=== PATIENT | male | born 1965 | race Caucasian/White ===

== ENCOUNTER 2017-04-13 11:32 | Inpatient (IN) | payer OTHER ==
[~2017-04-13] VITALS: Ht 180.3 cm; Wt 72.6 kg
[~2017-04-13 11:32] MED LIST: ALDACTONE25 MG PO; CARVEDILOL25 MG PO; CARVEDILOL6.25 MG PO; COREG25 MG PO; HYDROCODON-ACE1 EA10 PO; HYDROCODON-ACE1 EACH PO; KEFLEX500 MG PO; LASIX20 MG PO; LOSARTAN POTASS25 MG PO; LOSARTAN POTASS50 MG PO; NORCO 5-325 TA1 EACH PO; PERCOCET 5-3251 EACH PO; SPIRONOLACTONE25 MG PO; SPIRONOLACTONE50 MG PO; WARFARIN SODIU2.5 MG PO; WARFARIN SODIUM5 MG PO
[2017-05-21] MEDS ORDERED: MELOXICAM15 MG PO (11:12)
[2017-05-21] MEDS ORDERED: BUPROPION XL300 MG PO (11:12)
[2017-06-01] MEDS ORDERED: PSEUDOEPHEDRINE30 MG PO (17:12)
--- NOTE | 2017-06-02 07:55 | OR ---
[facility] [address], [place] [address] Signed DATE OF OPERATION: 06/01/2017 SURGEON: Chin Dixon MD PREOPERATIVE DIAGNOSIS: Severe DJD, left hip. POSTOPERATIVE DIAGNOSIS: Severe DJD, left hip. PROCEDURE PERFORMED: Left total hip arthroplasty. SURGEON: Chin Dixon MD ENTRY SPECIALISTS: ALAYNA Lyle was present in critical positioning, retraction, and wound closure. ANESTHESIA: Spinal. BLOOD LOSS: 150 mL. IMPLANTS: [place] Secur-Fit Advanced size 9 stem 60 mm PSL cup and +0 head. BRIEF HISTORY: Erwin is a 51-year-old gentleman with severe osteoarthritis in both hips. He had undergone nonoperative treatment without substantial relief. Risks, benefits, and alternatives of surgery were discussed with him and he elected to proceed. After a time-out was performed in the room, sign your site was performed. The patient was placed on operating room table. After adequate anesthesia, he was placed in the right lateral decubitus position. All downside pressure points were padded. The left hip was prepped and draped in a standard sterile fashion. A 4 inch incision was centered over the greater trochanter, carried through the skin and subcutaneous tissue. The IT band was split longitudinally. The vastus lateralis was split from the tip of the trochanter distally and elevated in a subperiosteal manner around the level of the lesser trochanter. Gluteus medius was split bluntly. Gluteus minimus and capsule were split sharply from the tip of the trochanter to the acetabular rim. This was peeled off the anterior rim. There was extensive effusion, but it looked like normal straw-colored fluid. The hip was then dislocated with some difficulty. Femoral neck cut made one fingerbreadth above the lesser trochanter and the femoral head was removed. Periacetabular soft tissues were removed and the acetabulum was reamed up to a 60. Sixty was found to be well-fitting in 45 degrees of abduction and 20 degrees of anteversion. Electronically Signed By: CHIN DIXON MD 06/02/17 0755 PATIENT NAME: ERWIN COLE OPERATIVE REPORT DATE OF : 67 PHYSICIAN: CHIN DIXON MD REPORT #: [id number] REPORT IS CONFIDENTIAL AND NOT TO BE RELEASED WITHOUT AUTHORIZATION [facility] [address], [place] [address] Signed The cup was impacted into position in this attitude. It was quite well-fitting. No screws were felt to be necessary. The liner was then impacted until it was well-seated. The attention was turned to proximal femur. It was opened using a cookie cutter, followed by the Zuleyma awfransico, sequentially reamed, starting with a six up to a nine and then broached up to a nine to nine, it was found to be well-fitting. The standard offset neck and posterior head were positioned. The hip was reduced. The leg lengths were found to be equal. He had 100 degrees of flexion and 30 degrees of internal, 20 degrees of external rotation. The hip was dislocated and the trials were removed. The final stem was impacted in position and a +0 36 mm head was positioned and impacted. It was again reduced, taken through range of motion and found to be stable. Wound was copiously irrigated with antibiotic solution. A total of 3 L antibiotic irrigation was used. The periarticular soft tissues were injected with 100 mL ropivacaine-Toradol mixture. The capsule was closed using #1 Vicryl. The vastus and IT bands were closed independently using #2 Stratafix, #1 Stratafix for subcutaneous tissue, and rick for the skin. Wound was dressed with Mepilex Ag dressing and op site. He was placed in a hip abduction brace, taken to the recovery room in satisfactory condition. All sponge, needle, and instrument counts were correct. Chin Dixon MD BA/MODL /[id number] cc: Griffin Suero MD Electronically Signed By: CHIN IDXON MD 06/02/17 0755 PATIENT NAME: ERWIN COLE OPERATIVE REPORT DATE OF : 67 PHYSICIAN: CHIN DIXON MD REPORT #: [id number] REPORT IS CONFIDENTIAL AND NOT TO BE RELEASED WITHOUT AUTHORIZATION
[2017-06-03] MEDS ORDERED: XARELTO10 MG PO (11:01)
[2017-06-03] MEDS ORDERED: TAMSULOSIN HCL0.4 MG PO (11:01)
[2017-06-03] MEDS ORDERED: OXYCODONE HCL5 MG PO (11:01)
[2017-06-03] MEDS ORDERED: HYDROMORPHONE HC4 MG PO (11:01)
[2017-06-03] MEDS ORDERED: MIRALAX17 GM PO (11:02)
--- NOTE | 2017-06-08 07:11 | DS ---
[facility] [address] [place], [place] [address] Signed ADMISSION DATE: 06/01/2017 DISCHARGE DATE: 06/03/2017 ADMISSION DIAGNOSIS: DJD, left hip. POSTOPERATIVE DIAGNOSIS: DJD, left hip. PROCEDURE PERFORMED: Left total hip arthroplasty. BRIEF HISTORY: Erwin is a 51-year-old gentleman with severe arthritis of his hip. He had undergone nonoperative treatment without success. Risks, benefits, and alternatives of operative treatment were discussed with him and he elected to proceed. DESCRIPTION OF PROCEDURE: Once consent was obtained, he was taken to the operating room, underwent the above-named procedure. He tolerated this well, was taken to the recovery room and subsequently to the orthopedic floor. He was initially placed on oxycodone and Boswell, however, he was on substantial Boswell prior to surgery. His comment was he took the Boswell like candy before surgery, and so these were insufficient to manage his postoperative pain. We did increase his pain medication to oxycodone 7.5 q.4 hours and Dilaudid 4-12 mg q.4 hours p.r.n. He continued to rate his pain at anywhere from 5-7/10, even though, he was somnolent, his physiologic markers were normal. I think this is likely secondary to his chronic opioid use prior to surgery. He did mobilize well with physical therapy. He was able to go up and down the stairs and up and down the hallway with good safety profile. He will be discharged to home with the above medications. He was on warfarin prior to surgery due to a low ejection fraction. This is documented on most recent studies to be increased to almost normal. I did talk to his PCP, Dr. Suero, and he advised to leave him off of the warfarin postoperatively. We will cover him with our normal DVT prophylaxis using Xarelto 10 mg daily. He was kept on it in the hospital, in addition to SCDs and TEDs. He will be discharged to home with the above and outpatient physical therapy. He will follow up with me in 10-14 days as previously scheduled. Chin Dixon MD Electronically Signed By: CHIN DIXON MD 06/08/17 0711 PATIENT NAME: ERWIN COLE DISCHARGE SUMMARY DATE OF : 67 PHYSICIAN: CHIN DIXON MD REPORT #: [id number] REPORT IS CONFIDENTIAL AND NOT TO BE RELEASED WITHOUT AUTHORIZATION [facility] [address] [place], [place] [address] Signed /UMAIR /[id number] Electronically Signed By: CHIN DIXON MD 06/08/17 0711 PATIENT NAME: ERWIN COLE DISCHARGE SUMMARY DATE OF : 67 PHYSICIAN: CHIN DIXON MD REPORT #: [id number] REPORT IS CONFIDENTIAL AND NOT TO BE RELEASED WITHOUT AUTHORIZATION
== END 2017-06-03 13:25 | disposition home or self-care (01) | DRG 470 ==
LOC: MS 04-20 08:45 → DSVR 06-01 05:50 → MS 06-01 08:45
PROVIDERS: ADMIT Specialist
PROC: 0SRB04Z Replacement of Left Hip Joint with Ceramic on Polyethylene Synthetic Substitute, Open Approach (ICD-10-PCS; principal; 2017-06-01 06:45)
DX: M16.12 Unilateral primary osteoarthritis, left hip (principal); I50.22 Chronic systolic (congestive) heart failure; Z79.01 Long term (current) use of anticoagulants
CPT/HCPCS: 01214; 01996; 36415; 64447; 72170; 76942; 80048; 85025; 85610; 94762; 97110; 97116; 97161; 97165; 97535; C1776; J0690; J0735; J1170; J2250; J2270; J2274; J2704; J3010; J7120

== ENCOUNTER 2017-08-31 14:44 | Observation (INO) | payer OTHER ==
[~2017-08-31] VITALS: Ht 177.8 cm; Wt 75.3 kg
[~2017-08-31 14:44] MED LIST changes: +BUPROPION XL300 MG PO; +HYDROMORPHONE HC4 MG PO; +MELOXICAM15 MG PO; +MIRALAX17 GM PO; +OXYCODONE HCL5 MG PO; +PSEUDOEPHEDRINE30 MG PO; +TAMSULOSIN HCL0.4 MG PO; +XARELTO10 MG PO
[2017-09-16] MEDS ORDERED: NORCO 7.5-3251 EACH PO (15:34)
[2017-09-16] MEDS ORDERED: FUROSEMIDE20 MG PO (15:35)
--- NOTE | 2017-09-16 15:47 | NUR ---
PATIENT HERE TODAY FOR PREADMISSION APPOINTMENT. HE IS SCHEDULED TO HAVE A RIGHT TOTAL HIP REPLACMENT ON 09/28/17. HE STATES HE IS DOING VERY WELL AFTER HAVING HIS LEFT HIP REPLACED IN MAY. HE STILL HAS EVERYTHING FROM HIS LAST SURGERY INCLUDING HIS WALKER, CANE, SHOWER BENCH, HAND HELD SHOWER HEAD AND RAISED TOILET SEAT. HE WOULD LIKE TO HAVE PHYSICAL THERAPY SET UP AT THE [facility] AGAIN SINCE HE HAS RECENTLY BEEN THERE. HIS GIRLFRIEND JUSTA WILL BE THE ONE TO TRANSPORT HIM HOME AND TO APPOINTMENTS. THIS INFORMATION WILL BE SENT TO DR CAMACHO AND ALSO TO CALDERON PLANNING FOR FURTHER FOLLOW UP.
--- NOTE | 2017-09-28 12:10 | NUR ---
09/28/17 1210 Kamla Damon 1201 PT ARRIVED IN PACU SLEEPY. 1210 PT AWAKE TALKING TO STAFF.
--- NOTE | 2017-09-28 13:05 | NUR ---
PATIENT AWAKE AND ALERT IN ROOM. SIGNIFICANT OTHER AT BEDSIDE. ROOM AIR. 96% O2 SATS. 69 HR. EATING ICE CHIPS NOW. TOLERATING SO FAR. PAIN MINIMAL. REPORTS DIFFICULTY WITH PAIN CONTROL AND VOIDING WITH LAST KNEE REPLACEMENT. WILL WATCH CLOSELY.
--- NOTE | 2017-09-28 13:33 | NUR ---
provided jello, ice water, and ice chips. pt tolerating well and encouraged to advance diet as able.
--- NOTE | 2017-09-28 14:06 | NUR ---
PATIENT RESTING IN BED WATCHING TV. RN IN ROOM. NO OTHER NEEDS AT THIS TIME.
--- NOTE | 2017-09-28 15:03 | NUR ---
PT DROWSY. RESTING BETWEEN CARES. PAIN CONTROLLED, BUT REPORTED TO BE INCREASING SLIGHTLY. WILL CONTINUE TO MONITOR.
--- NOTE | 2017-09-28 15:53 | NUR ---
ORDERED PATIENT GRILLED CHEESE AND JELLO FROM KITCHEN. ADVANCING DIET TOLERATING.
--- NOTE | 2017-09-28 16:34 | NUR ---
THIS ENTRY EXAMINER ASSISTED PATIENT WITH PT TO BATHROOM AND BACK TO BEDSIDE. CHANGED PATIENT'S LINENS AND GOWN, ASSISTED PATIENT WITH PARTIAL BED BATH. PATIENT WORKING WITH PT. NO OTHER NEEDS AT THIS TIME.
--- NOTE | 2017-09-28 16:48 | NUR ---
PT HAD INCONTINENT EPISODE OF STOOL IN BED. CLEANED UP BY AID WITH ASSIST FROM PHYSICAL THERAPIST. ANCEF INFUSED NOW. DICLOFENAC GIVEN. ATTEND PLACED ON PATIENT. WEDGE PILLOW IN PLACE BETWEEN LEGS. SCDs ON.
--- NOTE | 2017-09-28 18:20 | NUR ---
PATIENT RESTING IN BED VISITING WITH AND SONS. PATIENT STATES THAT HIS PAIN IS A 5 OUT OF 10. FRESH ICE WATER. ICE IN CRYO. THIS ROLLER MILL OPERATOR TURNED HIP WEDGE ABDUCTOR ON ITS SIDE TO LIMIT THE ADDUCTION FOR THE PATIENT. RN APPROVED. PATIENT STATES IT IS MORE COMFORTABLE FOR HIM AND CAUSES LESS PAIN. CALL LIGHT WITHIN REACH. NO OTHER NEEDS AT THIS TIME.
--- NOTE | 2017-09-28 18:23 | NUR ---
PATIENT ARRIVED TO FLOOR AT 1245. POST OP VS WNL. PT HAD LEFT HIP REPLACED IN MAY. HAD TROUBLE WITH PAIN MANAGEMENT AND URINE RETENTION WITH LAST SURGERY. BLADDER SCANNED AT 1700 FOR 317ML. PT/OT. 1-2PA FWW. STOOL INCONTINENT THIS AFTERNOON. NO VOID YET. ANCEF. S/L. DICLOFENAC SCHEDULED BID. POSSIBLY HOME TOMORROW. FLOMAX TO START AT 2100.
--- NOTE | 2017-09-28 20:33 | NUR ---
RECIEVED REPORT FORM DAY SHIFT RN. PT IN BED WITH HOB ELEVATED. SCD'S IN PLACE. CRYO CUFF ON AND ICE FRESH. ABDUCTOR IN PLACE. DRESSING C/D/I. CALL LIGHT WITHIN REACH. PAIN IS 5/10 IN RIGHT HIP. OXYCODONE GIVEN.
--- NOTE | 2017-09-28 22:15 | NUR ---
PT UNABLE TO VOID AFTER SEVERAL ATTEMPTS, BLADDER SCAN MET PERAMETERS FOR CHILDRESS PLACEMENT. CHILDRESS PLACED, USED STERILE TECHNIQUE THROUGHTOUT PLACEMENT, PT TOLERATED WELL. CHILDRESS DRAINING ORANGE COLORED URINE FREELY.
--- NOTE | 2017-09-28 23:47 | NUR ---
PT APPEARS TO BE SLEEPING. ABDUCTOR IN PLACE. SCD'S ON. CRYOCUFF IN PLACE. HOB ELEVATED. CALL LIGHT WITHIN REACH.
--- NOTE | 2017-09-29 00:25 | NUR ---
PT APPEARS TO BE SLEEPING. RR WNL. ANCEF INFUSING. CALL LIGHT WITHIN REACH.
--- NOTE | 2017-09-29 01:03 | NUR ---
ANCEF COMPLETE PT REQUESTED SODA. WATER REFRESHED. RR WNL. CALL LIGHT WITHIN REACH.
--- NOTE | 2017-09-29 02:53 | NUR ---
PT REPORTS PAIN /. 10MG OXYCODONE GIVEN. CALL LIGHT WITHIN REACH. NO OTHER NEEDS AT THIS TIME.
--- NOTE | 2017-09-29 05:38 | NUR ---
REG DIET. 1PA WITH FWW. 10MG OXYCODONE GIVEN, DRESSING C/D/I. CHILDRESS PLACED LAST NIGHT DC'D THIS AM. USES CALL LGT APPROPRIATELY.
--- NOTE | 2017-09-29 06:33 | NUR ---
CALDERON'd siomara wnl, pt tolerated well. pt in no apparent distress, reports his night was "not too bad." pain well controlled overnight. pt has no further needs at this time. call light in reach.
--- NOTE | 2017-09-29 07:20 | OR ---
[facility] [address] [place] [place] [address] Signed DATE OF OPERATION: 09/28/2017 SURGEON: Chin Dixon MD PREOPERATIVE DIAGNOSIS: Degenerative joint disease of the right hip. POSTOPERATIVE DIAGNOSIS: Degenerative joint disease of the right hip. PROCEDURE PERFORMED: Right total hip arthroplasty. TREE CHIPPER: Anahi Montoya PA-C. Anahi was present in critical for positioning retraction, wound closure. ANESTHESIA: General with spinal. BLOOD LOSS: 100 mL. IMPLANTS: Secure-Fit advanced size 9 stem +0 head and a 58 mm cup with a standard offset lining. BRIEF HISTORY: Erwin is a 51-year-old gentleman with bilateral hip arthritis. He had undergone prior left total hip with good results. Risks and benefits of operative treatment with the right side were discussed with him. He elected to proceed. DESCRIPTION OF PROCEDURE: Once consent was obtained, he was taken to the operating room. After adequate anesthesia, he was placed on operating room table. All downside pressure points well padded. He was placed in the left lateral decubitus position. All downside pressure points well padded again and an axillary roll was placed. The hip was prepped and draped in a standard sterile fashion. The hip was approached through a 4-inch incision centered over the greater trochanter carried through skin and subcutaneous tissue. The IT band was split longitudinally. The vastus lateralis was split from the tip of the trochanter distally and elevated in a subperiosteal manner around the level of the Electronically Signed By: CHIN DIXON MD 09/29/17 0720 PATIENT NAME: ERWIN COLE OPERATIVE REPORT DATE OF : 67 REPORT #: [id number] PHYSICIAN: CHIN DIXON MD PCP: YOGI MONREAL MD REPORT IS CONFIDENTIAL AND NOT TO BE RELEASED WITHOUT AUTHORIZATION [facility] [address] [place], [place] [address] Signed lesser trochanter. The gluteus medius was split bluntly. The gluteus minimus and capsule were split sharply. The capsule was elevated off the anterior neck and the hip was dislocated quite easily. The femoral neck cut was made 1 fingerbreadth above the lesser trochanter. The femoral head was removed. Periacetabular soft tissue was removed and the acetabulum was reamed starting with a 46 and going to a 58. The 58 was found to be quite well fitting. A 58 cup was impacted in 20 degrees of anteversion and 45 degrees of abduction. A single 6.5 mm screw was placed posterosuperiorly. The liner was then impacted in position. The attention was then turned to the proximal femur. This was opened using a cookie cutter followed by the Zuleyma awl. Sequential reaming up to a 9 and broaching up to a 9 with a 9 left in position. The trial neck and head were then positioned. The hip was reduced. The leg lengths found to be equal and the range of motion was good with 110 degrees of flexion. Internal and external rotation of 30 with no impingement. The hip was then dislocated. Trial was removed. The final stem was impacted to the same level or was quite stable. The +0 head was impacted after cleaning the trunnion. The hip was again reduced, taken through range of motion as noted above. The wound was copiously irrigated with antibiotic solution under pulse lavage. A total of 3 L was used. The periarticular soft tissues were injected with 60 mL ropivacaine and Toradol mixture. The capsule was then closed using #1 Vicryl. The vastus and IT bands were closed independently using #2 StrataFix, subcutaneous tissue with 0 StrataFix, and skin with rick. The wound was dressed with a Mepilex Ag dressing and Opsite. He was placed in abduction brace, taken to the recovery room in satisfactory condition. All sponge, needle, and instrument counts were correct. Chin Dixon MD BA/MODL /[id number] Copies: ~ Electronically Signed By: CHIN DIXON MD 09/29/17 0720 PATIENT NAME: ERWIN COLE OPERATIVE REPORT DATE OF : 67 REPORT #: [id number] PHYSICIAN: CHIN DIXON MD PCP: YOGI MONREAL MD REPORT IS CONFIDENTIAL AND NOT TO BE RELEASED WITHOUT AUTHORIZATION
--- NOTE | 2017-09-29 07:35 | NUR ---
PATIENT RESTING IN BED WITH EYES CLOSED. PATIENT STATES THAT HE WOULD LIKE TO GET UP AND WASH LATER THIS MORNING. PATIENT STATES HE DID NOT SLEEP VERY WELL LAST NIGHT. CALL LIGHT WITHIN REACH. NO OTHER NEEDS AT THIS TIME.
--- NOTE | 2017-09-29 07:36 | NUR ---
BEDSIDE SHIFT REPORT RECEIVED FROM MARY TREVINO. WHITE BOARD UPDATED. PATIENT RESTING WITH EYES CLOSED, BUT AWAKENED TO VOICE. PAIN MANAGED WELL WITH OXYCODONE. CHILDRESS PLACED OVERNIGHT AND REMOVED AT 0630. PLAN IS TO SEND PATIENT HOME THIS AFTERNOON. DR CAMACHO IN TO SEE PATIENT ALREADY THIS MORNING. CRYOCUFF IN PLACE ON RIGHT HIP. DRESSING C/D/I. SCDs, HEEL BOOTS, ABDUCTOR PILLOW, AND TEDS IN PLACE. DUE TO VOID.
--- NOTE | 2017-09-29 09:04 | NUR ---
PT REPORTS 7/10 RIGHT HIP PAIN. DICLOFENAC AND 5MG OXYCODONE GIVEN (TO COMPLETE 15MG TOTAL). 10MG OXYCODONE GIVEN AT 0700 DID NOT COVER PAIN. PATIENT SITTING UP IN RECLINER NOW. HAS NOT VOIDED AFTER CATHETER REMOVED. DUE TO VOID. CRYOCUFF PLACED ON RIGHT HIP. PT RESTING QUIETLY BETWEEN CARES.
--- NOTE | 2017-09-29 10:45 | NUR ---
PT UNABLE TO VOID. ATTEMPTED TO VOID IN BED WITH URINAL. BLADDER SCAN OF 180ML. WILL CONTINUE TO MONITOR. PATIENT DROWSY TODAY. SLEEPS BETWEEN CARES.
--- NOTE | 2017-09-29 13:18 | EKG ---
[facility] [address] [facility] [place] [address] Signed Normal sinus rhythm Nonspecific ST and T wave abnormality Prolonged QT Abnormal ECG When compared with ECG of 15-JUL-2016 01:47, T wave inversion no longer evident in Inferior leads T wave inversion no longer evident in Lateral leads QT has lengthened Confirmed by GUILLERMINA COLON MD ([id number]) on 09/29/2017 1:18:30 PM Electronically Signed By: GUILLERMINA COLON MD 09/29/17 1318 PATIENT NAME: JESSA COLE Electrocardiogram DATE OF : 67 PHYSICIAN: GUILLERMINA COLON MD REPORT #: [id number] REPORT IS CONFIDENTIAL AND NOT TO BE RELEASED WITHOUT AUTHORIZATION
--- NOTE | 2017-09-29 13:49 | NUR ---
UPDATED DR CAMACHO ON CONDITION OF PATIENT. UNABLE TO URINATE IN BED AND STANDING. BLADDER SCAN FOR 398ML. DR CAMACHO GAVE ORDER TO CATHETERIZE PATIENT AND GIVE LEG BAG TO GO HOME WITH AND SET UP FOLLOW UP WITH DR SANTORO IF UNABLE TO URINATE BEFORE HE REACHES 500ML IN BLADDER.
--- NOTE | 2017-09-29 14:16 | NUR ---
PT SITTING IN BED, LOOKS SOMWWHAT DISTRESSED. HE SAID HIS PAIN IS AN 8, AND HAS NOT YET BEEN ABLE TO URINATE. PT REQUESTED PRAYER, AND WILL MENTIONE TO RN KAREN HIS DISCOMFORT.
--- NOTE | 2017-09-29 15:48 | NUR ---
PT WORKING WITH PHYSICAL THERAPY. REPORTS PAIN 8/10 EVEN AFTER OXYCODONE 15MG GIVEN AT 1400. WILL REASSESS AFTER THERAPY.
--- NOTE | 2017-09-29 16:39 | NUR ---
stringer catheter inserted. to be left in ( do not take out at 0600 tomorrow). pain med changes to allow better pain control. updated dr sotelo.
--- NOTE | 2017-09-29 17:47 | NUR ---
PATIENT RESTING IN BED WITH EYES CLOSED. ICE IN CRYO. FRESH ICE WATER GIVEN. CALL BUTTON IN REACH.
--- NOTE | 2017-09-29 17:50 | NUR ---
PATIENT UNABLE TO URINATE TODAY. CHILDRESS CATHETER PLACED. PAIN MEDS CHANGED FOR BETTER PAIN CONTROL. LEAVE CHILDRESS CATHETER IN PLACE TOMORROW- DO NOT REMOVE PER MD. SALINE LOCKED. DROWSY TODAY BETWEEN CARES. WILL WORK WITH PHYSICAL THERAPY AGAIN TOMORROW.
--- NOTE | 2017-09-29 19:10 | NUR ---
RECEIVED REPORT FROM RN. PATIENT RESTING COMFORTABLY IN BED, BREATHING IS EVEN AND UNLABORED. APPEARS TO BE ASLEEP. ALL ORDERS IN PLACE, CALL LIGHT WITHIN REACH.
--- NOTE | 2017-09-29 20:30 | NUR ---
PATIENT RESTING IN BED, BREATHING IS EVEN AND UNLABORED. RR IS 16, O2 SATURATION IS 95% ON ROOM AIR, PULSE IS 87. AWAKENS EASILY TO VOICE. REPORTS 6/10 PAIN IN RIGHT HIP, PRN OXYCODONE GIVEN PER EMAR. PATIENT DENIES FURTHER NEEDS. ASSESSMENT DONE. PATIENT REFUSING TO TAKE MILK OF MAGNESIA AT THIS TIME, DESPITE EDUCATION. CRYO-CUFF REFILLED. CALL LIGHT WITHIN REACH, ALL ORDERS IN PLACE.
--- NOTE | 2017-09-29 22:58 | NUR ---
PATIENT REPORTS 6/10 PAIN IN RIGHT HIP. PRN OXYCODONE GIVEN PER EMAR. DENIES FURTHER NEEDS. O2 SATURATION IS 95% ON ROOM AIR, HEART RATE IS 76, 16 R/MIN. WILL MONITOR PAIN CONTROL CLOSELY. CALL LIGHT WITHIN REACH.
--- NOTE | 2017-09-29 23:54 | NUR ---
PATIENT CONTINUES TO REPORT 6/10 PAIN IN RIGHT HIP. SCHEDULED TORADOL GIVEN IV PER EMAR. PATIENT DENIES FURTHER NEEDS. O2 SATURATION IS 95% ON ROOM AIR, RR IS 18, PULSE IS 79. CALL LIGHT WITHIN REACH, ALL ORDERS IN PLACE.
--- NOTE | 2017-09-30 00:55 | NUR ---
PATIENT CONTINUES TO REPORT 5/10 PAIN IN RIGHT HIP. CALLED DR. CAMACHO TO UPDATE HIM REGARDING PAIN CONTROL. RECEIVED ORDER FOR MORE PAIN MEDICATION (SEE EMAR).
--- NOTE | 2017-09-30 01:10 | NUR ---
PATIENT CONTINUES TO REPORT 6/10 PAIN IN RIGHT HIP. PRN NORCO GIVEN PER EMAR. O2 SATURATION IS 95% ON ROOM AIR, HEART RATE IS 73, RR IS 12. DENIES FURTHER NEEDS. CALL LIGHT WITHIN REACH.
--- NOTE | 2017-09-30 02:47 | NUR ---
PATIENT RESTING COMFORTABLY IN BED, BREATHING IS EVEN AND UNLABORED. O2 SATURATION IS 92% ON ROOM AIR, PULSE IS 73, RR IS 12. CALL LIGHT WITHIN REACH, ALL ORDERS IN PLACE.
--- NOTE | 2017-09-30 03:54 | NUR ---
PATIENT RESTING COMFORTABLY IN BED, BREATHING IS EVEN AND UNLABORED. O2 SATURATION IS 92% ON ROOM AIR, PULSE IS 80, RR IS 12. FLACC SCORE OF 0. CALL LIGHT WITHIN REACH, ALL ORDERS IN PLACE.
--- NOTE | 2017-09-30 06:12 | NUR ---
PATIENT RESTING COMFORTABLY IN BED, BREATHING IS EVEN AND UNLABORED. O2 SATURATION IS 93% ON ROOM AIR, PULSE IS 75, RR IS 16. REPORTS 4/10 PAIN IN RIGHT HIP, PRN OXYCODONE AND SCHEDULED TORADOL. GIVEN. DENIES FURTHER NEEDS. CALL LIGHT WITHIN REACH.
[2017-09-30] MEDS ORDERED: XARELTO10 MG PO (06:48)
[2017-09-30] MEDS ORDERED: MIRALAX17 GM PO (06:49)
[2017-09-30] MEDS ORDERED: DICLOFENAC POTA50 MG PO (06:50)
[2017-09-30] MEDS ORDERED: OXYCODONE HCL5 MG PO (06:51)
[2017-09-30] MEDS ORDERED: HYDROCODON-ACE1 EA11 PO (06:51)
--- NOTE | 2017-09-30 07:20 | NUR ---
BEDSIDE HANDOFF REPORT RECEIVED FROM OUTSEWER RN. PT SLEEPING, LEFT UNDISTURBED.
--- NOTE | 2017-09-30 08:30 | NUR ---
PT RESTING IN BED. PT RATING PAIN 4/10 AT THIS TIME, GIVEN 1 TAB NORCO FOR PAIN PROPHYLAXIS FOR PHYSICAL THERAPY, CRYOCUFF IN PLACE. PT ON ROOM AIR, O2 SATS 94%, LUNG SOUNDS CLEAR. PT BOWEL TONES ACTIVE, DENIES NAUSEA, PASSING FLATUS, REFUSED MIRALAX, EDUCATED ON CONSTIPATION AFTER SURGERY. PT WITH CHILDRESS CATH IN PLACE, DRAINING FREELY, PT TO DISCHARGE WITH CATHETER AND FOLLOW UP WITH DR. SANTORO. DRESSING TO RIGHT HIP CDI. CMS INTACT, WITHOUT EDEMA, SCDS AND WILLIAM HOSE IN PLACE. DISCUSSED PLAN OF CARE FOR THE DAY, PT SHOUDL DISCHARGE THIS AM. PT DENIES OTHER NEEDS AT THIS TIME.
--- NOTE | 2017-09-30 09:57 | NUR ---
VS AND I7O'S TAKEN AND DOCUMENTED. PT'S ONLY REQUEST IS PAIN MEDICATION. WILL INFORM RN. CALL LIGHT IS IN REACH.
[2017-09-30] MEDS ORDERED: FLOMAX0.4 MG PO (10:32)
[2017-09-30] MEDS ORDERED: BUPROPION XL300 MG PO (11:07)
[2017-09-30] MEDS ORDERED: SPIRONOLACTONE25 MG PO (11:07)
[2017-09-30] MEDS ORDERED: FUROSEMIDE20 MG PO (11:07)
[2017-09-30] MEDS ORDERED: COREG25 MG PO (11:07)
[2017-09-30] MEDS ORDERED: LOSARTAN POTASS50 MG PO (11:07)
--- NOTE | 2017-09-30 12:24 | NUR ---
CRYO CUFF REFILLED, PT GIVEN JELLO X2. PT HAS NO OTHER NEEDS AT THIS TIME. CALL LIGHT IS IN REACH.
--- NOTE | 2017-09-30 13:07 | NUR ---
DC VS TAKEN AND DOCUMENTED. IV DC'D BY THIS INCLUSION SPECIAL EDUCATOR PER RN.
--- NOTE | 2017-09-30 18:37 | NUR ---
FAXED CHART NOTES, INCLUDING FACESHEET, ORDER, H AND P, PROG NOTES, PT AND OT EVAL AND NOTES TO [facility] , REECIEVED FAX CONFIRMATION.
== END 2017-09-30 13:30 | disposition home or self-care (01) ==
LOC: MS 09-28 07:00 → DSVR 09-28 07:00 → MS 09-28 09:00 → DSVR 09-28 10:41 → MS 09-28 12:40
PROVIDERS: ADMIT Specialist
PROC: 0SR904Z Replacement of Right Hip Joint with Ceramic on Polyethylene Synthetic Substitute, Open Approach (ICD-10-PCS; principal; 2017-09-28 09:00)
DX: M16.11 Unilateral primary osteoarthritis, right hip (principal); I50.22 Chronic systolic (congestive) heart failure; Z96.642 Presence of left artificial hip joint; I48.91 Unspecified atrial fibrillation; I10 Essential (primary) hypertension; F39 Unspecified mood [affective] disorder; R35.0 Frequency of micturition; I40.0 Infective myocarditis; Z79.01 Long term (current) use of anticoagulants; Z79.1 Long term (current) use of non-steroidal anti-inflammatories (NSAID); Z79.891 Long term (current) use of opiate analgesic; Z87.891 Personal history of nicotine dependence; Z79.899 Other long term (current) drug therapy; Z88.0 Allergy status to penicillin; Z88.8 Allergy status to other drugs, medicaments and biological substances
CPT/HCPCS: 01214; 36415; 51798; 71045; 72170; 80048; 85025; 93005; 93010; 96374; 96375; 96376; 97110; 97116; 97161; C1776; G0378; G8978; G8979; J0690; J1100; J1885; J2250; J2274; J2370; J2704; J3010; J7120

== ENCOUNTER 2017-11-15 03:48 | Emergency (ER) | payer OTHER ==
[~2017-11-15] VITALS: Ht 177.8 cm; Wt 77.1 kg
[~2017-11-15 03:48] MED LIST changes: +DICLOFENAC POTA50 MG PO; +FLOMAX0.4 MG PO; +FUROSEMIDE20 MG PO; +HYDROCODON-ACE1 EA11 PO; +NORCO 7.5-3251 EACH PO
== END 2017-11-15 07:12 | disposition home or self-care (01) ==
LOC: ED 03:48
DX: M25.552 Pain in left hip (principal); I11.0 Hypertensive heart disease with heart failure; I50.9 Heart failure, unspecified; I48.91 Unspecified atrial fibrillation; Z96.642 Presence of left artificial hip joint; Z96.641 Presence of right artificial hip joint; Z87.891 Personal history of nicotine dependence; Z88.0 Allergy status to penicillin; Z88.8 Allergy status to other drugs, medicaments and biological substances; Z79.899 Other long term (current) drug therapy
CPT/HCPCS: 85025; 85651; 93970; 93971; 96372; 96374; 96375; 99284; J1100; J1170; J1885; J2405

== ENCOUNTER 2018-08-20 17:20 | Emergency (ER) | payer OTHER ==
[~2018-08-20] VITALS: Ht 180.3 cm; Wt 74.8 kg
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
[2018-08-20] MEDS ORDERED: VENTOLIN HFA18 GM INH (17:35)
[2018-08-20] MEDS ORDERED: BACLOFEN10 MG PO (18:12)
[2018-08-20] MEDS ORDERED: METHYLPREDNISOLO4 M1 PO (18:12)
[2018-08-20] MEDS ORDERED: KETOROLAC TROME10 MG PO (18:12)
== END 2018-08-20 21:00 | disposition home or self-care (01) ==
LOC: ED 17:20
DX: M25.552 Pain in left hip (principal); I11.0 Hypertensive heart disease with heart failure; I50.9 Heart failure, unspecified; I42.9 Cardiomyopathy, unspecified; I48.91 Unspecified atrial fibrillation; F17.200 Nicotine dependence, unspecified, uncomplicated; Z90.49 Acquired absence of other specified parts of digestive tract; Z88.0 Allergy status to penicillin; Z88.8 Allergy status to other drugs, medicaments and biological substances; Z79.899 Other long term (current) drug therapy
CPT/HCPCS: 73502; 73700; 96372; 99284-25; J1885

== ENCOUNTER 2019-03-19 03:34 | Emergency (ER) | payer MEDICARE, OTHER ==
[~2019-03-19] VITALS: Ht 180.3 cm; Wt 72.6 kg
[~2019-03-19 03:34] MED LIST changes: +BACLOFEN10 MG PO; +KETOROLAC TROME10 MG PO; +METHYLPREDNISOLO4 M1 PO; +VENTOLIN HFA18 GM INH
[2019-03-19] MEDS ORDERED: CYCLOBENZAPRINE10 MG PO (04:21)
[2019-03-19] MEDS ORDERED: DICLOFENAC SODI75 MG PO (04:21)
== END 2019-03-19 04:46 | disposition home or self-care (01) ==
LOC: ED 03:34
DX: S46.911A Strain of unspecified muscle, fascia and tendon at shoulder and upper arm level, right arm, initial encounter (principal); I11.0 Hypertensive heart disease with heart failure; I50.9 Heart failure, unspecified; F17.200 Nicotine dependence, unspecified, uncomplicated; Z88.0 Allergy status to penicillin; Z88.8 Allergy status to other drugs, medicaments and biological substances; Z79.899 Other long term (current) drug therapy; W01.198A Fall on same level from slipping, tripping and stumbling with subsequent striking against other object, initial encounter
CPT/HCPCS: 73030; 99283

== ENCOUNTER 2019-05-10 08:44 | Inpatient (IN) | payer MEDICARE, OTHER ==
[~2019-05-10] VITALS: Ht 180.3 cm; Wt 71.6 kg
--- OUTSIDE RECORDS SUMMARY | ~2019-05-10 | XMS | Encounter Summary ---
Demographics + + + | Address | [address] [facility] | | | [place] [address] | + + + | Home Phone | | + + + | Preferred Language | Unknown | + + + | Marital Status | | + + + | Denominational Affiliation | 1077 | + + + | Race | Unknown | + + + | Ethnic Group | Unknown | + + + Author + + + | Author | [facility] | | | and [place] | + + + | Organization | [facility] | | | [...] | + + + + + | Beckie | KARINE | [address] | | | [place] | | [place] | | | | | [address] | | + + + + + Care Team Providers + +------+ + | Care General Accounting Clerk Name | Role | Phone | + +------+ + | Bess Alba | PCP | | + +------+ + Encounter Details +--------+ + + + + | Date | Type | Department | Care Team | Description | +--------+ + + + + | 02/23/ | Orders Only | [facility] | Provider, | | | 2019 | | SYSTEM GENERIC OP | MD [address] | | | | | [address]VERSION [address] | [address] | | | | | [address] [facility], [place] | [place] [address] | | | | | [address] | | | | | | [phone] | | | +--------+ + + + [...] + +---------+ + | Alcohol Use | Drinks/We | oz/Week | Comments | | | ek | | | + + +---------+ + | Yes | 21-28 | 12.6 - | Alcoholic Drinks/day: 3-4 beers daily | | | Cans of | 16.8 | | | | beer | | | + + +---------+ + + + + | Sex Assigned [...] Description | +--------+---------+ + + + | 05/16/ | Office | Physical Medicine | Kirill Guerrero PA-C | | | 2019 | Visit | and Rehabilitation | [address] [facility] | | | | | | [address] [place] | | | | | | [place] [address] | | | | | | [phone] | | | | | | | | +--------+---------+ + + + documented as of this encounter Visit Diagnoses Not on filedocumented in this encounter"
--- OUTSIDE RECORDS SUMMARY | ~2019-05-10 | XMS | Clinical Summary ---
Demographics + + + | Address | [address] [facility] | | | [place] [address] | + + + | Home Phone | | + + + | Preferred Language | Unknown | + + + | Marital Status | | + + + | Christianity Affiliation | 1077 | + + + | Race | Unknown | + + + | Ethnic Group | Unknown | + + + Author + + + | Author | [facility] | | | and [place] | + + + | Organization | [facility] | | | [...] [place] | | | | | [address] | | + + + + + Care Team Providers + +------+ + | Care Cable Puller Name | Role | Phone | + [...] +---------+------+------+-------+ | albuterol | Inhale 2 puffs into | | 0 | | | Activ | | (VENTOLIN HFA) 90 | the lungs every 6 | | | | | e | | mcg/puff inhaler | hours as needed for | | | | | | | | Wheezing. | | | | | | + + + +---------+------+------+-------+ | carvedilol (COREG) | Take 1 tablet by | | 0 | | | Activ | | 25 mg tablet | mouth 2 times daily. | | | | | e | + + + +---------+------+------+-------+ | diclofenac | Take 1 tablet by | | 0 | | | Activ | | (VOLTAREN) 75 mg EC | mouth Twice daily | | | | | e | | tablet | as needed. | | | | | | + + + +---------+------+------+-------+ | furosemide (LASIX) | Take 1 tablet by | | 0 | | | Activ | | 20 mg tablet | mouth Daily. | | | | | e | + + + +---------+------+------+-------+ | losartan (COZAAR) | Take 1 tablet by | | 0 | | | Activ | | 50 mg tablet | mouth Daily. | | | | | e | + + + +---------+------+------+-------+ | spironolactone | Take 1 tablet by | | 0 | | | Activ | | (ALDACTONE) 25 mg | mouth Daily. | | | | | e | | tablet | | | | | | | + + + +---------+------+------+-------+ | pseudoePHEDrine | Take 30 mg by mouth | | 0 | | | Activ | | (SUDOGEST) 30 mg | every 6 hours as | | | | | e | | tablet | needed for | | | | | | | | Congestion. | | | | | | + + + +---------+------+------+-------+ | DULoxetine | Take 1 capsule daily | 60 | 0 | 03/2 | | Activ | | (CYMBALTA) [address] | x 14 days, then 2 | capsule | | 0/20 | | e | | capsule | caps daily. | | | 19 | | | + + + +---------+------+------+-------+ | albuterol | Inhale 2 puffs every | | 0 | | | Activ | | (PROVENTIL HFA) 90 | 6 (six) hours as | | | | | e | | mcg/puff inhaler | needed for wheezing. | | | | | | + + + +---------+------+------+-------+ | carvedilol (COREG) | Take 25 mg by mouth. | | 0 | | | Activ | | 25 mg tablet | | | | | | e | + + + +---------+------+------+-------+ | diclofenac | Take 75 mg by mouth. | | 0 | | | Activ | | (VOLTAREN) 75 mg EC | | | | | | e | | tablet | | | | | | | + + + +---------+------+------+-------+ | furosemide (LASIX) | Take 20 mg by mouth. | | 0 | | | Activ | | 20 mg tablet | | | | | | e | + + + +---------+------+------+-------+ | spironolactone | Take 25 mg by mouth | | 0 | | | Activ | | (ALDACTONE) 25 mg | Daily. | | | | | e | | tablet | | | | | | | + + + +---------+------+------+-------+ Active Problems + + + | Problem | Noted Date | + + + | Bilateral leg [...] + | 02/23/ | Orders Only | | Provider, | | | 2018 | | | Historical, MD | | +--------+ + + + + from Last 3 Months Immunizations + + + + | Name | Dates Previously Given | Next Due | + + + [...] recent travel history available. | + + Last Filed Vital Signs + + + + | Vital Sign | Reading | Time Taken | + + + + | Blood Pressure | 97/57 | 02/04/2019 1135 PDT | + + + + | Pulse | 73 | 02/04/2019 1135 PDT | + + + + | Temperature | - | - | + + + + | Respiratory Rate | - | - | + + + + | Oxygen Saturation | - | - | + + + + | Inhaled Oxygen | - | - | | Concentration | | | + + + + | Weight | 74.8 kg (165 lb) | 02/04/20191134 PDT | + + + + | Height | 180.3 cm (5' 11") | 02/04/20191134 PDT | + + + + | Body Mass Index | 23.01 | 02/04/20191134 PDT | + + + + Plan of Treatment +--------+---------+ + + + | Date | Type | Specialty | Care Team | Description | +--------+---------+ + + + | 05/16/ | Office | Physical Medicine | Kirill Guerrero PA-C | | | 2019 | Visit | and Rehabilitation | [address] | | | | | | [address] [place] | | | | | | [place] [address] | | | | | | [phone] | | | | | | | | +--------+---------+ + + + + + + + + | Health Maintenance | Due Date | Last Done | Comments | + + + + [...] + + | Vaccine: Influenza | | 05/05/2017, 07/11/2009 | | | (#1) | 9 | | | + + + + + | Vaccine: | Completed | 07/11/2009 | | | Pneumococcal 19-64 | | | | | (PPSV23 only) Medium | | | | | Risk | | | | + + + + + Results Not on filefrom Last 3 Months Insurance + +--------+ +--------+ +---------+--------+ | Payer | Benefi | Subscriber | Effect | Phone | Address | Type | | | t Plan | ID | moon | | | | | | / | | Dates | | | | | | Group | | | | | | + +--------+ +--------+ +---------+--------+ | [employer] | MODA | [id number] | | [phone] | | Medica | | MEDICAID HMO | HEALTH | | [id number]-Pr | 1 | | id | | | MDCD | | esent | | | | | | HMO OR | | | | | | + +--------+ +--------+ +---------+--------+ + +--------+ +--------+ + + | Guarantor Name | Accoun | Relation to | Date | Phone | Billing Address | | | t Type | Patient | of | | | | | | | | | | + +--------+ +--------+ + + | Erwin Cardoza | Person | Self | [birth year] | [address] | | [place] | [place] | | 1966 | [phone] | [address] [place] | | | [place] | | | 1 (Home) | [address] | + +--------+ +--------+ + + Advance Directives Patient has advance care planning documents on file. For more information, please contact:[facility] [place] [address]
--- OUTSIDE RECORDS SUMMARY | ~2019-05-10 | XMS | Clinical Summary ---
Demographics + + + | Address | [address] | | | [place] [address] | + + + | Home Phone | | + + + | Preferred Language | Unknown | + + + | Marital Status | | + + + | Hinduism Affiliation | 1077 | + + + | Race | Unknown | + + + | Ethnic Group | Unknown | + + + Author + + + | Author | [facility] (Historical as of | | | 02-26-19) | + + + | Organization | [facility] (Historical as of | | | 02-26-19) | + + + | Address | Unknown | + + + | Phone | Unavailable | + + + Support + + + + + | Name | Relationship | Address | Phone | + + + + + | Jessica Trujillo | ECON | Unknown | | + + + + + | Erwin Beth | ECON | [address] | | | [place] | | [place] | | | | | [address] | | + + + + + Care Team Providers + +------+ + | Care Farm Operations Manager Name | Role | Phone | + +------+ + | Griffin Suero MD | PP | | + +------+ + Allergies + [...] | Other (See Comments) | Medium | 08/13/19 | | | | | | 19 | | + + + + + + | Lisinopril | Anaphylaxis | High | 11/21/19 | | | | | | 13 | | + + + + + + Current Medications + + +-------+---------+------+------+-------+ | Prescription | Sig. | Disp. | Refills | Star | End | Statu | | | | | | t | Date | s | | | | | | Date | | | + + +-------+---------+------+------+-------+ | spironolactone | Take 25 mg by mouth | | | | | Activ | | (ALDACTONE) 25 MG | daily. | | | | | e | | tablet | | | | | | | + + +-------+---------+------+------+-------+ | diclofenac | Take 75 mg by mouth. | | | | | Activ | | (VOLTAREN) 75 MG EC | | | | | | e | | tablet | | | | | | | + + +-------+---------+------+------+-------+ | carvedilol (COREG) | Take 25 mg by mouth. | | | | | Activ | | 25 MG tablet | | | | | | e | + + +-------+---------+------+------+-------+ | furosemide (LASIX) | Take 20 mg by mouth. | | | | | Activ | | 20 MG tablet | | | | | | e | + + +-------+---------+------+------+-------+ | losartan (COZAAR) | losartan 50 mg | | | | | Activ | | 50 MG tablet | tablet | | | | | e | + + +-------+---------+------+------+-------+ Active Problems + + + | Problem | Noted Date | + + + | Cardiomyopathy (HCC) | 11/19/2012 | + + + | Smoker | 11/19/2012 | + + + | HTN (hypertension) | 11/19/2012 | + + + Immunizations + + + + | Name | Dates Previously Given | Next Due | + + + + | Influenza, Trivalent | 05/05/2017 | | | W/Preservative | | | + + + + | Pneumococcal | 07/11/2009 | | | Polysaccharide | | | | 23-valent | | | + + + + Family History + + +--------+ + | Relation | Name | Status | Comments | + + +--------+ + | Other | uncle"leg | Alive | | | | arterial | | | | | steno | | | + + +--------+ + Social History + +-------+ +--------+------+ | Tobacco Use | Types | Packs/Day | Years | Date | | | | | Used | | + +-------+ +--------+------+ | Current Every Day | | 1 | | | | Smoker | | | | | + +-------+ +--------+------+ + +---+---+---+ | Smokeless Tobacco: | | | | | Never Used | | | | + +---+---+---+ + + +---------+ + | Alcohol Use | Drinks/We | oz/Week | Comments | | | ek | | | + + +---------+ + | Yes | | | 3-4 beers daily | + + +---------+ + + + + | Sex Assigned at | Date Recorded | | | | + + + | Not on file | | + + + Last Filed Vital Signs + + + + | Vital Sign | Reading | Time Taken | + + + + | Blood Pressure | 97/57 | 02/04/2019 11:30 AM PDT | + + + + | Pulse | 73 | 02/04/2019 11:30 AM PDT | + + + + | Temperature | 36.6 C (97.8 F) | 11/21/2012 4:00 AM PDT | + + + + | Respiratory Rate | 18 | 11/21/2012 12:31 PM PDT | + + + + | Oxygen Saturation | 93% | 11/21/2012 12:31 PM PDT | + + + + | Inhaled Oxygen | - | - | | Concentration | | | + + + + | Weight | 74.8 kg (165 lb) | 02/04/2019 11:30 AM PDT | + + + + | Height | 180.3 cm (5' 11") | 02/04/2019 11:30 AM PDT | + + + + | Body Mass Index | 23.01 | 02/04/2019 11:30 AM PDT | + + + + Plan of Treatment + + + + + | Health Maintenance | Due Date | Last Done | Comments | + + + + + | Vaccine: | | | | | Dtap/Tdap/Td (1 - | 6 | | | | Tdap) | | | | + + + + + | Colon Cancer | | | | | Screening | 7 | | | | (Colonoscopy) | | | | + + + + + | Vaccine: Zoster (1 | | | | | of 2) | 7 | | | + + + + + | Vaccine: Influenza | | 05/05/2017 | | | (#1) | 9 | | | + + + + + | Vaccine: | Completed | 07/11/2009 | | | Pneumococcal 19-64 | | | | | (PPSV23 only) Medium | | | | | Risk | | | | + + + + + Results Not on filefrom Last 3 Months Insurance + +--------+ +------+-------+ + | Payer | Benefi | Subscriber | Type | Phone | Address | | | t Plan | ID | | | | | | / | | | | | | | Group | | | | | + +--------+ +------+-------+ + | MEDICARE | MEDICA | [id number] | | | [address] | | | RE | | | | [place] [address] | | | IP-OP | | | | | + +--------+ +------+-------+ + | MEDICAID | [place]ASTER | [id number] | | | [address] | | | N | | | | [place] | | | [place] | | | | [address] | | | M[employer] 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
--- OUTSIDE RECORDS SUMMARY | ~2019-05-10 | XMS | Clinical Summary ---
Demographics + + + | Address | [address] | | | [place] [address] | + + + | Home Phone | | + + + | Preferred Language | Unknown | + + + | Marital Status | | + + + | Judaism Affiliation | 1077 | + + + | Race | Unknown | + + + | Ethnic Group | Unknown | + + + Author + + + | Author | [facility] (Historical as of | | | 02-26-19) | + + + | Organization | [facility] (Historical as of | | | 02-26-19) [...] [address] | | | | | [address] | | + + + + + Care Team Providers + +------+ + | Care Boiler Room Operator Name | Role | Phone | [...] +------+-------+ + | MEDICARE | MEDICA | [id number] | | | [address] | | | RE | | | | [place] [address] | | | IP-OP | | | | | + +--------+ +------+-------+ + | MEDICAID | [place] | [id number] | | | [address] | | | N | | | | [place] | | | [place] | | | | [address] | | | MOLECULAR BIOLOGY DIRECTOR | | | | | + +--------+ [...] | [place] | | | [address] | [address] | + +--------+ +--------+ + +
--- OUTSIDE RECORDS SUMMARY | ~2019-05-10 | XMS | Clinical Summary ---
Demographics + + + | Address | [address] [facility] [address] | | | [place] [address] | + + + | Home Phone [...] [place] | | | | | [address] | | + + + + + Care Team Providers + +------+ + | Care Water Tester Name | Role | Phone | + [...] | | | | | [place] [address] | | | | | | [phone] | | | | | | | [...] | [employer] | MODA | [id number] | | [phone] | | Medica | | MEDICAID HMO [...] [place] | [place] | | 1966 | [phone] | [address] | | | [place] | | | 1 (Home) | [address] | + +--------+ +--------+ + + Advance Directives Patient has advance care planning documents on file. For more information, please contact:[facility] and [facility] [place] [address]
--- OUTSIDE RECORDS SUMMARY | ~2019-05-10 | XMS | Encounter Summary ---
Demographics + + + | Address | [address] [facility] | | | [place] [address] | + + + | Home Phone [...] [place] | | | | | [address] | | + + + + + Care Team Providers + +------+ + | Care Catalogue Librarian Name | Role | Phone | + +------+ + | Bess Alba | PCP | | + +------+ + Encounter Details +--------+ + + + + | Date | Type | Department | Care Team | Description | +--------+ + + + + | 02/23/ | Orders Only | [facility] | Provider, | | | 2019 | | SYSTEM GENERIC OP | MD [address] | | | | | [address] | [address] | | | | | [address] [place], [place] | [place] [address] | | | | | [address] | | | | | | [phone] | | | +--------+ + + + [...] Visit | and Rehabilitation | [address] [facility] | | | | | | [address] [place] | | | | | | [place] [address] | | | | | | [phone] | | | | | | | | +--------+---------+ + + + documented as of this encounter Visit Diagnoses Not on filedocumented in this encounter"
--- OUTSIDE RECORDS SUMMARY | ~2019-05-10 | XMS | Clinical Summary ---
Demographics + + + | Address | [address] [facility] | | | [place] [address] | + + + | Home Phone | | + + + | Preferred Language | Unknown | + + + | Marital Status | | + + + | Spiritism Affiliation | 1077 | + + + | Race | Unknown | + + + | Ethnic Group | Unknown | + + + Author + + + | Author | [facility] | | | and [place] | + + + | Organization | [facility] | | | and [...] [place] | | | | | [address] | | + + + + + Care Team Providers + +------+ + | Care Mail List Processor Name | Role | Phone | + [...] | | | | | | [place] [address] | | | | | | [phone] | | | | | | | [...] | [employer] | MODA | [id number] | | [phone] | | Medica | | MEDICAID HMO [...] [place] | [place] | | 1966 | [phone] | [address] | | | [place] | | | 1 (Home) | [address] | + +--------+ +--------+ + + Advance Directives Patient has advance care planning documents on file. For more information, please contact:[facility] and [facility] [address]
--- OUTSIDE RECORDS SUMMARY | ~2019-05-10 | XMS | Encounter Summary ---
Demographics + + + | Address | [address] [facility] | | | [place] [address] | + + + | Home Phone | | + + + | Preferred Language | Unknown | + + + | Marital Status | | + + + | Pentecostal Affiliation | 1077 | + + + [...] [place] | | | | | [address] | | + + + + + Care Team Providers + +------+ + | Care Medical Office Clerk Name | Role | Phone | + +------+ + | Bess Alba | PCP | | + +------+ + Encounter Details +--------+ + + + + | Date | Type | Department | Care Team | Description | +--------+ + + + + | 02/23/ | Orders Only | [facility] | Provider, | | | 2019 | | SYSTEM GENERIC OP | MD [address] | | | | | [address] | [address] | | | | | [address] [place], [place] | [place] [address] | | | | | [address] | | | | | | [phone] | | | +--------+ + + + [...] Visit | and Rehabilitation | [address] [facility] | | | | | | [address] [place] | | | | | | [place] [address] | | | | | | [phone] | | | | | | | | +--------+---------+ + + + documented as of this encounter Visit Diagnoses Not on filedocumented in this encounter"
--- OUTSIDE RECORDS SUMMARY | ~2019-05-10 | XMS | Clinical Summary ---
Demographics + + + | Address | [address] | | | [place] [address] | + + + | Home Phone | | + + + | Preferred Language | Unknown | + + + | Marital Status | | + + + | Mormonism Affiliation | 1077 | + + + | Race | Unknown | + + + | Ethnic Group | Unknown | + + + Author + + + | Author | [facility] [employer] [facility] [facility] (Historical as of | | | 02-26-19) | + + + | Organization | [facility] [employer] (Historical as of | | | 02-26-19) [...] [address] | | | | | [address] | | + + + + + Care Team Providers + +------+ + | Care Director Of Scout Work Name | Role | Phone | + [...] +------+-------+ + | MEDICARE | MEDICA | [id number] | | | [address] | | | RE | | | | [place] [address] | | | IP-OP | | | | | + +--------+ +------+-------+ + | MEDICAID | [place] | [id number] | | | [address] | | | N | | | | [place] | | | [place] | | | | [address] | | | PERSONAL PROTECTION SPECIALIST | | | | | + +--------+ [...] | [place] | | | [address] | [address] | + +--------+ +--------+ + +
[~2019-05-10 08:44] MED LIST changes: +CYCLOBENZAPRINE10 MG PO; +DICLOFENAC SODI75 MG PO
--- NOTE | 2019-05-10 12:45 | NUR ---
PT ARRIVED FROM ED. ALERT AND ORIENTED TO ALL. PT DENIES COUGH, SOB, PAIN, OR OTHER CONCERNS AT THIS TIME. EDUCATED ON POC, VERBALIZES UNDERSTANDING. PT SATTING 96% ON RA. LUNGS COURSE WITH CRACKLES IN THE BASES. NICOTINE PATCH APPLIED TO LEFT SHOULDER. PT EATING LUNCH, IONA WELL. EDUCATED ON FLUID RESTRICTION, PT AWARE AND COMPLIANT AT THIS TIME. SKIN GROSSLY INTACT. NO EDEMA NOTED. CALL LIGHT WITHIN REACH.
--- NOTE | 2019-05-10 13:59 | NUR ---
ECHO BEING COMPLETED AT BEDSIDE AT THIS TIME.
--- NOTE | 2019-05-10 14:10 | NUR ---
UPON ASSESSMENT NOTED IRREGULAR HEART SOUNDS, AND IRREGULAR RHTHYM ON TELE MONITOR. PT ASYMPTOMATIC. DR. COLON MADE AWARE.
[2019-05-10] MEDS ORDERED: FUROSEMIDE20 MG PO (14:21)
--- NOTE | 2019-05-10 14:42 | NUR ---
MED REC COMPLETE
--- NOTE | 2019-05-10 17:41 | NUR ---
PT REPORTS 5/10 HEADACHE. MEDICATED WITH PRN TYLENOL. PT SITTING UP IN BED EATING DINNER, IONA WELL. NITRO PASTE PATCH REMOVED AT THIS TIME PER DR. COLON. PT MOTHER SITTING AT BEDSIDE. CALL LIGHT WITHIN REACH.
--- NOTE | 2019-05-10 18:58 | NUR ---
PT REPORTS WORSENING OF HEADACHE DESPITE TYLENOL ADMINISTRATION. CONTACTED DR. COLON FOR NEW ORDER. DR. COLON STATED THE HEADACHE WAS MOST LIKELY FROM DICLOFENAC WITHDRAWAL. NO NEW ORDERS AT THIS TIME. EDUCATED PT AND GAVE HIM AN ICE PACK TO PLACE ON HIS NECK. LIGHTS OFF AND PT LYING IN BED. SIGNIFICANT OTHER AT BEDSIDE. CALL LIGHT WITHIN REACH.
--- NOTE | 2019-05-10 19:26 | NUR ---
PATIENT C/O WORTHY. SPOUSE AT BEDSIDE. ICE PACK APPLIED TO BACK OF NECK AND COOL CLOTH TO THE FOREHEAD. WILL BE BACK TO EVALUATE SHORTLY. CALL LIGHT IN REACH.
--- NOTE | 2019-05-10 20:39 | NUR ---
PATIENT HUNGRY AND WAS GIVEN SOME CRACKERS AND A SANDWHICH BOX, WORTHY IS 8/10 AND NEW ICE BAG FOR HIS NECK AND COLD CLOTH FOR HIS FACE GIVEN. NO OTHER NEEDS AT THIS TIME. CALL LIGHT IN REACH.
--- NOTE | 2019-05-10 21:57 | NUR ---
PATIENT RESTING IN BED WATCHING TV. HAS EATEN HIS SANDWICH AND GRANOLA BAR. PATIENT SAYS HE IS FEELING A LITTLE BETTER. HIS SAYS HE IS NOT, AND SHE IS AT BEDSIDE ON THE COMPUTER WITH THE LIGHTS OFF. PATIENT IS NO LONGER USING THE ICE BAG OR COLD CLOTH ON HIS FACE. PATIENT HAS NO OTHER NEEDS AT THIS TIME.
--- NOTE | 2019-05-10 23:01 | NUR ---
PATIENT RESTING QUIETLY IN BED, RESPIRATIONS REGULAR AND CALL LIGHT IN REACH. PATIENT'S WENT HOME FOR A BIT AND WILL BE BACK IN AWHILE. PATIENT HAS NO NEEDS AT THIS TIME.
--- NOTE | 2019-05-10 23:04 | EKG ---
[facility] [address] [facility] [place] [address] Signed Normal sinus rhythm Right atrial enlargement ST \T\ T wave abnormality, consider anterolateral ischemia Prolonged QT Abnormal ECG When compared with ECG of 03-JAN-2019 11:15, Vent. rate has increased BY [address] now depressed in Anterior leads Nonspecific T wave abnormality no longer evident in Inferior leads QT has lengthened Confirmed by GUILLERMINA COLON MD ([id number]) on 05/10/2019 11:03:58 PM Electronically Signed By: GUILLERMINA COLON MD 05/10/19 2304 PATIENT NAME: JESSA COLE Electrocardiogram DATE OF : 67 PHYSICIAN: GUILLERMINA COLON MD REPORT #: [id number] REPORT IS CONFIDENTIAL AND NOT TO BE RELEASED WITHOUT AUTHORIZATION
--- NOTE | 2019-05-11 02:36 | NUR ---
PATIENT HAS BEEN RESTING QUIETLY, SAYS HE FEELS BETTER, BUT THE ROOM IS REALLY COLD. THE ROOM WAS COLD, THERMOSTAT TURNED UP AND PATIENT GIVEN A WARM BLANKET. PATIENT'S ASSESSMENT REMAINS UNCHANGED EXCEPT FOR HIS WORTHY HAS IMPROVED. PATIENT SAYS HE IS IN NEED OF NOTHING ELSE AT THIS TIME.
--- NOTE | 2019-05-11 03:49 | NUR ---
PATIENT HAD A COUPLE OF SHORT RUNS OF V-TACH PER CCU AND DR. COLON WAS INFORMED WITH NO NEW ORDERS GIVEN. PATIENT SAID HE DID NO HAVE ANY PAIN OR PALPATATIONS AND HE WAS NOT DOING ANYTHING BUT LAYING IN BED. PATIENT WARMER NOW. NO OTHER NEEDS AT THIS TIME. CALL LIGHT IN REACH.
--- NOTE | 2019-05-11 05:08 | NUR ---
PATIENT HAS RESTED ON AND OFF AND HIS WORTHY HAS GOTTEN BETTER THROUGH THE NIGHT. LUNGS ARE SOUNDING BETTER, PATIENT HAS REMAINED ON ROOM AIR ALL NIGHT. PATIENT HAD A COUPLE OF SHORT RUNS OF V-TACH WHICH WAS NOTIFIED OF BY CCU, BUT NO NEW ORDERS WERE GIVEN. PATIENT RESTING QUIETLY AT THIS TIME EYES CLOSED, CALL LIGHT IN REACH, AND RESPIRATIONS EVEN. SPOUSE STILL HAS NOT RETURNED.
--- NOTE | 2019-05-11 07:30 | NUR ---
Pt in bed, appears to be sleeping. Resp even and non labored. Pt's at bedside sleeping. Personal supplies and call light within reach.
--- NOTE | 2019-05-11 07:50 | NUR ---
CALLED IN TO ASSESS PT REPORTING PT HAS FACIAL DROOP AND DIFFICULTY TALKING. PT FOUND IN BED, COFFEE SPILLED OVER GOWN, INCONTINENT OF URINE. PT ABLE TO MAKE EYE CONTACT WITH THIS RN. PT PROMPTED TO SMILE AND STICK TOUNGUE OUT AND SPEAK TO ME; PT ABLE TO SMILE AND STICK TOUNGUE OUT. NOTABLE LEFT FACIAL DROP WITH SLIGHT SLURRED SPEECH. LEFT ARM AND LEG ARE WEAK. PT REPORTS AN ONGOING HEADACHE THROUGHOUT THE NIGHT AND THIS AM. RAPID RESPONSE CALLED TO ROOM. BLOOD SUGAR OBTAINED. PROVIDER CALLED TO ROOM. RAPID NIH OBTAINED-SEE CHARTING. PT'S VS OBTAINED AND ARE STABLE. AT BEDSIDE.
--- NOTE | 2019-05-11 08:00 | NUR ---
AT NURSES STATION WITH PTS PRIMARY NURSE, BEATRIZ, PTS CAME TO NURSES STATION TO REPORT SHE BELIEVED HE HAD HAD A STROKE. IN WITH BEATRIZ TO ASSESS. POSTIVE FAST EXAM NOTED AND BLOOD SURGAR OF 107. OUT TO NURSES STATION TO REQUEST JAVA FLEX DEVELOPER CALL DR COLON AND A RAPID RESPONSE TEAM BE CALLED. VITALS STABLE. DR ECHOLS FROM ED IN ROOM FOR INITIAL EXAM AND PT TAKEN TO CT FOR HEAD CT WITHOUT CONTRAST.
--- NOTE | 2019-05-11 08:00 | NUR ---
0716 ALERTED NURSE BEATRIZ THAT PATIENT HAD LEFT WEAKNESS, MAINLY LEFT FACIAL DROOP. DR. COLON NOTIFIED, RAPID RESPONSE DONE. BLOOD GLUCOSE IS 107. VITALS 138/77, PULSE IS 87, 96% RA
--- NOTE | 2019-05-11 08:04 | NUR ---
PATIENT TO CT FOR HEAD CT, ORDER ENTERED PER DR. ECHOLS VERBAL ORDER. EKG DONE. DR. ECHOLS REVIEWED PATIENT'S ORDERED MEDICATIONS
--- NOTE | 2019-05-11 08:08 | NUR ---
CALL TO [facility] STROKE CONTACTED.
--- NOTE | 2019-05-11 08:18 | NUR ---
PATIENT BACK TO MED SURG. DR. COLON IN TO SEE PATIENT.
--- NOTE | 2019-05-11 08:31 | NUR ---
Certified Heart Failure Nurse Notes: Patient history reviewed. Plan to see patient for heart failure education deferred due to emergent care being administered in RR.
--- NOTE | 2019-05-11 09:30 | NUR ---
Met with Morro in room. He states he may have suffered a TIA this morning. Denies c/o at this time. Lives at home with Carisa with limited assistance. Wants to go home now. Has elevated toilet seat, cane, and shower bench at home. Denies need for other equipment. Plans on going to home when feeling better, encouraged to rest and wait until he talks with Dr. Perry before making any decisions.
--- NOTE | 2019-05-11 09:31 | NUR ---
PT A&OX4, RESPONDS APPROPRIATELY TO QUESTIONS. PT'S SPEECH IS CLEAR AND UNDERSTOOD. LEFT SIDED WEAKNESS HAS SUBSIDED. MILD LEFT FACIAL DROOP IS STILL PRESENT. PROVIDER HAS ASSESSED PT WELL THE BEDSIDE TELE STOKE TEAM PROVIDER. BEDSIDE SWALLOW EVEL COMPLETE BY TELE STROKE PROVIDER; PT TOLERATED WATER WITHOUT DIFFICULTY.
--- NOTE | 2019-05-11 10:08 | NUR ---
PATIENT UP TO SHOWER CHAIR, SBA. PATIENT IN SHOWER, SIGNIFICANT OTHER HELPING PATIENT WITH SHOWER. CALL LIGHT IN REACH. NO FURTHER NEEDS AT THIS TIME.
--- NOTE | 2019-05-11 10:45 | NUR ---
PT DOING WELL AT THIS TIME. PT TOLERATING WATER WITHOUT DIFFICULTY. ALL NEURO FUNCTION IS INTACT AT THIS TIME. FACIAL DROOP, SPEECH AND LEFT SIDED WEAKNESS HAVE SUBSIDED. PT TOLERATED A SHOWER WELL WITH ASSISTANCE OF . REMAINS AT BEDSIDE. PT STATES HE "FEELS GREAT".
--- NOTE | 2019-05-11 17:17 | NUR ---
Certified Heart Failure Nurse Notes: Diagnosis: HFrEF Continuous Improvement Specialist - not currently established PCP: Alva Alba PAC Echocardiogram 05/10/19 35-40% Larry Inhibitor or ARB for LVSD prescribed- Yes Losartan Beta Fiordaliza ordered -Carvedilol Admit Wt.:159.6 lb BMI 23 Admit BNP: 526 Social support system: Mother is at bedside Weight monitoring: Scale present in home. Does not currently monitor daily symptoms. Discussed how to weigh daily/ when to notify PCP. Symptom management: Addressed monitoring and reporting changes in weight or symptoms utilizing Zones magnet. Transportation mode: drives own vehicle Diet: Does not enjoy cooking. Dines out frequently. Most visits [employer]. Suggested patient go to their websites and look up sodium content of menu. Rational for <2300 mg sodium explained. Usual physical activity: Nothing outside of work. 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 Medication routine: Does forget frequently. Has 7 day pill box -encourage patient to use this and to utilize smart phone alarm. Has been counseled on minimizing/avoiding use of NSAIDs Tobacco: current use Advanced directive: Not discussed at this initial visit Recommendations prior to discharge: Document ambulation oxygen saturations prior to discharge Absence of orthostatic hypotension. Discharge weight less than admit weight. Discharge BNP less than admit (as per [facility] Heart Failure DC Bundle) Barriers to self-care include: Not currently involved in weekly cardiovascular exercise outside of working. Not established with a lead customer service representative. Lack of interest in cooking at home. Follow-up plans: Patient agrees to follow up with PCP post DC and accept referral to cardiology. Follow up call from this service, and will schedule outpatient heart failure education session at that time. Teaching materials given: [facility] Heart Failure bundle folder-[facility] My Action Plan Living Well with Heart Failure book, Zones magnet, [facility] contact information .Low Sodium Shopping list, better frozen dinner and dining out handouts. [facility] Vinegar for low salt cooking.
--- NOTE | 2019-05-11 17:46 | EKG ---
[facility] [address] [facility] [place] [address] Signed Sinus rhythm with premature atrial complexes Right atrial enlargement Nonspecific T wave abnormality Prolonged QT Abnormal ECG No previous ECGs available Confirmed by GUILLERMINA COLON MD ([id number]) on 05/11/2019 5:46:36 PM Electronically Signed By: GUILLERMINA COLON MD 05/11/19 1746 PATIENT NAME: JESSA COLE Electrocardiogram DATE OF : 67 PHYSICIAN: GUILLERMINA COLON MD REPORT #: [id number] REPORT IS CONFIDENTIAL AND NOT TO BE RELEASED WITHOUT AUTHORIZATION
--- NOTE | 2019-05-11 18:00 | NUR ---
PATIENT SITTING UP IN BED. IN ROOM. VITAL SIGNS AND I&O DONE. PATIENT DID NOT VOID DURING THIS PERIOD. RN NOTIFIED. CALL LIGHT WITHIN REACH. NO OTHER NEEDS AT THIS TIME
--- NOTE | 2019-05-11 19:33 | NUR ---
PATIENT IS WATCHING SPORTS WITH HIS FAMILY IN HIS ROOM. ALERT AND OREIENTED AND HAVING NO PAIN. CALL LIGHT IN REACH.
--- NOTE | 2019-05-11 21:07 | NUR ---
ROUNDED CHARGE. PATIENT IS SITTING UP IN BED. ALL QUESTIONS ANSWERED. PATIENT DENIES ANY COMMENTS, QUESTIONS, OR CONCERNS. NO FURTHER NEEDS NOTED. CALL LIGHT. PRESENT IN THE ROOM.
--- NOTE | 2019-05-11 22:17 | NUR ---
PATIENT IS AWAKE SETTING UP IN BED. Patient IS A 1P STANDBY ASSIST TO BATHEROOM. FAMILY IS IN THE ROOM WITH PATIENT, VITALS ARE DONE CALL LIGHT IN REACH, NO OTHERE NEEDS AT THIS TIME.
--- NOTE | 2019-05-11 23:14 | NUR ---
PATIENT SITTING UP IN BED WORKING ON HIS COMPUTER, NO NEEDS AT THIS TIME. SPOUSE AT THE BEDSIDE WORKING ON HER COMPUTER. TIA INFORMATION GIVEN TO THE PATIENT AND HE WAS READING IT WHEN I LEFT THE ROOM.
--- NOTE | 2019-05-12 01:02 | NUR ---
PATIENT RESTING QUIETLY IN BED IN SEMI-FOWLERS POSITION, RESPIRATIONS REGULAR AND EVEN, EYES CLOSED, CALL LIGHT IN REACH. PATIENT'S SPOUSE ASLEEP ON THE COUCH.
--- NOTE | 2019-05-12 02:18 | NUR ---
PATIENT'S VS AND NEURO CHECKS WITHIN NORMAL LIMITS. VS STABLE PATIENT A+O. CALL LIGHT IN REACH. PATIENT TRYING TO GO BACK TO SLEEP.
--- NOTE | 2019-05-12 03:30 | NUR ---
PATIENT RESTING QUIETLY ON HIS RIGHT SIDE, RESPIRATIONS REGULAR AND EVEN, EYES CLOSED. CALL LIGHT IN REACH. SPOUSE IS ASLEEP IN THE CHAIR AT BEDSIDE.
--- NOTE | 2019-05-12 05:25 | NUR ---
PATIENT HAD A NINE BEAT RUN OF V-TACH PER CCU, PATIENT WAS CHECKED, VS STABLE HE WAS ASLEEP, NEURO CHECKS WERE NORMAL AND PATIENT SAID,"I'VE FELT FINE." CALLED AND GAVE THIS INFORMATION TO MURIEL IN CCU AND SHE WILL PASS IT ON IN REPORT. PATIENT IS UP 2 LBS FROM YESTERDAY. NOW STANDING WEIGHT IS 157.8LBS, BUT HE HAS STUCK TO HIS FLUID RESTRICTION. PATIENT TRYING TO GO BACK TO SLEEP NOW, BUT SAYS HE IS GOING HOME TODAY. CALL LIGHT IS IN REACH.
--- NOTE | 2019-05-12 07:25 | NUR ---
PATIENT SLEEPING IN BED WITH IN ROOM. REPORT RECEIVED. ORDERS ACKNOWLEDGED. PATIENT ON TELE 9, WITH HR IN 70'S.
--- NOTE | 2019-05-12 09:30 | NUR ---
PATIENT SITTING UP IN BED, ALERT AND ORIENTED. AM MEDICATIONS GIVEN, TOLERATED WELL. DR. COLON IN ROOM TO DISCUSS POC WITH PATIENT. DISCHARGE ORDERS RECEIVED. ASSESSMENT COMPLETE. PATIENT DENIES FURTHER NEEDS AT THIS TIME, CALL LIGHT WITHIN REACH.
[2019-05-12] MEDS ORDERED: NICOTINE PATCH1 EAC1 TD (09:56)
[2019-05-12] MEDS ORDERED: ASPIRIN EC81 MG PO (09:57)
[2019-05-12] MEDS ORDERED: LIPITOR80 MG PO ×2 (09:57→09:59)
[2019-05-12] MEDS ORDERED: FUROSEMIDE20 MG PO (09:58)
--- NOTE | 2019-05-12 11:35 | NUR ---
DISCHARGE INSTRUCTIONS GIVEN. ALL QUESTIONS AND CONCERNS ANSWERED. PATIENT VERBALIZED UNDERSTANDING OF FOLLOW UP APPOINTMENT WITH PCP, WELL NEED TO HAVE LABS COMPLETED PRIOR TO FOLLOW UP. PATIENT BELONGINGS COLLECTED. DISCHARGE VITALS TAKEN, IV SITE D/C'D. PATIENT LEAVES UNIT VIA WHEELCHAIR WITH NURSING STAFF.
== END 2019-05-12 11:30 | disposition home or self-care (01) | DRG 292 ==
LOC: ED 08:44 → MS 11:45
PROVIDERS: ADMIT Internal Medicine
DX: I50.23 Acute on chronic systolic (congestive) heart failure (principal); G45.1 Carotid artery syndrome (hemispheric); M15.9 Polyosteoarthritis, unspecified; F17.200 Nicotine dependence, unspecified, uncomplicated; R29.810 Facial weakness; R29.701 NIHSS score 1; Z79.899 Other long term (current) drug therapy; Z79.1 Long term (current) use of non-steroidal anti-inflammatories (NSAID); Z88.0 Allergy status to penicillin; Z88.8 Allergy status to other drugs, medicaments and biological substances; Z86.79 Personal history of other diseases of the circulatory system
CPT/HCPCS: 36415; 70450; 70496; 70498; 71045; 80048; 80053; 80061; 83036; 83735; 83880; 84484; 85025; 90688; 93005; 93010; 93306; 94640; 94760; 96374; 99285-25; 99406; G0008; J1650; J1940; J3475; Q9967

== ENCOUNTER 2019-07-03 14:43 | Emergency (ER) | payer MEDICARE, OTHER ==
[~2019-07-03] VITALS: Ht 180.3 cm; Wt 71.6 kg
--- OUTSIDE RECORDS SUMMARY | ~2019-07-03 | XMS | Encounter Summary ---
Demographics + + + | Address | [address] [address] | | | [place] [address] | + + + | Home Phone | | + + + | Preferred Language | Unknown | + + + | Marital Status | | + + + | Advent Affiliation | 1077 | + + + | Race | Unknown | + + + | Ethnic Group | Unknown | + + + Author + + + | Author | [facility] | | | and [place] | + + + | Organization | [facility] | | | and [place] | + + + | Address | Unknown | + + + | Phone | Unavailable | + + + Support + + + + + | Name | Relationship | Address | Phone | + + + + + | Jessica Trujillo | ECON | Unknown | | + + + + + | Carisa Butts | ECON | [address] | | | [place] | | [place] | | | | | [address] | | + + + + + Care Team Providers + +------+ + | Care Liquor Merchant Name | Role | Phone | + +------+ + | Ugo Lux DO | JENNIFER | | + +------+ + Encounter Details +--------+ + + + + | Date | Type | Department | Care Team | Description | +--------+ + + + + | 07/23/ | Abstract | [facility] | Provider, | | | 2019 | | PHYSIATRY [address] | | | | | [place], | [place] | | | | | [place] [address] | [place] [address] | | | | | [phone] | | | +--------+ + + + + Social History + + + +--------+ + | Tobacco Use | Types | Packs/Day | Years | Date | | | | | Used | | + + + +--------+ + | Current Every Day | Cigarettes | 1 | 37 | Started: 1981 | | Smoker | | | | | + + + +--------+ + + +---+---+---+ | Smokeless Tobacco: | | | | | Never Used | | | | + +---+---+---+ + + + + + | Alcohol Use | Drinks/Week | oz/Week | Comments | + + + + + | Yes | 21-28 Cans of beer | 21.0 - 28.0 | | + + + + + + + + | Sex Assigned at | Date Recorded | | | | + + + | Not on file | | + + + + + + + | Job Start Date | Occupation | Industry | + + + + | Not on file | Not on file | Not on file | + + + + + + + + | Travel History | Travel Start | Travel End | + + + + + + | No recent travel history available. | + + documented as of this encounter Plan of Treatment +--------+---------+ + + + | Date | Type | Specialty | Care Team | Description | +--------+---------+ + + + | 09/14/ | Office | Cardiology | Lida Ventura DO | | | 2020 | Visit | | [address] | | | | | | [place] | | | | | | [address] | | | | | | | | +--------+---------+ + + + | 10/05/ | Office | Neurology | Diane Damon, | | | 2019 | Visit | | MD [address] | | | | | | [place] | | | | | | [place] [address] | | | | | | [phone] | | | | | | | | +--------+---------+ + + + documented as of this encounter Visit Diagnoses Not on filedocumented in this encounter"
--- OUTSIDE RECORDS SUMMARY | ~2019-07-03 | XMS | Encounter Summary ---
Demographics + + + | Address | [address] [address] | | | [place] [address] | + + + | Home Phone | | + + + | Preferred Language | Unknown | + + + | Marital Status | | + + + | Orthodoxy Affiliation | 1077 | + + + | Race | Unknown | + + + | Ethnic Group | Unknown | + + + Author + + + | Author | [facility] | | | and [place] | + + + | Organization | [facility] | | | [...] [place] | | | | | [address] | | + + + + + Care Team Providers + +------+ + | Care Single Needle Tufting Machine Operator Name | Role | Phone | + +------+ + | Bess Alba | PCP | | + +------+ + Encounter Details +--------+ + + + + | Date | Type | Department | Care Team | Description | +--------+ + + + + | 03/20/ | Orders Only | [facility] | Griffin Suero | | | 2016 | | CONVERSION [address] | [address] | | | | | [address] | [place] [address] | | | | | [place] | [place] | | | | | [address] | [address] | | | | | [phone] | [phone] | | | | | | | | +--------+ + + + + Social History + +-------+ +--------+------+ | Tobacco Use | Types | Packs/Day | Years | Date | | | | | Used | | + +-------+ +--------+------+ | Never Assessed | | | | | + +-------+ +--------+------+ + + + | Sex Assigned at [...] [address] | | | | | | [place] | | | | | | [address] | | | | | | | | +--------+---------+ + + + | 10/05/ | Office | Neurology | Diane Damon, | | | 2019 | Visit | | MD [address] | | | | | | [place] | | | | | | [place] [address] | | | | | | [phone] | | | | | | | | +--------+---------+ + + + documented as of this encounter Procedures + +--------+ + + + | Procedure Name | Priori | Date/Time | Associated Diagnosis | Comments | | | ty | | | | + +--------+ + + + | ECHO INTERPRETATION | Routin | 03/20/2016 | | Results for this | | OF OUTSIDE FILMS | e | 1:15 PM | | procedure are in the | | | | PDT | | results section. | + +--------+ + + + documented in this encounter Results ECHO Interpretation of Outside Films (03/20/2016 1:15 PM PDT) + + | Specimen | + + | | + + + + + | Impressions | Performed At | + + + | 1. Overall left ventricular systolic function is low-normal with, an | | | EF between 50 - 55 %. 2. The left atrium is mildly enlarged. | | + + + + + + | Narrative | Performed At | + + + | Patient Name: JESSA BEHT Date of : 1965 | | | Performing Physician: Jignesh Pyle MD | | | | | | INDICATIONS HTN CONCLUSIONS 1. Overall | | | left ventricular systolic function is low-normal with, an EF between | | | 50 - 55 %. 2. The left atrium is mildly enlarged. FINDINGS | | | -------- ECG rhythm: Sinus rhythm. Study: A 2-dimensional | | | transthoracic echocardiogram with m-mode, spectral and color flow | | | Doppler was perfomed. Study: This was a technically adequate study. | | | Left Ventricle: Overall left ventricular systolic function is | | | low-normal with, an EF between 50 - 55 %. Left Ventricle: The left | | | ventricle cavity size is normal. Left Ventricle: Left ventricular | | | wall thickness is normal. Right Ventricle: The right ventricle is | | | normal in size. Left Atrium: The left atrium is mildly enlarged. | | | Right Atrium: The right atrial size is normal. Aortic Valve: The | | | aortic valve was not well visualized. Aortic Valve: There is no | | | evidence of aortic regurgitation. Aortic Valve: There is no evidence | | | of aortic stenosis. Mitral Valve: Normal appearing mitral valve. | | | Mitral Valve: There is trace mitral regurgitation. Tricuspid Valve: | | | The tricuspid valve appears structurally normal. Tricuspid Valve: | | | Trace tricuspid regurgitation present. Tricuspid Valve: The poor TR | | | signal prevents accurate estimation of pulmonary pressures. Pulmonic | | | Valve: Pulmonic valve appears structurally normal. Pericardium: There | | | is no pericardial effusion. Aorta: The aortic root, ascending aorta | | | are normal in size. Septum: No ASD observed. Septum: No VSD | | | observed. MEASUREMENTS IVC: 1.58 cm | | | EDV(Teich): 133.40 ml IVSd: 0.88 cm LVIDd: 5.26 cm LVPWd: | | | 0.96 cm RA Major: 4.22 cm RVIDd: 2.62 cm LVEF MOD A2C: | | | 55.80 % SV MOD A2C: 89.84 ml LVEF MOD A4C: 47.99 % SV MOD | | | A4C: 77.30 ml EF Biplane: 52.28 % LVEDV MOD BP: 161.76 ml | | | LVESV MOD BP: 77.18 ml LVEDV MOD A2C: 161.01 ml LVLd A2C: | | | 9.85 cm LVEDV MOD A4C: 161.06 ml LVLd A4C: 9.70 cm LVESV MOD | | | A2C: 71.16 ml LVLs A2C: 8.31 cm LVESV MOD A4C: 83.76 ml | | | LVLs A4C: 8.25 cm LAESV(A-L): 69.07 ml LAESV Index (A-L): | | | 37.54 ml/m2 LAAs A2C: 23.21 cm2 LAESV A-L A2C: 90.35 ml LALs | | | A2C: 5.07 cm LAAs A4C: 16.16 cm2 LAESV A-L A4C: 48.09 ml | | | LALs A4C: 4.61 cm RAAs: 12.92 cm2 RAESV A-L: 33.22 ml | | | RAESV MOD: 30.34 ml RALs: 4.26 cm AV maxP.50 mmHg AV | | | meanP.37 mmHg AV Vmax: 1.06 m/s AV Vmean: 0.74 m/s AV | | | VTI: 16.88 cm LVOT maxP.47 mmHg LVOT meanP.76 mmHg | | | LVOT Vmax: 0.93 m/s LVOT Vmean: 0.59 m/s LVOT VTI: 15.36 | | | cm MV A Rodney: 0.52 m/s MV DecT: 175.45 ms MV E Rodney: 0.59 | | | m/s MV E/A Ratio: 1.13 RAP: 5 mmHg Propellant Charge Loader: DBS | | | Authenticated by: Jignesh Pyle MD Report Date/Time: 04-01-2016 | | | 21:54:06 | | + + + + + | Procedure Note | + + | Aaron, Rad Conversion - 03/04/2019 10:38 AM PDT Patient Name: Perry BETH of | | : 1965 Performing Physician: Jignesh Pyle | | MD INDICATIONS H | | TN CONCLUSIONS 1. Overall left ventricular systolic function is low-normal | | with, an EF between 50 - 55 %.2. The left atrium is mildly enlarged. FINDINGS--------ECG | | rhythm: Sinus rhythm.Study: A 2-dimensional transthoracic echocardiogram with m-mode, | | spectral and color flow Doppler was perfomed.Study: This was a technically adequate | | study.Left Ventricle: Overall left ventricular systolic function is low-normal with, an | | EF between 50 - 55 %.Left Ventricle: The left ventricle cavity size is normal.Left | | Ventricle: Left ventricular wall thickness is normal.Right Ventricle: The right | | ventricle is normal in size.Left Atrium: The left atrium is mildly enlarged.Right | | Atrium: The right atrial size is normal.Aortic Valve: The aortic valve was not well | | visualized.Aortic Valve: There is no evidence of aortic regurgitation.Aortic Valve: | | There is no evidence of aortic stenosis.Mitral Valve: Normal appearing mitral | | valve.Mitral Valve: There is trace mitral regurgitation.Tricuspid Valve: The tricuspid | | valve appears structurally normal.Tricuspid Valve: Trace tricuspid regurgitation | | present.Tricuspid Valve: The poor TR signal prevents accurate estimation of pulmonary | | pressures.Pulmonic Valve: Pulmonic valve appears structurally normal.Pericardium: There | | is no pericardial effusion.Aorta: The aortic root, ascending aorta are normal in | | size.Septum: No ASD observed.Septum: No VSD observed. MEASUREMENTS IVC: | | 1.58 cmEDV(Teich): 133.40 mlIVSd: 0.88 cmLVIDd: 5.26 cmLVPWd: 0.96 cmRA Major: | | 4.22 cmRVIDd: 2.62 cmLVEF MOD A2C: 55.80 %SV MOD A2C: 89.84 mlLVEF MOD A4C: | | 47.99 %SV MOD A4C: 77.30 mlEF Biplane: 52.28 %LVEDV MOD BP: 161.76 mlLVESV MOD BP: | | 77.18 mlLVEDV MOD A2C: 161.01 mlLVLd A2C: 9.85 cmLVEDV MOD A4C: 161.06 mlLVLd | | A4C: 9.70 cmLVESV MOD A2C: 71.16 mlLVLs A2C: 8.31 cmLVESV MOD A4C: 83.76 mlLVLs | | A4C: 8.25 cmLAESV(A-L): 69.07 mlLAESV Index (A-L): 37.54 ml/m2LAAs A2C: 23.21 | | [id number] A-L A2C: 90.35 mlLALs A2C: 5.07 cmLAAs A4C: 16.16 ex6MMZHT A-L A4C: | | 48.09 mlLALs A4C: 4.61 cmRAAs: 12.92 [id number] A-L: 33.22 mlRAESV MOD: 30.34 | | mlRALs: 4.26 cmAV maxP.50 mmHgAV meanP.37 mmHgAV Vmax: 1.06 m/Vilma Vmean: | | 0.74 m/Vilma VTI: 16.88 cmLVOT maxP.47 mmHgLVOT meanP.76 mmHgLVOT Vmax: | | 0.93 m/sLVOT Vmean: 0.59 m/sLVOT VTI: 15.36 cmMV A Rodney: 0.52 m/sMV DecT: 175.45 | | msMV E Rodney: 0.59 m/sMV E/A Ratio: 1.13RAP: 5 mmHg Propellant Charge Loader: DBSAuthenticated | | by: Jignesh Pyle MDReport Date/Time: 04-01-2016 21:54:06 IMPRESSION: 1. Overall | | left ventricular systolic function is low-normal with, an EF between 50 - 55 %.2. The | | left atrium is mildly enlarged. | |Tricuspid Valve: The poor TR signal prevents accurate estimation of pulmonary pressures. | |Pulmonic Valve: Pulmonic valve appears structurally normal. | |Pericardium: There is no pericardial effusion. | |Aorta: The aortic root, ascending aorta are normal in size. | |Septum: No ASD observed. | |Septum: No VSD observed. | | | |MEASUREMENTS | | | |IVC: 1.58 cm | |EDV(Teich): 133.40 ml | |IVSd: 0.88 cm | |LVIDd: 5.26 cm | |LVPWd: 0.96 cm | |RA Major: 4.22 cm | |RVIDd: 2.62 cm | |LVEF MOD A2C: 55.80 % | |SV MOD A2C: 89.84 ml | |LVEF MOD A4C: 47.99 % | |SV MOD A4C: 77.30 ml | |EF Biplane: 52.28 % | |LVEDV MOD BP: 161.76 ml | |LVESV MOD BP: 77.18 ml | |LVEDV MOD A2C: 161.01 ml | |LVLd A2C: 9.85 cm | |LVEDV MOD A4C: 161.06 ml | |LVLd A4C: 9.70 cm | |LVESV MOD A2C: 71.16 ml | |LVLs A2C: 8.31 cm | |LVESV MOD A4C: 83.76 ml | |LVLs A4C: 8.25 cm | |LAESV(A-L): 69.07 ml | |LAESV Index (A-L): 37.54 ml/m2 | |LAAs A2C: 23.21 cm2 | |LAESV A-L A2C: 90.35 ml | |LALs A2C: 5.07 cm | |LAAs A4C: 16.16 cm2 | |LAESV A-L A4C: 48.09 ml | |LALs A4C: 4.61 cm | |RAAs: 12.92 cm2 | |RAESV A-L: 33.22 ml | |RAESV MOD: 30.34 ml | |RALs: 4.26 cm | |AV maxP.50 mmHg | |AV meanP.37 mmHg | |AV Vmax: 1.06 m/s | |AV Vmean: 0.74 m/s | |AV VTI: 16.88 cm | |LVOT maxP.47 mmHg | |LVOT meanP.76 mmHg | |LVOT Vmax: 0.93 m/s | |LVOT Vmean: 0.59 m/s | |LVOT VTI: 15.36 cm | |MV A Rodney: 0.52 m/s | |MV DecT: 175.45 ms | |MV E Rodney: 0.59 m/s | |MV E/A Ratio: 1.13 | |RAP: 5 mmHg | | | |Propellant Charge Loader: DBS | |Authenticated by: Jignesh Pyle MD | |Report Date/Time: 04-01-2016 21:54:06 | | | |IMPRESSION: | |1. Overall left ventricular systolic function is low-normal with, an EF between 50 - 55 %. | |2. The left atrium is mildly enlarged. | + + documented in this encounter Visit Diagnoses Not on filedocumented in this encounter"
--- OUTSIDE RECORDS SUMMARY | ~2019-07-03 | XMS | Encounter Summary ---
Demographics + + + | Address | [address] [facility] [address] | | | [place] [address] | + + + | Home Phone | | + + + | Preferred Language | Unknown | + + + | Marital Status | | + + + | Mosque Affiliation | 1077 | + + + | Race | Unknown | + + + | Ethnic Group | Unknown | + + + Author + + + | Author | [facility] | | | and [place] | + + + | Organization | [facility] | | | [...] [place] | | | | | [address] | | + + + + + Care Team Providers + +------+ + | Care Windows Software Developer Name | Role | Phone | + +------+ + | Bess Alba | PCP | | + +------+ + Reason for Referral Diagnostic/Screening (Routine) + +--------+ + + + + | Status | Reason | Specialty | Diagnoses / | Referred By | Referred To | | | | | Procedures | Contact | Contact | + +--------+ + + + + | Pending | | Radiology | Diagnoses | Ventura, | | | Review | | | Chronic | DO Lida | | | | | | congestive | [address] | | | | | | heart | [address] | | | | | | failure, | [place] | | | | | | unspecified | [place] | | | | | | heart | [address] | | | | | | failure type | Phone: | | | | | | (HCC) | [phone] | | | | | | Procedures | Fax: | | | | | | [place] Cardiac | [phone] | | | | | | MUGA Scan | | | + +--------+ + + + + Reason for Visit + + + | Reason | Comments | + + + | New Patient | NEW PATIENT | + + + Evaluate & Treat (Urgent) + +--------+ + + + + | Status | Reason | Specialty | Diagnoses / | Referred By | Referred To | | | | | Procedures | Contact | Contact | + +--------+ + + + + | Pending | | Cardiology | Diagnoses | Anjali, | Audrey, | | Review | | | Heart | ALAYNA Kellogg | DO Lida | | | | | failure, | [address] | [address] | | | | | unspecified | St | [address] | | | | | ([facility]) | [place], | [place], [place] | | | | | Procedures | [place] [address] | [address] Phone: | | | | | Consult | Phone: | [phone] | | | | | | [phone] | Fax: | | | | | | Fax: | [phone] | | | | | | [phone] | | + +--------+ + + + + Encounter Details +--------+---------+ + + + | Date | Type | Department | Care Team | Description | +--------+---------+ + + + | 06/24/ | Office | [facility] | Lida Ventura DO | Chronic congestive | | 2019 | Visit | CARDIOLOGY [place] | [address] | heart failure, | | | | [address] | [place], [place] | unspecified heart | | | | [place], [place] | [address] | failure type (HCC) | | | | [address] | | (Primary Dx); | | | | [phone] | | Essential | | | | | | hypertension; | | | | | | Chronic obstructive | | | | | | pulmonary disease, | | | | | | unspecified COPD | | | | | | type (HCC); | | | | | | Cardiomyopathy, | | | | | | unspecified type | | | | | | (HCC) | +--------+---------+ + + + Social History [...] + + + | Blood Pressure | 98/50 | 06/24/2019 12:06 PM | | | | | PST | | + + + + + | Pulse | 69 | 06/24/2019 12:06 PM | | | | | PST | | + + + + + | Temperature | - | - | | + + + + + | Respiratory Rate | - | - | | + + + + + | Oxygen Saturation | 97% | 06/24/2019 12:06 PM | | | | | PST | | + + + + + | Inhaled Oxygen | - | - | | | Concentration | | | | + + + + + | Weight | 75.8 kg (167 lb) | 06/24/2019 12:06 PM | | | | | PST | | + + + + + | Height | 177.8 cm (5' 10") | 06/24/2019 12:06 PM | | | | | PST | | + + + + + | Body Mass Index | 23.96 | 06/24/2019 12:06 PM | | | | | PST | | + + + + + documented in this encounter Patient Instructions Patient Instructions Lida Ventura DO - 06/24/2019 12:00 PM PSTSTOP FUROSEMIDE START TORSEMIDE 20MG BY MOUTH DAILY INCREASE LOSARTAN TO 75MG BY MOUTH DAILY PLEASE GET BLOOD WORK DONE TODAY I AM ORDERING A MUGA SCAN WHICH CAN BE DONE IN KEIR[place] I AM ORDERING PULMONARY FUNCTION TESTS FOLLOW UP IN 3 MONTHS documented in this encounter Progress Notes Lida Ventura DO - 06/24/2019 12:00 PM PST [facility] Cardiology Cardiology Consult Note Reason for Consultation: heart failure Requesting Physician: Bess Alba History Obtained From: patient HISTORY OF PRESENT ILLNESS: The patient is a 53-year-old male, who presents to the Cardiology office for an initial con sultation regarding history of ischemic cardiomyopathy. He had a history of nonischemic car diomyopathy for several years, at least back until 2012 whenever he was noted to have a left ventricular ejection fraction of 25-30 percent. He underwent cardiac catheterization on , which demonstrated normal epicardial coronary arteries. Subsequent echos have de monstrated some improvement in his ejection fraction, but then reduction in his ejection fra ction back down to 40-45 percent. He had a recent hospitalization for CHF decompensation. At that time, he had an echocardiogram done on 05/10/2019, which demonstrated normal left ve ntricular size and wall thickness. He had an ejection fraction of 35 to 40 percent with elizabeth bal hypokinesis and mild to moderate mitral regurgitation. Recently, he reports that he go s been doing better. 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 The most activity that he had done in the past month is going fishing. He denies any orthopnea, but has had some mil d lower extremity swelling recently. He denies any chest pain. He denies any episodes of l ightheadedness or syncope. He has had some mild intermittent episodes of palpitations, whi ch are brief, lasting only seconds. When he got out of the hospital, he was 165 pounds, michell ght today is 167 pounds. He is a current smoker, smokes up to 1 pack per day for the past 3 0 years. He denies any alcohol or illicit drug use. His blood pressure is noted to be on t he low side today. He does not check his blood pressure at home. Again, he denies any epis odes of syncope or presyncope. Review of Systems Constitutional: Negative for fatigue. HENT: Negative for nosebleeds. Eyes: Negative for visual disturbance. Respiratory: Negative for cough and positive for shortness of breath. Cardiovascular: see HPI Gastrointestinal: Negative for nausea, vomiting, abdominal pain and blood in stool. Genitourinary: Negative for hematuria or dysuria. Musculoskeletal: Negative for myalgias, back pain and arthralgias. Skin: Negative for color change. Neurological: Negative for dizziness, syncope and numbness. Hematological: Does not bruise/bleed easily. Psychiatric/Behavioral: The patient is not nervous/anxious. PAST MEDICAL & SURGICAL HISTORY Past Medical History: Diagnosis Date Abnormal EKG Active advance directive Acute bronchitis Acute eczematoid otitis externa Acute sinusitis Alcoholism ([facility]) Arthritis Arthritis Benign essential hypertension Broken bones Cardiomyopathy ([facility]) Cataract Cephalgia Chest pain CHF (congestive heart failure) ([facility]) CHF (congestive heart failure) ([facility]) CHF (congestive heart failure) ([facility]) 04/2019 Chicken pox DDD (degenerative disc disease), lumbar Depression Diabetes mellitus screening Encounter for routine adult health examination without abnormal findings Encounter for screening for malignant neoplasm of colon Encounter for screening for malignant neoplasm of prostate Fatigue Forgetfulness H/O hernia repair H/O TIA (transient ischemic attack) and stroke 04/2019 Hiatal hernia Hiatal hernia Hip joint painful on movement, unspecified laterality Hypertension Lumbar pain 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 Meningitis spinal at 6 month old Pain leg or foot Pain in left hip Pain in right hip Serous otitis media Smoker SOB (shortness of breath) Ventricular premature beats Past Surgical History: Procedure Laterality Date APPENDECTOMY 04/12/1980 APPENDECTOMY CORONARY ANGIOGRAPHY HERNIA REPAIR HERNIA REPAIR HIP SURGERY Left 04/12/2017 OTHER SURGICAL HISTORY TOTAL HIP ARTHROPLASTY Right 09/10/2017 TOTAL HIP ARTHROPLASTY 2016, 09/2017 Right, Left MEDICATIONS Home Medications Outpatient Encounter Medications as of 06/24/2019 Medication Sig Dispense Refill albuterol (PROVENTIL HFA) 90 mcg/puff inhaler Inhale 2 puffs every 6 (six) hours as nee ded for wheezing. [DISCONTINUED] albuterol (VENTOLIN HFA) 90 mcg/puff inhaler Inhale 2 puffs into the talisha gs every 6 hours as needed for Wheezing. [DISCONTINUED] aspirin 81 mg chewable tablet Take 81 mg by mouth Daily. aspirin 81 mg EC tablet Take 81 mg by mouth Daily. atorvaSTATin (LIPITOR) 80 MG tablet Take 80 mg by mouth Daily. carvedilol (COREG) 25 mg tablet Take 1 tablet by mouth 2 times daily. [DISCONTINUED] furosemide (LASIX) 20 mg tablet Take 20 mg by mouth. [DISCONTINUED] furosemide (LASIX) 40 mg tablet Take 1 tablet by mouth Daily. losartan (COZAAR) 50 mg tablet Take 1.5 tablets by mouth Daily. 45 tablet 5 [DISCONTINUED] losartan (COZAAR) 50 mg tablet Take 1 tablet by mouth Daily. pseudoePHEDrine (SUDOGEST) 30 mg tablet Take 30 mg by mouth every 6 hours as needed for Congestion. spironolactone (ALDACTONE) 25 mg tablet Take 1 tablet by mouth Daily. [DISCONTINUED] spironolactone (ALDACTONE) 25 mg tablet Take 25 mg by mouth Daily. torsemide (DEMADEX) 20 mg tablet Take 1 tablet by mouth Daily. 30 tablet 11 No facility-administered encounter medications on file as of 06/24/2019. Allergies Allergies Allergen Reactions Amoxicillin Anaphylaxis Lisinopril Anaphylaxis Gabapentin Other (See Comments) Reaction not specified in outside medical records. 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 Social Needs Financial resource strain: Not on file Food insecurity: Worry: Not on file Inability: Not on file Transportation needs: Medical: Not on file Non-medical: Not on file Tobacco Use Smoking status: Current Every Day Smoker Packs/day: 1.00 Years: 37.00 Pack years: 37.00 Types: Cigarettes Start date: 1981 Smokeless tobacco: Never Used Substance and Sexual Activity Alcohol use: Yes Alcohol/week: 21.0 - 28.0 standard drinks Types: 21 - 28 Cans of beer per week Comment: Alcoholic Drinks/day: 3-4 beers daily Drug use: Yes Types: Marijuana Comment: Drug use: Yes HE SMOKES IT Sexual activity: Not on file Lifestyle Physical activity: Days per week: Not on file Minutes per session: Not on file Stress: Not on file Relationships Social connections: Talks on phone: Not on file Gets together: Not on file Attends mosque service: Not on file Active member of club or organization: Not on file Attends meetings of clubs or organizations: Not on file Relationship status: Not on file Intimate partner violence: Fear of current or ex partner: Not on file Emotionally abused: Not on file Physically abused: Not on file Forced sexual activity: Not on file Other Topics Concern Not on file Social History Narrative Not on file PHYSICAL EXAM Vital Signs: BP 98/50 | Pulse 69 | Ht 1.778 m (5' 10") | Wt 75.8 kg (167 lb) | SpO2 97% | BMI 23.96 kg/m Physical Exam GENERAL: Well developed, well nourished, in no distress. Appears approximately stated age . HEENT: Normocephalic, atraumatic. EYES: PERRL, sclerae anicteric, no xanthelsasmas NECK: No JVD, lymphadenopathy, thyromegaly, bruits. Carotid pulses are 2+ bilaterally LUNGS: Clear bilaterally, with no rales, rhonchi or wheezing noted, respirations unlabored HEART: Nondisplaced PMI, regular rate and rhythm, S1, S2 normal. No murmurs, rubs or gall ops noted. ABDOMEN: Soft, nontender, no organomegaly, masses or bruits. Bowel sounds are normal in a ll 4 quadrants. EXTREMITIES: 1+ l/e edema. Radial pulses 2+ bilaterally. DP and PT pulses are 2+ bilatera lly. SKIN: Warm and dry, capillary refill is normal, no lesions. NEUROLOGIC: Awake, alert and oriented x 3. No focal motor deficits. PSYCHIATRIC: Appropriate, affect appears normal DATA No results found for: WBC, HGB, HCT, PLTNo results found for: INR, PTT No results found for : NA, K, CL, CO2, BUN, CREA, GLUCOSE, MG, AST, ALT, DIGOXIN, BNP, TSHNo results found for: C HOL, TRIG, HDL, LDL, TSH EK06/24/19 normal sinus rhythm 64 BPM, septal infarct age undetermined, inferior lateral ST-T wave abnormality. Last Echo: 05/10/19 Normal LV size and wall thickness EF 35-40% Global hypokinesis Normal RV size and function Mild-mod mitral regurgitation 05/19/17 CONCLUSIONS 1. Overall left ventricular systolic function is mild-moderately impaired with, an EF betwe en 40 - 45 % and mild global hypokinesis. The EF has decreased from the reported EF of 50-55 % on his previous echocardiographic study, done 03/20/16. It is noted that his EF was 25-30% on an earlier study, done 11/20/12. 2. The right ventricle is normal in size and function. 3. No significant valvular abnormali ty. Last stress test: Last cath: 05/10/19 Summary Normal left ventricular cavity size. Normal left ventricular wall thickness. Ejection fraction is estimated at 35-40%. There is global hypokinesis. Normal right ventricular size and function. Mild to moderate mitral regurgitation. 11/21/12 CORONARY ANGIOGRAPHY The coronary system was right dominant. 1. Left main bifurcated into LAD and left circumflex. Left main was free of disease. 2. Left anterior descending artery and the diagonal branches were free of disease. 3. Left circumflex coronary artery was free of disease. 4. Right coronary artery was a dominant vessel and was free of disease. Carotid US: AAA screening: Lower extremity US: OTHERS: ASSESSMENT & PLAN 1. Non ischemic cardiomyopathy EF 35-40% 2. Mild-mod MR 3. GEIGER 4. Current tobacco habituation - The patient is a 53-year-old male, who presents to the Cardiology office for initial cons ultation regarding nonischemic cardiomyopathy. He had a recent hospitalization for heart fa ilure decompensation. His ejection fraction during that visit was 35-40 percent. His medic ations have been optimized. He is at his dry weight. He continues to have issues with dysp chyna on exertion. He is a current tobacco user and has a long-standing smoking history. It is unclear at this time whether his symptoms are related to his heart failure or possibly r elated to chronic obstructive pulmonary disease. We will obtain a BNP today as well as pulm onary function test. We will obtain a nuclear medicine scan in order to get an accurate ass essment of his ejection fraction for consideration of ICD if his EF is below 35 percent. We will focus on optimizing his heart failure medications as well. - Continue carvedilol 5 mg by mouth twice daily. - Continue losartan 75 mg by mouth daily. - Continue spironolactone 25 mg by mouth daily. - Continue torsemide 20 mg by mouth daily. - Continue atorvastatin 80 mg by mouth daily. - Follow up in 3 months Thank you for allowing me to participate in the care of this patient. Primary Care Physician: ALAYNA Abrams DO 06/29/2019 documented in this enco unter Plan of Treatment +--------+---------+ + + + | Date | Type | Specialty | Care Team | Description | +--------+---------+ + + + | 09/14/ | Office | Cardiology | Lida Ventura DO | | | 2019 | Visit | | [address] | | | | | | [place] | | | | | | [id number] | | | | | | | | +--------+---------+ + + + | 10/05/ | Office | Neurology | Diane Damon, | | | 2019 | Visit | | MD [address] | | | | | | [place] | | | | | | [place] [address] | | | | | | [phone] | | | | | | | | +--------+---------+ + + + + +------+--------+ + + | Name | Type | Priori | Associated Diagnoses | Date/Time | | | | ty | | | + +------+--------+ + + | ECG 12 lead | ECG | Routin | Chronic congestive | 06/24/2019 12:12 PM | | | | e | heart failure, | PST | | | | | unspecified heart | | | | | | failure type (HCC) | | | | | | Essential | | | | | | hypertension | | + +------+--------+ + + + + +--------+ + + | Name | Type | Priori | Associated Diagnoses | Order Schedule | | | | ty | | | + + +--------+ + + | NM Cardiac MUGA Scan | Cardiac | Routin | Chronic congestive | Expected: | | | Nuclear | e | heart failure, | 07/01/2019, Expires: | | | Medicine | | unspecified heart | 06/24/2020 | | | | | failure type (HCC) | | + + +--------+ + + | Pulmonary function | PFT | Routin | Chronic | Expected: | | test | | e | obstructive | 07/01/2019, Expires: | | | | | pulmonary disease, | 06/24/2020 | | | | | unspecified COPD | | | | | | type (HCC) | | + + +--------+ + + | B Type Natriuretic | Lab | Routin | Chronic congestive | 1 Occurrences | | Peptide | | e | heart failure, | starting 06/24/2019 | | | | | unspecified heart | until 06/24/2020 | | | | | failure type (HCC) | | + + +--------+ + + | Basic Metabolic | Lab | Routin | Chronic congestive | 1 Occurrences | | Panel | | e | heart failure, | starting 06/24/2019 | | | | | unspecified heart | until 06/24/2020 | | | | | failure type (HCC) | | + + +--------+ + + documented as of this encounter Procedures + +--------+ + + + | Procedure Name | Priori | Date/Time | Associated Diagnosis | Comments | | | ty | | | | + +--------+ + + + | ECG 12 LEAD | Routin | 06/24/2019 | Chronic congestive | | | | e | 12:12 PM | heart failure, | | | | | PST | unspecified heart | | | | | | failure type (HCC) | | | | | | Essential | | | | | | hypertension | | + +--------+ + + + documented in this encounter Visit Diagnoses + + | Diagnosis | + + | Chronic congestive heart failure, unspecified heart failure type (HCC) - Primary | + + | Essential hypertension Unspecified essential hypertension | + + | Chronic obstructive pulmonary disease, unspecified COPD type (HCC) | + + | Cardiomyopathy, unspecified type (HCC) | + + documented in this encounter
--- OUTSIDE RECORDS SUMMARY | ~2019-07-03 | XMS | Encounter Summary ---
Demographics + + + | Address | [address] [facility] [address] | | | [place] [address] | + + + | Home Phone | | + + + | Preferred Language | Unknown | + + + | Marital Status | | + + + | Jewish Affiliation | 1077 | + + + | Race | Unknown | + + + | Ethnic Group | Unknown | + + + Author + + + | Author | [facility] | | | and [place] | + + + | Organization | [facility] | | | [...] [place] | | | | | [address] | | + + + + + Care Team Providers + +------+ + | Care Nutritionist Public Health Name | Role | Phone | + +------+ + | Bess Alba | PCP | | + +------+ + Reason for Referral Evaluate & Treat (Routine) +--------+ + + + + + | Status | Reason | Specialty | Diagnoses / | Referred By | Referred To | | | | | Procedures | Contact | Contact | +--------+ + + + + + | Closed | Specialty | Neurosurgery | Diagnoses | Scott, | Faye, | | | Services | | Lumbar | [facility] Echavarria | DO Tom | | | Required | | radiculopath | [address] | | | | | y | [address] | [address] | | | | | Procedures | [address] | [address] | | | | | HIM 10/22 | [place], | [place] | | | | | | [place] [address] | [address] | | | | | | Phone: | Phone: | | | | | | [phone] | [phone] | | | | | | Fax: | Fax: | | | | | | [phone] | [phone] | +--------+ + + + + + Encounter Details +--------+ + + + + | Date | Type | Department | Care Team | Description | +--------+ + + + + | /03/ | Orders Only | [facility] [place] | Jericho Chavez, | Lumbar radiculopathy | | 2019 | | PHYSIATRY [address] | PA-C [address] | (Primary Dx) | | | | [place] [place], | [address] [place] | | | | | [place] [address] | [place] [address] | | | | | [phone] | [phone] | | | | | | | [...] 2019 | Visit | | [address] | | | | | | [place] | | | | | | [address] | | | | | | | | +--------+---------+ + + + | 10/05/ | Office | Neurology | Diane Damon, | | | 2019 | Visit | | MD [address] | | | | | | [place] | | | | | | [place] [address] | | | | | | [phone] | | | | | | | | +--------+---------+ + + + + + +--------+ + + | Name | Type | Priori | Associated Diagnoses | Order Schedule | | | | ty | | | + + +--------+ + + | | Outpatient | Routin | Lumbar | Ordered: 10/13/2018 | | [facility] | Referral | e | radiculopathy | | | Kad[place] | | | | | + + +--------+ + + documented as of this encounter Visit Diagnoses + + | Diagnosis | + + | Lumbar radiculopathy - Primary Thoracic or lumbosacral neuritis or radiculitis, | | unspecified | + + documented in this encounter"
--- OUTSIDE RECORDS SUMMARY | ~2019-07-03 | XMS | Encounter Summary ---
Demographics + + + | Address | [address] [facility] [address] | | | [place] [address] | + + + | Home Phone | | + + + | Preferred Language | Unknown | + + + | Marital Status | | + + + | Latter-Day Affiliation | 1077 | + + + | Race | Unknown | + + + | Ethnic Group | Unknown | + + + Author + + + | Author | [facility] | | | and [place] | + + + | Organization | [facility] | | | [...] [place] | | | | | [address] | | + + + + + Care Team Providers + +------+ + | Care Alemite Operator Name | Role | Phone | [...] | | | | | unspecified | [place] | | | | | | heart | [address] | | | | | | failure type | Phone: | | | | | | (HCC) | [phone] | | | | | | Procedures | Fax: | | | | | | [place] Cardiac | [phone] | | | | | | MUGA [...] [address] | | | | | ([facility]) | [place], | [place], [place] | | | | | Procedures | [place] [address] | [address] Phone: | | | | | Consult | Phone: | [phone] | | | | | | [phone] | Fax: | | | | | | Fax: | [phone] | | | | | | [phone] | | + +--------+ + + + + Encounter Details +--------+---------+ + + + | Date | Type | Department | Care Team | Description | +--------+---------+ + + + | 06/24/ | Office | [facility] | Lida Ventura DO | Chronic congestive | | 2019 | Visit | CARDIOLOGY [place] | [address] | heart failure, | | | | [address] | [place], [place] | unspecified heart | | | | [place], [place] | [address] | failure type (HCC) | | | | [address] | | (Primary Dx); | | | | [phone] | | Essential | | | | [...] Ventura DO - 06/24/2019 12:00 PM PST [facility] Cardiology Cardiology Consult Note Reason for [...] Acute eczematoid otitis externa Acute sinusitis Alcoholism ([facility]) Arthritis Arthritis Benign essential hypertension Broken bones Cardiomyopathy ([facility]) Cataract Cephalgia Chest pain CHF (congestive heart failure) ([facility]) CHF (congestive heart failure) ([facility]) CHF (congestive heart failure) ([facility]) 04/2019 Chicken pox DDD (degenerative disc disease), [...] level: Not on file Occupational History 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
--- OUTSIDE RECORDS SUMMARY | ~2019-07-03 | XMS | Encounter Summary ---
Demographics + + + | Address | [address] [facility] [address] | | | [place] [address] | + + + | Home Phone | | + + + | Preferred Language | Unknown | + + + | Marital Status | | + + + | Gnosticism Affiliation | 1077 | + + + [...] [place] | | | | | [address] | | + + + + + Care Team Providers + +------+ + | Care Grain Unloader Name | Role | Phone | + +------+ + | Bess Alba | PCP | | + +------+ + Encounter Details +--------+ + + + + | Date | Type | Department | Care Team | Description | +--------+ + + + + | 09/27/ | Imaging | [facility] | Provider, | | | 2019 | Exam | [facility] | MD [address] | | | | | IMAGING | [address] | | | | | [phone] | [place] [address] | | +--------+ + + + + [...] [place] | | | | | | [address] | | | | | | | | +--------+---------+ + + + | 10/05/ | Office | Neurology | Diane Damon, | | | 2019 | Visit | | MD [address] | | | | | | [place] | | | | | | [place] [address] | | | | | | [phone] | | | | | | | | +--------+---------+ + + + documented as of this encounter Procedures + +--------+ + + + | Procedure Name | Priori | Date/Time | Associated Diagnosis | Comments | | | ty | | | | + +--------+ + + + | CT CERVICAL SPINE WO | Routin | 07/29/2008 | | Results for this | | CONTRAST | e | 10:55 PM | | procedure are in the | | | | PST | | results section. | + +--------+ + + + documented in this encounter Results CT Cervical Spine wo Contrast (07/29/2008 10:55 PM PST) + + | Specimen | + + | | + + + + + | Narrative | Performed At | + + + | External films for comparison only | [facility] | | | | | No results will be in the chart. | | + + + + +---------+ + + | Performing | Address | City/State/Zipcode | Phone Number | | Organization | | | | + +---------+ + + | [facility] | | | | + +---------+ + + documented in this encounter Visit Diagnoses Not on filedocumented in this encounter"
--- OUTSIDE RECORDS SUMMARY | ~2019-07-03 | XMS | Encounter Summary ---
Demographics + + + | Address | [address] [facility] [address] | | | [place] [address] | + + + | Home Phone [...] + + | Author | [facility] | | | and [place] | + + + | Organization | [facility] | | | [...] [place] | | | | | [address] | | + + + + + Care Team Providers + +------+ + | Care Gym Attendant Name | Role | Phone | + [...] e disc | [address] | [facility] | | | | | disease), | [place], | [place], [place] | | | | | lumbar | [place] [address] | [address] Phone: | | | | | | Phone: | [phone] | | | | | | [phone] | Fax: | | | | | | Fax: | [phone] | | | | | | [phone] | | +--------+--------+ + + + + Encounter Details +--------+---------+ + + + | Date | Type | Department | Care Team | Description | +--------+---------+ + + + | 05/23/ | Office | [facility] | Kirill Guerrero PA-C | Lumbar radiculopathy | | 2019 | Visit | PHYSIATRY [address] | [address] | (Primary Dx); | | | | [place], | [place], [place] | Bilateral leg pain; | | | | [place] [address] | [id number] | Spinal stenosis of | | | | [phone] | | lumbar region with | | [...] disk, and irritate nerves. Date Last Reviewed: 12/11/201719992403-3599 [employer]. [address] [place] [address], [place] [address]. All righ ts reserved. This information is not intended as a substitute for professional medical care. Always follow your healthcare professional's instructions. documented in this encounter Progress Notes Claudia Blood, Supervisor Coating - 05/23/2019 1:00 PM PSTFormatting of this note might b e different from the original. Kirill Guerrero PA-C [address] [facility] [address] [place], [place] [address] FAX: CHIEF COMPLAINT: Chief Complaint Patient presents [...] eral hip replacement surgeries. 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 Unfortunately Erwin encinas continues to have significant [...] | | | | | | [facility] [place] | | | | | | [address] | | | | | | | | +--------+---------+ + + + | 10/05/ | Office | Neurology | Diane Damon, | | | 2019 | Visit | | MD [address] | | | | | | [place] | | | | | | [place] [address] | | | | | | [phone] | | | | | | | [...]
--- OUTSIDE RECORDS SUMMARY | ~2019-07-03 | XMS | Encounter Summary ---
Demographics + + + | Address | [address] [facility] [address] | | | [place] [address] | + + + | Home Phone | | + + + | Preferred Language | Unknown | + + + | Marital Status | | + + + | Uatsdin Affiliation | 1077 | + + + | Race | Unknown | + + + | Ethnic Group | Unknown | + + + Author + + + | Author | [facility] | | | and [place] | + + + | Organization | [facility] | | | [...] [place] | | | | | [address] | | + + + + + Care Team Providers + +------+ + | Care Commercial Field Inspector Name | Role | Phone | + +------+ + PCP | Unavailable | + +------+ + Encounter Details +--------+ + + + + | Date | Type | Department | Care Team | Description | +--------+ + + + + | 11/19/ | Hospital | [facility] | JosuemaríaAlondramarquita, | SOB (shortness of | | 2012 - | Encounter | [facility] | [address] | breath) on exertion; | | | | CARE FLOOR [address] | [place] [address] | Cardiac enzymes | | 11/21/ | | [address] | [phone] | elevated | | 2012 | | [place], [place] | | | | | | [address] | | | | | | [phone] | | | +--------+ + + + [...] 11/21/12917 Date of Service: 11/21/12911 Status: Signed Wool Fleece Sorter: Abhinav Garcia DO (Physician) [facility] Service: Hospitalist Discharge Summary Date of [...] CKMB 4.5* 11/20/2012 XR chest 1 view [[id number]] Status: Final result Study Result HISTORY: Difficulty [...] The left atrium is moderately dilated. 4. Uqmo-xx-zgkfsuod mitral regurgitation is present. 5. Dkwo-hi-uotcepzx tricuspid regurgitation present. 6. The right ventricular [...] test was found to be negative. A 6-Citizen [place] right radial artery [place] was then advanced. A cocktail of heparin, verapamil and nitroglycerin was injected via the introducer. Using a Wholey wire, a 6-Citizen [place] JL4 catheter was advanced to the ascending aorta and engaged with the ostium of the left main. Projections of the left coronary system were done with the use of contrast injections. Using a long exchange wire, the JL4 catheter was exchanged to a 6-Citizen [place] JR4 catheter which was engaged with the ostium of the right coronary artery. Projections of the right coronary artery were done with the use of contrast injections. The catheter was then exchanged over a long exchange wire to a 6-Citizen [place] pigtail catheter which was advanced to the [...] Full Code Follow up: Griffin Suero MD [address] [place] [address] in 2 weeks Divya Alves MD [address] [facility] [place] [address] in 4 weeks Current Discharge Medication List [...] Date of Service: 11/21/12 1501 Status: Signed Wool Fleece Sorter: Shannan Xavier RN (Registered Nurse) Discharge instructions given to patient, verbalized understanding. Left with wheelchair es joleen to private car and home. onver sonal Transaction, Provider Unknown - 11/21/2012 12:40 PM PDT Progress Notes by Shannan Xavier RN at 11/21/12 1240 Author: Shannan Xavier RN Service: (none) Author Type: Registered Nurse Filed: 11/21/12 1248 Date of Service: 11/21/12 1240 Status: Signed Wool Fleece Sorter: Shannan Xavier RN (Registered Nurse) CHF teaching: [...] Date of Service: 11/21/12 0728 Status: Signed Wool Fleece Sorter: Divya Alves MD (Physician) Related Notes: Original Note by Divya Alves MD (Physician) filed at 11/21/12 0732 [facility] Service: Cardiology/[facility] Progress Note RE: Jessa Cole [...] DIVYA ALVES MD 11/21/2012 7:28 AM Abhinav Cortez DO - 013 1:24 PM PDT Progress Notes by Abhinav Garcia DO at 11/20/12 1324 Author: Abhinav Garcia DO Service: (none) Author Type: Physician Filed: 11/20/12 3349 Date of Service: 11/20/12 1324 Status: Addendum Wool Fleece Sorter: Abhinav Garcia DO (Physician) Related Notes: Original Note by Abhinav Garcia DO (Physician) filed at 11/20/12 1332 [facility] Service: Hospitalist Progress Note Hospital Day: LOS: 1 day SUBJECTIVE 47 year old developed increasing exertional dyspnea over the course of less than a week, pr esented to [facility] where a troponin was indeterminate, transferred to [facility] and troponin s have been [...] Daily heparin (porcine) 5,000 Units Subcutaneous Q8H [facility] lisinopril 5 mg Oral Daily lovastatin 20 [...] CKMB 4.5* 11/20/2012 XR chest 1 view [[id number]] Status: Final result Study Result HISTORY: Difficulty [...] 11/20/121039 Date of Service: 11/20/121039 Status: Signed Wool Fleece Sorter: Azul Weaver RPH (Pharmacist) Renal Dosing Monitoring: Jessa Cole 47 y.o. male Pharmacy dosing for renal function per Dr. Valle Scr=0.89, 5'10", 72.6kg, CrCl~100ml/min Plan per protocol: Medication / Dose: no medication adjustments required at this time. 11/20/2012 10:39 AM Pharmacist: AZUL WEAVER onver sonal Transaction, Provider Unknown - 11/19/2012 9:24 PM PDT Progress Notes by Georgiana Street RPH at 11/19/122123 Author: Georgiana tSreet RPH Service: (none) Author Type: Pharmacist Filed: 11/19/122123 Date of Service: 11/19/122123 Status: Signed Wool Fleece Sorter: Georgiana Street RPH (Pharmacist) Clinical Pharmacy Note: Renal Monitoring Jessa Cole 47 y.o. male Ht Readings from [...] [place] | | | | | | [address] | | | | | | | | +--------+---------+ + + + | 10/05/ | Office | Neurology | Diane Damon, | | | 2019 | Visit | | MD [address] | | | | | | [place] | | | | | | [place] [address] | | | | | | [phone] | | | | | | | [...] test was found to be negative. A 6-Citizen [place] right radial artery | | | Glidesheath was then advanced. A cocktail of heparin, verapamil and | | | nitroglycerin was injected via the introducer. Using a Wholey wire, a | | | 6-Citizen [place] JL4 catheter was advanced to the ascending aorta and | | | engaged with the ostium of the left main. Projections of the left | | | coronary system were done with the use of contrast injections. Using | | | a long exchange wire, the JL4 catheter was exchanged to a 6-Citizen [place] | | | JR4 catheter which was engaged with the ostium of the right coronary | | | artery. Projections of the right coronary artery were done with the | | | use of contrast injections. The catheter was then exchanged over a | | | long exchange wire to a 6-Citizen [place] pigtail catheter which was advanced | | [...] test was found to be negative. A 6-Citizen [place] right radial artery Glidesheath | | was then advanced. A cocktail of heparin, verapamil and nitroglycerin was | | injected via the introducer. Using a Wholey wire, a 6-Citizen [place] JL4 catheter | | was advanced to the ascending aorta and engaged with the ostium of the | | left main. Projections of the left coronary system were done with the use | | of contrast injections. Using a long exchange wire, the JL4 catheter was | | exchanged to a 6-Citizen [place] JR4 catheter which was engaged with the ostium of | | the right coronary artery. Projections of the right coronary artery were | | done with the use of contrast injections. The catheter was then exchanged | | over a long exchange wire to a 6-Citizen [place] pigtail catheter which was | | advanced [...] | | | is moderately dilated. 4. Vonf-ud-dqzehhyg mitral regurgitation is | | | present. 5. Wxyy-ec-rbsimuik tricuspid regurgitation present. 6. The | | [...] The mitral valve is normal. Mitral Valve: Hzgg-lx-uyhvvopu | | | mitral regurgitation is present. Tricuspid Valve: The tricuspid valve | | | appears structurally normal. Tricuspid Valve: Cwtn-qa-oiwybxwu | | | tricuspid regurgitation present. Tricuspid [...] Excursion: 1.70 cm | | | E-F [place]: 0.10 m/s EPSS: 1.06 cm IVC diameter: [...] TV A Rodney: 0.35 m/s TV Dec [place]: 1.72 | | | m/s2 TV Dec Time: 211.30 ms TV E [place]: 0.36 m/s TV E/A Ratio: | | | 1.01 School Resource Officer: DEBBIE Authenticated by: Divya Alves MD Report | | | Date/Time: 11-20-2012 [...] left atrium is moderately dilated.4. | | Yfcd-sf-bpgoxbbb mitral regurgitation is present.5. Zapm-yy-phmngmjz tricuspid | | regurgitation present.6. The right [...] mitral valve is normal.Mitral Valve: | | Rvpa-sz-iwxxcmnr mitral regurgitation is present.Tricuspid Valve: The tricuspid valve | | appears structurally normal.Tricuspid Valve: Pdzc-dk-gvgtaimf tricuspid regurgitation | | present.Tricuspid Valve: There [...] mlLAESV Index (A-L): 45.41 ml/m2LAAs A2C: 24.93 [id number] | | A-L A2C: 97.92 mlLALs A2C: 5.39 cmLAAs A4C: 22.03 fs7QDJBT A-L A4C: 77.83 mlLALs | | A4C: 5.29 cmAo Diam: 3.63 cmAV Cusp: 1.97 cmLA Diam: 4.34 cmLA/Ao: 1.19D-E | | Excursion: 1.70 cmE-F [place]: 0.10 m/sEPSS: 1.06 cmIVC diameter: 1.97 cmIVC | | collapse: 0.83 cmIVC % collapse: 55.60 %HR: 72.45 BPMAV maxP.24 mmHgAV | | meanP.37 mmHgAV Vmax: 1.14 m/Vilma Vmean: 0.89 m/Vilma VTI: 21.73 cmAVA Vmax: | | 2.62 cm2AVA (VTI): 2.43 gf6UGQD Dopp: 2.01 l/fjfh4UQZO Dopp: 3.91 l/minHR: 74.10 | | BPMLVOT [...] A Rodney: 0.35 m/sTV | | Dec [place]: 1.72 m/s2TV Dec Time: 211.30 msTV E Rodney: 0.36 m/sTV E/A Ratio: 1.01 | | School Resource Officer: JUAN ALEBRTOuthenticated by: Divya VITALEeport Date/Time: 11-20-2012 13:30:30 | [...] | |D-E Excursion: 1.70 cm | |E-F [place]: 0.10 m/s | |EPSS: 1.06 cm | [...] A Rodney: 0.35 m/s | |TV Dec [place]: 1.72 m/s2 | |TV Dec Time: 211.30 ms | |TV E [place]: 0.36 m/s | |TV E/A Ratio: 1.01 | | | |School Resource Officer: KVW | |Authenticated by: Divya Alves MD [...] + | This procedure was resulted in [place] (the cardiology system). Please | | | see the Media tab in Chart Review to see the result for this | | | procedure. | | + + + + + | Procedure Note | + + | Clyde Walker - 03/04/2019 6:15 PM PDT This procedure was resulted in [facility] | | (the cardiology system). Please seethe [...]
--- OUTSIDE RECORDS SUMMARY | ~2019-07-03 | XMS | Encounter Summary ---
Demographics + + + | Address | [address] [facility] | | | [place] [address] | + + + | Home Phone | | + + + | Preferred Language | Unknown | + + + | Marital Status | | + + + | Protestant Affiliation | 1077 | + + + [...] [place] | | | | | [address] | | + + + + + Care Team Providers + +------+ + | Care Towel Folder Name | Role | Phone | + +------+ + | Bess Alba | PCP | | + +------+ + Reason for Visit + + + | Reason | Comments | + + + | Results, Imaging | | + + + Encounter Details +--------+ + + + + | Date | Type | Department | Care Team | Description | +--------+ + + + + | 09/27/ | Telephone | [facility] | Jericho Chavez, | Results, Imaging | | 2019 | | PHYSIATRY [address] | PA-C [address] | | | | | [place], | [address] [place] | | | | | [place] [address] | [place] [address] | | | | | [phone] | [phone] | | | | | | | [...] [place] | | | | | | [address] | | | | | | | | +--------+---------+ + + + | 10/05/ | Office | Neurology | Diane Damon, | | | 2019 | Visit | | MD [address] | | | | | | [place] | | | | | | [place] [address] | | | | | | [phone] | | | | | | | | +--------+---------+ + + + documented as of this encounter Visit Diagnoses Not on filedocumented in this encounter"
--- OUTSIDE RECORDS SUMMARY | ~2019-07-03 | XMS | Encounter Summary ---
Demographics + + + | Address | [address] [facility] [address] | | | [place] [address] | + + + | Home Phone | | + + + | Preferred Language | Unknown | + + + | Marital Status | | + + + | Orthodoxy Affiliation | 1077 | + + + | Race | Unknown | + + + | Ethnic Group | Unknown | + + + Author + + + | Author | [facility] | | | and [place] | + + + | Organization | [facility] | | | [...] [place] | | | | | [address] | | + + + + + Care Team Providers + +------+ + | Care Bat Boy/Girl Name | Role | Phone | + [...] + + | Closed | Specialty | Physical | Diagnoses | [facility], | [facility] | | | Services | Therapy | Lumbar | [facility] | | | Required | | radiculopath | [address] | PHYSICAL | | | | | y | [address] | THERAPY [address] | | | | | Procedures | [address] | [place] | | | | | 11/02>PEND | [place], | [place] | | | | | [place] | [place] [address] | [address] | | | | | | Phone: | Phone: | | | | | | [phone] | [phone] | | | | | | Fax: | Fax: | | | | | | [phone] | [phone] | +--------+ + + + + + Encounter Details +--------+ + + + + | Date | Type | Department | Care Team | Description | +--------+ + + + + | 10/05/ | Orders Only | [facility] | Jericho Chavez, | Lumbar radiculopathy | | 2019 | | PHYSIATRY [address] | PA-C [address] | (Primary Dx) | | | | [place], | [address] [place] | | | | | [place] [address] | [place] [address] | | | | | [phone] | [phone] | | | | | | | [...] [place] | | | | | | [address] | | | | | | | | +--------+---------+ + + + | 10/05/ | Office | Neurology | Diane Damon, | | | 2019 | Visit | | MD [address] | | | | | | [place] | | | | | | [place] [address] | | | | | | [phone] | | | | | | | | +--------+---------+ + + + + + +--------+ + + | Name | Type | Priori | Associated Diagnoses | Order Schedule | | | | ty | | | + + +--------+ + + | PHYSICAL THERAPY | Outpatient | Routin | Lumbar | Ordered: 10/05/2018 | | REFERRAL | Referral | e | radiculopathy | | + + +--------+ + + documented as of this encounter Visit Diagnoses + + | Diagnosis | + + | Lumbar radiculopathy - Primary Thoracic or lumbosacral neuritis or radiculitis, | | unspecified | + + documented in this encounter"
--- OUTSIDE RECORDS SUMMARY | ~2019-07-03 | XMS | Encounter Summary ---
Demographics + + + | Address | [address] [facility] [address] | | | [place] [address] | + + + | Home Phone | | + + + | Preferred Language | Unknown | + + + | Marital Status | | + + + | Confucianism Affiliation | 1077 | + + + | Race | Unknown | + + + | Ethnic Group | Unknown | + + + Author + + + | Author | [facility] | | | and [place] | + + + | Organization | [facility] | | | [...] [place] | | | | | [address] | | + + + + + Care Team Providers + +------+ + | Care Chemist Physical Name | Role | Phone | + +------+ + PCP | Unavailable | + +------+ + Encounter Details +--------+ + + + + | Date | Type | Department | Care Team | Description | +--------+ + + + + | 11/26/ | Hospital | [facility] | Conversion | Chest pain | | 2013 | Encounter | CONVERSION [address] | Transaction, | | | | | [address] | Provider Unknown | | | | | [place], [place] | | | | | | [address] | (Fax) | | | | | | | [...] Cardiology | Lida Ventura DO | | 2019 | Visit | | [address] | | | | | | [place] | | | | | | [address] | | | | | | | | +--------+---------+ + + + | 10/05/ | Office | Neurology | Diane Damon, | | | 2019 | Visit | | MD [address] | | | | | | [place] | | | | | | [place] [address] | | | | | | [phone] | | | | | | | [...] for this | | | e | 11:31 AM | | procedure are in the | | | | PDT | | results section. | + +--------+ + + + documented in this encounter Results XR Chest 1 Vw (11/19/2012 11:31 AM PDT) + + | Specimen | + + | | + + + + + | Narrative | Performed At | + + + | This is a non-reportable procedure without a radiologist report and | | | is used for image storage only | | + + + + + | Procedure Note | + + | Clyde Walker Conversion - 03/04/2019 6:15 PM PDT This is a non-reportable procedure | | without a radiologist report and isused for image storage only | + + documented in this encounter Visit Diagnoses + + | Diagnosis | + + | Chest pain Chest pain, unspecified | + + documented in this encounter"
--- OUTSIDE RECORDS SUMMARY | ~2019-07-03 | XMS | Encounter Summary ---
Demographics + + + | Address | [address] [facility] | | | [place] [address] | + + + | Home Phone | | + + + | Preferred Language | Unknown | + + + | Marital Status | | + + + | Worship Affiliation | 1077 | + + + | Race | Unknown | + + + | Ethnic Group | Unknown | + + + Author + + + | Author | [facility] | | | and [place] | + + + | Organization | [facility] | | | [...] [place] | | | | | [address] | | + + + + + Care Team Providers + +------+ + | Care Computing Machine Operator Name | Role | Phone [...] | | | | [address] | [address] | | | | | [place] | [place] | | | | | [address] | [address] | | | | | [phone] | [phone] | | | | | | | [...] [place] | | | | | | [address] | | | | | | | | +--------+---------+ + + + | 10/05/ | Office | Neurology | Diane Damon, | | | 2019 | Visit | | MD [address] | | | | | | [place] | | | | | | [place] [address] | | | | | | [phone] | | | | | | | [...] MV E/A Ratio: 1.13 RAP: 5 mmHg Tower Helper: DBS | | | Authenticated by: Jignesh [...] (A-L): 37.54 ml/m2LAAs A2C: 23.21 | | [id number] A-L A2C: 90.35 mlLALs A2C: 5.07 cmLAAs A4C: 16.16 fc7UKAJY A-L A4C: | | 48.09 mlLALs A4C: 4.61 cmRAAs: 12.92 [id number] A-L: 33.22 mlRAESV MOD: 30.34 | | mlRALs: 4.26 cmAV maxP.50 mmHgAV meanP.37 mmHgAV Vmax: 1.06 m/Vilma Vmean: | | 0.74 m/Vilma VTI: 16.88 cmLVOT maxP.47 mmHgLVOT meanP.76 mmHgLVOT Vmax: | | 0.93 m/sLVOT Vmean: 0.59 m/sLVOT VTI: 15.36 cmMV A Rodney: 0.52 m/sMV DecT: 175.45 | | msMV E [place]: 0.59 m/sMV E/A Ratio: 1.13RAP: 5 mmHg Tower Helper: DBSAuthenticated | | by: Jignesh Pyle MDReport [...] | |RAP: 5 mmHg | | | |Tower Helper: DBS | |Authenticated by: Jignesh Pyle MD | |Report Date/Time: 04-01-2016 21:54:06 | | | |IMPRESSION: | |1. Overall left ventricular systolic function is low-normal with, an EF between 50 - 55 %. | |2. The left atrium is mildly enlarged. | + + documented in this encounter Visit Diagnoses Not on filedocumented in this encounter"
--- OUTSIDE RECORDS SUMMARY | ~2019-07-03 | XMS | Encounter Summary ---
Demographics + + + | Address | [address] [facility] | | | [place] [address] | + + + | Home Phone | | + + + | Preferred Language | Unknown | + + + | Marital Status | | + + + | Mosque Affiliation | 1077 | + + + | Race | Unknown | + + + | Ethnic Group | Unknown | + + + Author + + + | Author | [facility] | | | and [place] | + + + | Organization | [facility] | | | [...] [place] | | | | | [address] | | + + + + + Care Team Providers + +------+ + | Care Sales Analyst Name | Role | Phone | + [...] e disc | [address] | [facility] | | | | | disease), | [place], | [facility], [place] | | | | | lumbar | [place] [address] | [address] Phone: | | | | | | Phone: | [phone] | | | | | | [phone] | Fax: | | | | | | Fax: | [phone] | | | | | | [phone] | | +--------+--------+ + + + + Encounter Details +--------+---------+ + + + | Date | Type | Department | Care Team | Description | +--------+---------+ + + + | 05/23/ | Office | [facility] | Kirill Guerrero PA-C | Lumbar radiculopathy | | 2019 | Visit | PHYSIATRY [address] | [address] | (Primary Dx); | | | | [place], | [place], [place] | Bilateral leg pain; | | | | [place] [address] | [id number] | Spinal stenosis of | | | | [phone] | | lumbar region with | | [...] disk, and irritate nerves. Date Last Reviewed: 12/11/201719991510-9743 [employer]. [address] [place] [address], [place] [address]. All righ ts reserved. This information is not intended as a substitute for professional medical care. Always follow your healthcare professional's instructions. documented in this encounter Progress Notes Claudia Blood, Cell Pourer - 05/23/2019 1:00 PM PSTFormatting of this note might b e different from the original. Kirill Guerrero PA-C [address] [facility], [address] [place], [place] [address] FAX: CHIEF COMPLAINT: Chief Complaint Patient presents [...] eral hip replacement surgeries. Patient has seen paralegal specialist who have told him "no thing [...] has no apparent deficits with short or half-way memory. The cranial nerves appear grossly intact. [...] PT (multiple sessions over the years) and care nurse rn. Unfortunately Erwin encinas continues to have significant [...] | [facility] [place] | | | | | | [address] | | | | | | | | +--------+---------+ + + + | 10/05/ | Office | Neurology | Diane Damon, | | | 2019 | Visit | | MD [address] | | | | | | [place] | | | | | | [place] [address] | | | | | | [phone] | | | | | | | [...]
--- OUTSIDE RECORDS SUMMARY | ~2019-07-03 | XMS | Clinical Summary ---
Demographics + + + | Address | [address] | | | [place] [address] | + + + | Home Phone | | + + + | Preferred Language | Unknown | + + + | Marital Status | | + + + | Jehovah'S Witness Affiliation | 1077 | + + + | Race | Unknown | + + + | Ethnic Group | Unknown | + + + Author + + + | Author | [facility] (Historical as of | | | 02-26-19) | + + + | Organization | [facility] (Historical as of | | | 02-26-19) [...] [address] | | | | | [address] | | + + + + + Care Team Providers + +------+ + | Care Personnel Analyst Name | Role | Phone | [...] +------+-------+ + | MEDICARE | MEDICA | [id number] | | | [address] | | | RE | | | | [place] [address] | | | IP-OP | | | | | + +--------+ +------+-------+ + | MEDICAID | EASTER | [id number] | | | [address] | | | N | | | | [place] | | | [place] | | | | [address] | | | PUPIL PERSONNEL WORKER | | | | | + +--------+ [...] | luis | | | [address] | [address] | + +--------+ +--------+ + +
--- OUTSIDE RECORDS SUMMARY | ~2019-07-03 | XMS | Encounter Summary ---
Demographics + + + | Address | [address] [facility] | | | [place] [address] | + + + | Home Phone | | + + + | Preferred Language | Unknown | + + + | Marital Status | | + + + | Mosque Affiliation | 1077 | + + + | Race | Unknown | + + + | Ethnic Group | Unknown | + + + Author + + + | Author | [facility] | | | and [place] | + + + | Organization | [facility] | | [...] [place] | | | | | [address] | | + + + + + Care Team Providers + +------+ + | Care Technology Education Instructor Name | Role | Phone | + +------+ + | Bess Alba | PCP | | + +------+ + Reason for Visit +--------+ + | Reason | Comments | +--------+ + | Other | Documentation | +--------+ + Encounter Details +--------+ + + + + | Date | Type | Department | Care Team | Description | +--------+ + + + + | 06/08/ | Telephone | [facility] | Kevin, | Other (Documentation | | 2019 | | NEUROLOGY [address] | [address] | ) | | | | [address] | | | | | | [place] | | | | | | [address] | | | | | | [phone] | | | +--------+ + + + [...] [place] | | | | | | [address] | | | | | | | | +--------+---------+ + + + | 10/05/ | Office | Neurology | Diane Damon, | | | 2019 | Visit | | MD [address] | | | | | | [place] [address] | | | | | | [place] [address] | | | | | | [phone] | | | | | | | | +--------+---------+ + + + documented as of this encounter Visit Diagnoses Not on filedocumented in this encounter"
--- OUTSIDE RECORDS SUMMARY | ~2019-07-03 | XMS | Encounter Summary ---
Demographics + + + | Address | [address] [facility] | | | [place] [address] | + + + | Home Phone | | + + + | Preferred Language | Unknown | + + + | Marital Status | | + + + | Temple Affiliation | 1077 | + + + | Race | Unknown | + + + | Ethnic Group | Unknown | + + + Author + + + | Author | [facility] | | | and [place] | + + + | Organization | [facility] | | [...] [place] | | | | | [address] | | + + + + + Care Team Providers + +------+ + | Care Protein Purification Scientist Name | Role | Phone | + +------+ + | Ugo Lux DO | JENNIFER | | + +------+ + Encounter Details +--------+ + + + + | Date | Type | Department | Care Team | Description | +--------+ + + + + | 08/03/ | Care | [facility] | Provider, | | | 2019 | Coordinatio | PHYSIATRY [address] | [address] | | | | n | [place], | [place] | | | | | [place] [address] | [place] [address] | | | | | [phone] | | | +--------+ + + + [...] of this encounter Progress Notes Shelli Lopez, Project Engineer - 08/03/2018 11:58 AM PSTCare everywhere queried [...] [place] | | | | | | [address] | | | | | | | | +--------+---------+ + + + | 10/05/ | Office | Neurology | Diane Damon, | | | 2019 | Visit | | MD [address] | | | | | | [place] | | | | | | [place] [address] | | | | | | [phone] | | | | | | | | +--------+---------+ + + + documented as of this encounter Visit Diagnoses Not on filedocumented in this encounter"
--- OUTSIDE RECORDS SUMMARY | ~2019-07-03 | XMS | Encounter Summary ---
Demographics + + + | Address | [address] [facility] | | | [place] [address] | + + + | Home Phone | | + + + | Preferred Language | Unknown | + + + | Marital Status | | + + + | Muslim Affiliation | 1077 | + + + | Race | Unknown | + + + | Ethnic Group | Unknown | + + + Author + + + | Author | [facility] | | | and [place] | + + + | Organization | [facility] | | | [...] [place] | | | | | [address] | | + + + + + Care Team Providers + +------+ + | Care Revising Clerk Name | Role | Phone | [...] | (Primary Dx) | | | | [place], | [address] [place] | | | | | [place] [address] | [place] [address] | | | | | [phone] | [phone] | | | | | | | [...] | | | | | | [facility] [place] | | | | | | [address] | | | | | | | | +--------+---------+ + + + | 10/05/ | Office | Neurology | Diane Damon, | | | 2019 | Visit | | MD [address] | | | | | | [address] | | | | | | [place] [address] | | | | | | [phone] | | | | | | | [...]
--- OUTSIDE RECORDS SUMMARY | ~2019-07-03 | XMS | Encounter Summary ---
Demographics + + + | Address | [address] [facility] | | | [place] [address] | + + + | Home Phone | | + + + | Preferred Language | Unknown | + + + | Marital Status | | + + + | Samaritan Affiliation | 1077 | + + + [...] [place] | | | | | [address] | | + + + + + Care Team Providers + +------+ + | Care Cardiac Rehabilitation Program Director Name | Role | Phone | + [...] | | | | | [place] | [place] [address] | [address] | | | | | | Phone: | Phone: | | | | | | [phone] | [phone] | | | | | | Fax: | Fax: | | | | | | [phone] | [phone] | +--------+ + + + + + [...] | (Primary Dx) | | | | [place], | [address] [place] | | | | | [place] [address] | [place] [address] | | | | | [phone] | [phone] | | | | | | | [...] [place] | | | | | | [address] | | | | | | | | +--------+---------+ + + + | 10/05/ | Office | Neurology | Diane Damon, | | | 2019 | Visit | | MD [address] | | | | | | [place] | | | | | | [place] [address] | | | | | | [phone] | | | | | | | [...]
--- OUTSIDE RECORDS SUMMARY | ~2019-07-03 | XMS | Encounter Summary ---
Demographics + + + | Address | [address] [facility] | | | [place] [address] | + + + | Home Phone | | + + + | Preferred Language | Unknown | + + + | Marital Status | | + + + | Religion Affiliation | 1077 | + + + | Race | Unknown | + + + | Ethnic Group | Unknown | + + + Author + + + | Author | [facility] | | | and [place] | + + + | Organization | [facility] | | | and [...] [place] | | | | | [address] | | + + + + + Care Team Providers + +------+ + | Care Sponge Fisherman Name | Role | Phone | + [...] [place] | | | | | [phone] | [place] [address] | | +--------+ + + + + [...] [place] | | | | | | [address] | | | | | | | | +--------+---------+ + + + | 10/05/ | Office | Neurology | Diane Damon, | | | 2019 | Visit | | MD [address] | | | | | | [place] | | | | | | [place] [address] | | | | | | [phone] | | | | | | | | +--------+---------+ + + + documented as of this encounter Procedures + +--------+ + + + | Procedure Name | Priori | Date/Time | Associated Diagnosis | Comments | | | ty | | | | + +--------+ + + + | XR THORACIC SPINE 2 | Routin | 07/31/2009 | | Results for this | | VW | e | 10:55 AM | | procedure are in the | | | | PST | | results section. | + +--------+ + + + documented in this encounter Results XR Thoracic Spine 2 Vw (07/31/2009 10:55 AM PST) + + | Specimen | [...]
--- OUTSIDE RECORDS SUMMARY | ~2019-07-03 | XMS | Encounter Summary ---
Demographics + + + | Address | [address] [facility] | | | [place] [address] | + + + | Home Phone [...] [place] | | | | | [address] | | + + + + + Care Team Providers + +------+ + | Care Pin Chaser Name | Role | Phone | + [...] | (Primary Dx) | | | | [place], | [address] [place] | | | | | [place] [address] | [place] [address] | | | | | [phone] | | | | | | | [...] | | | | | | [facility] [place] | | | | | | [address] | | | | | | | | +--------+---------+ + + + | 10/05/ | Office | Neurology | Diane Damon, | | | 2019 | Visit | | MD [address] | | | | | | [address] | | | | | | [place] [address] | | | | | | [phone] | | | | | | | [...]
--- OUTSIDE RECORDS SUMMARY | ~2019-07-03 | XMS | Encounter Summary ---
Demographics + + + | Address | [address] [facility] | | | [place] [address] | + + + | Home Phone | | + + + | Preferred Language | Unknown | + + + | Marital Status | | + + + | Jain Affiliation | 1077 | + + + | Race | Unknown | + + + | Ethnic Group | Unknown | + + + Author + + + | Author | [facility] | | | and [place] | + + + | Organization | [facility] | | [...] [place] | | | | | [address] | | + + + + + Care Team Providers + +------+ + | Care Supervisor Sawing And Assembly Name | Role | Phone | + +------+ + | Ugo Lux DO | JENNIFER | | + +------+ + Encounter Details +--------+ + + + + | Date | Type | Department | Care Team | Description | +--------+ + + + + | 08/03/ | Care | [facility] | Provider, | | | 2019 | Coordinatio | PHYSIATRY [address] | [address] | | | | n | [place], | [place] | | | | | [place] [address] | [place] [address] | | | | | [phone] | | | +--------+ + + + [...] of this encounter Progress Notes Shelli Lopez, Shipping Assistant - 08/03/2018 11:58 AM PSTCare everywhere queried [...] [place] | | | | | | [address] | | | | | | | | +--------+---------+ + + + | 10/05/ | Office | Neurology | Diane Damon, | | | 2019 | Visit | | MD [address] | | | | | | [place] | | | | | | [place] [address] | | | | | | [phone] | | | | | | | | +--------+---------+ + + + documented as of this encounter Visit Diagnoses Not on filedocumented in this encounter"
--- OUTSIDE RECORDS SUMMARY | ~2019-07-03 | XMS | Encounter Summary ---
Demographics + + + | Address | [address] [facility] | | | [place] [address] | + + + | Home Phone | | + + + | Preferred Language | Unknown | + + + | Marital Status | | + + + | Zoroastrianism Affiliation | 1077 | + + + | Race | Unknown | + + + | Ethnic Group | Unknown | + + + Author + + + | Author | [facility] | | | and [place] | + + + | Organization | [facility] | | | [...] [place] | | | | | [address] | | + + + + + Care Team Providers + +------+ + | Care Candle Wrapper Name | Role | Phone | + [...] | | | | [address] | [address] | | | | | [place] | [place] | | | | | [address] | [address] | | | | | [phone] | [phone] | | | | | | | [...] [place] | | | | | | [address] | | | | | | | | +--------+---------+ + + + | 10/05/ | Office | Neurology | Diane Damon, | | | 2019 | Visit | | MD [address] | | | | | | [place] | | | | | | [place] [address] | | | | | | [phone] | | | | | | | [...] TR Vmax: 1.95 m/s | | | Bread Dough Mixer: Authenticated by: RICHARD GAMING MD Report | [...] cmLVIDd: 5.22 cmLVPWd: 1.04 cmLVOT Area: 4.28 gy3HRRR Diam: 2.33 | | cm%FS: 20.63 %EF(Teich): [...] | | (A-L): 34.15 ml/m2LAAs A2C: 19.89 bf4LRTYI A-L A2C: 66.08 mlLALs A2C: 5.08 | | cmLAAs A4C: 19.53 zl5CULKY A-L A4C: 59.08 mlLALs A4C: 5.48 cmRAAs: 11.32 | | mz3VUUGJ A-L: 25.47 mlRAESV MOD: 25.02 mlRALs: 4.27 cmTAPSE: 1.98 cmAV maxPG: | | 4.14 mmHgAV meanP.27 mmHgAV Vmax: 1.01 m/Vilma Vmean: 0.70 m/Vilma VTI: 17.62 | | cmAVA Vmax: 3.32 cm2AVA (VTI): 3.94 ok5ASRS Vmax: 0.00 cm2/m2AVAI (VTI): 0.00 | | cm2/m2LVOT maxP.50 mmHgLVOT meanP.38 mmHgLVSI Dopp: 36.57 ml/m2LVSV Dopp: | | 69.48 mlLVOT Vmax: 0.79 m/sLVOT Vmean: 0.55 m/sLVOT VTI: 16.22 cmMV A Rodney: | | 0.40 m/sMV DecT: 199.44 msMV E Rodney: 0.58 m/sMV E/A Ratio: 1.44MV PHT: 57.83 | | msMVA By PHT: 3.80 yl5Phcice e': 0.07 m/sSeptal E/e': 7.83Lateral e': 0.08 | | m/sLateral E/e': 6.84RAP: 10 mmHgRVSP: 25.23 mmHgTR maxP.23 mmHgTR Vmax: | | 1.95 m/s Bread Dough Mixer: Jeroticated by: Milan CROWE Date/Time: 05-19-2017 | [...] |TR Vmax: 1.95 m/s | | | |Bread Dough Mixer: | |Authenticated by: RICHARD GAMING MD | [...]
--- OUTSIDE RECORDS SUMMARY | ~2019-07-03 | XMS | Encounter Summary ---
Demographics + + + | Address | [address] [facility] | | | [place] [address] | + + + | Home Phone | | + + + | Preferred Language | Unknown | + + + | Marital Status | | + + + | Restorationism Affiliation | 1077 | + + + | Race | Unknown | + + + | Ethnic Group | Unknown | + + + Author + + + | Author | [facility] | | | and [place] | + + + | Organization | [facility] | | | and [...] [place] | | | | | [address] | | + + + + + Care Team Providers + +------+ + | Care Financial Aid Director Name | Role | Phone | + +------+ + PCP | Unavailable | + +------+ + Encounter Details +--------+ + + + + | Date | Type | Department | Care Team | Description | +--------+ + + + + | 11/26/ | Hospital | [facility] | Conversion | Chest pain | | 2013 | Encounter | CONVERSION [address] | Transaction, | | | | | [address] | Provider Unknown | | | | | [place], [place] | | | | | | [address] | (Fax) | | | | | [...] [place] | | | | | | [address] | | | | | | | | +--------+---------+ + + + | 10/05/ | Office | Neurology | Diane Damon, | | | 2019 | Visit | | MD [address] | | | | | | [place] | | | | | | [place] [address] | | | | | | [phone] | | | | | | | [...]
--- OUTSIDE RECORDS SUMMARY | ~2019-07-03 | XMS | Encounter Summary ---
Demographics + + + | Address | [address] [facility] | | | [place] [address] | + + + | Home Phone [...] [place] | | | | | [address] | | + + + + + Care Team Providers + +------+ + | Care Preassembler Printed Circuit Board Name | Role | Phone | + [...] | | | Spine [place] | [place] [address] | [address] | | | | | Contrast | Phone: | Phone: | | | | | | [phone] | [phone] | | | | | | Fax: | Fax: | | | | | | [phone] | [phone] | +--------+--------+ + + + + Reason [...] | | | | lumbar | [place] [address] | [address] Phone: | | | | | | Phone: | [phone] | | | | | | [phone] | Fax: | | | | | | Fax: | [phone] | | | | | | [phone] | | +--------+--------+ + + + + Encounter Details +--------+---------+ + + + | Date | Type | Department | Care Team | Description | +--------+---------+ + + + | 08/05/ | Office | [facility] | Jericho Chavez, | Lumbar radiculopathy | | 2019 | Visit | PHYSIATRY [address] | PA-C [address] | (Primary Dx) | | | | [place], | [address] [place] | | | | | [place] [address] | [place] [address] | | | | | [phone] | [phone] | | | | | | | [...] of the procedure you must provide a new autos delivery driver to take you home. For all [...] press against a nerve. Date Last Reviewed: 09/10/201719997190-6715 [employer]. [address] [place] [address], [place] [address]. All [facility] ts reserved. This information is not intended as a substitute for professional medical care. Always follow your healthcare professional's instructions. documented in this encounter Progress Notes Jericho Chavez PA-C - 08/05/2018 3:40 PM PSTFormatting of this note might be different fro m the original. Jericho Chavez PA-C [address] [place] [address], [address] [place], [place] [id number] FAX: CHIEF COMPLAINT: Chief Complaint Patient presents [...] has no apparent deficits with short or long term care administrator memory. Cranial nerves 2-12 appear grossly intact. [...] STUBBS | | | | | | [facility] [place] | | | | | | [address] | | | | | | | | +--------+---------+ + + + | 10/05/ | Office | Neurology | Diane Damon, | | | 2019 | Visit | | MD [address] | | | | | | [address] | | | | | | [place] [address] | | | | | | [phone] | | | | | | | [...]
--- OUTSIDE RECORDS SUMMARY | ~2019-07-03 | XMS | Encounter Summary ---
Demographics + + + | Address | [address] [facility] | | | [place] [address] | + + + | Home Phone | | + + + | Preferred Language | Unknown | + + + | Marital Status | | + + + | Adventism Affiliation | 1077 | + + + | Race | Unknown | + + + | Ethnic Group | Unknown | + + + Author + + + | Author | [facility] | | | and [place] | + + + | Organization | [facility] | | | and [...] [place] | | | | | [address] | | + + + + + Care Team Providers + +------+ + | Care Video Game Programmer Name | Role | Phone | + [...] [address] | | | | | [phone] | [place] [address] | | +--------+ + + + + [...] [place] | | | | | | [address] | | | | | | | | +--------+---------+ + + + | 10/05/ | Office | Neurology | Diane Damon, | | | 2019 | Visit | | MD [address] | | | | | | [place] | | | | | | [place] [address] | | | | | | [phone] | | | | | | | [...]
--- OUTSIDE RECORDS SUMMARY | ~2019-07-03 | XMS | Clinical Summary ---
Demographics + + + | Address | [address] [facility] | | | [place] [address] | + + + | Home Phone | | + + + | Preferred Language | Unknown | + + + | Marital Status | | + + + | Restorationist Affiliation | 1077 | + + + [...] [place] | | | | | [address] | | + + + + + Care Team Providers + +------+ + | Care Diesel Fitter Mechanic Name | Role | Phone | + [...] | | | | [place] | | | | | | [address] | | | | | | | | +--------+---------+ + + + | 10/05/ | Office | Neurology | Diane Damon, | | | 2019 | Visit | | MD [address] | | | | | | [place] | | | | | | [place] [address] | | | | | | [phone] | | | | | | | [...] +--------+ +---------+--------+ | MEDICARE | MEDICA | [id number] | 11/11/19 | [phone] | | Medica | | | RE | | 19-Pre | 5 | | re | | | PART A | | sent | | | | | | AND B | | | | | | + +--------+ +--------+ +---------+--------+ | MEDICARE | MEDICA | [id number] | 11/11/19 | [phone] | | Medica [...] [place] | | | 1 (Home) | [address] | + +--------+ +--------+ + + | Erwin Beth W | Person | Self | [birth year] | [address] | | | al/Fam | | 1966 | [phone] | [address] [place], [place] | | | [place] | | | 1 (Home) | [address] | + +--------+ +--------+ + + Advance Directives + + + + + | Type | Date Recorded | Patient | Explanation | | | | Medicinal Plant Picker | | + + + + + | Power of | | | | | Chair Trimmer | | | | + + + + + | Advance | | | | | Directive | | | | + + + + +
--- OUTSIDE RECORDS SUMMARY | ~2019-07-03 | XMS | Encounter Summary ---
Demographics + + + | Address | [address] [facility] | | | [place] [address] | + + + | Home Phone | | + + + | Preferred Language | Unknown | + + + | Marital Status | | + + + | Voodoo Affiliation | 1077 | + + + | Race | Unknown | + + + | Ethnic Group | Unknown | + + + Author + + + | Author | [facility] | | | and [place] | + + + | Organization | [facility] | | | and [...] [place] | | | | | [address] | | + + + + + Care Team Providers + +------+ + | Care Ballet Soloist Name | Role | Phone | + [...] [address] | | | | | [phone] | [place] [address] | | +--------+ + + + + [...] [place] | | | | | | [address] | | | | | | | | +--------+---------+ + + + | 10/05/ | Office | Neurology | Diane Damon, | | | 2019 | Visit | | MD [address] | | | | | | [place] | | | | | | [place] [address] | | | | | | [phone] | | | | | | | [...]
--- OUTSIDE RECORDS SUMMARY | ~2019-07-03 | XMS | Encounter Summary ---
Demographics + + + | Address | [address] [facility] [address] | | | [place] [address] | + + + | Home Phone [...] [place] | | | | | [address] | | + + + + + Care Team Providers + +------+ + | Care Plant Machinist Name | Role | Phone | + [...] | Specialty | Neurosurgery | Diagnoses | Sctot, | Faye, | | | Services | [...] | | | | | | [place] [address] | [address] | | | | | | Phone: | Phone: | | | | | | [phone] | [phone] | | | | | | Fax: | Fax: | | | | | | [phone] | [phone] | +--------+ + + + + + [...] | (Primary Dx) | | | | Hulbert Gates, | [address] [place] | | | | | [place] [address] | [place] [address] | | | | | [phone] | [phone] | | | | | | | [...] [place] | | | | | | [address] | | | | | | | | +--------+---------+ + + + | 10/05/ | Office | Neurology | Diane Damon, | | | 2019 | Visit | | MD [address] | | | | | | [place] | | | | | | [place] [address] | | | | | | [phone] | | | | | | | [...]
--- OUTSIDE RECORDS SUMMARY | ~2019-07-03 | XMS | Encounter Summary ---
Demographics + + + | Address | [address] [facility] [address] | | | [place] [address] | + + + | Home Phone | | + + + | Preferred Language | Unknown | + + + | Marital Status | | + + + | Alevism Affiliation | 1077 | + + + | Race | Unknown | + + + | Ethnic Group | Unknown | + + + Author + + + | Author | [facility] | | | and [place] | + + + | Organization | [facility] | | [...] [place] | | | | | [address] | | + + + + + Care Team Providers + +------+ + | Care Back Feeder Plywood Layup Line Name | Role | Phone | + +------+ + | Bess lAba | PCP | | + +------+ + Encounter Details +--------+ + + + + | Date | Type | Department | Care Team | Description | +--------+ + + + + | 02/23/ | Orders Only | [facility] | Provider, | | | 2019 | | SYSTEM GENERIC OP | MD [address] | | | | | [address] | [place] [address] | | | | | [address] [place], [place] | [place] [address] | | | | | [address] | | | | | | [phone] | | | +--------+ + + + [...] [place] | | | | | | [address] | | | | | | | | +--------+---------+ + + + | 10/05/ | Office | Neurology | Diane Damon, | | | 2019 | Visit | | MD [address] | | | | | | [place] | | | | | | [place] [address] | | | | | | [phone] | | | | | | | | +--------+---------+ + + + documented as of this encounter Visit Diagnoses Not on filedocumented in this encounter"
--- OUTSIDE RECORDS SUMMARY | ~2019-07-03 | XMS | Encounter Summary ---
Demographics + + + | Address | [address] [facility] | | | [place] [address] | + + + | Home Phone [...] [place] | | | | | [address] | | + + + + + Care Team Providers + +------+ + | Care Receptionist Scheduler Name | Role | Phone | + [...] [address] | | | | | [phone] | [place] [address] | | +--------+ + + + + [...] [place] | | | | | | [address] | | | | | | | | +--------+---------+ + + + | 10/05/ | Office | Neurology | Diane Damon, | | | 2019 | Visit | | MD [address] | | | | | | [address] | | | | | | [place] [address] | | | | | | [phone] | | | | | | | [...]
--- OUTSIDE RECORDS SUMMARY | ~2019-07-03 | XMS | Encounter Summary ---
Demographics + + + | Address | [address] [facility] [address] | | | [place] [address] | + + + | Home Phone | | + + + | Preferred Language | Unknown | + + + | Marital Status | | + + + | Tenriism Affiliation | 1077 | + + + | Race | Unknown | + + + | Ethnic Group | Unknown | + + + Author + + + | Author | [facility] | | | and [place] | + + + | Organization | [facility] | | [...] [place] | | | | | [address] | | + + + + + Care Team Providers + +------+ + | Care Chair Maker Name | Role | Phone | + [...] | | | Spine wo | [place] [address] | [address] | | | | | Contrast | Phone: | Phone: | | | | | | [phone] | [phone] | | | | | | Fax: | Fax: | | | | | | [phone] | [phone] | +--------+--------+ + + + + Reason [...] | | | | lumbar | [place] [address] | [address] Phone: | | | | | | Phone: | [phone] | | | | | | [phone] | Fax: | | | | | | Fax: | [phone] | | | | | | [phone] | | +--------+--------+ + + + + Encounter Details +--------+---------+ + + + | Date | Type | Department | Care Team | Description | +--------+---------+ + + + | 08/05/ | Office | [facility] | Jericho Chavez, | Lumbar radiculopathy | | 2019 | Visit | PHYSIATRY [address] | PA-C [address] | (Primary Dx) | | | | [place], | [address] [place] | | | | | [place] [address] | [place] [address] | | | | | [phone] | [phone] | | | | | | | [...] of the procedure you must provide a driver operator to take you home. For all procedur [...] press against a nerve. Date Last Reviewed: 09/10/201719998298-7235 [employer]. [address] [place] [address], [place] [address]. All [facility] reserved. This information is not intended as a substitute for professional medical care. Always follow your healthcare professional's instructions. documented in this encounter Progress Notes Jericho Chavez PA-C - 08/05/2018 3:40 PM PSTFormatting of this note might be different fro m the original. 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 Cranial nerves 2-12 appear grossly intact. [...] STUBBS | | | | | | [facility] [place] | | | | | | [address] | | | | | | | | +--------+---------+ + + + | 10/05/ | Office | Neurology | Diane Damon, | | | 2019 | Visit | | MD [address] | | | | | | [address] | | | | | | [place] [address] | | | | | | [phone] | | | | | | | [...]
--- OUTSIDE RECORDS SUMMARY | ~2019-07-03 | XMS | Encounter Summary ---
Demographics + + + | Address | [address] [facility] | | | [place] [address] | + + + | Home Phone | | + + + | Preferred Language | Unknown | + + + | Marital Status | | + + + | Zoroastrian Affiliation | 1077 | + + + | Race | Unknown | + + + | Ethnic Group | Unknown | + + + Author + + + | Author | [facility] | | | and [place] | + + + | Organization | [facility] | | | [...] [place] | | | | | [address] | | + + + + + Care Team Providers + +------+ + | Care Production Officer Name | Role | Phone | + [...] [address] | | | | | [phone] | [place] [address] | | +--------+ + + + + [...] [place] | | | | | | [address] | | | | | | | | +--------+---------+ + + + | 10/05/ | Office | Neurology | Diane Damon, | | | 2019 | Visit | | MD [address] | | | | | | [place] | | | | | | [place] [address] | | | | | | [phone] | | | | | | | [...]
--- OUTSIDE RECORDS SUMMARY | ~2019-07-03 | XMS | Encounter Summary ---
Demographics + + + | Address | [address] [facility] | | | [place] [address] | + + + | Home Phone [...] [place] | | | | | [address] | | + + + + + Care Team Providers + +------+ + | Care Fence Supervisor Name | Role | Phone | [...] [address] | | | | | [phone] | [place] [address] | | +--------+ + + + + [...] [place] | | | | | | [address] | | | | | | | | +--------+---------+ + + + | 10/05/ | Office | Neurology | Diane Damon, | | | 2019 | Visit | | MD [address] | | | | | | [place] | | | | | | [place] [address] | | | | | | [phone] | | | | | | | [...]
--- OUTSIDE RECORDS SUMMARY | ~2019-07-03 | XMS | Encounter Summary ---
Demographics + + + | Address | [address] [facility] | | | [place] [address] | + + + | Home Phone | | + + + | Preferred Language | Unknown | + + + | Marital Status | | + + + | Yazidism Affiliation | 1077 | + + + | Race | Unknown | + + + | Ethnic Group | Unknown | + + + Author + + + | Author | [facility] | | | and [place] | + + + | Organization | [facility] | | | [...] [place] | | | | | [address] | | + + + + + Care Team Providers + +------+ + | Care Helmet Coverer Name | Role | Phone | + +------+ + | Bess Alba | PCP | | + +------+ + Encounter Details +--------+ + + + + | Date | Type | Department | Care Team | Description | +--------+ + + + + | 02/23/ | Orders Only | [facility] | Provider, | | | 2019 | | SYSTEM GENERIC OP | MD [address] | | | | | [address] | [place] [address] | | | | | [address] [place], [place] | [place] [address] | | | | | [address] | | | | | | [phone] | | | +--------+ + + + [...] [place] | | | | | | [address] | | | | | | | | +--------+---------+ + + + | 10/05/ | Office | Neurology | Diane Damon, | | | 2019 | Visit | | MD [address] | | | | | | [place] | | | | | | [place] [address] | | | | | | [phone] | | | | | | | | +--------+---------+ + + + documented as of this encounter Visit Diagnoses Not on filedocumented in this encounter"
--- OUTSIDE RECORDS SUMMARY | ~2019-07-03 | XMS | Encounter Summary ---
Demographics + + + | Address | [address] [facility] | | | [place] [address] | + + + | Home Phone | | + + + | Preferred Language | Unknown | + + + | Marital Status | | + + + | Amish Affiliation | 1077 | + + + [...] [place] | | | | | [address] | | + + + + + Care Team Providers + +------+ + | Care Maintenance Mechanic Telephone Name | Role | Phone | + [...] [address] | | | | | [phone] | [place] [address] | | +--------+ + + + + [...] | 09/14/ | Office | Cardiology | Ldia Ventura DO | | | 2019 | Visit | | [address] | | | | | | [place] | | | | | | [address] | | | | | | | | +--------+---------+ + + + | 10/05/ | Office | Neurology | Diane Damon, | | | 2019 | Visit | | MD [address] | | | | | | [place] | | | | | | [place] [address] | | | | | | [phone] | | | | | | | [...]
--- OUTSIDE RECORDS SUMMARY | ~2019-07-03 | XMS | Encounter Summary ---
Demographics + + + | Address | [address] [facility] | | | [place] [address] | + + + | Home Phone | | + + + | Preferred Language | Unknown | + + + | Marital Status | | + + + | Hindu Affiliation | 1077 | + + + | Race | Unknown | + + + | Ethnic Group | Unknown | + + + Author + + + | Author | [facility] | | | and [place] | + + + | Organization | [facility] | | [...] [place] | | | | | [address] | | + + + + + Care Team Providers + +------+ + | Care Material Handling Equipment Stevedore Name | Role | Phone | + [...] + + | 09/27/ | Telephone | [facility] | Jericho Chavez, | Results, Imaging | | 2019 | | PHYSIATRY [address] | PA-C [address] | | | | | [place], | [address] [place] | | | | | [place] [address] | [place] [address] | | | | | [phone] | [phone] | | | | | | | [...] [place] | | | | | | [address] | | | | | | | | +--------+---------+ + + + | 10/05/ | Office | Neurology | Diane Damon, | | | 2019 | Visit | | MD [address] | | | | | | [place] | | | | | | [place] [address] | | | | | | [phone] | | | | | | | | +--------+---------+ + + + documented as of this encounter Visit Diagnoses Not on filedocumented in this encounter"
--- OUTSIDE RECORDS SUMMARY | ~2019-07-03 | XMS | Encounter Summary ---
Demographics + + + | Address | [address] [facility] | | | [place] [address] | + + + | Home Phone [...] [place] | | | | | [address] | | + + + + + Care Team Providers + +------+ + | Care Injury/Safety Hazard Assessment Name | Role | Phone | + [...] + + | 06/08/ | Telephone | [facility] | Kevin, | Other (Documentation | | 2019 | | NEUROLOGY [address] | ) | | | | [address] | | | | | | [place] | | | | | | [address] | | | | | | [phone] | | | +--------+ + + + [...] [place] | | | | | | [address] | | | | | | | | +--------+---------+ + + + | 10/05/ | Office | Neurology | Diane Damon, | | | 2019 | Visit | | MD [address] | | | | | | [place] | | | | | | [place] [address] | | | | | | [phone] | | | | | | | | +--------+---------+ + + + documented as of this encounter Visit Diagnoses Not on filedocumented in this encounter"
--- OUTSIDE RECORDS SUMMARY | ~2019-07-03 | XMS | Clinical Summary ---
Demographics + + + | Address | [address] [facility] | | | [place] [address] | + + + | Home Phone | | + + + | Preferred Language | Unknown | + + + | Marital Status | | + + + | Scientologist Affiliation | 1077 | + + + | Race | Unknown | + + + | Ethnic Group | Unknown | + + + Author + + + | Author | [facility] | | | and [place] | + + + | Organization | [facility] | | [...] [place] | | | | | [address] | | + + + + + Care Team Providers + +------+ + | Care Traffic Survey Technician Name | Role | Phone | + [...] | | | | [place] | | | | | | [address] | | | | | | | | +--------+---------+ + + + | 10/05/ | Office | Neurology | Diane Damon, | | | 2019 | Visit | | MD [address] | | | | | | [place] | | | | | | [place] [address] | | | | | | [phone] | | | | | | | [...] +--------+ +---------+--------+ | MEDICARE | MEDICA | [id number] | 11/11/19 | [phone] | | Medica | | | RE | | 19-Pre | 5 | | re | | | PART A | | sent | | | | | | AND B | | | | | | + +--------+ +--------+ +---------+--------+ | MEDICARE | MEDICA | [id number] | 11/11/19 | [phone] | | Medica [...] [place] | | | 1 (Home) | [address] | + +--------+ +--------+ + + | Erwin Beth W | Person | Self [birth year] | [address] | | | al/Fam | | [phone] | [phone] | [address] [place], [place] | | | [place] | | | 1 (Home) | [address] | + +--------+ +--------+ + + Advance Directives + + + + + | Type | Date Recorded | Patient | Explanation | | | | Size Stamper | | + + + + + | Power of | | | | | Milking Machine Operator | | | | + + + + + | Advance | | | | | Directive | | | | + + + + +
--- OUTSIDE RECORDS SUMMARY | ~2019-07-03 | XMS | Encounter Summary ---
Demographics + + + | Address | [address] [facility] | | | [place] [address] | + + + | Home Phone | | + + + | Preferred Language | Unknown | + + + | Marital Status | | + + + | Alevism Affiliation | 1077 | + + + | Race | Unknown | + + + | Ethnic Group | Unknown | + + + Author + + + | Author | [facility] | | | and [place] | + + + | Organization | [facility] | | | [...] [place] | | | | | [address] | | + + + + + Care Team Providers + +------+ + | Care Hair Worker Name | Role | Phone | + +------+ + | Ugo Lux DO | JENNIFER | | + +------+ + Encounter Details +--------+ + + + + | Date | Type | Department | Care Team | Description | +--------+ + + + + | 07/23/ | Abstract | [facility] | Provider, | | | 2019 | | PHYSIATRY [address] | [address] | | | | | [place], | [address] | | | | | [place] [address] | [place] [address] | | | | | [phone] | | | +--------+ + + + [...] | 2020 | Visit | | [address] | | | | | | [place] | | | | | | [address] | | | | | | | | +--------+---------+ + + + | 10/05/ | Office | Neurology | Diane Damon, | | | 2019 | Visit | | MD [address] | | | | | | [place] | | | | | | [place] [address] | | | | | | [phone] | | | | | | | | +--------+---------+ + + + documented as of this encounter Visit Diagnoses Not on filedocumented in this encounter"
--- OUTSIDE RECORDS SUMMARY | ~2019-07-03 | XMS | Clinical Summary ---
Demographics + + + | Address | [address] | | | [place] [address] | + + + | Home Phone | | + + + | Preferred Language | Unknown | + + + | Marital Status | | + + + | Gnosticism Affiliation | 1077 | + + + | Race | Unknown | + + + | Ethnic Group | Unknown | + + + Author + + + | Author | [facility] (Historical as of | | | 02-26-19) | + + + | Organization | [facility] (Historical as of | | | 02-26-19) [...] [address] [place] | | | | | [address] | | + + + + + Care Team Providers + +------+ + | Care Embossing Calender Operator Name | Role | Phone | [...] +------+-------+ + | MEDICARE | MEDICA | [id number] | | | [address] | | | RE | | | | [place] [address] | | | IP-OP | | | | | + +--------+ +------+-------+ + | MEDICAID | [place] | [id number] | | | [address] | | | N | | | | [place] | | | [place] | | | | [address] | | | BIOSECURITY OFFICER | | | | | + +--------+ [...] | [place] | | | [address] | [address] | + +--------+ +--------+ + +
--- OUTSIDE RECORDS SUMMARY | ~2019-07-03 | XMS | Encounter Summary ---
Demographics + + + | Address | [address] [facility] | | | [place] [address] | + + + | Home Phone [...] [place] | | | | | [address] | | + + + + + Care Team Providers + +------+ + | Care Business Case Analyst Name | Role | Phone | [...] [address] | | | | | [phone] | [place] [address] | | +--------+ + + + + [...] [place] | | | | | | [address] | | | | | | | | +--------+---------+ + + + | 10/05/ | Office | Neurology | Diane Damon, | | | 2019 | Visit | | MD [address] | | | | | | [address] | | | | | | [place] [address] | | | | | | [phone] | | | | | | | [...]
--- OUTSIDE RECORDS SUMMARY | ~2019-07-03 | XMS | Encounter Summary ---
Demographics + + + | Address | [address] [facility] | | | [place] [address] | + + + | Home Phone [...] [place] | | | | | [address] | | + + + + + Care Team Providers + +------+ + | [facility] Name | Role | Phone | + +------+ + PCP | Unavailable | + +------+ + Encounter Details +--------+ + + + + | Date | Type | Department | Care Team | Description | +--------+ + + + + | 11/19/ | Hospital | [facility] | JosuemaríaAlondramarquita, | SOB (shortness of | | 2012 - | Encounter | [facility] | [address] | breath) on exertion; | | | | CARE FLOOR [address] | [place] [address] | Cardiac enzymes | | 11/21/ | | [address] | [phone] | elevated | | 2012 | | [place], [place] | | | | | | [address] | | | | | | [phone] | | | +--------+ + + + [...] 11/21/12917 Date of Service: 11/21/12911 Status: Signed Automation Qa Lead: Abhinav Garcia DO (Physician) [facility] Service: Hospitalist Discharge Summary Date of [...] CKMB 4.5* 11/20/2012 XR chest 1 view [[id number]] Status: Final result Study Result HISTORY: Difficulty [...] The left atrium is moderately dilated. 4. Yhvu-kw-odzfwrrw mitral regurgitation is present. 5. Ghxd-hs-ndnjbgwx tricuspid regurgitation present. 6. The right ventricular [...] test was found to be negative. A 6-Serbian right radial artery Glidesheath was then advanced. A cocktail of heparin, verapamil and nitroglycerin was injected via the introducer. Using a Wholey wire, a 6-Serbian JL4 catheter was advanced to the ascending aorta and engaged with the ostium of the left main. Projections of the left coronary system were done with the use of contrast injections. Using a long exchange wire, the JL4 catheter was exchanged to a 6-Serbian JR4 catheter which was engaged with the ostium of the right coronary artery. Projections of the right coronary artery were done with the use of contrast injections. The catheter was then exchanged over a long exchange wire to a 6-Serbian pigtail catheter which was advanced to the [...] Full Code Follow up: Griffin Suero MD [address] [place] [address] in 2 weeks Divya Alves MD [address] [facility] [place] [address] in 4 weeks Current Discharge Medication List [...] Date of Service: 11/21/12 1501 Status: Signed Automation Qa Lead: Shannan Xavier RN (Registered Nurse) Discharge instructions given to patient, verbalized understanding. Left with wheelchair es joleen to private car and home. onver sonal Transaction, Provider Unknown - 11/21/2012 12:40 PM PDT Progress Notes by Shannan Xavier RN at 11/21/12 1240 Author: Shannan Xavier RN Service: (none) Author Type: Registered Nurse Filed: 11/21/12 1248 Date of Service: 11/21/12 1240 Status: Signed Automation Qa Lead: Shannan Xavier RN (Registered Nurse) CHF teaching: [...] Date of Service: 11/21/12 0728 Status: Signed Automation Qa Lead: Divya Alves MD (Physician) Related Notes: Original Note by Divya Alves MD (Physician) filed at 11/21/12 0732 [facility] Service: Cardiology/[facility] Progress Note RE: Jessa Cole [...] Service: (none) Author Type: Physician Filed: 11/20/12 5437 Date of Service: 11/20/12 1324 Status: Addendum Automation Qa Lead: Abhinav Garcia DO (Physician) Related Notes: Original Note by Abhinav Garcia DO (Physician) filed at 11/20/12 1332 [facility] Service: Hospitalist Progress Note Hospital Day: LOS: 1 day SUBJECTIVE 47 year old developed increasing exertional dyspnea over the course of less than a week, pr esented to [facility] where a troponin was indeterminate, transferred to [facility] and troponin s have been [...] Daily heparin (porcine) 5,000 Units Subcutaneous Q8H [facility] lisinopril 5 mg Oral Daily lovastatin 20 [...] CKMB 4.5* 11/20/2012 XR chest 1 view [[id number]] Status: Final result Study Result HISTORY: Difficulty [...] 11/20/121039 Date of Service: 11/20/121039 Status: Signed Automation Qa Lead: Azul Weaver RPH (Pharmacist) Renal Dosing Monitoring: [...] 11/19/122123 Date of Service: 11/19/122123 Status: Signed Automation Qa Lead: Georgiana Street RPH (Pharmacist) Clinical Pharmacy Note: [...] [place] | | | | | | [address] | | | | | | | | +--------+---------+ + + + | 10/05/ | Office | Neurology | Diane Damon, | | | 2019 | Visit | | MD [address] | | | | | | [place] | | | | | | [place] [address] | | | | | | [phone] | | | | | | | [...] test was found to be negative. A 6-Serbian right radial artery | | | Glidesheath was then advanced. A cocktail of heparin, verapamil and | | | nitroglycerin was injected via the introducer. Using a Wholey wire, a | | | 6-Serbian JL4 catheter was advanced to the ascending aorta and | | | engaged with the ostium of the left main. Projections of the left | | | coronary system were done with the use of contrast injections. Using | | | a long exchange wire, the JL4 catheter was exchanged to a 6-Serbian | | | JR4 catheter which was engaged with the ostium of the right coronary | | | artery. Projections of the right coronary artery were done with the | | | use of contrast injections. The catheter was then exchanged over a | | | long exchange wire to a 6-Serbian pigtail catheter which was advanced | | [...] test was found to be negative. A 6-Serbian right radial artery Glidesheath | | was then advanced. A cocktail of heparin, verapamil and nitroglycerin was | | injected via the introducer. Using a Wholey wire, a 6-Serbian JL4 catheter | | was advanced to the ascending aorta and engaged with the ostium of the | | left main. Projections of the left coronary system were done with the use | | of contrast injections. Using a long exchange wire, the JL4 catheter was | | exchanged to a 6-Serbian JR4 catheter which was engaged with the ostium of | | the right coronary artery. Projections of the right coronary artery were | | done with the use of contrast injections. The catheter was then exchanged | | over a long exchange wire to a 6-Serbian pigtail catheter which was | | advanced [...] | | | is moderately dilated. 4. Krrg-hx-duqehchk mitral regurgitation is | | | present. 5. Evkl-ki-asukfgxx tricuspid regurgitation present. 6. The | | [...] The mitral valve is normal. Mitral Valve: Hjfv-yr-oxilybaa | | | mitral regurgitation is present. Tricuspid Valve: The tricuspid valve | | | appears structurally normal. Tricuspid Valve: Uyiw-ge-ppebddmi | | | tricuspid regurgitation present. Tricuspid [...] Excursion: 1.70 cm | | | E-F Hooker: 0.10 m/s EPSS: 1.06 cm IVC diameter: [...] TV A Rodney: 0.35 m/s TV Dec Hooker: 1.72 | | | m/s2 TV Dec Time: 211.30 ms TV E Rodney: 0.36 m/s TV E/A Ratio: | | | 1.01 Keyboard Operator: DEBBIE Authenticated by: Divya Alves MD [...] left atrium is moderately dilated.4. | | Fjuw-cr-jayvxdkk mitral regurgitation is present.5. Ohch-ae-mubsgkpx tricuspid | | regurgitation present.6. The right [...] mitral valve is normal.Mitral Valve: | | Ctfb-vd-pioverjo mitral regurgitation is present.Tricuspid Valve: The tricuspid valve | | appears structurally normal.Tricuspid Valve: Viva-ou-ojzlcjmu tricuspid regurgitation | | present.Tricuspid Valve: There [...] mlLAESV Index (A-L): 45.41 ml/m2LAAs A2C: 24.93 [id number] | | A-L A2C: 97.92 mlLALs A2C: 5.39 cmLAAs A4C: 22.03 fh7TLEBN A-L A4C: 77.83 mlLALs | | A4C: 5.29 cmAo Diam: 3.63 cmAV Cusp: 1.97 cmLA Diam: 4.34 cmLA/Ao: 1.19D-E | | Excursion: 1.70 cmE-F Hooker: 0.10 m/sEPSS: 1.06 cmIVC diameter: 1.97 cmIVC | | collapse: 0.83 cmIVC % collapse: 55.60 %HR: 72.45 BPMAV maxP.24 mmHgAV | | meanP.37 mmHgAV Vmax: 1.14 m/Vilma Vmean: 0.89 m/Vilma VTI: 21.73 cmAVA Vmax: | | 2.62 cm2AVA (VTI): 2.43 qk3FLBR Dopp: 2.01 l/xcdo4ZYYG Dopp: 3.91 l/minHR: 74.10 | | BPMLVOT [...] A Rodney: 0.35 m/sTV | | Dec Hooker: 1.72 m/s2TV Dec Time: 211.30 msTV E Rodney: 0.36 m/sTV E/A Ratio: 1.01 | | Keyboard Operator: JUAN ALBERTOuthenticated by: Divya VITALEeport Date/Time: [...] | |D-E Excursion: 1.70 cm | |E-F Hooker: 0.10 m/s | |EPSS: 1.06 cm | [...] A Rodney: 0.35 m/s | |TV Dec Hooker: 1.72 m/s2 | |TV Dec Time: 211.30 ms | |TV E Rodney: 0.36 m/s | |TV E/A Ratio: 1.01 | | | |Keyboard Operator: KVW | |Authenticated by: Divya Alves [...] + | This procedure was resulted in [place] (the cardiology system). Please | | | see the Media tab in Chart Review to see the result for this | | | procedure. | | + + + + + | Procedure Note | + + | Clyde Walker - 03/04/2019 6:15 PM PDT This procedure was resulted in [place] | | (the cardiology system). Please seethe [...]
--- OUTSIDE RECORDS SUMMARY | ~2019-07-03 | XMS | Encounter Summary ---
Demographics + + + | Address | [address] [facility] | | | [place] [address] | + + + | Home Phone | | + + + | Preferred Language | Unknown | + + + | Marital Status | | + + + | Yarsanism Affiliation | [id number] | + + + | Race | Unknown | + + + | Ethnic Group | Unknown | + + + Author + + + | Author | [facility] | | | and [place] | + + + | Organization | [facility] | | | and [...] [place] | | | | | [address] | | + + + + + Care Team Providers + +------+ + | Care Spar Machine Operator Helper Name | Role | Phone | [...] [address] | | | | | [phone] | [place] [address] | | +--------+ + + + + [...] [place] | | | | | | [address] | | | | | | | | +--------+---------+ + + + | 10/05/ | Office | Neurology | Diane Damon, | | | 2019 | Visit | | MD [address] | | | | | | [place] | | | | | | [place] [address] | | | | | | [phone] | | | | | | | [...]
--- OUTSIDE RECORDS SUMMARY | ~2019-07-03 | XMS | Encounter Summary ---
Demographics + + + | Address | [address] [facility] | | | [place] [address] | + + + | Home Phone [...] [place] | | | | | [address] | | + + + + + Care Team Providers + +------+ + | Care Miner Operator Name | Role | Phone | [...] | | | | [address] | [place] [address] | | | | | [place] | [place] | | | | | [address] | [address] | | | | | [phone] | [phone] | | | | | | | [...] [place] | | | | | | [address] | | | | | | | | +--------+---------+ + + + | 10/05/ | Office | Neurology | Diane Damon, | | | 2019 | Visit | | MD [address] | | | | | | [place] | | | | | | [place] [address] | | | | | | [phone] | | | | | | | [...] TR Vmax: 1.95 m/s | | | Enamel Applier: Authenticated by: RICHARD GAMING MD Report | [...] cmLVIDd: 5.22 cmLVPWd: 1.04 cmLVOT Area: 4.28 [id number] Diam: 2.33 | | cm%FS: 20.63 %EF(Teich): [...] | | (A-L): 34.15 ml/m2LAAs A2C: 19.89 [id number] A-L A2C: 66.08 mlLALs A2C: 5.08 | | cmLAAs A4C: 19.53 [id number] A-L A4C: 59.08 mlLALs A4C: 5.48 cmRAAs: 11.32 | | jo9CQVKR A-L: 25.47 mlRAESV MOD: 25.02 mlRALs: 4.27 cmTAPSE: 1.98 cmAV maxPG: | | 4.14 mmHgAV meanP.27 mmHgAV Vmax: 1.01 m/Vlima Vmean: 0.70 m/Vilma VTI: 17.62 | | cmAVA Vmax: 3.32 cm2AVA (VTI): 3.94 hr8QUOC Vmax: 0.00 cm2/m2AVAI (VTI): 0.00 | | cm2/m2LVOT maxP.50 mmHgLVOT meanP.38 mmHgLVSI Dopp: 36.57 ml/m2LVSV Dopp: | | 69.48 mlLVOT Vmax: 0.79 m/sLVOT Vmean: 0.55 m/sLVOT VTI: 16.22 cmMV A Rodney: | | 0.40 m/sMV DecT: 199.44 msMV E Rodney: 0.58 m/sMV E/A Ratio: 1.44MV PHT: 57.83 | | msMVA By PHT: 3.80 xp7Cmspgl e': 0.07 m/sSeptal E/e': 7.83Lateral e': 0.08 | | m/sLateral E/e': 6.84RAP: 10 mmHgRVSP: 25.23 mmHgTR maxP.23 mmHgTR Vmax: | | 1.95 m/s Enamel Applier: Jeroticated by: Milan CROWE Date/Time: 05-19-2017 | [...] |TR Vmax: 1.95 m/s | | | |Enamel Applier: | |Authenticated by: RICHARD GAMING MD | [...]
[~2019-07-03 14:43] MED LIST changes: +ASPIRIN EC81 MG PO; +LIPITOR80 MG PO; +NICOTINE PATCH1 EAC1 TD
[2019-07-03] MEDS ORDERED: TORSEMIDE20 MG PO (15:00)
--- NOTE | 2019-07-04 08:01 | EKG ---
[facility] [address] [facility] [place] [address] Signed Normal sinus rhythm Biatrial enlargement Low voltage QRS Cannot rule out Anterior infarct , age undetermined Abnormal ECG When compared with ECG of 11-MAY-2019 08:00, premature atrial complexes are no longer present Minimal criteria for Anterior infarct are now present Confirmed by PAOLO PARK MD ([id number]) on 07/04/2019 8:00:47 AM Electronically Signed By: PAOLO PARK MD 07/04/19 0801 PATIENT NAME: JESSA COLE Electrocardiogram DATE OF : 67 PHYSICIAN: PAOLO PARK MD REPORT #: [id number] REPORT IS CONFIDENTIAL AND NOT TO BE RELEASED WITHOUT AUTHORIZATION
== END 2019-07-03 17:07 | disposition home or self-care (01) ==
LOC: ED 14:43
DX: I11.0 Hypertensive heart disease with heart failure (principal); I50.9 Heart failure, unspecified; I48.91 Unspecified atrial fibrillation; F17.200 Nicotine dependence, unspecified, uncomplicated; Z88.8 Allergy status to other drugs, medicaments and biological substances; Z88.0 Allergy status to penicillin; Z79.899 Other long term (current) drug therapy; Z79.82 Long term (current) use of aspirin
CPT/HCPCS: 71045; 80053; 83735; 83880; 84484; 85025; 93005; 93010; 99284-25

== ENCOUNTER 2019-07-13 19:45 | Observation (INO) | payer MEDICARE ==
[~2019-07-13] VITALS: Ht 180.3 cm; Wt 70.9 kg
--- OUTSIDE RECORDS SUMMARY | ~2019-07-13 | XMS | Encounter Summary ---
Demographics + + + | Address | [address] [facility] | | | [place] [address] | + + + | Home Phone | | + + + | Preferred Language | Unknown | + + + | Marital Status | | + + + | Rastafari Affiliation | 1077 | + + + | Race | Unknown | + + + | Ethnic Group | Unknown | + + + Author + + + | Author | [facility] | | | and [place] | + + + | Organization | [facility] | | | and [...] [place] | | | | | [address] | | + + + + + Care Team Providers + +------+ + | Care Mailroom Supervisor Name | Role | Phone | + +------+ + | Bess Alba | PCP | | + +------+ + Reason for Visit + + + | Reason | Comments | + + + | Follow-up, Office | | | Visit | | + + + Evaluate & Treat (Routine) +--------+--------+ + + + + | Status | Reason | Specialty | Diagnoses / | Referred By | Referred To | | | | | Procedures | Contact | Contact | +--------+--------+ + + + + | Closed | | Physical | Diagnoses | Posada, | Mikhail, | | | | Medicine and | DDD | Checo Christianson, | Zi Lundy MD | | | | Rehabilitatio | (degenerativ | MD [address] | [address] | | | | n | e disc | [address] | [facility] | | | | | disease), | KEIRY, | [facility], [place] | | | | | lumbar | [place] [address] | [address] Phone: | | | | | | Phone: | [phone] | | | | | | [phone] | Fax: | | | | | | Fax: | [phone] | | | | | | [phone] | | +--------+--------+ + + + + Encounter Details +--------+---------+ + + + | Date | Type | Department | Care Team | Description | +--------+---------+ + + + | 05/23/ | Office | [facility] | Kirill Guerrero PA-C | Lumbar radiculopathy | | 2019 | Visit | PHYSIATRY [address] | [address] | (Primary Dx); | | | | [place], | [place], [place] | Bilateral leg pain; | | | | [place] [address] | [phone] | Spinal stenosis of | | | | [phone] | | lumbar region with | | | | | | neurogenic | | | | | | claudication; Status | | | | | | post hip surgery | +--------+---------+ + + + Social History + + + +--------+ + | Tobacco Use | Types | Packs/Day | Years | Date | | | | | Used | | + + + +--------+ + | Current Every Day | Cigarettes | 1 | 37 | Started: 1982 | | Smoker | | | | | + + + +--------+ + + +---+---+---+ | Smokeless Tobacco: | | | | | Never Used | | | | + +---+---+---+ + + + + + | Alcohol Use | Drinks/Week | oz/Week | Comments | + + + + + | Yes | 21-28 Cans of beer | 21.0 - 28.0 | Alcoholic | | | | | Drinks/day: 3-4 | | | | | beers daily | + + + + + + [...] + + documented as of this encounter Last Filed Vital Signs + + + + + | Vital Sign | Reading | Time Taken | Comments | + + + + + | Blood Pressure | 98/62 | 05/23/2019 1:08 PM | | | | | PST | | + + + + + | Pulse | - | - | | + + + + + | Temperature | - | - | | + + + + + | Respiratory Rate | - | - | | + + + + + | Oxygen Saturation | - | - | | + + + + + | Inhaled Oxygen | - | - | | | Concentration | | | | + + + + + | Weight | 74.8 kg (165 lb) | 05/23/2019 1:08 PM | | | | | PST | | + + + + + | Height | 180.3 cm (5' 11") | 05/23/2019 1:08 PM | | | | | PST | | + + + + + | Body Mass Index | 23.01 | 05/23/2019 1:08 PM | | | | | PST | | + + + + + documented in this encounter Patient Instructions Patient Instructions Kirill Guerrero PA-C - 05/23/2019 1:00 PM PSTFormatting of this note mi ght be different from the original. 1) Previously ordered Bilateral L4-L5 Transforaminal Epidural Steroid Injections. Our offic e will call you once we have insurance approval to move forward with next step in treatment plan. 2) Continue with at home exercises. 3) Continue with current Rx medications as prescribed and directed. 4) Follow up 3-4 weeks after injection. Common Spine and Disk Problems The most common serious back problemshappen when disks tear, bulge, or rupture. In such c ases, an injured disk can no longer cushion the vertebrae and absorb shock. As a result, the rest of your spine may also weaken. This can lead to pain, stiffness, and other symptoms. Torn annulus. A sudden movement may cause a tiny tear in an annulus. Nearby ligaments ma y stretch. Contained herniated disk. As a disk wears out, the nucleus may bulge into the annulus an d press on nerves. Extruded herniateddisk. When a disk ruptures, its nucleus can squeeze out and irritate a nerve. Arthritis. As disks wear out over time, bone spurs form. These growths can irritate nerv es and inflame facets. Instability. As a disk stretches, the vertebrae slip back and forth. This can put pressu re on the annulus. Spondylolisthesis.Thisis a condition in which one vertebra has moved forward or back tomlinson, in relation to the one above or below it. Thiscauses a crack (stress fracture) in th e areas that link the vertebrae together. This may put pressure on the annulus, stretch the disk, and irritate nerves. Date Last Reviewed: 12/11/201719997219-7977 [employer]. [address] [place] [address], [place] [address]. All righ ts reserved. This information is not intended as a substitute for professional medical care. Always follow your healthcare professional's instructions. documented in this encounter Progress Notes Claudia Blood, Account Resolution Expert - 05/23/2019 1:00 PM PSTFormatting of this note might b e different from the original. Kirill Guerrero PA-C [address] [facility], [address] [place], [place] [address] FAX: CHIEF COMPLAINT: Chief Complaint Patient presents with Follow-up, Office Visit HISTORY OF PRESENT ILLNESS: Erwin Beth is a 53 y.o. male being seen today on follow-up for complaints of low jae k and bilateral leg pain. The patient has been seen for this complaint in the past. Previ ously it was recommended bilateral L4-L5 Transforaminal Epiodural Steroid injections to done by Dr. Elizondo however his insurance at the time denied the injections and he was not ab le to go forth with that treatment. He reports the leg pain that he expresses being the wor se part of the pain began after Right hip replacement surgery September 2017. Erwin Beth reports that the symptoms are worsening. He rates the pain as severe. H e describes the pain as aching, burning, tingling, throbbing, soreness, localized or radiat ing to bilateral lower extremities, R>L. His symptoms worsen with anything, position to jus t sitting, but most noticeable with going from sitting to standing position, as well as with walking/standing long periods; moreover, Patient expresses legs feeling increased amount of pain at thighs and so weak he has to sit down before he falls. He attributes >75% of pain t o his legs. His symptoms improve with rest, some physical therapy, and sitting. The patie nt does not describe numbness of the bilateral legs. He does report weakness of the bilate ral legs, "depending on the day, but usually worse on the Right.". He does not have bowel a nd bladder dysfunction. He does not have saddle anesthesia. Treatments for these complaints have included PT, injections, medications, TENS unit, bilat eral hip replacement surgeries. Patient has seen lubricating specialist who have told him "no thing is wrong with the surgery areas", according to patient. Patient's medications, allergies, past medical, surgical, social and family histories were reviewed and updated as appropriate. CURRENT MEDICATIONS: Current Outpatient Medications Medication Sig Dispense Refill albuterol (PROVENTIL HFA) 90 mcg/puff inhaler Inhale 2 puffs every 6 (six) hours as nee ded for wheezing. albuterol (VENTOLIN HFA) 90 mcg/puff inhaler Inhale 2 puffs into the lungs every 6 hour s as needed for Wheezing. aspirin 81 mg chewable tablet Take 81 mg by mouth Daily. atorvaSTATin (LIPITOR) 80 MG tablet Take 80 mg by mouth Daily. carvedilol (COREG) 25 mg tablet Take 1 tablet by mouth 2 times daily. furosemide (LASIX) 20 mg tablet Take 20 mg by mouth. furosemide (LASIX) 20 mg tablet Take 1 tablet by mouth Daily. losartan (COZAAR) 50 mg tablet Take 1 tablet by mouth Daily. nicotine (NICODERM) 14 mg/[address] 1 patch onto the skin every 24 hours. pseudoePHEDrine (SUDOGEST) 30 mg tablet Take 30 mg by mouth every 6 hours as needed for Congestion. spironolactone (ALDACTONE) 25 mg tablet Take 25 mg by mouth Daily. spironolactone (ALDACTONE) 25 mg tablet Take 1 tablet by mouth Daily. No current facility-administered medications for this visit. ALLERGIES: Allergies Allergen Reactions Amoxicillin Anaphylaxis Lisinopril Anaphylaxis Gabapentin Other (See Comments) Reaction not specified in outside medical records. REVIEW OF SYSTEMS: GENERALLY: No fever, chills, no night sweats, no fatigue, no weight loss, no weight gain. EYES: No vision changes. EARS, NOSE, AND THROAT: No hearing loss, no ear pain, no nosebleeds, no toothache, no gum p roblems, no significant snoring or sleep apnea, no seasonal allergies, no difficulty swallow ing, no hoarseness. NEUROMUSCULAR: Please see the review of systems discussed above in the history of present illness. In addition, the patient has no dizziness, no blackouts, no headaches. PSYCHIATRIC: No depression, no difficulty sleeping, no anxiety, no memory loss. CARDIOVASCULAR: No chest pain, no palpitations, no swollen ankles. PULMONARY: No shortness of breath, no cough. GASTROINTESTINAL: No poor appetite, no diarrhea, no nausea or vomiting, no bowel incontine nce, no hemorrhoids, no constipation, no abdominal pain. GENITOURINARY: No urinary difficulty and no incontinence. SKIN: No rashes. HEMATOLOGIC/LYMPHATIC: No enlarged lymph nodes or swollen glands. ENDOCRINE: No diabetes, no thyroid disease, no osteopenia or osteoporosis, no breast drain age. RHEUMATOLOGIC: No osteoarthritis, no rheumatoid arthritis. PHYSICAL EXAMINATION: Blood pressure 98/62, height 1.803 m (5' 11"), weight 74.8 kg (165 lb). Body mass index is 23.01 kg/m. GENERAL: The patient is well developed and well nourished. He does not appear uncomfortabl e when seated. HEENT: Normocephalic and atraumatic. Normal sclerae without icterus. NECK (ANTERIOR): There is no apparent cervical lymphadenopathy or thyromegaly. PULMONARY: The patient is in no acute respiratory distress with unlabored respirations. CARDIOVASCULAR: Regular rate and rhythm. There is not lower extremity edema. ABDOMEN: Non-distended. SKIN: Limited skin exam shows no significant rashes or lesions. NEUROLOGIC: The patient is awake, alert, and oriented. He follows simple and complex commands. His speech is fluent. He comprehends speech well. He has no apparent deficits with short or retirement memory. The cranial nerves appear grossly intact. Sensory exam does show diminished sensation to light touch in the Right lower extremity wit h L4-L5 dermatomal distribution pattern. REFLEX: RIGHT LEFT PATELLAR 2+ 2+ ACHILLES 1+ 1+ MUSCULOSKELETAL : MOTOR EXAM: (5 IS NORMAL) * Indicates pain limited MUSCLE/ MOVEMENT: RIGHT LEFT Hip Flexion 4 4- Hip Extension 5 5 Knee Flexion 5 4- Knee Extension 5 4- Extensor Hallicus Longus 5 5 Ankle Dorsiflexion 5 4+ Plantarflexion 5 4+ Straight leg raise and slump-sit are negative. Zach's maneuver and impingement testing were negative for any groin pain. There was no tenderness to palpation over the greater trochanters or sacral sulci. The patient localized the majority of the pain to the L4-L5 region. Lumbar facet loading w as negative. The patient was able to heel and toe walk without difficulty. There was no redness, effusi on, warmth or joint line tenderness in the knees or ankles. RADIOGRAPHIC REVIEW: The patient's imaging was reviewed in detail with the patient today during the visit. Lumbar MRI from 09/15/2018: Bilateral nerve root impingement at L4-L5. ASSESSMENT: 1. Lumbar radiculopathy 2. Bilateral leg pain 3. Spinal stenosis of lumbar region with neurogenic claudication 4. Status post hip surgery PLAN: 1)Today I have discussed my clinical impression with Erwin Beth. Shared decision rosa maria naranjo between Erwin Beth and I was used during today's encounter. We discussed the pat elizabeth's differential diagnosis, description of symptoms, physical exam, imaging and treatment plan that suggest diagnosis at this time. 2) I counseled patient on treatment options which included conservative self management usi ng OTC NSAIDs/Ice and heat packs, physical therapy, prescription medications, epidural stero id injection, as well as possible surgical intervention. 3) Imaging: As descibed above in radiology review. 4) The patient has had significant conservative care including medications (NSAIDS and narc otics), PT (multiple sessions over the years) and career developer. Unfortunately Erwin encinas continues to have significant discomfort. It appears to me that the pain is primar luis coming from L3-L4 and L4-L5 region. I did feel that Erwin Beth would be a good candidate for interventional procedure s and I offered a bilateral L4-L5 TFESI to be done that was previously ordered. Patient is u nder new insurance. Patient tried Cymbalta for over 1 month and he expresses that "it did not do anything fo r me." and he will not try gabapentin again, because according to his "he is a total zo mbie" and he does not feel he can function at all. 5) Patient will follow up in 3 weeks post injection or as needed to discuss any imaging and /or progress with today's treatment plan. 6) If current treatment plan is insufficient for symptom relief we could consider Repeat in jection, Hip MRI, nortriptyline as the next possible option. I spent 30 minutes in visit with Erwin Beth today with the majority of time spent co unselling the patient on his diagnosis, options for his care, and coordinating his care. ELECTRONICALLY SIGNED BY: Kirill Guerrero PA-C, 05/24/2019 5:50 AM documented in this enc ounter Plan of Treatment +--------+---------+ + + + | Date | Type | Specialty | Care Team | Description | +--------+---------+ + + + | 09/14/ | Office | Cardiology | Lida Ventura DO | | | 2019 | Visit | | [address] | | | | | | [facility] [place] | | | | | | [address] | | | | | | | | +--------+---------+ + + + | 10/05/ | Office | Neurology | Diane Damon, | | | 2019 | Visit | | MD [address] | | | | | | [place] | | | | | | [place] [address] | | | | | | [phone] | | | | | | | | +--------+---------+ + + + documented as of this encounter Visit Diagnoses + + | Diagnosis | + + | Lumbar radiculopathy - Primary Thoracic or lumbosacral neuritis or radiculitis, | | unspecified | + + | Bilateral leg pain Pain in limb | + + | Spinal stenosis of lumbar region with neurogenic claudication Spinal stenosis, lumbar | | region, with neurogenic claudication | + + | Status post hip surgery | + + documented in this encounter
--- OUTSIDE RECORDS SUMMARY | ~2019-07-13 | XMS | Encounter Summary ---
Demographics + + + | Address | [address] [facility] | | | [place] [address] | + + + | Home Phone | | + + + | Preferred Language | Unknown | + + + | Marital Status | | + + + | Adventist Affiliation | 1077 | + + + | Race | Unknown | + + + | Ethnic Group | Unknown | + + + Author + + + | Author | [facility] | | | and [place] | + + + | Organization | [facility] | | [...] [place] | | | | | [address] | | + + + + + Care Team Providers + +------+ + | Care Knifeman Name | Role | Phone | + +------+ + | Ugo Lux DO | JENNIFER | | + +------+ + Encounter Details +--------+ + + + + | Date | Type | Department | Care Team | Description | +--------+ + + + + | 08/03/ | Care | [facility] | Provider, | | | 2019 | Coordinatio | PHYSIATRY [address] | [address] | | | | n | [place], | [place] | | | | | [place] [address] | [place] [address] | | | | | [phone] | | | +--------+ + + + [...] + + documented as of this encounter Progress Notes Shelli Lopez, Variety Lathe Operator - 08/03/2018 11:58 AM PSTCare everywhere queried for up coming appointment documented in this encounter Plan of Treatment +--------+---------+ + + + | Date | Type | Specialty | Care Team | Description | +--------+---------+ + + + | 09/14/ | Office | Cardiology | Lida Ventura DO | | | 2019 | Visit | | [address] | | | | | | [place] | | | | | | [address] | | | | | | | | +--------+---------+ + + + | 10/05/ | Office | Neurology | Diane Damon, | | | 2019 | Visit | | MD [address] | | | | | | [place] | | | | | | [place] [address] | | | | | | [phone] | | | | | | | | +--------+---------+ + + + documented as of this encounter Visit Diagnoses Not on filedocumented in this encounter"
--- OUTSIDE RECORDS SUMMARY | ~2019-07-13 | XMS | Encounter Summary ---
Demographics + + + | Address | [address] [facility] [address] | | | [place] [address] | + + + | Home Phone | | + + + | Preferred Language | Unknown | + + + | Marital Status | | + + + | Jehovah'S Witness Affiliation | 1077 | + + + | Race | Unknown | + + + | Ethnic Group | Unknown | + + + Author + + + | Author | [facility] | | | and [place] | + + + | Organization | [facility] | | | and [...] [place] | | | | | [address] | | + + + + + Care Team Providers + +------+ + | Care Irish Moss Operator Name | Role | Phone | + +------+ + | Ugo Lux DO | JENNIFER | | + +------+ + Encounter Details +--------+ + + + + | Date | Type | Department | Care Team | Description | +--------+ + + + + | 08/03/ | Care | [facility] | Provider, | | | 2019 | Coordinatio | [address]YSIATRY [address] | [address] | | | | n | [place], | [place] | | | | | [place] [address] | [place] [address] | | | | | [phone] | | | +--------+ + + + [...] of this encounter Progress Notes Shelli Lopez, Intermediate Manager - 08/03/2018 11:58 AM PSTCare everywhere queried [...] [place] | | | | | | [address] | | | | | | | | +--------+---------+ + + + | 10/05/ | Office | Neurology | Diane Damon, | | | 2019 | Visit | | MD [address] | | | | | | [place] | | | | | | [place] [address] | | | | | | [phone] | | | | | | | | +--------+---------+ + + + documented as of this encounter Visit Diagnoses Not on filedocumented in this encounter"
--- OUTSIDE RECORDS SUMMARY | ~2019-07-13 | XMS | Encounter Summary ---
Demographics + + + | Address | [address] [address] | | | [place] [address] | + + + | Home Phone | | + + + | Preferred Language | Unknown | + + + | Marital Status | | + + + | Yazdanism Affiliation | [id number] | + + + | Race | Unknown | + + + | Ethnic Group | Unknown | + + + Author + + + | Author | [facility] | | | and [place] | + + + | Organization | [facility] | | | [...] [place] | | | | | [address] | | + + + + + Care Team Providers + +------+ + | Care Jewelry Dipper Name | Role | Phone | + +------+ + PCP | Unavailable | + +------+ + Encounter Details +--------+ + + + + | Date | Type | Department | Care Team | Description | +--------+ + + + + | 11/19/ | Hospital | [facility] | JosuemaríaAlondramarquita, | SOB (shortness of | | 2012 - | Encounter | [facility] | [address] | breath) on exertion; | | | | CARE FLOOR [address] | [place] [address] | Cardiac enzymes | | 11/21/ | | [address] | [phone] | elevated | | 2012 | | [place], [place] | | | | | | [address] | | | | | | [phone] | | | +--------+ + + + [...] + + documented as of this encounter Discharge Summaries Abhinav Garcia DO - 11/21/2012 9:12 AM PDT Discharge Summaries by Abhinav Garcia DO at 11/21/12911 Author: Abhinav Garcia DO Service: (none) Author Type: Physician Filed: 11/21/12917 Date of Service: 11/21/12911 Status: Signed Skin Therapist: Abhinav Garcia DO (Physician) [facility] Service: Hospitalist Discharge Summary Date of Admission: 11/19/2012 Date of Discharge: 11/21/2012 Discharge Provider: Abhinav Garcia DO Treatment Team: Consulting Physician: Payton Valle MD Consulting Physician: Divya Alves MD Admitting Provider: Payton Valle MD Discharge Diagnoses: Principal Problem: Nonischemic Cardiomyopathy Active Problems: Smoker HTN (hypertension) HOSPITAL COURSE: Admitted to hospitalists with history of exertional dyspnea and CXR suggestive of CHF. Serial cardiac enzymes negative, and a stress test was done showing significant cardiomyopa thy. Dr Alves was consulted and it was decided to proceed with angiogram. No CAD. Echo show ed EF about 25-30%. He was started on losartan, coreg, lasix, and his spironolactone was continued. He gives hi story of angioedema when he was rx'd lisinopril about 8 months ago. We proceeded with the lo sartan and he is tolerating it well. He knows to stop it and seek medical attention immediat shayan if he develops symptoms again of angioedema. Meanwhile we feel the benefits of being on angiotensin flaca are very high in his situation. He needs to follow up with Dr Alves in near future for further workup / management / reche ck of nonischemic cardiomyopathy. He was advised to quit smoking immediately. DISCHARGE EXAM Vital Signs: BP 118/73 | Pulse 82 | Temp(Src) 97.8 F (36.6 C) (Oral) | Resp 18 | Ht 1.778 m (5' 10") | Wt 72.576 kg (160 lb) | BMI 22.96 kg/m2 | SpO2 94% Patient Vitals for the past 24 hrs: BP Temp Temp src Pulse Resp SpO2 11/21/12 0900 118/73 mmHg - - 82 18 - 11/21/12 0837 108/75 mmHg - - 82 18 94 % 11/21/12 0815 111/77 mmHg - - 75 18 97 % 11/21/12 0758 116/74 mmHg - - 81 18 95 % 11/21/12 0400 113/67 mmHg 97.8 F (36.6 C) Oral 80 18 94 % 11/20/12 2335 103/53 mmHg 98.1 F (36.7 C) Oral 78 20 96 % 11/20/12 1945 112/61 mmHg 97.8 F (36.6 C) Oral 84 16 92 % 11/20/12 1600 111/68 mmHg 98.3 F (36.8 C) Oral 78 18 93 % Physical Exam Vitals reviewed. Constitutional: He is oriented to person, place, and time. He appears well-developed and we ll-nourished. No distress. HENT: Head: Normocephalic and atraumatic. Mouth/Throat: Oropharynx is clear and moist. Eyes: Conjunctivae are normal. No scleral icterus. Neck: Normal range of motion. Neck supple. No JVD present. Cardiovascular: Normal rate, regular rhythm, normal heart sounds and intact distal pulses. No murmur heard. Pulmonary/Chest: Effort normal. No respiratory distress. He has no wheezes. He exhibits no tenderness. Few rales bibasilar Abdominal: Soft. Bowel sounds are normal. He exhibits no distension. There is no tenderness . Musculoskeletal: Normal range of motion. He exhibits no edema and no tenderness. Neurological: He is alert and oriented to person, place, and time. Skin: Skin is warm and dry. No rash noted. He is not diaphoretic. No erythema. No pallor. Psychiatric: He has a normal mood and affect. His behavior is normal. Judgment and thought content normal. DATA CBC: Lab Results Component Value Date WBC 6.3 11/21/2012 RBC 4.39 11/21/2012 HGB 14.1 11/21/2012 HCT 42.9 11/21/2012 MCV 97.8 11/21/2012 MCH 32.1 11/21/2012 MCHC 32.9 11/21/2012 RDW 51.2 11/21/2012 PLT 169 11/21/2012 MPV 9.1 11/21/2012 DIFFTYPE AUTOMATED 11/21/2012 CMP: Lab Results Component Value Date NA 141 11/21/2012 K 4.0 11/21/2012 CL 107 11/21/2012 CO2 27 11/21/2012 ANIONGAP 11 11/21/2012 GLUF 104* 11/21/2012 BUN 19 11/21/2012 CREATININE 0.87 11/21/2012 BCR 22 11/21/2012 CA 8.4* 11/21/2012 PROT 6.6 11/20/2012 ALB 3.5* 11/20/2012 GLOB 3.0 11/20/2012 BILITOT 0.4 11/20/2012 ALP 68 11/20/2012 AST 46* 11/20/2012 ALT 66* 11/20/2012 EGFR >60 11/21/2012 Last 3 Troponin: Lab Results Component Value Date TROPONINI 0.06 11/20/2012 TROPONINI 0.06 11/19/2012 TROPONINI 0.06 11/19/2012 CPK: Lab Results Component Value Date CKTOTAL 220 11/20/2012 CKMB: Lab Results Component Value Date CKMB 4.5* 11/20/2012 XR chest 1 view [[id number]] Status: Final result Study Result HISTORY: Difficulty breathing. Shortness of breath. Elevated cardiac enzymes. COMPARISON: None. TECHNIQUE: Portable AP upright film of the chest at 2220 hrs. FINDINGS: Mild cardiac enlargement with pulmonary venous congestion, and central interstitial promine nce consistent with interstitial edema. No effusions. IMPRESSION: 1. CHF with mild interstitial edema and mild cardiac enlargement. === === Echo cardiac adult complete [ECHO50] Status: Final result Study Result Patient Name: JESSA COLE Date of : 1965 Performing Physician: INDICATIONS SHORTNESS OF BREATH ABNORMAL EKG/ELEVATED TROPONIN CONCLUSIONS 1. Overall left ventricular systolic function is severely impaired with, an EF between 25 - 30 %. 2. Restrictive LV diastolic filling pattern, consistent with elevated LA pressure and sever e dysfunction (grade III). 3. The left atrium is moderately dilated. 4. Yunq-zn-cclxmzcm mitral regurgitation is present. 5. Pepb-zj-tkmnydsg tricuspid regurgitation present. 6. The right ventricular systolic pressure (pulmonary artery systolic pressure), as measure d by Doppler, is 49.76mmHg. === === CL left heart cath with coronary angio [CATH01] Status: Preliminary result Study Result HISTORY The patient is a 47 year old with congestive heart failure and echocardiogram suggestive of severe cardiomyopathy. He was referred for coronary angiography to rule out underlying coronary artery disease. For details regarding his presentation, kindly refer to my consultation note. PROCEDURES 1. Right radial approach, 2. Left heart catheterization with left ventriculogram. 3. Selective coronary angiography. TECHNIQUE The patient was brought to the catheterization lab in the fasting state. He was prepped and draped in the usual sterile fashion for right radial artery approach. Access was obtained via right radial artery after Sandeep test was found to be negative. A 6-Sammarinese right radial artery [place] was then advanced. A cocktail of heparin, verapamil and nitroglycerin was injected via the introducer. Using a Wholey wire, a 6-Sammarinese JL4 catheter was advanced to the ascending aorta and engaged with the ostium of the left main. Projections of the left coronary system were done with the use of contrast injections. Using a long exchange wire, the JL4 catheter was exchanged to a 6-Sammarinese JR4 catheter which was engaged with the ostium of the right coronary artery. Projections of the right coronary artery were done with the use of contrast injections. The catheter was then exchanged over a long exchange wire to a 6-Sammarinese pigtail catheter which was advanced to the left ventricle, and projections of the left ventricular systolic function were done with the use of contrast injections. All equipment was then removed. FINDINGS HEMODYNAMICS Aortic pressure 124/93 with a mean of 100. Left ventricular pressure 118/33. Gradient: There was no gradient between the LV and aorta. CORONARY ANGIOGRAPHY The coronary system was right dominant. 1. Left main bifurcated into LAD and left circumflex. Left main was free of disease. 2. Left anterior descending artery and the diagonal branches were free of disease. 3. Left circumflex coronary artery was free of disease. 4. Right coronary artery was a dominant vessel and was free of disease. LEFT VENTRICULOGRAM In the RAMIREZ view showed severe LV dysfunction; ejection fraction estimated to be around 25% to 30%. CONCLUSIONS/RECOMMENDATIONS 1. Nonischemic cardiomyopathy. 2. Severe left ventricular dysfunction. 3. Recommend therapy for cardiomyopathy. Read by DIVYA ALVES MD 11/21/2012 07:35 A Disposition: Home Condition: Stable Code Status: Full Code Follow up: Griffin Suero MD [address] [place] [address] in 2 weeks Divya Alves MD [address] [facility] [place] [address] in 4 weeks Current Discharge Medication List START taking these medications Details carvedilol (COREG) 6.25 MG tablet Take 1 tablet by mouth 2 (two) times daily with meals. Qty: 60 tablet, Refills: 0 furosemide (LASIX) 20 MG tablet Take 1 tablet by mouth daily. Qty: 30 tablet, Refills: 0 losartan (COZAAR) 25 MG tablet Take 1 tablet by mouth daily. Qty: 30 tablet, Refills: 0 CONTINUE these medications which have NOT CHANGED Details hydrocodone-acetaminophen (VICODIN) 5-500 MG per tablet Take 1 tablet by mouth every 6 (six ) hours as needed. spironolactone (ALDACTONE) 25 MG tablet Take 25 mg by mouth daily. He is provided with a note to excuse him from work x1 week. Discharge took 31+ minutes, to include final examination, discussion of admission, and prep aration of prescriptions, instructions for on-going care, follow-up and documentation of dis charge summary. Abhinav Garcia DO 11/21/2012 9:15 AM documented in this enc ounter Progress Notes Conversion Transaction, Provider Unknown - 11/21/2012 3:01 PM PDTFormatting of this note m ight be different from the original. Progress Notes by Shannan Xavier RN at 11/21/12 1501 Author: Shannan Xavier RN Service: (none) Author Type: Registered Nurse Filed: 11/21/12 1502 Date of Service: 11/21/12 1501 Status: Signed Skin Therapist: Shannan Xavier RN (Registered Nurse) Discharge instructions given to patient, verbalized understanding. Left with wheelchair es joleen to private car and home. onver sonal Transaction, Provider Unknown - 11/21/2012 12:40 PM PDT Progress Notes by Shannan Xavier RN at 11/21/12 1240 Author: Shannan Xavier RN Service: (none) Author Type: Registered Nurse Filed: 11/21/12 1248 Date of Service: 11/21/12 1240 Status: Signed Skin Therapist: Shannan Xavier RN (Registered Nurse) CHF teaching: Reviewed CHF packet with fiance, mother, and patient. Patient was able to teach back bhaskarni ng signs of CHF worsening, daily care (including taking his weight and being on a 2 liter fl uid restriction), diet instructions (salt restrictions), medications, and tobacco cessation. Tobacco cessation pamphlet given to patient. Family and patient verbalized understanding of instructions. ivya Alves - 11/21/2012 7:28 AM PDT . Progress Notes by Divya Alves MD at 11/21/12 0728 Author: Divya Alves MD Service: Cardiology Author Type: Physician Filed: 11/21/12 1129 Date of Service: 11/21/12 0728 Status: Signed Skin Therapist: Divya Alves MD (Physician) Related Notes: Original Note by Divya Alves MD (Physician) filed at 11/21/12 0732 [facility] Service: Cardiology/[facility] Progress Note RE: Jessa Cole : 1965 DATE OF SERVICE: 11/19/2012 PROVIDER:DIVYA ALVES Pt is seen for F/U on: cardiomoypathy SUBJECTIVE: He did well overnight, with no chest discomfort. His breathing is better. He denies lightheadedness and dizziness and has had no reaction from his angiotensin receptor blockers. He underwent his coronary angiography this morning via right radial artery approach. CURRENT MEDICATIONS: Scheduled Meds: aspirin 81 mg Oral Daily with breakfast carvedilol 6.25 mg Oral BID WC furosemide 20 mg Oral Daily heparin (porcine) 1,000 Units Intravenous Once heparin (porcine) 5,000 Units Subcutaneous Q8H BRI HYDROmorphone 1 mg Intravenous Once losartan 25 mg Oral Daily lovastatin 20 mg Oral Daily with dinner nicotine 1 patch Transdermal Daily omeprazole 20 mg Oral QAM AC Or pantoprazole 40 mg Intravenous QAM AC sodium chloride 10 mL Intravenous Q8H spironolactone 25 mg Oral Daily ALLERGIES: Allergies Allergen Reactions Amoxicillin Anaphylaxis Lisinopril Anaphylaxis PHYSICAL EXAM: BP 113/67 | Pulse 80 | Temp(Src) 97.8 F (36.6 C) (Oral) | Resp 18 | Ht 1.778 m (5' 10") | Wt 72.576 kg (160 lb) | BMI 22.96 kg/m2 | SpO2 94% Intake/Output Summary (Last 24 hours) at 11/21/12 0728 Last data filed at 11/20/12 1802 Gross per 24 hour Intake 174 ml Output 600 ml Net -426 ml General Appearance: Alert, oriented, cooperative, no distress, appears stated age HEENT: No xanthelasmas. Extraocular movements were intact. No jaundice. NECK: no JVD, lymphadenopathy. Trachea is at midline. Thyroid is not palpable. CARDIAC: There is normal S1 and S2. No added sounds, murmurs, gallop, or rub. CHEST: Normal bilateral symmetrical chest excursion. Good bilateral air entry with no crack les or wheezing. No evidence of dullness. ABDOMEN: obese, soft and lax. No tenderness. No palpable organs. Active bowel sounds. EXTREMITIES: No lower extremities edema. NEURO: Alert and oriented times three with no focal deficit. Cranial nerves are grossly no rmal. SKIN: No bruises or rash. Lab Review Lab Results Component Value Date NA 141 11/21/2012 K 4.0 11/21/2012 CL 107 11/21/2012 CO2 27 11/21/2012 BUN 19 11/21/2012 CREATININE 0.87 11/21/2012 Lab Results Component Value Date CKTOTAL 220 11/20/2012 CKMB 4.5* 11/20/2012 CKMBINDEX 2.0 11/20/2012 TROPONINI 0.06 11/20/2012 Lab Results Component Value Date WBC 6.3 11/21/2012 HGB 14.1 11/21/2012 HCT 42.9 11/21/2012 MCV 97.8 11/21/2012 PLT 169 11/21/2012 Ferritin level normal Imaging Cath:severe non-ischemic cardiomyopathy. ASSESSMENT: 1. Severe nonischemic cardiomyopathy. 2. No coronary artery disease. 3. Congestive heart failure secondary to severe nonischemic cardiomyopathy. 4. Tobacco dependence. PLAN: Jessa's coronary angiography showed no evidence of underlying coronary artery disease but still severe LV dysfunction, with an ejection fraction around 30%. At this point, recommend continuation of medical therapy and will increase his Coreg as well as his losartan. He can be discharged home if he tolerates his medications well. DIVYA ALVES MD 11/21/2012 7:28 AM Abhinav Cotrez DO - 013 1:24 PM PDT Progress Notes by Abhinav Garcia DO at 11/20/12 1324 Author: Abhinav Garcia DO Service: (none) Author Type: Physician Filed: 11/20/12 8226 Date of Service: 11/20/12 1324 Status: Addendum Skin Therapist: Abhinav Garcia DO (Physician) Related Notes: Original Note by Abhinav Garcia DO (Physician) filed at 11/20/12 1332 [facility] Service: Hospitalist Progress Note Hospital Day: LOS: 1 day SUBJECTIVE 47 year old developed increasing exertional dyspnea over the course of less than a week, pr esented to [facility] where a troponin was indeterminate, transferred to [facility] and troponin s have been negative. Patient seen/examined with girlfriend present. I explained to him results of stress test - poor EF. He admits to having a viral syndrome in recent past. 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 N o history of cocaine use. He does smoke and drink beer daily. Scheduled Medications aspirin 81 mg Oral Daily with breakfast furosemide 20 mg Oral Daily heparin (porcine) 5,000 Units Subcutaneous Q8H [facility] lisinopril 5 mg Oral Daily lovastatin 20 mg Oral Daily with dinner metoprolol 25 mg Oral BID nicotine 1 patch Transdermal Daily omeprazole 20 mg Oral QAM AC Or pantoprazole 40 mg Intravenous QAM AC sodium chloride 10 mL Intravenous Q8H DISCONTD: aspirin 325 mg Oral Daily with breakfast DISCONTD: lovastatin 40 mg Oral Daily with dinner DISCONTD: spironolactone 25 mg Oral Daily Continuous Infusions heparin in D5W 50 units/mL DISCONTD: heparin in D5W 50 units/mL Stopped (11/20/12 1225) PRN Medications acetaminophen, acetaminophen, HYDROcodone-acetaminophen, nitroGLYCERIN, ondansetron, ondans etron, polyethylene glycol, regadenoson, zolpidem, DISCONTD: heparin (porcine), DISCONTD: he jorje (porcine) OBJECTIVE Vital Signs: BP 122/89 | Pulse 78 | Temp(Src) 98.2 F (36.8 C) (Axillary) | Resp 20 | Ht 1.778 m (5' 10") | Wt 72.576 kg (160 lb) | BMI 22.96 kg/m2 | SpO2 95% Patient Vitals for the past 24 hrs: BP Temp Temp src Pulse Resp SpO2 Height Weight 11/20/12 0400 122/89 mmHg 98.2 F (36.8 C) - 78 20 95 % - - 11/20/12 0000 109/67 mmHg 98.2 F (36.8 C) - 74 20 95 % - - 11/19/12 2100 129/85 mmHg 97.5 F (36.4 C) Axillary 87 18 98 % - - 11/19/12 2020 124/75 mmHg - - 80 18 97 % - - 11/19/12 1953 130/81 mmHg - - 87 18 99 % - - 11/19/12 1855 129/85 mmHg - - 86 18 99 % - - 11/19/12 1823 129/85 mmHg - - 93 18 96 % - - 11/19/12 1731 131/93 mmHg - - 98 16 97 % - - 11/19/12 1557 131/93 mmHg 97.5 F (36.4 C) Oral 98 14 97 % 1.778 m (5' 10") 72.576 kg (160 lb) Physical Exam Vitals reviewed. Constitutional: He is oriented to person, place, and time. He appears well-developed and we ll-nourished. No distress. HENT: Head: Normocephalic and atraumatic. Mouth/Throat: Oropharynx is clear and moist. Eyes: Conjunctivae are normal. No scleral icterus. Neck: Normal range of motion. Neck supple. No JVD present. Cardiovascular: Normal rate, regular rhythm, normal heart sounds and intact distal pulses. No murmur heard. Pulmonary/Chest: Effort normal. No respiratory distress. He has no wheezes. He exhibits no tenderness. Some rales bibasilar Abdominal: Soft. Bowel sounds are normal. He exhibits no distension. There is no tenderness . Musculoskeletal: Normal range of motion. He exhibits no edema and no tenderness. Neurological: He is alert and oriented to person, place, and time. Skin: Skin is warm and dry. No rash noted. He is not diaphoretic. No erythema. No pallor. Psychiatric: He has a normal mood and affect. His behavior is normal. Judgment and thought content normal. DATA CBC: Lab Results Component Value Date WBC 6.4 11/20/2012 RBC 4.32 11/20/2012 HGB 13.8 11/20/2012 HCT 41.4 11/20/2012 MCV 96.0 11/20/2012 MCH 32.0 11/20/2012 MCHC 33.4 11/20/2012 RDW 50.3 11/20/2012 PLT 177 11/20/2012 MPV 8.4 11/20/2012 DIFFTYPE AUTOMATED 11/20/2012 CMP: Lab Results Component Value Date NA 141 11/20/2012 K 3.8 11/20/2012 CL 105 11/20/2012 CO2 29 11/20/2012 ANIONGAP 11 11/20/2012 GLUF 104* 11/20/2012 BUN 20 11/20/2012 CREATININE 0.89 11/20/2012 BCR 23 11/20/2012 CA 8.4* 11/20/2012 PROT 6.6 11/20/2012 ALB 3.5* 11/20/2012 GLOB 3.0 11/20/2012 BILITOT 0.4 11/20/2012 ALP 68 11/20/2012 AST 46* 11/20/2012 ALT 66* 11/20/2012 EGFR >60 11/20/2012 PT/INR: Lab Results Component Value Date INR 1.0 11/19/2012 PTT: Lab Results Component Value Date APTT 39* 11/20/2012 [APTT Last 3 Troponin: Lab Results Component Value Date TROPONINI 0.06 11/20/2012 TROPONINI 0.06 11/19/2012 TROPONINI 0.06 11/19/2012 CPK: Lab Results Component Value Date CKTOTAL 220 11/20/2012 CKMB: Lab Results Component Value Date CKMB 4.5* 11/20/2012 XR chest 1 view [[id number]] Status: Final result Study Result HISTORY: Difficulty breathing. Shortness of breath. Elevated cardiac enzymes. COMPARISON: None. TECHNIQUE: Portable AP upright film of the chest at 2220 hrs. FINDINGS: Mild cardiac enlargement with pulmonary venous congestion, and central interstitial promine nce consistent with interstitial edema. No effusions. IMPRESSION: 1. CHF with mild interstitial edema and mild cardiac enlargement. LEM LIST Principal Problem: *Cardiomyopathy Active Problems: Smoker HTN (hypertension) ASSESSMENT & PLAN Patient Active Hospital Problem List: Cardiomyopathy (11/19/2012) Etiology unclear. He smokes and has + family history of heart disease, also hx HTN. Will ch gustavo cholesterol in am. Dr Alves is consulted and can provide further recs. Already started on metoprolol 25 mg bid and aspirin. I will add lisinopril 5 mg daily and l asix 20 mg daily. Formal echo has just been done, follow up on results. Smoker (11/19/2012) He is advised to quit smoking immediately. Elevated blood pressures (11/19/2012) He is started on metoprolol and will add low dose lisinopril. Check BP response. Disposition: Inpatient, check cardio recs Code Status: Full Code Abhinav Garcia DO 11/20/2012 1:31 PM Addendum Patient is giving hx of angioedema after taking lisinopril about 6 months ago. Will give a low dose losartan and monitor for possible reaction. Change metoprolol to coreg, as well. Keeping spironolactone. Strict I/O's, daily weights. Abhinav Garcia DO 11/20/2012 1:53 PM onversion Transaction , Provider Unknown - 11/20/2012 10:40 AM PDT Progress Notes by Azul Weaver RPH at 11/20/121039 Author: Azul Weaver RPH Service: (none) Author Type: Pharmacist Filed: 11/20/121039 Date of Service: 11/20/121039 Status: Signed Skin Therapist: Azul Weaver RPH (Pharmacist) Renal Dosing Monitoring: Jessa Cole 47 y.o. male Pharmacy dosing for renal function per Dr. Valle Scr=0.89, 5'10", 72.6kg, CrCl~100ml/min Plan per protocol: Medication / Dose: no medication adjustments required at this time. 11/20/2012 10:39 AM Pharmacist: AZUL WEAVER onver sonal Transaction, Provider Unknown - 11/19/2012 9:24 PM PDT Progress Notes by Georgiana Street RPH at 11/19/122123 Author: Georgiana Street RPH Service: (none) Author Type: Pharmacist Filed: 11/19/122123 Date of Service: 11/19/122123 Status: Signed Skin Therapist: Georgiana Street RPH (Pharmacist) Clinical Pharmacy Note: Renal Monitoring Jsesa Cole 47 y.o. male Ht Readings from Last 1 Encounters: 11/19/12 1.778 m (5' 10") Wt Readings from Last 1 Encounters: 11/19/12 72.576 kg (160 lb) Creatinine clearance cannot be calculated - Pharmacy dosing for renal function per Dr. Valle. Currently, there are no labs. Pharmacy will adjust medications, if necessary, in AM when la bs are reported. Georgiana Street RPh 11/19/2012 9:23 PM docume nted in this encounter Plan of Treatment +--------+---------+ + + + | Date | Type | Specialty | Care Team | Description | +--------+---------+ + + + | 09/14/ | Office | Cardiology | Lida Ventura DO | | | 2019 | Visit | | [address] | | | | | | [place] | | | | | | [address] | | | | | | | | +--------+---------+ + + + | 10/05/ | Office | Neurology | Diane Damon, | | | 2019 | Visit | | MD [address] | | | | | | [place] | | | | | | [place] [address] | | | | | | [phone] | | | | | | | | +--------+---------+ + + + documented as of this encounter Procedures + +--------+ + + + | Procedure Name | Priori | Date/Time | Associated Diagnosis | Comments | | | ty | | | | + +--------+ + + + | CV CARDIAC PROCEDURE | Routin | 11/21/2012 | | Results for this | | | e | 7:35 AM | | procedure are in the | | | | PDT | | results section. | + +--------+ + + + | ECHO COMPLETE | Routin | 11/20/2012 | | Results for this | | | e | 1:00 PM | | procedure are in the | | | | PDT | | results section. | + +--------+ + + + | NM MYOCARDIAL | Routin | 11/20/2012 | | Results for this | | PERFUSION MULT SPECT | e | 10:37 AM | | procedure are in the | | | | PDT | | results section. | + +--------+ + + + | NM NUCLEAR STRESS | Routin | 11/20/2012 | | Results for this | | TEST (EXERCISE) | e | 9:41 AM | | procedure are in the | | | | PDT | | results section. | + +--------+ + + + | XR CHEST 1 VIEW | Routin | 11/19/2012 | | Results for this | | | e | 10:26 PM | | procedure are in the | | | | PDT | | results section. | + +--------+ + + + documented in this encounter Results CV CARDIAC PROCEDURE (11/21/2012 7:35 AM PDT) + + | Specimen | + + | | + + + + + | Narrative | Performed At | + + + | | | | | | | HISTORY The patient is a 47 year old with congestive heart failure | | | and echocardiogram suggestive of severe cardiomyopathy. He was | | | referred for coronary angiography to rule out underlying coronary | | | artery disease. For details regarding his presentation, kindly | | | refer to my consultation note. PROCEDURES 1. Right radial | | | approach, 2. Left heart catheterization with left ventriculogram. 3. | | | Selective coronary angiography. TECHNIQUE The patient was | | | brought to the catheterization lab in the fasting state. He was | | | prepped and draped in the usual sterile fashion for right radial | | | artery approach. Access was obtained via right radial artery after | | | Sandeep test was found to be negative. A 6-Sammarinese right radial artery | | | Glidesheath was then advanced. A cocktail of heparin, verapamil and | | | nitroglycerin was injected via the introducer. Using a Wholey wire, a | | | 6-Sammarinese JL4 catheter was advanced to the ascending aorta and | | | engaged with the ostium of the left main. Projections of the left | | | coronary system were done with the use of contrast injections. Using | | | a long exchange wire, the JL4 catheter was exchanged to a 6-Sammarinese | | | JR4 catheter which was engaged with the ostium of the right coronary | | | artery. Projections of the right coronary artery were done with the | | | use of contrast injections. The catheter was then exchanged over a | | | long exchange wire to a 6-Sammarinese pigtail catheter which was advanced | | | to the left ventricle, and projections of the left ventricular | | | systolic function were done with the use of contrast injections. All | | | equipment was then removed. FINDINGS HEMODYNAMICS Aortic | | | pressure 124/93 with a mean of 100. Left ventricular pressure 118/33. | | | Gradient: There was no gradient between the LV and aorta. | | | CORONARY ANGIOGRAPHY The coronary system was right dominant. 1. Left | | | main bifurcated into LAD and left circumflex. Left main was free | | | of disease. 2. Left anterior descending artery and the diagonal | | | branches were free of disease. 3. Left circumflex coronary | | | artery was free of disease. 4. Right coronary artery was a dominant | | | vessel and was free of disease. LEFT VENTRICULOGRAM In the RAMIREZ | | | view showed severe LV dysfunction; ejection fraction estimated to be | | | around 25% to 30%. CONCLUSIONS/RECOMMENDATIONS 1. Nonischemic | | | cardiomyopathy. 2. Severe left ventricular dysfunction. 3. Recommend | | | therapy for cardiomyopathy. Read by DIVYA ALVES MD | | | 11/21/2012 07:35 A Electronically signed by Divya Alves MD on | | | 12/07/2012 2:31 PM | | + + + + + | Procedure Note | + + | Clyde Walker Conversion - 03/04/2019 6:15 PM PDT | | | | HISTORY | | The patient is a 47 year old with congestive heart failure and | | echocardiogram suggestive of severe cardiomyopathy. He was referred for | | coronary angiography to rule out underlying coronary artery disease. For | | details regarding his presentation, kindly refer to my consultation note. | | | | | | PROCEDURES | | 1. Right radial approach, | | 2. Left heart catheterization with left ventriculogram. | | 3. Selective coronary angiography. | | | | TECHNIQUE | | The patient was brought to the catheterization lab in the fasting state. | | He was prepped and draped in the usual sterile fashion for right radial | | artery approach. Access was obtained via right radial artery after Sandeep | | test was found to be negative. A 6-Sammarinese right radial artery Glidesheath | | was then advanced. A cocktail of heparin, verapamil and nitroglycerin was | | injected via the introducer. Using a Wholey wire, a 6-Sammarinese JL4 catheter | | was advanced to the ascending aorta and engaged with the ostium of the | | left main. Projections of the left coronary system were done with the use | | of contrast injections. Using a long exchange wire, the JL4 catheter was | | exchanged to a 6-Sammarinese JR4 catheter which was engaged with the ostium of | | the right coronary artery. Projections of the right coronary artery were | | done with the use of contrast injections. The catheter was then exchanged | | over a long exchange wire to a 6-Sammarinese pigtail catheter which was | | advanced to the left ventricle, and projections of the left ventricular | | systolic function were done with the use of contrast injections. All | | equipment was then removed. | | | | FINDINGS | | | | HEMODYNAMICS | | Aortic pressure 124/93 with a mean of 100. | | Left ventricular pressure 118/33. | | Gradient: There was no gradient between the LV and aorta. | | | | CORONARY ANGIOGRAPHY | | The coronary system was right dominant. | | 1. Left main bifurcated into LAD and left circumflex. Left main was free | | of disease. | | 2. Left anterior descending artery and the diagonal branches were free of | | disease. | | 3. Left circumflex coronary artery was free of disease. | | 4. Right coronary artery was a dominant vessel and was free of disease. | | | | LEFT VENTRICULOGRAM | | In the RAMIREZ view showed severe LV dysfunction; ejection fraction estimated | | to be around 25% to 30%. | | | | CONCLUSIONS/RECOMMENDATIONS | | 1. Nonischemic cardiomyopathy. | | 2. Severe left ventricular dysfunction. | | 3. Recommend therapy for cardiomyopathy. | | | | | | | | Read by DIVYA ALVES MD 11/21/2012 07:35 A | | | | | + + ECHO Complete (11/20/2012 1:00 PM PDT) + + | Specimen | + + | | + + + + + | Narrative | Performed At | + + + | Patient Name: JESSA COLE Date of : 1965 | | | Performing Physician: Divya Alves MD | | | | | | INDICATIONS SHORTNESS OF BREATH ABNORMAL EKG/ELEVATED | | | TROPONIN CONCLUSIONS 1. Overall left ventricular | | | systolic function is severely impaired with, an EF between 25 - 30 %. | | | 2. Restrictive LV diastolic filling pattern, consistent with elevated | | | LA pressure and severe dysfunction (grade III). 3. The left atrium | | | is moderately dilated. 4. Heec-uq-cyllosvv mitral regurgitation is | | | present. 5. Ndip-da-akewcuno tricuspid regurgitation present. 6. The | | | right ventricular systolic pressure (pulmonary artery systolic | | | pressure), as measured by Doppler, is 49.76mmHg. FINDINGS | | | -------- ECG rhythm: Sinus rhythm. Study: A 2-dimensional | | | transthoracic echocardiogram with m-mode, spectral and color flow | | | Doppler was perfomed. Study: This was a technically adequate study. | | | Left Ventricle: Overall left ventricular systolic function is severely | | | impaired with, an EF between 25 - 30 %. Left Ventricle: The left | | | ventricle cavity size is normal. Left Ventricle: Left ventricular | | | wall thickness is normal. Left Ventricle: Restrictive LV diastolic | | | filling pattern, consistent with elevated LA pressure and severe | | | dysfunction (grade III). Left Ventricle: False Tendon Visualized in | | | the LV Right Ventricle: The right ventricle is moderately enlarged | | | measuring between 3.8 - 4.1 cm. Left Atrium: The left atrium is | | | moderately dilated. Right Atrium: The right atrium is mildly | | | enlarged. Aortic Valve: The aortic valve is trileaflet, and appears | | | anatomically normal. No aortic stenosis or regurgitation. Mitral | | | Valve: The mitral valve is normal. Mitral Valve: Gdqn-ib-jgohbwuv | | | mitral regurgitation is present. Tricuspid Valve: The tricuspid valve | | | appears structurally normal. Tricuspid Valve: Daip-zp-dbxstsii | | | tricuspid regurgitation present. Tricuspid Valve: There is mild to | | | moderate pulmonary hypertension. Tricuspid Valve: The right | | | ventricular systolic pressure (pulmonary artery systolic pressure), as | | | measured by Doppler, is 49.76mmHg. Pulmonic Valve: Pulmonic valve | | | appears structurally normal. Pericardium: There is no pericardial | | | effusion. IVC/Hepatic Veins: The IVC is normal size (1.5-2.5cm) and | | | collapses >50% with sniff, consistent with central venous pressures of | | | 5-10mmHg. Mass: No mass visualized Thrombus: No clot visualized | | | MEASUREMENTS IVC: 1.99 cm LA Major: 5.28 cm | | | EDV(Teich): 124.35 ml IVSd: 1.12 cm LVIDd: 5.10 cm LVPWd: | | | 1.21 cm LVOT Diam: 2.32 cm %FS: 10.48 % EF(Teich): | | | 22.75 % ESV(Teich): 96.05 ml IVSs: 1.12 cm LVIDs: 4.57 cm | | | LVPWs: 1.60 cm SV(Teich): 28.30 ml RA Major: 5.47 cm | | | RVIDd: 3.98 cm LVEF MOD A4C: 28.89 % SV MOD A4C: 42.81 ml | | | LVEDV MOD A4C: 148.20 ml LVLd A4C: 9.57 cm LVESV MOD A4C: | | | 105.38 ml LVLs A4C: 8.35 cm LAESV(A-L): 88.10 ml LAESV Index | | | (A-L): 45.41 ml/m2 LAAs A2C: 24.93 cm2 LAESV A-L A2C: 97.92 | | | ml LALs A2C: 5.39 cm LAAs A4C: 22.03 cm2 LAESV A-L A4C: | | | 77.83 ml LALs A4C: 5.29 cm Ao Diam: 3.63 cm AV Cusp: 1.97 | | | cm LA Diam: 4.34 cm LA/Ao: 1.19 D-E Excursion: 1.70 cm | | | E-F [place]: 0.10 m/s EPSS: 1.06 cm IVC diameter: 1.97 cm | | | IVC collapse: 0.83 cm IVC % collapse: 55.60 % HR: 72.45 BPM | | | AV maxP.24 mmHg AV meanP.37 mmHg AV Vmax: 1.14 | | | m/s AV Vmean: 0.89 m/s AV VTI: 21.73 cm MALINDA Vmax: 2.62 cm2 | | | MALINDA (VTI): 2.43 cm2 LVCI Dopp: 2.01 l/minm2 LVCO Dopp: | | | 3.91 l/min HR: 74.10 BPM LVOT maxP.01 mmHg LVOT meanPG: | | | 1.15 mmHg LVSI Dopp: 27.23 ml/m2 LVSV Dopp: 52.84 ml LVOT | | | Vmax: 0.70 m/s LVOT Vmean: 0.51 m/s LVOT VTI: 12.46 cm | | | MCO: 351.20 ms MR maxP.08 mmHg MR meanP.11 mmHg | | | MR Vmax: 4.47 m/s MR Vmean: 3.46 m/s MR VTI: 133.05 cm MR | | | maxP.50 mmHg MR Vmax: 4.31 m/s MV A Rodney: 0.22 m/s MV | | | DecT: 97.52 ms MV E Rodney: 0.95 m/s MV E/A Ratio: 4.14 MV | | | PHT: 23.25 ms MVA By PHT: 9.46 cm2 MV A Dur: 92.42 ms | | | Septal e': 0.07 m/s Septal E/e': 11.96 Lateral e': 0.08 m/s | | | Lateral E/e': 10.99 P Vein A: 0.25 m/s P Vein A Dur: | | | 92.42 ms P Vein D: 0.63 m/s P Vein S/D Ratio: 0.40 P Vein S: | | | 0.25 m/s HR: 84.09 BPM PV maxP.21 mmHg PV meanPG: | | | 0.74 mmHg PV Vmax: 0.55 m/s PV Vmean: 0.41 m/s PV VTI: | | | 8.97 cm RAP: 5 mmHg RVSP: 49.76 mmHg TR maxP.76 mmHg | | | TR Vmax: 3.34 m/s TV A Rodney: 0.35 m/s TV Dec [place]: 1.72 | | | m/s2 TV Dec Time: 211.30 ms TV E Rodney: 0.36 m/s TV E/A Ratio: | | | 1.01 Hoisting Machine Operator: [id number] Authenticated by: Divya lAves MD Report | | | Date/Time: 11-20-2012 13:30:30 | | + + + + + | Procedure Note | + + | Clyde Walker Conversion - 03/04/2019 6:15 PM PDT Patient Name: Perry COLE of | | : 1965 Performing Physician: Divya Alves | | INDICATIONS S | | HORTNESS OF BREATH ABNORMAL EKG/ELEVATED TROPONIN CONCLUSIONS 1. Overall left | | ventricular systolic function is severely impaired with, an EF between 25 - 30 %.2. | | Restrictive LV diastolic filling pattern, consistent with elevated LA pressure and | | severe dysfunction (grade III).3. The left atrium is moderately dilated.4. | | Liwr-rf-cbfsshps mitral regurgitation is present.5. Ibpb-qn-vixwpuvx tricuspid | | regurgitation present.6. The right ventricular systolic pressure (pulmonary artery | | systolic pressure), as measured by Doppler, is 49.76mmHg. FINDINGS--------ECG rhythm: | | Sinus rhythm.Study: A 2-dimensional transthoracic echocardiogram with m-mode, spectral | | and color flow Doppler was perfomed.Study: This was a technically adequate study.Left | | Ventricle: Overall left ventricular systolic function is severely impaired with, an EF | | between 25 - 30 %.Left Ventricle: The left ventricle cavity size is normal.Left | | Ventricle: Left ventricular wall thickness is normal.Left Ventricle: Restrictive LV | | diastolic filling pattern, consistent with elevated LA pressure and severe dysfunction | | (grade III).Left Ventricle: False Tendon Visualized in the LVRight Ventricle: The right | | ventricle is moderately enlarged measuring between 3.8 - 4.1 cm.Left Atrium: The left | | atrium is moderately dilated.Right Atrium: The right atrium is mildly enlarged.Aortic | | Valve: The aortic valve is trileaflet, and appears anatomically normal. No aortic | | stenosis or regurgitation.Mitral Valve: The mitral valve is normal.Mitral Valve: | | Osfb-pa-pwxqkizx mitral regurgitation is present.Tricuspid Valve: The tricuspid valve | | appears structurally normal.Tricuspid Valve: Homt-cl-gbzgkxnw tricuspid regurgitation | | present.Tricuspid Valve: There is mild to moderate pulmonary hypertension.Tricuspid | | Valve: The right ventricular systolic pressure (pulmonary artery systolic pressure), as | | measured by Doppler, is 49.76mmHg.Pulmonic Valve: Pulmonic valve appears structurally | | normal.Pericardium: There is no pericardial effusion.IVC/Hepatic Veins: The IVC is | | normal size (1.5-2.5cm) and collapses >50% with sniff, consistent with central venous | | pressures of 5-10mmHg.Mass: No mass visualizedThrombus: No clot visualized | | MEASUREMENTS IVC: 1.99 cmLA Major: 5.28 cmEDV(Teich): 124.35 mlIVSd: | | 1.12 cmLVIDd: 5.10 cmLVPWd: 1.21 cmLVOT Diam: 2.32 cm%FS: 10.48 %EF(Teich): | | 22.75 %ESV(Teich): 96.05 mlIVSs: 1.12 cmLVIDs: 4.57 cmLVPWs: 1.60 cmSV(Teich): | | 28.30 mlRA Major: 5.47 cmRVIDd: 3.98 cmLVEF MOD A4C: 28.89 %SV MOD A4C: 42.81 | | mlLVEDV MOD A4C: 148.20 mlLVLd A4C: 9.57 cmLVESV MOD A4C: 105.38 mlLVLs A4C: | | 8.35 cmLAESV(A-L): 88.10 mlLAESV Index (A-L): 45.41 ml/m2LAAs A2C: 24.93 [id number] | | A-L A2C: 97.92 mlLALs A2C: 5.39 cmLAAs A4C: 22.03 [id number] A-L A4C: 77.83 mlLALs | | A4C: 5.29 cmAo Diam: 3.63 cmAV Cusp: 1.97 cmLA Diam: 4.34 cmLA/Ao: 1.19D-E | | Excursion: 1.70 cmE-F [place]: 0.10 m/sEPSS: 1.06 cmIVC diameter: 1.97 cmIVC | | collapse: 0.83 cmIVC % collapse: 55.60 %HR: 72.45 BPMAV maxP.24 mmHgAV | | meanP.37 mmHgAV Vmax: 1.14 m/Vilma Vmean: 0.89 m/Vilma VTI: 21.73 cmAVA Vmax: | | 2.62 cm2AVA (VTI): 2.43 [id number] Dopp: 2.01 l/[id number] Dopp: 3.91 l/minHR: 74.10 | | BPMLVOT maxP.01 mmHgLVOT meanP.15 mmHgLVSI Dopp: 27.23 ml/m2LVSV Dopp: | | 52.84 mlLVOT Vmax: 0.70 m/sLVOT Vmean: 0.51 m/sLVOT VTI: 12.46 cmMCO: 351.20 | | msMR maxP.08 mmHgMR meanP.11 mmHgMR Vmax: 4.47 m/sMR Vmean: 3.46 m/sMR | | VTI: 133.05 cmMR maxP.50 mmHgMR Vmax: 4.31 m/sMV A Rodney: 0.22 m/sMV DecT: | | 97.52 msMV E Rodney: 0.95 m/sMV E/A Ratio: 4.14MV PHT: 23.25 msMVA By PHT: 9.46 | | cm2MV A Dur: 92.42 msSeptal e': 0.07 m/sSeptal E/e': 11.96Lateral e': 0.08 | | m/sLateral E/e': 10.99P Vein A: 0.25 m/sP Vein A Dur: 92.42 msP Vein D: 0.63 | | m/sP Vein S/D Ratio: 0.40P Vein S: 0.25 m/sHR: 84.09 BPMPV maxP.21 mmHgPV | | meanP.74 mmHgPV Vmax: 0.55 m/sPV Vmean: 0.41 m/sPV VTI: 8.97 cmRAP: 5 | | mmHgRVSP: 49.76 mmHgTR maxP.76 mmHgTR Vmax: 3.34 m/sTV A Rodney: 0.35 m/sTV | | Dec [place]: 1.72 m/s2TV Dec Time: 211.30 msTV E Rodney: 0.36 m/sTV E/A Ratio: 1.01 | | Hoisting Machine Operator: JUAN ALBERTOuthenticated by: Divya VITALEeport Date/Time: 11-20-2012 13:30:30 | |LVIDd: 5.10 cm | |LVPWd: 1.21 cm | |LVOT Diam: 2.32 cm | |%FS: 10.48 % | |EF(Teich): 22.75 % | |ESV(Teich): 96.05 ml | |IVSs: 1.12 cm | |LVIDs: 4.57 cm | |LVPWs: 1.60 cm | |SV(Teich): 28.30 ml | |RA Major: 5.47 cm | |RVIDd: 3.98 cm | |LVEF MOD A4C: 28.89 % | |SV MOD A4C: 42.81 ml | |LVEDV MOD A4C: 148.20 ml | |LVLd A4C: 9.57 cm | |LVESV MOD A4C: 105.38 ml | |LVLs A4C: 8.35 cm | |LAESV(A-L): 88.10 ml | |LAESV Index (A-L): 45.41 ml/m2 | |LAAs A2C: 24.93 cm2 | |LAESV A-L A2C: 97.92 ml | |LALs A2C: 5.39 cm | |LAAs A4C: 22.03 cm2 | |LAESV A-L A4C: 77.83 ml | |LALs A4C: 5.29 cm | |Ao Diam: 3.63 cm | |AV Cusp: 1.97 cm | |LA Diam: 4.34 cm | |LA/Ao: 1.19 | |D-E Excursion: 1.70 cm | |E-F [place]: 0.10 m/s | |EPSS: 1.06 cm | |IVC diameter: 1.97 cm | |IVC collapse: 0.83 cm | |IVC % collapse: 55.60 % | |HR: 72.45 BPM | |AV maxP.24 mmHg | |AV meanP.37 mmHg | |AV Vmax: 1.14 m/s | |AV Vmean: 0.89 m/s | |AV VTI: 21.73 cm | |MALINDA Vmax: 2.62 cm2 | |MALINDA (VTI): 2.43 cm2 | |LVCI Dopp: 2.01 l/minm2 | |LVCO Dopp: 3.91 l/min | |HR: 74.10 BPM | |LVOT maxP.01 mmHg | |LVOT meanP.15 mmHg | |LVSI Dopp: 27.23 ml/m2 | |LVSV Dopp: 52.84 ml | |LVOT Vmax: 0.70 m/s | |LVOT Vmean: 0.51 m/s | |LVOT VTI: 12.46 cm | |MCO: 351.20 ms | |MR maxP.08 mmHg | |MR meanP.11 mmHg | |MR Vmax: 4.47 m/s | |MR Vmean: 3.46 m/s | |MR VTI: 133.05 cm | |MR maxP.50 mmHg | |MR Vmax: 4.31 m/s | |MV A Rodney: 0.22 m/s | |MV DecT: 97.52 ms | |MV E Rodney: 0.95 m/s | |MV E/A Ratio: 4.14 | |MV PHT: 23.25 ms | |MVA By PHT: 9.46 cm2 | |MV A Dur: 92.42 ms | |Septal e': 0.07 m/s | |Septal E/e': 11.96 | |Lateral e': 0.08 m/s | |Lateral E/e': 10.99 | |P Vein A: 0.25 m/s | |P Vein A Dur: 92.42 ms | |P Vein D: 0.63 m/s | |P Vein S/D Ratio: 0.40 | |P Vein S: 0.25 m/s | |HR: 84.09 BPM | |PV maxP.21 mmHg | |PV meanP.74 mmHg | |PV Vmax: 0.55 m/s | |PV Vmean: 0.41 m/s | |PV VTI: 8.97 cm | |RAP: 5 mmHg | |RVSP: 49.76 mmHg | |TR maxP.76 mmHg | |TR Vmax: 3.34 m/s | |TV A Rodney: 0.35 m/s | |TV Dec [place]: 1.72 m/s2 | |TV Dec Time: 211.30 ms | |TV E [place]: 0.36 m/s | |TV E/A Ratio: 1.01 | | | |Hoisting Machine Operator: KVW | |Authenticated by: Divya Alves MD | |Report Date/Time: 11-20-2012 13:30:30 | + + NM Myocardial Perfusion Mult SPECT (11/20/2012 10:37 AM PDT) + + | Specimen | + + | | + + + + + | Narrative | Performed At | + + + | HISTORY: 47-year-old male with chest pain TECHNIQUE: Stress/rest | | | cardiac scintigram, using administration of chemical agents, to mimic | | | physiologic stress. Imaging agents: 10 mCi of technetium 99m | | | Myoview for rest imaging. Dose was 40 mCi for stress imaging. | | | Gated multiplanar and SPECT images of the heart. Chemical stress | | | agent -- .4 mg of Regadenson patient exercised for 1 minutes work | | | level Max METs 1. Heart rate of 76 mercedes to 90 beats/min. 51% | | | maximum age-predicted heart rate. Resting blood pressure of 130/90 | | | changed to 130/90. Protocol complete. No significant arrhythmias or ST | | | segment changes. FINDINGS: End-diastolic volume at rest -- | | | 232 cc. 235 cc during stress. End systolic volume at rest -- 190 cc. | | | 178 cc during stress. Ejection fraction was 18% at rest, 24% | | | during stress. Significantly large ventricle. Abnormally low | | | ejection fraction, below 20% threshold at rest for high short to | | | intermediate term morbidity TID. 1.03 Wall motion hypokinetic | | | globally. Cardiac scintigram demonstrates a fair distribution of | | | radiotracer, some photopenia about the inferior wall and apex at rest | | | is probably artifact or fixed. A small penumbra of minimal | | | reversibility can't be excluded on the calculated image, but not | | | favored on the static imaging. There is some uptake in the stomach, | | | likely artifacts. IMPRESSION: 1. Marked chamber enlargement, | | | hypokinesis and low ejection fraction. All correlate with relatively | | | higher risks for short and intermediate term morbidity in this | | | 47-year-old patient 2. No proven significant reversibility, but is | | | some photopenia about the inferior wall and apex which could either | | | be artifact or nonacute infarct. Prone imaging could not be performed. | | | | | | AM | | + + + + + | Procedure Note | + + | Aaron, Clyde Conversion - 03/04/2019 6:15 PM PDT HISTORY: 47-year-old male with chest | | pain TECHNIQUE: Stress/rest cardiac scintigram, using administration of chemical agents, | | to mimic physiologic stress. Imaging agents:10 mCi of technetium 99m Myoview for rest | | imaging. Dose was 40 mCi for stress imaging. Gated multiplanar and SPECT images of the | | heart. Chemical stress agent -- .4 mg of Regadensonpatient exercised for 1 minutes work | | level Max METs 1. Heart rate of 76 mercedes to 90 beats/min. 51% maximum age-predicted heart | | rate. Resting blood pressure of 130/90 changed to 130/90. Protocol complete. No | | significant arrhythmias or ST segment changes. FINDINGS: End-diastolic volume at rest -- | | 232 cc. 235 cc during stress.End systolic volume at rest -- 190 cc. 178 cc during | | stress. Ejection fraction was 18% at rest, 24% during stress. Significantly large | | ventricle. Abnormally low ejection fraction, below 20% threshold at rest for high short | | to intermediate term morbidityTID. 1.03 Wall motion hypokinetic globally. Cardiac | | scintigram demonstrates a fair distribution of radiotracer, some photopenia about the | | inferior wall and apex at rest is probably artifact or fixed. A small penumbra of | | minimal reversibility can't be excluded on the calculated image, but not favored on the | | static imaging. There is some uptake in the stomach, likely artifacts. IMPRESSION: 1. | | Marked chamber enlargement, hypokinesis and low ejection fraction. All correlate with | | relatively higher risks for short and intermediate term morbidity in this 47-year-old | | patient 2. No proven significant reversibility, but is some photopenia about the | | inferior wall and apex which could either be artifact or nonacute infarct. Prone imaging | | could not be performed. | | 10:57 AM | |TID. 1.03 | | | |Wall motion hypokinetic globally. | | | |Cardiac scintigram demonstrates a fair distribution of radiotracer, some photopenia about t he inferior wall and apex at rest is probably artifact or fixed. A small penumbra of minimal reversibility can't be excluded on the calculated image, but not | |favored on the static imaging. There is some uptake in the stomach, likely artifacts. | | | |IMPRESSION: | | | |1. Marked chamber enlargement, hypokinesis and low ejection fraction. All correlate with re latively higher risks for short and intermediate term morbidity in this 47-year-old patient | | | |2. No proven significant reversibility, but is some photopenia about the inferior wall and apex which could either be artifact or nonacute infarct. Prone imaging could not be performe d. | | | | | + + NM Nuclear Stress Test (Exercise) (11/20/2012 9:41 AM PDT) + + | Specimen | + + | | + + + + + | Narrative | Performed At | + + + | This procedure was resulted in [place] (the cardiology system). Please | | | see the Media tab in Chart Review to see the result for this | | | procedure. | | + + + + + | Procedure Note | + + | Clyde Walker - 03/04/2019 6:15 PM PDT This procedure was resulted in [place] | | (the cardiology system). Please seethe Media tab in Chart Review to see the result for | | this procedure. | + + XR Chest 1 Vw (11/19/2012 10:26 PM PDT) + + | Specimen | + + | | + + + + + | Narrative | Performed At | + + + | HISTORY: Difficulty breathing. Shortness of breath. Elevated | | | cardiac enzymes. COMPARISON: None. TECHNIQUE: Portable AP | | | upright film of the chest at 2220 hrs. FINDINGS: Mild cardiac | | | enlargement with pulmonary venous congestion, and central interstitial | | | prominence consistent with interstitial edema. No effusions. | | | IMPRESSION: 1. CHF with mild interstitial edema and mild cardiac | | | enlargement. Electronically signed by Rakesh Hernadez MD on | | | 11/19/2012 11:14 PM | | + + + + + | Procedure Note | + + | Clyde Walker Conversion - 03/04/2019 6:15 PM PDT HISTORY:Difficulty breathing. | | Shortness of breath. Elevated cardiac enzymes. COMPARISON:None. TECHNIQUE:Portable AP | | upright film of the chest at 2220 hrs. FINDINGS:Mild cardiac enlargement with pulmonary | | venous congestion, and central interstitial prominence consistent with interstitial | | edema. No effusions. IMPRESSION:1. CHF with mild interstitial edema and mild cardiac | | enlargement. | |TECHNIQUE: | |Portable AP upright film of the chest at 2220 hrs. | | | |FINDINGS: | |Mild cardiac enlargement with pulmonary venous congestion, and central interstitial promine nce consistent with interstitial edema. No effusions. | | | |IMPRESSION: | |1. CHF with mild interstitial edema and mild cardiac enlargement. | | | | | + + documented in this encounter Visit Diagnoses + + | Diagnosis | + + | SOB (shortness of breath) on exertion Shortness of breath | + + | Cardiac enzymes elevated Other nonspecific abnormal serum enzyme levels | + + documented in this encounter
--- OUTSIDE RECORDS SUMMARY | ~2019-07-13 | XMS | Encounter Summary ---
Demographics + + + | Address | [address] [facility] [address] | | | [place] [address] | + + + | Home Phone | | + + + | Preferred Language | Unknown | + + + | Marital Status | | + + + | Buddhist Affiliation | 1077 | + + + | Race | Unknown | + + + | Ethnic Group | Unknown | + + + Author + + + | Author | [facility] | | | and [place] | + + + | Organization | [facility] | | [...] [place] | | | | | [address] | | + + + + + Care Team Providers + +------+ + | Care Horticulture/Floriculture Teacher Name | Role | Phone | + [...] | | | | | | [place] [address] | [address] | | | | | | Phone: | Phone: | | | | | | [phone] | [phone] | | | | | | Fax: | Fax: | | | | | | [phone] | [phone] | +--------+ + + + + + [...] | (Primary Dx) | | | | Roby Yadkin, | [address] [place] | | | | | [place] [address] | [place] [address] | | | | | [phone] | [phone] | | | | | | | [...] | | | | [place] | | | | | | [address] | | | | | | | | +--------+---------+ + + + | 10/05/ | Office | Neurology | Diane Damon, | | | 2019 | Visit | | MD [address] | | | | | | [place] | | | | | | [place] [address] | | | | | | [phone] | | | | | | | [...]
--- OUTSIDE RECORDS SUMMARY | ~2019-07-13 | XMS | Encounter Summary ---
Demographics + + + | Address | [address] [facility] [address] | | | [place] [address] | + + + | Home Phone | | + + + | Preferred Language | Unknown | + + + | Marital Status | | + + + | Denominational Affiliation | 1077 | + + + | Race | Unknown | + + + | Ethnic Group | Unknown | + + + Author + + + | Author | [facility] | | | and [place] | + + + | Organization | [facility] | | | [...] [place] | | | | | [address] | | + + + + + Care Team Providers + +------+ + | Care Associate Director Regulatory Affairs Name | Role | Phone | + +------+ + | Bess Alba | PCP | | + +------+ + Encounter Details +--------+ + + + + | Date | Type | Department | Care Team | Description | +--------+ + + + + | 05/19/ | Orders Only | [facility] | Griffin Suero | | | 2017 | | CONVERSION 888 | MD Valente [address] | | | | | [address] | [place] [address] | | | | | [place] | [place] | | | | | [address] | [address] | | | | | [phone] | [phone] | | | | | | | [...] [place] | | | | | | [address] | | | | | | | | +--------+---------+ + + + | 10/05/ | Office | Neurology | Diane Damon, | | | 2019 | Visit | | MD [address] | | | | | | [place] | | | | | | [place] [address] | | | | | | [phone] | | | | | | | | +--------+---------+ + + + documented as of this encounter Procedures + +--------+ + + + | Procedure Name | Priori | Date/Time | Associated Diagnosis | Comments | | | ty | | | | + +--------+ + + + | ECHO INTERPRETATION | Routin | 05/19/2017 | | Results for this | | OF OUTSIDE FILMS | e | 9:30 AM | | procedure are in the | | | | PST | | results section. | + +--------+ + + + documented in this encounter Results ECHO Interpretation of Outside Films (05/19/2017 9:30 AM PST) + + | Specimen | + + | | + + + + + | Impressions | Performed At | + + + | 1. Overall left ventricular systolic function is mild-moderately | | | impaired with, an EF between 40 - 45 % and mild global hypokinesis. | | | The EF has decreased from the reported EF of 50-55% on his previous | | | echocardiographic study, done 03/20/16. It is noted that his EF was | | | 25-30% on an earlier study, done 11/20/12. 2. The right ventricle is | | | normal in size and function. 3. No significant valvular abnormality. | | + + + + + + | Narrative | Performed At | + + + | Patient Name: JESSA COLE Date of : 1965 | | | Performing Physician: RICHARD GAMING MD | | | | | | INDICATIONS Cardiomyopathy CONCLUSIONS | | | 1. Overall left ventricular systolic function is mild-moderately | | | impaired with, an EF between 40 - 45 % and mild global hypokinesis. | | | The EF has decreased from the reported EF of 50-55% on his previous | | | echocardiographic study, done 03/20/16. It is noted that his EF was | | | 25-30% on an earlier study, done 11/20/12. 2. The right ventricle is | | | normal in size and function. 3. No significant valvular abnormality. | | | FINDINGS -------- ECG rhythm: Sinus rhythm. Study: A | | | 2-dimensional transthoracic echocardiogram with m-mode, spectral and | | | color flow Doppler was perfomed. Study: This was a technically | | | adequate study. Study: This was a technically difficult study with | | | suboptimal parasternal views. Left Ventricle: Overall left | | | ventricular systolic function is mild-moderately impaired with, an EF | | | between 40 - 45 %, decreased from the reported EF of 50-55% on his | | | previous echocardiographic study, done 03/20/16. It is noted that his | | | EF was 25-30% on an earlier study, done 11/20/12. Left Ventricle: | | | The left ventricle cavity size is normal. Left Ventricle: Left | | | ventricular wall thickness is normal. Left Ventricle: There is mild | | | global hypokinesis of LV contractility. Left Ventricle: The diastolic | | | filling pattern is normal for the age of the patient. Left | | | Ventricle: False Tendon Visualized in the LV Right Ventricle: The | | | right ventricle is normal in size and function. Left Atrium: The left | | | atrium is mildly dilated. Right Atrium: The right atrium is normal | | | in size. Aortic Valve: The aortic valve is trileaflet and appears | | | structurally normal. Aortic Valve: amount of aortic regurgitation. | | | Aortic Valve: There is no evidence of aortic stenosis. Mitral Valve: | | | The mitral valve is normal. Mitral Valve: There is trace mitral | | | regurgitation. Mitral Valve: No evidence of MVP or mitral stenosis. | | | Tricuspid Valve: The tricuspid valve appears structurally normal. | | | Tricuspid Valve: Trace tricuspid regurgitation present. Tricuspid | | | Valve: The poor TR signal prevents accurate estimation of pulmonary | | | pressures. Pulmonic Valve: The pulmonic valve was not well | | | visualized. Pericardium: There is no pericardial effusion. | | | IVC/Hepatic Veins: The IVC is dilated (>2.5cm) and collapses >50% with | | | sniff, consistent with central venous pressures of 10 mmHg. Aorta: | | | Ascending aorta not well seen. Mass: No mass visualized Thrombus: No | | | clot visualized Thrombus: No vegetation visualized. Septum: No ASD | | | observed. Septum: No VSD observed. MEASUREMENTS | | | Ao Diam: 3.30 cm IVC: 2.60 cm LA Diam: 4.29 cm LA Major: | | | 5.55 cm EDV(Teich): 131.01 ml IVSd: 0.94 cm LVIDd: 5.22 | | | cm LVPWd: 1.04 cm LVOT Area: 4.28 cm2 LVOT Diam: 2.33 cm | | | %FS: 20.63 % EF(Teich): 41.77 % ESV(Teich): 76.28 ml | | | LVIDs: 4.14 cm SV(Teich): 54.73 ml RA Major: 4.34 cm RV | | | Major: 7.42 cm RVIDd: 2.59 cm LVEF MOD A2C: 48.77 % SV MOD | | | A2C: 69.28 ml LVEF MOD A4C: 46.17 % SV MOD A4C: 63.70 ml | | | EF Biplane: 49.13 % LVEDV MOD BP: 140.39 ml LVESV MOD BP: | | | 71.41 ml LVEDV MOD A2C: 142.03 ml LVLd A2C: 9.64 cm LVEDV MOD | | | A4C: 137.98 ml LVLd A4C: 9.71 cm LVESV MOD A2C: 72.75 ml | | | LVLs A2C: 8.52 cm LVESV MOD A4C: 74.27 ml LVLs A4C: 8.54 cm | | | LAESV(A-L): 64.88 ml LAESV Index (A-L): 34.15 ml/m2 LAAs | | | A2C: 19.89 cm2 LAESV A-L A2C: 66.08 ml LALs A2C: 5.08 cm | | | LAAs A4C: 19.53 cm2 LAESV A-L A4C: 59.08 ml LALs A4C: 5.48 | | | cm RAAs: 11.32 cm2 RAESV A-L: 25.47 ml RAESV MOD: 25.02 ml | | | RALs: 4.27 cm TAPSE: 1.98 cm AV maxP.14 mmHg AV | | | meanP.27 mmHg AV Vmax: 1.01 m/s AV Vmean: 0.70 m/s AV | | | VTI: 17.62 cm MALINDA Vmax: 3.32 cm2 MALINDA (VTI): 3.94 cm2 AVAI | | | Vmax: 0.00 cm2/m2 AVAI (VTI): 0.00 cm2/m2 LVOT maxP.50 | | | mmHg LVOT meanP.38 mmHg LVSI Dopp: 36.57 ml/m2 LVSV Dopp: | | | 69.48 ml LVOT Vmax: 0.79 m/s LVOT Vmean: 0.55 m/s LVOT | | | VTI: 16.22 cm MV A Rodney: 0.40 m/s MV DecT: 199.44 ms MV E | | | Rodney: 0.58 m/s MV E/A Ratio: 1.44 MV PHT: 57.83 ms MVA By | | | PHT: 3.80 cm2 Septal e': 0.07 m/s Septal E/e': 7.83 | | | Lateral e': 0.08 m/s Lateral E/e': 6.84 RAP: 10 mmHg RVSP: | | | 25.23 mmHg TR maxP.23 mmHg TR Vmax: 1.95 m/s | | | Mems Process Engineer: Authenticated by: RICHARD GAMING MD Report | | | Date/Time: 05-19-2017 18:28:34 | | + + + + + | Procedure Note | + + | Aaron, Rad Conversion - 03/03/2019 6:50 PM PDT Patient Name: Perry COLE of | | : 1965 Performing Physician: RICHARD GAMING, | | INDICATIONS C | | ardiomyopathy CONCLUSIONS 1. Overall left ventricular systolic function is | | mild-moderately impaired with, an EF between 40 - 45 % and mild global hypokinesis. The | | EF has decreased from the reported EF of 50-55% on his previous echocardiographic study, | | done 03/20/16. It is noted that his EF was 25-30% on an earlier study, done 11/20/12.2. | | The right ventricle is normal in size and function. 3. No significant valvular | | abnormality. FINDINGS--------ECG rhythm: Sinus rhythm.Study: A 2-dimensional | | transthoracic echocardiogram with m-mode, spectral and color flow Doppler was | | perfomed.Study: This was a technically adequate study.Study: This was a technically | | difficult study with suboptimal parasternal views.Left Ventricle: Overall left | | ventricular systolic function is mild-moderately impaired with, an EF between 40 - 45 %, | | decreased from the reported EF of 50-55% on his previous echocardiographic study, done | | 03/20/16. It is noted that his EF was 25-30% on an earlier study, done 11/20/12.Left | | Ventricle: The left ventricle cavity size is normal.Left Ventricle: Left ventricular | | wall thickness is normal.Left Ventricle: There is mild global hypokinesis of LV | | contractility.Left Ventricle: The diastolic filling pattern is normal for the age of the | | patient.Left Ventricle: False Tendon Visualized in the LVRight Ventricle: The right | | ventricle is normal in size and function.Left Atrium: The left atrium is mildly | | dilated.Right Atrium: The right atrium is normal in size.Aortic Valve: The aortic valve | | is trileaflet and appears structurally normal.Aortic Valve: amount of aortic | | regurgitation.Aortic Valve: There is no evidence of aortic stenosis.Mitral Valve: The | | mitral valve is normal.Mitral Valve: There is trace mitral regurgitation.Mitral Valve: | | No evidence of MVP or mitral stenosis.Tricuspid Valve: The tricuspid valve appears | | structurally normal.Tricuspid Valve: Trace tricuspid regurgitation present.Tricuspid | | Valve: The poor TR signal prevents accurate estimation of pulmonary pressures.Pulmonic | | Valve: The pulmonic valve was not well visualized.Pericardium: There is no pericardial | | effusion.IVC/Hepatic Veins: The IVC is dilated (>2.5cm) and collapses >50% with sniff, | | consistent with central venous pressures of 10 mmHg.Aorta: Ascending aorta not well | | seen.Mass: No mass visualizedThrombus: No clot visualizedThrombus: No vegetation | | visualized.Septum: No ASD observed.Septum: No VSD observed. MEASUREMENTS Ao | | Diam: 3.30 cmIVC: 2.60 cmLA Diam: 4.29 cmLA Major: 5.55 cmEDV(Teich): 131.01 | | mlIVSd: 0.94 cmLVIDd: 5.22 cmLVPWd: 1.04 cmLVOT Area: 4.28 [id number] Diam: 2.33 | | cm%FS: 20.63 %EF(Teich): 41.77 %ESV(Teich): 76.28 mlLVIDs: 4.14 cmSV(Teich): | | 54.73 mlRA Major: 4.34 cmRV Major: 7.42 cmRVIDd: 2.59 cmLVEF MOD A2C: 48.77 %SV | | MOD A2C: 69.28 mlLVEF MOD A4C: 46.17 %SV MOD A4C: 63.70 mlEF Biplane: 49.13 | | %LVEDV MOD BP: 140.39 mlLVESV MOD BP: 71.41 mlLVEDV MOD A2C: 142.03 mlLVLd A2C: | | 9.64 cmLVEDV MOD A4C: 137.98 mlLVLd A4C: 9.71 cmLVESV MOD A2C: 72.75 mlLVLs A2C: | | 8.52 cmLVESV MOD A4C: 74.27 mlLVLs A4C: 8.54 cmLAESV(A-L): 64.88 mlLAESV Index | | (A-L): 34.15 ml/m2LAAs A2C: 19.89 [id number] A-L A2C: 66.08 mlLALs A2C: 5.08 | | cmLAAs A4C: 19.53 [id number] A-L A4C: 59.08 mlLALs A4C: 5.48 cmRAAs: 11.32 | | [id number] A-L: 25.47 mlRAESV MOD: 25.02 mlRALs: 4.27 cmTAPSE: 1.98 cmAV maxPG: | | 4.14 mmHgAV meanP.27 mmHgAV Vmax: 1.01 m/Vilma Vmean: 0.70 m/Vilma VTI: 17.62 | | cmAVA Vmax: 3.32 cm2AVA (VTI): 3.94 [id number] Vmax: 0.00 cm2/m2AVAI (VTI): 0.00 | | cm2/m2LVOT maxP.50 mmHgLVOT meanP.38 mmHgLVSI Dopp: 36.57 ml/m2LVSV Dopp: | | 69.48 mlLVOT Vmax: 0.79 m/sLVOT Vmean: 0.55 m/sLVOT VTI: 16.22 cmMV A Rodney: | | 0.40 m/sMV DecT: 199.44 msMV E Rodney: 0.58 m/sMV E/A Ratio: 1.44MV PHT: 57.83 | | msMVA By PHT: 3.80 cd2Tzmndi e': 0.07 m/sSeptal E/e': 7.83Lateral e': 0.08 | | m/sLateral E/e': 6.84RAP: 10 mmHgRVSP: 25.23 mmHgTR maxP.23 mmHgTR Vmax: | | 1.95 m/s Mems Process Engineer: Jeroticated by: Milan CROWE Date/Time: 05-19-2017 | | 18:28:34 IMPRESSION: 1. Overall left ventricular systolic function is mild-moderately | | impaired with, an EF between 40 - 45 % and mild global hypokinesis. The EF has decreased | | from the reported EF of 50-55% on his previous echocardiographic study, done 03/20/16. | | It is noted that his EF was 25-30% on an earlier study, done 11/20/12.2. The right | | ventricle is normal in size and function. 3. No significant valvular abnormality. | |Ao Diam: 3.30 cm | |IVC: 2.60 cm | |LA Diam: 4.29 cm | |LA Major: 5.55 cm | |EDV(Teich): 131.01 ml | |IVSd: 0.94 cm | |LVIDd: 5.22 cm | |LVPWd: 1.04 cm | |LVOT Area: 4.28 cm2 | |LVOT Diam: 2.33 cm | |%FS: 20.63 % | |EF(Teich): 41.77 % | |ESV(Teich): 76.28 ml | |LVIDs: 4.14 cm | |SV(Teich): 54.73 ml | |RA Major: 4.34 cm | |RV Major: 7.42 cm | |RVIDd: 2.59 cm | |LVEF MOD A2C: 48.77 % | |SV MOD A2C: 69.28 ml | |LVEF MOD A4C: 46.17 % | |SV MOD A4C: 63.70 ml | |EF Biplane: 49.13 % | |LVEDV MOD BP: 140.39 ml | |LVESV MOD BP: 71.41 ml | |LVEDV MOD A2C: 142.03 ml | |LVLd A2C: 9.64 cm | |LVEDV MOD A4C: 137.98 ml | |LVLd A4C: 9.71 cm | |LVESV MOD A2C: 72.75 ml | |LVLs A2C: 8.52 cm | |LVESV MOD A4C: 74.27 ml | |LVLs A4C: 8.54 cm | |LAESV(A-L): 64.88 ml | |LAESV Index (A-L): 34.15 ml/m2 | |LAAs A2C: 19.89 cm2 | |LAESV A-L A2C: 66.08 ml | |LALs A2C: 5.08 cm | |LAAs A4C: 19.53 cm2 | |LAESV A-L A4C: 59.08 ml | |LALs A4C: 5.48 cm | |RAAs: 11.32 cm2 | |RAESV A-L: 25.47 ml | |RAESV MOD: 25.02 ml | |RALs: 4.27 cm | |TAPSE: 1.98 cm | |AV maxP.14 mmHg | |AV meanP.27 mmHg | |AV Vmax: 1.01 m/s | |AV Vmean: 0.70 m/s | |AV VTI: 17.62 cm | |MALINDA Vmax: 3.32 cm2 | |MALINDA (VTI): 3.94 cm2 | |AVAI Vmax: 0.00 cm2/m2 | |AVAI (VTI): 0.00 cm2/m2 | |LVOT maxP.50 mmHg | |LVOT meanP.38 mmHg | |LVSI Dopp: 36.57 ml/m2 | |LVSV Dopp: 69.48 ml | |LVOT Vmax: 0.79 m/s | |LVOT Vmean: 0.55 m/s | |LVOT VTI: 16.22 cm | |MV A Rodney: 0.40 m/s | |MV DecT: 199.44 ms | |MV E Rodney: 0.58 m/s | |MV E/A Ratio: 1.44 | |MV PHT: 57.83 ms | |MVA By PHT: 3.80 cm2 | |Septal e': 0.07 m/s | |Septal E/e': 7.83 | |Lateral e': 0.08 m/s | |Lateral E/e': 6.84 | |RAP: 10 mmHg | |RVSP: 25.23 mmHg | |TR maxP.23 mmHg | |TR Vmax: 1.95 m/s | | | |Mems Process Engineer: | |Authenticated by: RICHARD GAMING MD | |Report Date/Time: 05-19-2017 18:28:34 | | | |IMPRESSION: | |1. Overall left ventricular systolic function is mild-moderately impaired with, an EF betwe en 40 - 45 % and mild global hypokinesis. The EF has decreased from the reported EF of 50-55 % on his previous echocardiographic study, done 03/20/16. It is noted | |that his EF was 25-30% on an earlier study, done 11/20/12. | |2. The right ventricle is normal in size and function. 3. No significant valvular abnormali ty. | + + documented in this encounter Visit Diagnoses Not on filedocumented in this encounter"
--- OUTSIDE RECORDS SUMMARY | ~2019-07-13 | XMS | Encounter Summary ---
Demographics + + + | Address | [address] [facility] | | | [place] [address] | + + + | Home Phone | | + + + | Preferred Language | Unknown | + + + | Marital Status | | + + + | Sikh Affiliation | 1077 | + + + | Race | Unknown | + + + | Ethnic Group | Unknown | + + + Author + + + | Author | [facility] | | | and [place] | + + + | Organization | [facility] | | | [...] [place] | | | | | [address] | | + + + + + Care Team Providers + +------+ + | Care Upholstery Auto Trimmer Name | Role | Phone | + +------+ + | Ugo Lux DO | JENNIFER | | + +------+ + Encounter Details +--------+ + + + + | Date | Type | Department | Care Team | Description | +--------+ + + + + | 07/23/ | Abstract | [facility] | Provider, | | | 2019 | | PHYSIATRY [address] | | | | | [place], | [place] | | | | | [place] [address] | [place] [address] | | | | | [phone] | | | +--------+ + + + [...] [place] | | | | | | [address] | | | | | | | | +--------+---------+ + + + | 10/05/ | Office | Neurology | Diane Damon, | | | 2019 | Visit | | MD [address] | | | | | | [place] | | | | | | [place] [address] | | | | | | [phone] | | | | | | | | +--------+---------+ + + + documented as of this encounter Visit Diagnoses Not on filedocumented in this encounter"
--- OUTSIDE RECORDS SUMMARY | ~2019-07-13 | XMS | Encounter Summary ---
Demographics + + + | Address | [address] [facility] [address] | | | [place] [address] | + + + | Home Phone | | + + + | Preferred Language | Unknown | + + + | Marital Status | | + + + | Denominational Affiliation | 1077 | + + + | Race | Unknown | + + + | Ethnic Group | Unknown | + + + Author + + + | Author | [facility] | | | and [place] | + + + | Organization | [facility] | [...] [place] | | | | | [address] | | + + + + + Care Team Providers + +------+ + | Care Keeper Helper Name | Role | Phone | + +------+ + | Ugo Lux DO | PCP | | + +------+ + Reason for Referral Diagnostic/Screening (Routine) +--------+--------+ + + + + | Status | Reason | Specialty | Diagnoses / | Referred By | Referred To | | | | | Procedures | Contact | Contact | +--------+--------+ + + + + | Closed | | MRI | Diagnoses | Scott, | OP ST | | | | | Lumbar | [facility] | [place] | | | | | radiculopath | [address] | [facility] | | | | | y | [address] | [address] | | | | | Procedures | [address] | [address] | | | | | MRI Lumbar | DRU GONSALES, | [place] | | | | | Spine [place] | [place] [address] | [address] | | | | | Contrast | Phone: | Phone: | | | | | | [phone] | [phone] | | | | | | Fax: | Fax: | | | | | | [phone] | [phone] | +--------+--------+ + + + + Reason for Visit + + + | Reason | Comments | + + + | New Patient | Back Pain | + + + Evaluate & Treat (Routine) +--------+--------+ + + + + | Status | Reason | Specialty | Diagnoses / | Referred By | Referred To | | | | | Procedures | Contact | Contact | +--------+--------+ + + + + | Closed | | Physical | Diagnoses | Swetha, | Mikhail, | | | | Medicine and | DDD | Checo Christianson, | Zi Lundy MD | | | | Rehabilitatio | (degenerativ | MD [address] | [address] | | | | n | e disc | [address] | [address] [place] | | | | | disease), | [place], | [place], [place] | | | | | lumbar | [place] [address] | [address] Phone: | | | | | | Phone: | [phone] | | | | | | [phone] | Fax: | | | | | | Fax: | [phone] | | | | | | [phone] | | +--------+--------+ + + + + Encounter Details +--------+---------+ + + + | Date | Type | Department | Care Team | Description | +--------+---------+ + + + | 08/05/ | Office | [facility] | Jericho hCavez, | Lumbar radiculopathy | | 2019 | Visit | PHYSIATRY [address] | PA-C [address] | (Primary Dx) | | | | [place], | [address] [place] | | | | | [place] [address] | [place] [address] | | | | | [phone] | [phone] | | | | | | | | +--------+---------+ + + + Social History [...] + + + | Blood Pressure | 144/88 | 08/05/2018 3:40 PM | | | | | PST | | + + + + + | Pulse | 86 | 08/05/2018 3:40 PM | | | | | PST [...] Weight | 74.8 kg (165 lb) | 08/05/2018 3:40 PM | | | | | PST | | + + + + + | Height | 180.3 cm (5' 11") | 08/05/2018 3:40 PM | | | | | PST | | + + + + + | Body Mass Index | 23.01 | 08/05/2018 3:40 PM | | | | | PST | | + + + + + documented in this encounter Patient Instructions Patient Instructions Jericho Chavez PA-C - 08/05/2018 4:10 PM PSTMRI ordered today. We shital l call you with results and treatment options. Follow up with Jericho Chavez PA-C approximately 3 weeks after injection. Please remember to complete pain log form for this visit. Follow-up at the hospital thirty minutes before your scheduled procedure to allow for time to check in. You may eat and drink as usual on the day of the procedure. If you are scheduled for an epidural injection do not take any blood thinning medications f or at least 5-7 days prior to your procedure unless you have been instructed by another phys ician not to discontinue blood thinning medications. If you are having a procedure other than an epidural injection (i.e. facet injection, media l branch block, SI joint injection or other joint injection) it is not absolutely necessary to discontinue blood thinning medications but doing so will decrease the risk of bruising or bleeding. If you have had a prior stroke, DVT or PE or if you are taking blood thinning medication be cause you have atrial fibrillation, a prosthetic cardiac valve replacement or heart stenting do not stop taking your blood thinning medications unless you have permission from your car diologist or primary care provider. All other medications should be taken as usual on the day of the procedure. Common blood thinning medications include: All NSAIDs Aspirin (a baby aspirin is o.k.) Ibuprofen (Advil or Motrin) Naproxen (Aleve) Nabumetone (Relafen) Clopidogrel (Plavix) Dipyridamole/ASA (Aggrenox) Warfarin (Coumadin) Dabigatran (Pradaxa) Rivaroxaban (Xarelto) There are many others. If you have questions about your medications and whether or not you should stop any medications please contact our office. If you are having an epidural injection or if you take any medication for relaxation/sedati on on the day of the procedure you must provide a flatbed truck driver to take you home. For all procedur es it is recommended that someone else drive you home. Possible Causes of Low Back or Leg Pain The symptoms in your back or leg may be due to pressure on a nerve. This pressure may be ca used by a damaged disk or by abnormal bone growth. Either way, you may feel pain, burning, t ingling, or numbness. If you have pressure on a nerve that connects to the sciatic nerve, pa in may shoot down your leg. Pressure from the disk Constant wear and tear can weaken a disk over time and cause back pain. The disk can then b e damaged by a sudden movement or injury. If its soft center starts to bulge, the disk may p ress on a nerve. Or the outside of the disk may tear, and the soft center may squeeze throug h and pinch a nerve. Pressure from bone As a disk wears out, the vertebrae right above and below the disk start to touch. This can put pressure on a nerve. Often, abnormal bone (called bone spurs) grows where the vertebrae rub against each other. This can cause the foramen or the spinal canal to narrow (called stevan nosis) and press against a nerve. Date Last Reviewed: 09/10/201719995267-0284 [employer]. [address] [place] [address], [place] [address]. All mclaren la[facility] regionh ts reserved. This information is not intended as a substitute for professional medical care. Always follow your healthcare professional's instructions. documented in this encounter Progress Notes Jericho Chavez PA-C - 08/05/2018 3:40 PM PSTFormatting of this note might be different fro m the original. Jericho Chavez PA-C [address] [place] [address], [address] [place], [place] [id number] FAX: CHIEF COMPLAINT: Chief Complaint Patient presents with New Patient Back Pain HISTORY OF PRESENT ILLNESS: The patient is a 52 y.o. male with the complaint of bilateral leg and low back symptoms that began 12 months ago following hip replacement surgery. The sy mptoms have been rapidly worsening. He reports that by the end of the day he has required t o ambulate using the assistance of 2 canes. He describes that weakness in legs is secondary to low back pain. He rates the pain as severe. The symptoms are daily. He describes the pain as aching, sha rp, shooting and throbbing. The patient describes leg symptoms that occur on both sides. The leg symptoms account for greater than or equal to 75% of his symptoms. The leg symptoms are constant and the symptom s travels from the back down to mid calves along the L5 dermatome. The patient also describ es weakness of the bilateral upper portions of the legs. The patient does not report any change in bowel or bladder function recently. His symptoms improve with rest and sitting. His symptoms worsen with standing, walking, running, kneeling, bending and twisting. He has tried Narcotic Pain Medications and NSAIDS. PAST MEDICAL HISTORY: Past Medical History: Diagnosis Date Abnormal EKG Active advance directive Acute bronchitis Acute eczematoid otitis externa Acute sinusitis Alcoholism (HCC) Arthritis Benign essential hypertension Broken bones Cardiomyopathy (HCC) Cataract Cephalgia Chest pain CHF (congestive heart failure) (HCC) Chicken pox DDD (degenerative disc disease), lumbar Depression Diabetes mellitus screening Encounter for routine adult health examination without abnormal findings Encounter for screening for malignant neoplasm of colon Encounter for screening for malignant neoplasm of prostate Fatigue Forgetfulness H/O hernia repair Hiatal hernia Hip joint painful on movement, unspecified laterality Lumbar pain 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 Pain leg or foot Pain in left hip Pain in right hip Serous otitis media Smoker SOB (shortness of breath) Ventricular premature beats PAST SURGICAL HISTORY: Past Surgical History: Procedure Laterality Date APPENDECTOMY 04/12/1980 CORONARY ANGIOGRAPHY HERNIA REPAIR HIP SURGERY Left 04/12/2017 TOTAL HIP ARTHROPLASTY Right 09/10/2017 CURRENT MEDICATIONS: Current Outpatient Prescriptions Medication Sig Dispense Refill albuterol (VENTOLIN HFA) 90 mcg/puff inhaler Inhale 2 puffs into the lungs every 6 hour s as needed for Wheezing. carvedilol (COREG) 25 mg tablet Take 1 tablet by mouth 2 times daily. diclofenac (VOLTAREN) 75 mg EC tablet Take 1 tablet by mouth Twice daily as needed. furosemide (LASIX) 20 mg tablet Take 1 [...] Reaction not specified in outside medical records. SOCIAL HISTORY: The patient reports that he has been smoking Cigarettes. He started smoking about 37 year s ago. He has a 37.00 pack-year smoking history. He has never used smokeless tobacco. He rep orts that he drinks about 12.6 - 16.8 oz of alcohol per week . He reports that he uses drugs , including Marijuana. FAMILY HISTORY: Family History Problem Relation Age of Onset Arthritis Mother Allergy (severe) Sister No Known Problems Father No Known Problems Maternal Grandmother No Known Problems Maternal Grandfather No Known Problems Paternal Grandmother No Known Problems Paternal Grandfather Other (see comment) Other leg arterial steno REVIEW OF SYSTEMS: GENERALLY: No fever, no night sweats, no anemia, + fatigue, no recent profound weight duglas nges. EYES: No eye problems, + use of corrective lenses, no eye injury, no double vision, no bli ndness. EARS, NOSE, AND THROAT: No changes in taste or smell, no hearing difficulty, no ringing in the ears, no ear drainage, no dizziness, no voice changes, no difficulty swallowing, no sig nificant snoring, no sleep apnea, no sinus problems, no major dental work. NEUROLOGICALLY: Please see the review of systems discussed above in the history of present illness. In addition, the patient has numbness/pain of arms, numbness/pain of legs, weakne ss, muscle aching, coordination difficulty, change in walk, memory loss, back pain. PSYCHIATRIC: No depression, no sleep disorders, no anxiety, no bipolar disorder, no psycho tic episodes. CARDIOVASCULAR: No heart attacks, no heart murmur, no heart fluttering, no chest pain, + a nkle swelling. LUNG DISEASE: + shortness of breath, no cough, no tuberculosis, no bloody cough, no asthm a, no emphysema/COPD. GASTROINTESTINAL: No bowel disease, no nausea or vomiting, no rectal bleeding, no constipa tion, no stool incontinence, no liver disease, no gallbladder disease, no abdominal pain, no ulcers. KIDNEY DISEASE: No urinary frequency, no painful or difficult urination, no incontinence. ENDOCRINE: No diabetes, no thyroid disease, no osteopenia or osteoporosis, no breast drain age. SKIN: No breast lumps, no skin changes, no rashes, no itches. HEMATOLOGIC/LYMPHATIC: No enlarged lymph nodes, no easy or unusual bleeding, no personal h istory of cancer. RHEUMATOLOGIC: + joint arthritis, no rheumatoid arthritis. PHYSICAL EXAMINATION: Blood pressure 144/88, pulse 86, height 1.803 m (5' 11"), weight 74.8 kg (165 lb). Body mas s index is 23.01 kg/m. GENERAL: Erwin Cardoza is in no acute distress with unlabored respirations. The patien ralph does not appear uncomfortable throughout the exam today. HEENT: HEAD/FACE: EYES: EARS: NASOPHARNYX: OROPHARNYX: Normocephalic and atraumatic. There are no areas of recent trauma. Normal sclerae without icterus. No drainage or tenderness. Clear without drainage. Clear without erythema. NECK (ANTERIOR): Supple and without palpable masses. CHEST: The patient is in no acute respiratory distress with unlabored respirations. HEART: There is not lower extremity edema. ABDOMEN: Soft, non-tender, non-distended, and without palpable masses. NEUROLOGIC: The patient is awake, alert, and oriented to time, place, person. He follows simple and complex commands. His speech is fluent. He comprehends speech well. He has no apparent deficits with short or termite inspector memory. Cranial nerves 2-12 appear grossly intact. Sensory exam does show diminished sensation to light touch in the lower extremities. MUSCULOSKELETAL There is no tenderness in the midline of the cervical or thoracic spine. T here is no major palpable deformity of the spine. Straight leg raise and slump-sit are negative. Zach's maneuver and impingement testing were negative for any groin pain. There was no tenderness to palpation over the greater tr ochanters or sacral sulci. The patient localized the majority of the pain to the L5/S1 warren on. Lumbar facet loading was positive. Strength testing showed 5/5 strength throughout rig ht lower extremity, 4/5 strength throughout the left lower extremity. There was no rednes s, effusion, warmth or joint line tenderness in the knees or ankles. REFLEXES: (2 OR 2+ IS NORMAL) REFLEX: RIGHT LEFT PATELLAR 2+ 2+ ACHILLES 0+ 0+ BABINSKI DOWNGOING DOWNGOING EXTREMITIES: No cyanosis, clubbing, or edema. Distal pulses are palpable. RADIOGRAPHIC REVIEW: No imaging available to review. ASSESSMENT: Encounter Diagnosis Name Primary? Lumbar radiculopathy Yes PLAN: Erwin Cardoza presented today, and it was a pleasure seeing this patient and assessing his problems. 1) Today we discussed the patient's differential diagnosis with the likely primary issue be ing lumbar radiculopathy. Patient's description of symptoms, physical exam, and imaging sug gest this diagnosis at this time. 2) I counseled patient on treatment options which included conservative self management usi ng OTC NSAIDs/Ice and heat packs, physical therapy, prescription medications, epidural stero id injection, neuromodulation therapies, as well as possible surgical intervention. 3) Imaging: As descibed above in radiology review. MRI was ordered to assess lumbar spine for herniation, disc pathology, and/or nerve root i mpingement that may be contributing to patient's symptoms. 4) patient is exhibiting symptoms consistent with nerve root impingement. The fact that hi s weakness is so severe to where he can't walk by the end of the day is concerning. I like patient to get lumbar MRI and if the nerve root impingement is evident then we will proceed with epidural steroid injection. If there is no central canal stenosis or nerve root imping ement we will proceed with physical therapy and/or neuropathic pain medication such as gabap entin. If those to therapy options are unsuccessful we will consider spinal cord stimulator . 5) Patient will follow up with me 3 weeks post injection to discuss any imaging and/or prog ress with today's treatment plan. 6) If current treatment plan is insufficient for symptom relief we could try epidural stero id injection as the next therapy option. I spent 30 minutes in visit with Erwin Cardoza today with the majority of time spent co unselling the patient on his diagnosis, options for his care, and coordinating his care. ELECTRONICALLY SIGNED BY: Jericho Chavez PA-C, 08/05/2018 documented in this en counter Plan of Treatment +--------+---------+ + + + | Date | Type | Specialty | Care Team | Description | +--------+---------+ + + + | 09/14/ | Office | Cardiology | Lida Ventura DO | | | 2019 | Visit | | [address] | | | | | | [facility] [place] | | | | | | [address] | | | | | | | | +--------+---------+ + + + | 10/05/ | Office | Neurology | Diane Damon, | | | 2019 | Visit | | MD [address] | | | | | | [address] | | | | | | [place] [address] | | | | | | [phone] | | | | | | | | +--------+---------+ + + + + +---------+--------+ + + | Name | Type | Priori | Associated Diagnoses | Order Schedule | | | | ty | | | + +---------+--------+ + + | MRI Lumbar Spine wo | Imaging | Routin | Lumbar | Expected: | | Contrast | | e | radiculopathy | 08/05/2018, Expires: | | | | | | 08/06/2019 | + +---------+--------+ + + documented as of this encounter Visit Diagnoses + + | Diagnosis | + + | Lumbar radiculopathy - Primary Thoracic or lumbosacral neuritis or radiculitis, | | unspecified | + + documented in this encounter
--- OUTSIDE RECORDS SUMMARY | ~2019-07-13 | XMS | Encounter Summary ---
Demographics + + + | Address | [address] [facility] | | | [place] [address] | + + + | Home Phone | | + + + | Preferred Language | Unknown | + + + | Marital Status | | + + + | Uatsdin Affiliation | 1077 | + + + | Race | Unknown | + + + | Ethnic Group | Unknown | + + + Author + + + | Author | [facility] | | | and [place] | + + + | Organization | [facility] | | | and [...] [place] | | | | | [address] | | + + + + + Care Team Providers + +------+ + | Care Advertising Copywriter Name | Role | Phone | + [...] | | | | [address] | [address] [place] [address] | | | | | [place] | [place] | | | | | [address] | [address] | | | | | [phone] | [phone] | | | | | | | [...] [place] | | | | | | [address] | | | | | | | | +--------+---------+ + + + | 10/05/ | Office | Neurology | Diane Damon, | | | 2019 | Visit | | MD [address] | | | | | | [place] | | | | | | [place] [address] | | | | | | [phone] | | | | | | | [...] + + + | Patient Name: JESSA BETH Date of : 1965 | | | [...] MV E/A Ratio: 1.13 RAP: 5 mmHg Imaging Specialist: DBS | | | Authenticated by: Jignesh [...] (A-L): 37.54 ml/m2LAAs A2C: 23.21 | | [id number] A-L A2C: 90.35 mlLALs A2C: 5.07 cmLAAs A4C: 16.16 [id number] A-L A4C: | | 48.09 mlLALs A4C: 4.61 cmRAAs: 12.92 [id number] A-L: 33.22 mlRAESV MOD: 30.34 | | mlRALs: 4.26 cmAV maxP.50 mmHgAV meanP.37 mmHgAV Vmax: 1.06 m/Vilma Vmean: | | 0.74 m/Vilma VTI: 16.88 cmLVOT maxP.47 mmHgLVOT meanP.76 mmHgLVOT Vmax: | | 0.93 m/sLVOT Vmean: 0.59 m/sLVOT VTI: 15.36 cmMV A Rodney: 0.52 m/sMV DecT: 175.45 | | msMV E Rodney: 0.59 m/sMV E/A Ratio: 1.13RAP: 5 mmHg Imaging Specialist: DBSAuthenticated | | by: Jignesh Pyle MDReport [...] | |RAP: 5 mmHg | | | |Imaging Specialist: DBS | |Authenticated by: Jignesh Pyle MD | |Report Date/Time: 04-01-2016 21:54:06 | | | |IMPRESSION: | |1. Overall left ventricular systolic function is low-normal with, an EF between 50 - 55 %. | |2. The left atrium is mildly enlarged. | + + documented in this encounter Visit Diagnoses Not on filedocumented in this encounter"
--- OUTSIDE RECORDS SUMMARY | ~2019-07-13 | XMS | Encounter Summary ---
Demographics + + + | Address | [address] [facility] | | | [place] [address] | + + + | Home Phone | | + + + | Preferred Language | Unknown | + + + | Marital Status | | + + + | Denominational Affiliation | 1077 | + + + | Race | Unknown | + + + | Ethnic Group | Unknown | + + + Author + + + | Author | [facility] | | | and [place] | + + + | Organization | [facility] | | [...] [place] | | | | | [address] | | + + + + + Care Team Providers + +------+ + | Care Haz Tech Name | Role | Phone | + [...] | | | | | | [place] [address] | [address] | | | | | | Phone: | Phone: | | | | | | [phone] | [phone] | | | | | | Fax: | Fax: | | | | | | [phone] | [phone] | +--------+ + + + + + [...] | (Primary Dx) | | | | [place], | [address] [place] | | | | | [place] [address] | [place] [address] | | | | | [phone] | [phone] | | | | | | | [...] | | | | [place] | | | | | | [address] | | | | | | | | +--------+---------+ + + + | 10/05/ | Office | Neurology | Diane Damon, | | | 2019 | Visit | | MD [address] | | | | | | [place] | | | | | | [place] [address] | | | | | | [phone] | | | | | | | [...]
--- OUTSIDE RECORDS SUMMARY | ~2019-07-13 | XMS | Encounter Summary ---
Demographics + + + | Address | [address] [facility] | | | [place] [address] | + + + | Home Phone | | + + + | Preferred Language | Unknown | + + + | Marital Status | | + + + | Quaker Affiliation | 1077 | + + + | Race | Unknown | + + + | Ethnic Group | Unknown | + + + Author + + + | Author | [facility] | | | and [place] | + + + | Organization | [facility] | | [...] [place] | | | | | [address] | | + + + + + Care Team Providers + +------+ + | Care Mva Reactor Operator Head Name | Role | Phone | + [...] e disc | [address] | [facility] | | | | | disease), | [place], | [facility], [place] | | | | | lumbar | [place] [address] | [address] Phone: | | | | | | Phone: | [phone] | | | | | | [phone] | Fax: | | | | | | Fax: | [phone] | | | | | | [phone] | | +--------+--------+ + + + + Encounter Details +--------+---------+ + + + | Date | Type | Department | Care Team | Description | +--------+---------+ + + + | 05/23/ | Office | [facility] | Kirill Guerrero PA-C | Lumbar radiculopathy | | 2019 | Visit | PHYSIATRY [address] | (Primary Dx); | | | | [place], | [place], [place] | Bilateral leg pain; | | | | [place] [address] | [id number] | Spinal stenosis of | | | | [phone] | | lumbar region with | | [...] disk, and irritate nerves. Date Last Reviewed: 12/11/201719997071-2324 [employer]. [address] [place] [address], [place] [address]. All righ ts reserved. This information is not intended as a substitute for professional medical care. Always follow your healthcare professional's instructions. documented in this encounter Progress Notes Claudia Blood, Motor Builder Assembler - 05/23/2019 1:00 PM PSTFormatting of this note might b e different from the original. Kirill Guerrero PA-C [address] [facility], [address] [place], [place] [address] FAX: CHIEF COMPLAINT: Chief Complaint Patient presents [...] eral hip replacement surgeries. Patient has seen cash management specialist who have told him "no thing [...] has no apparent deficits with short or residential memory. The cranial nerves appear grossly intact. [...] PT (multiple sessions over the years) and resident care associate. Unfortunately Erwin encinas continues to have significant [...] | | | | | | [facility] [place] | | | | | | [address] | | | | | | | | +--------+---------+ + + + | 10/05/ | Office | Neurology | Diane Damon, | | | 2019 | Visit | | MD [address] | | | | | | [place] | | | | | | [place] [address] | | | | | | [phone] | | | | | | | [...]
--- OUTSIDE RECORDS SUMMARY | ~2019-07-13 | XMS | Encounter Summary ---
Demographics + + + | Address | [address] [facility] | | | [place] [address] | + + + | Home Phone | | + + + | Preferred Language | Unknown | + + + | Marital Status | | + + + | Adventist Affiliation | 1077 | + + + | Race | Unknown | + + + | Ethnic Group | Unknown | + + + Author + + + | Author | [facility] | | | and [place] | + + + | Organization | [facility] | | | [...] [place] | | | | | [address] | | + + + + + Care Team Providers + +------+ + | Care Quality Assurance Advisor Name | Role | Phone | + +------+ + | Bess Alba | PCP | | + +------+ + Encounter Details +--------+ + + + + | Date | Type | Department | Care Team | Description | +--------+ + + + + | 09/29/ | Orders Only | [facility] | Jericho Chavez, | Lumbar radiculopathy | | 2019 | | PHYSIATRY [address] | PA-C [address] | (Primary Dx) | | | | [place], | [address] [place] | | | | | [place] [address] | [place] [address] | | | | | [phone] | | | | | | | [...] | | | | | | [facility] [place] | | | | | | [address] | | | | | | | | +--------+---------+ + + + | 10/05/ | Office | Neurology | Diane Damon, | | | 2019 | Visit | | MD [address] | | | | | | [address] | | | | | | [place] [address] | | | | | | [phone] | | | | | | | | +--------+---------+ + + + + +---------+--------+ + + | Name | Type | Priori | Associated Diagnoses | Order Schedule | | | | ty | | | + +---------+--------+ + + | FL JEREMI Lumbar | Imaging | Routin | Lumbar | Expected: | | Transforaminal | | e | radiculopathy | 09/29/2018, Expires: | | | | | | 09/30/2019 | + +---------+--------+ + + documented as of this encounter Visit Diagnoses + + | Diagnosis | + + | Lumbar radiculopathy - Primary Thoracic or lumbosacral neuritis or radiculitis, | | unspecified | + + documented in this encounter"
--- OUTSIDE RECORDS SUMMARY | ~2019-07-13 | XMS | Encounter Summary ---
Demographics + + + | Address | [address] [facility] | | | [place] [address] | + + + | Home Phone | | + + + | Preferred Language | Unknown | + + + | Marital Status | | + + + | Faith Affiliation | 1077 | + + + [...] [place] | | | | | [address] | | + + + + + Care Team Providers + +------+ + | Care Heeler Name | Role | Phone | + [...] | | | | [address] | [address] | | | | | [place] | [place] | | | | | [address] | [address] | | | | | [phone] | [phone] | | | | | | | [...] [place] | | | | | | [address] | | | | | | | | +--------+---------+ + + + | 10/05/ | Office | Neurology | Diane Damon, | | | 2019 | Visit | | MD [address] | | | | | | [place] | | | | | | [place] [address] | | | | | | [phone] | | | | | | | [...] MV E/A Ratio: 1.13 RAP: 5 mmHg Journalism Instructor: DBS | | | Authenticated by: Jignesh [...] (A-L): 37.54 ml/m2LAAs A2C: 23.21 | | [id number] A-L A2C: 90.35 mlLALs A2C: 5.07 cmLAAs A4C: 16.16 [id number] A-L A4C: | | 48.09 mlLALs A4C: 4.61 cmRAAs: 12.92 [id number] A-L: 33.22 mlRAESV MOD: 30.34 | | mlRALs: 4.26 cmAV maxP.50 mmHgAV meanP.37 mmHgAV Vmax: 1.06 m/Vilma Vmean: | | 0.74 m/Vilma VTI: 16.88 cmLVOT maxP.47 mmHgLVOT meanP.76 mmHgLVOT Vmax: | | 0.93 m/sLVOT Vmean: 0.59 m/sLVOT VTI: 15.36 cmMV A Rodney: 0.52 m/sMV DecT: 175.45 | | msMV E Rodney: 0.59 m/sMV E/A Ratio: 1.13RAP: 5 mmHg Journalism Instructor: DBSAuthenticated | | by: Jignesh Pyle MDReport [...] | |RAP: 5 mmHg | | | |Journalism Instructor: DBS | |Authenticated by: Jignesh Pyle MD | |Report Date/Time: 04-01-2016 21:54:06 | | | |IMPRESSION: | |1. Overall left ventricular systolic function is low-normal with, an EF between 50 - 55 %. | |2. The left atrium is mildly enlarged. | + + documented in this encounter Visit Diagnoses Not on filedocumented in this encounter"
--- OUTSIDE RECORDS SUMMARY | ~2019-07-13 | XMS | Encounter Summary ---
Demographics + + + | Address | [address] [facility] | | | [place] [address] | + + + | Home Phone | | + + + | Preferred Language | Unknown | + + + | Marital Status | | + + + | Baptist Affiliation | 1077 | + + + | Race | Unknown | + + + | Ethnic Group | Unknown | + + + Author + + + | Author | [facility] | | | and [place] | + + + | Organization | [facility] | | | [...] [place] | | | | | [address] | | + + + + + Care Team Providers + +------+ + | Care Washer Engineer Name | Role | Phone | + [...] | | | | | [place] | [place] [address] | [address] | | | | | | Phone: | Phone: | | | | | | [phone] | [phone] | | | | | | Fax: | Fax: | | | | | | [phone] | [phone] | +--------+ + + + + + [...] Dx) | | | | [place], | [address] [place] | | | | | [place] [address] | [place] [address] | | | | | [phone] | | | | | | | [...] [place] | | | | | | [address] | | | | | | | | +--------+---------+ + + + | 10/05/ | Office | Neurology | Diane Damon, | | | 2019 | Visit | | MD [address] | | | | | | [place] | | | | | | [place] [address] | | | | | | [phone] | | | | | | | [...]
--- OUTSIDE RECORDS SUMMARY | ~2019-07-13 | XMS | Encounter Summary ---
Demographics + + + | Address | [address] [facility] | | | [place] [address] | + + + | Home Phone | | + + + | Preferred Language | Unknown | + + + | Marital Status | | + + + | Scientologist Affiliation | 1077 | + + + | Race | Unknown | + + + | Ethnic Group | Unknown | + + + Author + + + | Author | [facility] | | | and [place] | + + + | Organization | [facility] | | | [...] [place] | | | | | [address] | | + + + + + Care Team Providers + +------+ + | Care Java Developer Consultant Name | Role | Phone | + [...] [address] | | | | | [phone] | [place] [address] | | +--------+ + + + + [...] [place] | | | | | | [address] | | | | | | | | +--------+---------+ + + + | 10/05/ | Office | Neurology | Diane Damon, | | | 2019 | Visit | | MD [address] | | | | | | [place] | | | | | | [place] [address] | | | | | | [phone] | | | | | | | [...]
--- OUTSIDE RECORDS SUMMARY | ~2019-07-13 | XMS | Encounter Summary ---
Demographics + + + | Address | [address] [facility] | | | [place] [address] | + + + | Home Phone | | + + + | Preferred Language | Unknown | + + + | Marital Status | | + + + | Episcopal Affiliation | 1077 | + + + | Race | Unknown | + + + | Ethnic Group | Unknown | + + + Author + + + | Author | [facility] | | | and [place] | + + + | Organization | [facility] | | | [...] [place] | | | | | [address] | | + + + + + Care Team Providers + +------+ + | Care Rotary Bar Operator Name | Role | Phone | [...] | | | | | [place] | [place] [address] | [address] | | | | | | Phone: | Phone: | | | | | | [phone] | [phone] | | | | | | Fax: | Fax: | | | | | | [phone] | [phone] | +--------+ + + + + + [...] | (Primary Dx) | | | | [place], | [address] [place] | | | | | [place] [address] | [place] [address] | | | | | [phone] | [phone] | | | | | | | [...] [place] | | | | | | [address] | | | | | | | | +--------+---------+ + + + | 10/05/ | Office | Neurology | Diane Damon, | | | 2019 | Visit | | MD [address] | | | | | | [place] | | | | | | [place] [address] | | | | | | [phone] | | | | | | | [...]
--- OUTSIDE RECORDS SUMMARY | ~2019-07-13 | XMS | Encounter Summary ---
Demographics + + + | Address | [address] [facility] | | | [place] [address] | + + + | Home Phone | | + + + | Preferred Language | Unknown | + + + | Marital Status | | + + + | Druze Affiliation | 1077 | + + + [...] [place] | | | | | [address] | | + + + + + Care Team Providers + +------+ + | Care Rubber Attacher Name | Role | Phone | + +------+ + | Bess Alba | PCP | | + +------+ + Encounter Details +--------+ + + + + | Date | Type | Department | Care Team | Description | +--------+ + + + + | 09/24/ | Imaging | [facility] | Provider, | | | 2019 | Exam | [facility] | MD [address] | | | | | IMAGING | [address] | | | | | [phone] | [place] [address] | | +--------+ + + + + [...] [place] | | | | | | [address] | | | | | | | | +--------+---------+ + + + | 10/05/ | Office | Neurology | Diane Damon, | | | 2019 | Visit | | MD [address] | | | | | | [address] | | | | | | [place] [address] | | | | | | [phone] | | | | | | | | +--------+---------+ + + + documented as of this encounter Procedures + +--------+ + + + | Procedure Name | Priori | Date/Time | Associated Diagnosis | Comments | | | ty | | | | + +--------+ + + + | MRI LUMBAR SPINE WO | Routin | 09/15/2018 | | Results for this | | CONTRAST | e | 5:15 PM | | procedure are in the | | | | PST | | results section. | + +--------+ + + + documented in this encounter Results MRI Lumbar Spine wo Contrast (09/15/2018 5:15 PM PST) + + | Specimen | [...]
--- OUTSIDE RECORDS SUMMARY | ~2019-07-13 | XMS | Encounter Summary ---
Demographics + + + | Address | [address] [facility] | | | [place] [address] | + + + | Home Phone | | + + + | Preferred Language | Unknown | + + + | Marital Status | | + + + | Scientology Affiliation | 1077 | + + + [...] [place] | | | | | [address] | | + + + + + Care Team Providers + +------+ + | Care Sweeping Compound Blender Name | Role | Phone | + [...] [address] | | | | | [phone] | [place] [address] | | +--------+ + + + + [...] [place] | | | | | | [address] | | | | | | | | +--------+---------+ + + + | 10/05/ | Office | Neurology | Diane Damon, | | | 2019 | Visit | | MD [address] | | | | | | [place] | | | | | | [place] [address] | | | | | | [phone] | | | | | | | | +--------+---------+ + + + documented as of this encounter Procedures + +--------+ + + + | Procedure Name | Priori | Date/Time | Associated Diagnosis | Comments | | | ty | | | | + +--------+ + + + | XR LUMBAR SPINE 4 + | Routin | 06/14/2018 | | Results for this | | VW | e | 4:25 PM | | procedure are in the | | | | PST | | results section. | + +--------+ + + + documented in this encounter Results XR Lumbar Spine 4 + Vw (06/14/2018 4:25 PM PST) + + | Specimen | [...]
--- OUTSIDE RECORDS SUMMARY | ~2019-07-13 | XMS | Encounter Summary ---
Demographics + + + | Address | [address] [facility] | | | [place] [address] | + + + | Home Phone | | + + + | Preferred Language | Unknown | + + + | Marital Status | | + + + | Adventist Affiliation | 1077 | + + + | Race | Unknown | + + + | Ethnic Group | Unknown | + + + Author + + + | Author | [facility] | | | and [place] | + + + | Organization | [facility] | [...] [place] | | | | | [address] | | + + + + + Care Team Providers + +------+ + | Care Bsw Name | Role | Phone | + +------+ + PCP | Unavailable | + +------+ + Encounter Details +--------+ + + + + | Date | Type | Department | Care Team | Description | +--------+ + + + + | 11/26/ | Hospital | [facility] | Conversion | Chest pain | | 2013 | Encounter | CONVERSION [address] | Transaction, | | | | | [address] | Provider Unknown | | | | | [place], [place] | | | | | | [address] | (Fax) | | | | | [...] [place] | | | | | | [address] | | | | | | | | +--------+---------+ + + + | 10/05/ | Office | Neurology | Diane Damon, | | | 2019 | Visit | | MD [address] | | | | | | [place] | | | | | | [place] [address] | | | | | | [phone] | | | | | | | [...]
--- OUTSIDE RECORDS SUMMARY | ~2019-07-13 | XMS | Encounter Summary ---
Demographics + + + | Address | [address] [facility] | | | [place] [address] | + + + | Home Phone | | + + + | Preferred Language | Unknown | + + + | Marital Status | | + + + | Alevism Affiliation | 1077 | + + + | Race | Unknown | + + + | Ethnic Group | Unknown | + + + Author + + + | Author | [facility] | | | and [place] | + + + | Organization | [facility] | | [...] [place] | | | | | [address] | | + + + + + Care Team Providers + +------+ + | Care Automotive Glazier Name | Role | Phone | + [...] + | 09/27/ | Telephone | [facility] | Jericho Chavez, | Results, Imaging | | 2019 | | PHYSIATRY [address] | PA-C [address] | | | | | [place], | [address] [place] | | | | | [place] [address] | [place] [address] | | | | | [phone] | [phone] | | | | | | | [...] [place] | | | | | | [address] | | | | | | | | +--------+---------+ + + + | 10/05/ | Office | Neurology | Diane Damon, | | | 2019 | Visit | | MD [address] | | | | | | [place] [address] | | | | | | [place] [address] | | | | | | [phone] | | | | | | | | +--------+---------+ + + + documented as of this encounter Visit Diagnoses Not on filedocumented in this encounter"
--- OUTSIDE RECORDS SUMMARY | ~2019-07-13 | XMS | Encounter Summary ---
Demographics + + + | Address | [address] [facility] | | | [place] [address] | + + + | Home Phone | | + + + | Preferred Language | Unknown | + + + | Marital Status | | + + + | Anabaptist Affiliation | 1077 | + + + | Race | Unknown | + + + | Ethnic Group | Unknown | + + + Author + + + | Author | [facility] | | | and [place] | + + + | Organization | [facility] | | [...] [place] | | | | | [address] | | + + + + + Care Team Providers + +------+ + | Care Medical Delivery Driver Name | Role | Phone | + [...] | | | | [address] | [place] [address] | | | | | [place] | [place] | | | | | [address] | [address] | | | | | [phone] | [phone] | | | | | | | [...] [place] | | | | | | [address] | | | | | | | | +--------+---------+ + + + | 10/05/ | Office | Neurology | Diane Damon, | | | 2019 | Visit | | MD [address] | | | | | | [place] | | | | | | [place] [address] | | | | | | [phone] | | | | | | | [...] MV E/A Ratio: 1.13 RAP: 5 mmHg Remedial Project Manager: DBS | | | Authenticated by: Jignesh [...] (A-L): 37.54 ml/m2LAAs A2C: 23.21 | | [id number] A-L A2C: 90.35 mlLALs A2C: 5.07 cmLAAs A4C: 16.16 lb1LSPJR A-L A4C: | | 48.09 mlLALs A4C: 4.61 cmRAAs: 12.92 sy0NKVIT A-L: 33.22 mlRAESV MOD: 30.34 | | mlRALs: 4.26 cmAV maxP.50 mmHgAV meanP.37 mmHgAV Vmax: 1.06 m/Vilma Vmean: | | 0.74 m/Vilma VTI: 16.88 cmLVOT maxP.47 mmHgLVOT meanP.76 mmHgLVOT Vmax: | | 0.93 m/sLVOT Vmean: 0.59 m/sLVOT VTI: 15.36 cmMV A Rodney: 0.52 m/sMV DecT: 175.45 | | msMV E Rodney: 0.59 m/sMV E/A Ratio: 1.13RAP: 5 mmHg Remedial Project Manager: DBSAuthenticated | | by: Jignesh Pyle MDReport [...] | |RAP: 5 mmHg | | | |Remedial Project Manager: DBS | |Authenticated by: Jignesh Pyle MD | |Report Date/Time: 04-01-2016 21:54:06 | | | |IMPRESSION: | |1. Overall left ventricular systolic function is low-normal with, an EF between 50 - 55 %. | |2. The left atrium is mildly enlarged. | + + documented in this encounter Visit Diagnoses Not on filedocumented in this encounter"
--- OUTSIDE RECORDS SUMMARY | ~2019-07-13 | XMS | Encounter Summary ---
Demographics + + + | Address | [address] [facility] | | | [place] [address] | + + + | Home Phone | | + + + | Preferred Language | Unknown | + + + | Marital Status | | + + + | Rastafarian Affiliation | 1077 | + + + | Race | Unknown | + + + | Ethnic Group | Unknown | + + + Author + + + | Author | [facility] | | | and [place] | + + + | Organization | [facility] | | | [...] [place] | | | | | [address] | | + + + + + Care Team Providers + +------+ + | Care Pattern Hanger Name | Role | Phone | + [...] | | | | | [place] | [place] [address] | [address] | | | | | | Phone: | Phone: | | | | | | [phone] | [phone] | | | | | | Fax: | Fax: | | | | | | [phone] | [phone] | +--------+ + + + + + [...] | (Primary Dx) | | | | [place], | [address] [place] | | | | | [place] [address] | [place] [address] | | | | | [phone] | [phone] | | | | | | | [...] [place] | | | | | | [address] | | | | | | | | +--------+---------+ + + + | 10/05/ | Office | Neurology | Diane Damon, | | | 2019 | Visit | | MD [address] | | | | | | [place] | | | | | | [place] [address] | | | | | | [phone] | | | | | | | [...]
--- OUTSIDE RECORDS SUMMARY | ~2019-07-13 | XMS | Clinical Summary ---
Demographics + + + | Address | [address] [facility] | | | [place] [address] | + + + | Home Phone | | + + + | Preferred Language | Unknown | + + + | Marital Status | | + + + | Catholic Affiliation | 1077 | + + + | Race | Unknown | + + + | Ethnic Group | Unknown | + + + Author + + + | Author | [facility] | | | and [place] | + + + | Organization | [facility] | | [...] [place] | | | | | [address] | | + + + + + Care Team Providers + +------+ + | Care Hydrant Setter Name | Role | Phone | + [...] + + + +---------+------+------+-------+ | atorvaSTATin | Take 80 mg by mouth | | 0 | | | Activ | | (LIPITOR) 80 MG | Daily. | | | | | e | | tablet | | | | | | | + + + +---------+------+------+-------+ | aspirin 81 mg EC | Take 81 mg by mouth | | 0 | | | Activ | | tablet | Daily. | | | | | e | + + + +---------+------+------+-------+ | torsemide | Take 1 tablet by | 30 | 11 | 12/1 | | Activ | | (DEMADEX) 20 mg | mouth Daily. | tablet | | 3/20 | | e | | tablet | | | | 19 | | | + + + +---------+------+------+-------+ | losartan (COZAAR) | Take 1.5 tablets by | 45 | 5 | 12/1 | | Activ | | 50 mg tablet | mouth Daily. | tablet | | 3/20 | | e | | | | | | 19 | | | + + + +---------+------+------+-------+ | albuterol | Inhale 2 puffs into | | 0 | | 12/1 | Disco | | (VENTOLIN HFA) 90 | the lungs every 6 | | | | 3/20 | ntinu | | mcg/puff inhaler | hours as needed for | | | | 19 | ed | | | Wheezing. | | | | | (Ther | | | | | | | | apy | | | | | | | | compl | | | | | | | | eted) | + + + +---------+------+------+-------+ | furosemide (LASIX) | Take 1 tablet by | | 0 | | 12/1 | Disco | | 40 mg tablet | mouth Daily. | | | | 3/20 | ntinu | | | | | | | 19 | ed | + + + +---------+------+------+-------+ | losartan (COZAAR) | Take 1 tablet by | | 0 | | 12/1 | Disco | | 50 mg tablet | mouth Daily. | | | | 3/20 | ntinu | | | | | | | 19 | ed | | | | | | | | (Reor | | | | | | | | valentin) | + + + +---------+------+------+-------+ | furosemide (LASIX) | Take 20 mg by mouth. | | 0 | | 12/1 | Disco | | 20 mg tablet | | | | | 3/20 | ntinu | | | | | | | 19 | ed | | | | | | | | (Ther | | | | | | | | apy | | | | | | | | compl | | | | | | | | eted) | + + + +---------+------+------+-------+ | spironolactone | Take 25 mg by mouth | | 0 | | 06/12 | Disco | | (ALDACTONE) 25 mg | Daily. | | | | 3/20 | ntinu | | tablet | | | | | 19 | ed | | | | | | | | (Ther | | | | | | | | apy | | | | | | | | compl | | | | | | | | eted) | + + + +---------+------+------+-------+ | aspirin 81 mg | Take 81 mg by mouth | | 0 | | 06/12 | Disco | | chewable tablet | Daily. | | | | 320 | ntinu | | | | | | | 19 | ed | | | | | | | | (Ther | | | | | | | | apy | | | | | | | | compl | | | | | | | | eted) | + + + +---------+------+------+-------+ Active Problems [...] | +--------+ + + + + | 06/24/ | Office | Cardiology | Lida Ventura DO | Chronic congestive | | 2019 | Visit | | | heart failure, | | | | | | unspecified heart | | | | | | failure type (HCC) | | | | | | (Primary Dx); | | | | | | Essential [...] | | | | | (HCC) | +--------+ + + + + | 06/08/ | Telephone | Neurology | Kevin, | Other (Documentation | | 2019 | | | LISSETTE Carter | ) | +--------+ + + + + | 05/23/ | Office | Physical Medicine | Kirill Guerrero PA-C | Lumbar radiculopathy | | 2019 | Visit | and Rehabilitation | | (Primary Dx); | | | | | | Bilateral leg pain; | | | | | | Spinal stenosis of | | | | | | lumbar region with | | | | | | neurogenic | | | | | | claudication; Status | | | | | | post hip surgery | +--------+ + + + + from [...] [place] | | | | | | [place] | | | | | | [address] | | | | | | | | +--------+---------+ + + + | 10/05/ | Office | Neurology | Diane Damon, | | | 2019 | Visit | | MD [address] | | | | | | [place] | | | | | | [place] [address] | | | | | | [phone] | | | | | | | | +--------+---------+ + + + + + + + + | Health Maintenance | Due Date | Last Done | Comments | + + + + + | Vaccine: | | | | | Dtap/Tdap/Td (1 - | 8 | | | | Tdap) | | [...] | Pneumococcal 19-64 | | | | + + + + + | Vaccine: Influenza | Completed | 05/12/2019, 05/05/2017, | | | | | 07/11/2009 | | + + + + + [...] | | + +--------+ + + + from Last 3 Months Results Not on filefrom Last 3 Months [...] +--------+ +---------+--------+ | MEDICARE | MEDICA | [id number] | 11/11/19 | [phone] | | Medica | | | RE | | 19-Pre | 5 | | re | | | PART A | | sent | | | | | | AND B | | | | | | + +--------+ +--------+ +---------+--------+ | MEDICARE | MEDICA | [id number] | 11/11/19 | [phone] | | Medica [...] +--------+ +--------+ + + | Erwin Beth | Person | Self | [birth year] | [address] | | | al/Fam | | 1966 | [phone] | [address] [place], [place] | | | luis | | | 1 (Home) | [address] | + +--------+ +--------+ + + | Erwin Beth W | Person | Self | [birth year] | | [address] | | | al/Fam | | 1966 | [phone] | [address] [place], [place] | | | luis | | | 1 (Home) | [address] | + +--------+ +--------+ + + Advance Directives + + + + + | Type | Date Recorded | Patient | Explanation | | | | Graphite Mill Operator | | + + + + + | Power of | | | | | Mortician Investigator | | | | + + + + + | Advance | | | | | Directive | | | | + + + + +
--- OUTSIDE RECORDS SUMMARY | ~2019-07-13 | XMS | Encounter Summary ---
Demographics + + + | Address | [address] [facility] | | | [place] [address] | + + + | Home Phone [...] [place] | | | | | [address] | | + + + + + Care Team Providers + +------+ + | Care Business Insight And Analytics Manager Name | Role | Phone | [...] [address] | | | | | [phone] | [place] [address] | | +--------+ + + + + [...] [place] | | | | | | [address] | | | | | | | | +--------+---------+ + + + | 10/05/ | Office | Neurology | Diane Damon, | | | 2019 | Visit | | MD Danielito BRIZUELA | | | | | | [address] | | | | | | [place] [address] | | | | | | [phone] | | | | | | | [...]
--- OUTSIDE RECORDS SUMMARY | ~2019-07-13 | XMS | Encounter Summary ---
Demographics + + + | Address | [address] [facility] [address] [address] | | | [place] [address] | + + + | Home Phone | | + + + | Preferred Language | Unknown | + + + | Marital Status | | + + + | Holiness Affiliation | [phone] | + + + [...] [place] | | | | | [address] | | + + + + + Care Team Providers + +------+ + | Care Director Of Software Engineering Name | Role | Phone | + +------+ + PCP | Unavailable | + +------+ + Encounter Details +--------+ + + + + | Date | Type | Department | Care Team | Description | +--------+ + + + + | 11/26/ | Hospital | [facility] | Conversion | Chest pain | | 2013 | Encounter | CONVERSION [address] | Transaction, | | | | | [address] | Provider Unknown | | | | | [place], [place] | | | | | | [address] | (Fax) | | | | | [...] [place] | | | | | | [address] | | | | | | | | +--------+---------+ + + + | 10/05/ | Office | Neurology | Diane Damon, | | | 2019 | Visit | | MD [address] | | | | | | [address] | | | | | | [place] [address] | | | | | | [phone] | | | | | | | [...]
--- OUTSIDE RECORDS SUMMARY | ~2019-07-13 | XMS | Encounter Summary ---
Demographics + + + | Address | [address] [facility] [address] | | | [place] [address] | + + + | Home Phone | | + + + | Preferred Language | Unknown | + + + | Marital Status | | + + + | Restoration Affiliation | 1077 | + + + | Race | Unknown | + + + | Ethnic Group | Unknown | + + + Author + + + | Author | [facility] | | | and [place] | + + + | Organization | [facility] | | | and [...] [place] | | | | | [address] | | + + + + + Care Team Providers + +------+ + | Care Change Number Operator Name | Role | Phone | + +------+ + | Bess Alba | PCP | | + +------+ + Encounter Details +--------+ + + + + | Date | Type | Department | Care Team | Description | +--------+ + + + + | 02/23/ | Orders Only | [facility] | Provider, | | | 2019 | | SYSTEM GENERIC OP | MD [address] | | | | | [address] | [place] | | | | | [address] [place], [place] | [place] [address] | | | | | [address] | | | | | | [phone] | | | +--------+ + + + [...] | | | | | | [place] | | | | | | [address] | | | | | | | | +--------+---------+ + + + | 10/05/ | Office | Neurology | Diane Damon, | | | 2019 | Visit | | MD [address] | | | | | | [place] | | | | | | [place] [address] | | | | | | [phone] | | | | | | | | +--------+---------+ + + + documented as of this encounter Visit Diagnoses Not on filedocumented in this encounter"
--- OUTSIDE RECORDS SUMMARY | ~2019-07-13 | XMS | Encounter Summary ---
Demographics + + + | Address | [address] [facility] [address] | | | [place] [address] | + + + | Home Phone [...] + + + | Author | [facility] | | | and [place] | + + + | Organization | [facility] | | [...] [place] | | | | | [address] | | + + + + + Care Team Providers + +------+ + | Care Coke Crusher Operator Name | Role | Phone | [...] | (Primary Dx) | | | | [facility], | [address] [place] | | | | | [place] [address] | [place] [address] | | | | | [phone] | [phone] | | | | | | | [...] | | | | | | [place] [facility] [place] [place] | | | | | | [address] | | | | | | | | +--------+---------+ + + + | 10/05/ | Office | Neurology | Diane Damon, | | | 2019 | Visit | | MD [address] | | | | | | [place] [address] | | | | | | [place] [address] | | | | | | [phone] | | | | | | | [...]
--- OUTSIDE RECORDS SUMMARY | ~2019-07-13 | XMS | Encounter Summary ---
Demographics + + + | Address | [address] [facility] | | | [place] [address] | + + + | Home Phone | | + + + | Preferred Language | Unknown | + + + | Marital Status | | + + + | Druze Affiliation | 1077 | + + + | Race | Unknown | + + + | Ethnic Group | Unknown | + + + Author + + + | Author | [facility] | | | and [place] | + + + | Organization | [facility] | | | [...] [place] | | | | | [address] | | + + + + + Care Team Providers + +------+ + | Care Welding Rod Coater Name | Role | Phone | + [...] | | | | | | [place] [address] | [address] | | | | | | Phone: | Phone: | | | | | | [phone] | [phone] | | | | | | Fax: | Fax: | | | | | | [phone] | [phone] | +--------+ + + + + + [...] | (Primary Dx) | | | | [place], | [address] [place] | | | | | [place] [address] | [place] [address] | | | | | [phone] | [phone] | | | | | | | [...] [place] | | | | | | [address] | | | | | | | | +--------+---------+ + + + | 10/05/ | Office | Neurology | Diane Damon, | | | 2019 | Visit | | MD [address] | | | | | | [place] | | | | | | [place] [address] | | | | | | [phone] | | | | | | | [...]
--- OUTSIDE RECORDS SUMMARY | ~2019-07-13 | XMS | Clinical Summary ---
Demographics + + + | Address | [address] [facility] | | | [place] [address] | + + + | Home Phone | | + + + | Preferred Language | Unknown | + + + | Marital Status | | + + + | Jainism Affiliation | 1077 | + + + [...] [place] | | | | | [address] | | + + + + + Care Team Providers + +------+ + | Care Weight Loss Counselor Name | Role | Phone | + [...] | | | | [place] | | | | | | [address] | | | | | | | | +--------+---------+ + + + | 10/05/ | Office | Neurology | Diane Damon, | | | 2019 | Visit | | MD [address] | | | | | | [place] | | | | | | [place] [address] | | | | | | [phone] | | | | | | | [...] +--------+ +---------+--------+ | MEDICARE | MEDICA | [id number] | 11/11/19 | [phone] | | Medica | | | RE | | 19-Pre | 5 | | re | | | PART A | | sent | | | | | | AND B | | | | | | + +--------+ +--------+ +---------+--------+ | MEDICARE | MEDICA | [id number] | 11/11/19 | [phone] | | Medica [...] luis | | | 1 (Home) | [address] | + +--------+ +--------+ + + | Erwin Beth W | Person | Self | [birth year] | [address] | | | al/Fam | | 1966 | [phone] | [address] [place], [place] | | | luis | | | 1 (Home) | [address] | + +--------+ +--------+ + + Advance Directives + + + + + | Type | Date Recorded | Patient | Explanation | | | | Asset Liability Analyst | | + + + + + | Power of | | | | | Airfreight Operations Agent | | | | + + + + + | Advance | | | | | Directive | | | | + + + + +
--- OUTSIDE RECORDS SUMMARY | ~2019-07-13 | XMS | Encounter Summary ---
Demographics + + + | Address | [address] [facility] | | | [place] [address] | + + + | Home Phone [...] [place] | | | | | [address] | | + + + + + Care Team Providers + +------+ + | Care Depilatory Painter Name | Role | Phone | [...] [address] | | | | | [phone] | [place] [address] | | +--------+ + + + + [...] [place] | | | | | | [address] | | | | | | | | +--------+---------+ + + + | 10/05/ | Office | Neurology | Diane Damon, | | | 2019 | Visit | | MD [address] | | | | | | [place] | | | | | | [place] [address] | | | | | | [phone] | | | | | | | [...]
--- OUTSIDE RECORDS SUMMARY | ~2019-07-13 | XMS | Encounter Summary ---
Demographics + + + | Address | [address] [facility] | | | [place] [address] | + + + | Home Phone [...] [place] | | | | | [address] | | + + + + + Care Team Providers + +------+ + | Care Architectural Practice Manager Name | Role | Phone | [...] | | | | | unspecified | [place] | | | | | | heart | [address] | | | | | | failure type | Phone: | | | | | | (HCC) | [phone] | | | | | | Procedures | Fax: | | | | | | [place] [facility] | [phone] | | | | | | MUGA [...] [place] | | | | | ([facility]) | [place], | [place], [place] | | | | | Procedures | [place] [address] | [address] Phone: | | | | | Consult | Phone: | [phone] | | | | | | [phone] | Fax: | | | | | | Fax: | [phone] | | | | | | [phone] | | + +--------+ + + + + Encounter Details +--------+---------+ + + + | Date | Type | Department | Care Team | Description | +--------+---------+ + + + | 06/24/ | Office | [facility] | Lida Ventura DO | Chronic congestive | | 2019 | Visit | CARDIOLOGY [place] | [address] | heart failure, | | | | [address] | [place], [place] | unspecified heart | | | | [place], [place] | [address] | failure type (HCC) | | | | [address] | | (Primary Dx); | | | | [phone] | | Essential | | | | [...] Ventura DO - 06/24/2019 12:[address] 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
--- OUTSIDE RECORDS SUMMARY | ~2019-07-13 | XMS | Encounter Summary ---
Demographics + + + | Address | [address] [facility] | | | [place] [address] | + + + | Home Phone | | + + + | Preferred Language | Unknown | + + + | Marital Status | | + + + | Hindu Affiliation | 1077 | + + + [...] [place] | | | | | [address] | | + + + + + Care Team Providers + +------+ + | Care Sheet Rock Taper Name | Role | Phone | + +------+ + | Ugo Lux DO | JENNIFER | | + +------+ + Encounter Details +--------+ + + + + | Date | Type | Department | Care Team | Description | +--------+ + + + + | 07/23/ | Abstract | [facility] | Provider, | | | 2019 | | PHYSIATRY [address] | [address] | | | | | [place], | [address] [place] | | | | | [place] [address] | [place] [address] | | | | | [phone] | | | +--------+ + + + [...] [place] | | | | | | [address] | | | | | | | | +--------+---------+ + + + | 10/05/ | Office | Neurology | Diane Damon, | | | 2019 | Visit | | MD [address] | | | | | | [place] | | | | | | [place] [address] | | | | | | [phone] | | | | | | | | +--------+---------+ + + + documented as of this encounter Visit Diagnoses Not on filedocumented in this encounter"
--- OUTSIDE RECORDS SUMMARY | ~2019-07-13 | XMS | Encounter Summary ---
Demographics + + + | Address | [address] [facility] | | | [place] [address] | + + + | Home Phone | | + + + | Preferred Language | Unknown | + + + | Marital Status | | + + + | Episcopal Affiliation | 1077 | + + + | Race | Unknown | + + + | Ethnic Group | Unknown | + + + Author + + + | Author | [facility] | | | and [place] | + + + | Organization | [facility] | | [...] [place] | | | | | [address] | | + + + + + Care Team Providers + +------+ + | Care Wellness Nurse Name | Role | Phone | + [...] Closed | | Physical | Diagnoses | [place], | Mikhail, | | | | Medicine and | DDD | Checo Christianson, | Zi Lundy MD | | | | Rehabilitatio | (degenerativ | MD [address] | [address] | | | | n | e disc | [address] | [facility] | | | | | disease), | [place], | [facility], [place] | | | | | lumbar | [place] [address] | [address] Phone: | | | | | | Phone: | [phone] | | | | | | [phone] | Fax: | | | | | | Fax: | [phone] | | | | | | [phone] | | +--------+--------+ + + + + Encounter Details +--------+---------+ + + + | Date | Type | Department | Care Team | Description | +--------+---------+ + + + | 05/23/ | Office | [facility] | Kirill Guerrero PA-C | Lumbar radiculopathy | | 2019 | Visit | PHYSIATRY [address] | [address] | (Primary Dx); | | | | [place], | [place], [place] | Bilateral leg pain; | | | | [place] [address] | [id number] | Spinal stenosis of | | | | [phone] | | lumbar region with | | [...] disk, and irritate nerves. Date Last Reviewed: 12/11/201719993707-8855 The [employer]. [address] [place] [address], [place] [address]. All righ ts reserved. This information is not intended as a substitute for professional medical care. Always follow your healthcare professional's instructions. documented in this encounter Progress Notes Claudia Blood, Drapery And Upholstery Measurer - 05/23/2019 1:00 PM PSTFormatting of this note might b e different from the original. Kirill Guerrero PA-C [address] [facility], [address] [place], [place] [address] FAX: CHIEF COMPLAINT: Chief Complaint Patient presents [...] eral hip replacement surgeries. Patient has seen clinic specialist who have told him "no thing [...] has no apparent deficits with short or intermediate memory. The cranial nerves appear grossly intact. [...] PT (multiple sessions over the years) and healthcare analyst. Unfortunately Erwin encinas continues to have significant [...] | | | | | | [facility] [place] | | | | | | [address] | | | | | | | | +--------+---------+ + + + | 10/05/ | Office | Neurology | Diane Damon, | | | 2019 | Visit | | MD [address] | | | | | | [place] | | | | | | [place] [address] | | | | | | [phone] | | | | | | | [...]
--- OUTSIDE RECORDS SUMMARY | ~2019-07-13 | XMS | Encounter Summary ---
Demographics + + + | Address | [address] [facility] | | | [place] [address] | + + + | Home Phone | | + + + | Preferred Language | Unknown | + + + | Marital Status | | + + + | Jew Affiliation | 1077 | + + + | Race | Unknown | + + + | Ethnic Group | Unknown | + + + Author + + + | Author | [facility] | | | and [place] | + + + | Organization | [facility] | | | [...] [place] | | | | | [address] | | + + + + + Care Team Providers + +------+ + | Care Lead Massage Therapist Name | Role | Phone | + [...] 2017 | | [address] | MD [address] | | | | | [address] | [place] [address] | | | | | [place] | [place] | | | | | [address] | [address] | | | | | [phone] | [phone] | | | | | | | [...] [place] | | | | | | [address] | | | | | | | | +--------+---------+ + + + | 10/05/ | Office | Neurology | Diane Damon, | | | 2019 | Visit | | MD [address] | | | | | | [place] | | | | | | [place] [address] | | | | | | [phone] | | | | | | | [...] TR Vmax: 1.95 m/s | | | Scientific Diver: Authenticated by: RICHARD GAMING MD Report | [...] cmLVIDd: 5.22 cmLVPWd: 1.04 cmLVOT Area: 4.28 hh2BRJK Diam: 2.33 | | cm%FS: 20.63 %EF(Teich): [...] | | (A-L): 34.15 ml/m2LAAs A2C: 19.89 xz2CIPWV A-L A2C: 66.08 mlLALs A2C: 5.08 | | cmLAAs A4C: 19.53 fh5HHIAQ A-L A4C: 59.08 mlLALs A4C: 5.48 cmRAAs: 11.32 | | er1ISFVL A-L: 25.47 mlRAESV MOD: 25.02 mlRALs: 4.27 cmTAPSE: 1.98 cmAV maxPG: | | 4.14 mmHgAV meanP.27 mmHgAV Vmax: 1.01 m/Vilma Vmean: 0.70 m/Vilma VTI: 17.62 | | cmAVA Vmax: 3.32 cm2AVA (VTI): 3.94 kj6ONWV Vmax: 0.00 cm2/m2AVAI (VTI): 0.00 | | cm2/m2LVOT maxP.50 mmHgLVOT meanP.38 mmHgLVSI Dopp: 36.57 ml/m2LVSV Dopp: | | 69.48 mlLVOT Vmax: 0.79 m/sLVOT Vmean: 0.55 m/sLVOT VTI: 16.22 cmMV A Rodney: | | 0.40 m/sMV DecT: 199.44 msMV E Rodney: 0.58 m/sMV E/A Ratio: 1.44MV PHT: 57.83 | | msMVA By PHT: 3.80 mv5Cjidqz e': 0.07 m/sSeptal E/e': 7.83Lateral e': 0.08 | | m/sLateral E/e': 6.84RAP: 10 mmHgRVSP: 25.23 mmHgTR maxP.23 mmHgTR Vmax: | | 1.95 m/s Scientific Diver: Jeroticated by: Milan CROWE Date/Time: 05-19-2017 | [...] |TR Vmax: 1.95 m/s | | | |Scientific Diver: | |Authenticated by: RICHARD GAMING MD | [...]
--- OUTSIDE RECORDS SUMMARY | ~2019-07-13 | XMS | Encounter Summary ---
Demographics + + + | Address | [address] [facility] | | | [place] [address] | + + + | Home Phone | | + + + | Preferred Language | Unknown | + + + | Marital Status | | + + + | Alevism Affiliation | 1077 | + + + | Race | Unknown | + + + | Ethnic Group | Unknown | + + + Author + + + | Author | [facility] | | | and [place] | + + + | Organization | [facility] | | | [...] [place] | | | | | [address] | | + + + + + Care Team Providers + +------+ + | Care Commercial Print Salesman Name | Role | Phone | + [...] [address] | | | | | [phone] | [place] [address] | | +--------+ + + + + [...] [place] | | | | | | [address] | | | | | | | | +--------+---------+ + + + | 10/05/ | Office | Neurology | Diane Damon, | | | 2019 | Visit | | MD [address] | | | | | | [place] | | | | | | [place] [address] | | | | | | [phone] | | | | | | | [...]
--- OUTSIDE RECORDS SUMMARY | ~2019-07-13 | XMS | Encounter Summary ---
Demographics + + + | Address | [address] [facility] | | | [place] [address] | + + + | Home Phone | | + + + | Preferred Language | Unknown | + + + | Marital Status | | + + + | Voodoo Affiliation | 1077 | + + + | Race | Unknown | + + + | Ethnic Group | Unknown | + + + Author + + + | Author | [facility] | | | and [place] | + + + | Organization | [facility] | | | [...] [place] | | | | | [address] | | + + + + + Care Team Providers + +------+ + | Care Kettle Chipper Name | Role | Phone | + +------+ + | Bess Alba | PCP | | + +------+ + Encounter Details +--------+ + + + + | Date | Type | Department | Care Team | Description | +--------+ + + + + | 02/23/ | Orders Only | [facility] | Provider, | | | 2019 | | SYSTEM GENERIC OP | [address] | | | | | [address] | [place] | | | | | [address] [place], [place] | [place] [address] | | | | | [address] | | | | | | [phone] | | | +--------+ + + + [...] [place] | | | | | | [address] | | | | | | | | +--------+---------+ + + + | 10/05/ | Office | Neurology | Diane Damon, | | | 2019 | Visit | | MD [address] | | | | | | [place] | | | | | | [place] [address] | | | | | | [phone] | | | | | | | | +--------+---------+ + + + documented as of this encounter Visit Diagnoses Not on filedocumented in this encounter"
--- OUTSIDE RECORDS SUMMARY | ~2019-07-13 | XMS | Encounter Summary ---
Demographics + + + | Address | [address] [facility] | | | [place] [address] | + + + | Home Phone | | + + + | Preferred Language | Unknown | + + + | Marital Status | | + + + | Christianity Affiliation | 1077 | + + + | Race | Unknown | + + + | Ethnic Group | Unknown | + + + Author + + + | Author | [facility] | | | and [place] | + + + | Organization | [facility] | | [...] [place] | | | | | [address] | | + + + + + Care Team Providers + +------+ + | Care Freight Breaker Name | Role | Phone | + [...] | (Primary Dx) | | | | [place], | [address] [place] | | | | | [place] [address] | [place] [address] | | | | | [phone] | [phone] | | | | | | | [...] | | | | | [facility] [place] | | | | | | [address] | | | | | | | | +--------+---------+ + + + | 10/05/ | Office | Neurology | Diane Damon, | | | 2019 | Visit | | MD [address] | | | | | | [address] | | | | | | [place] [address] | | | | | | [phone] | | | | | | | [...]
--- OUTSIDE RECORDS SUMMARY | ~2019-07-13 | XMS | Encounter Summary ---
Demographics + + + | Address | [address] [facility] | | | [place] [address] | + + + | Home Phone [...] [place] | | | | | [address] | | + + + + + Care Team Providers + +------+ + | Care National Van Owner Operator Name | Role | Phone | [...] | | | Spine [place] | [place] [address] | [address] | | | | | Contrast | Phone: | Phone: | | | | | | [phone] | [phone] | | | | | | Fax: | Fax: | | | | | | [phone] | [phone] | +--------+--------+ + + + + Reason [...] | | | | lumbar | [place] [address] | [address] Phone: | | | | | | Phone: | [phone] | | | | | | [phone] | Fax: | | | | | | Fax: | [phone] | | | | | | [phone] | | +--------+--------+ + + + + Encounter Details +--------+---------+ + + + | Date | Type | Department | Care Team | Description | +--------+---------+ + + + | 08/05/ | Office | [facility] | Jericho Chavez, | Lumbar radiculopathy | | 2019 | Visit | PHYSIATRY [address] | PA-C [address] | (Primary Dx) | | | | [place], | [address] [place] | | | | | [place] [address] | [place] [address] | | | | | [phone] | [phone] | | | | | | | [...] of the procedure you must provide a courier driver to take you home. For all [...] press against a nerve. Date Last Reviewed: 09/10/201719999730-0766 The [employer]. [address] [place] [address], [place] [address]. [address] [facility] [address] ts reserved. This information is not intended as a substitute for professional medical care. Always follow your healthcare professional's instructions. documented in this encounter Progress Notes Jericho Chavez PA-C - 08/05/2018 3:40 PM PSTFormatting of this note might be different fro m the original. Jericho Chavez PA-C [address] [place] [address], [address] [place], [place] [id number] FAX: CHIEF COMPLAINT: Chief Complaint Patient presents [...] has no apparent deficits with short or director long term care memory. Cranial nerves 2-12 appear grossly intact. [...] [address]UBBS | | | | | | [facility] [place] | | | | | | [address] | | | | | | | | +--------+---------+ + + + | 10/05/ | Office | Neurology | Diane Damon, | | | 2019 | Visit | | MD [address] | | | | | | [address] | | | | | | [place] [address] | | | | | | [phone] | | | | | | | [...]
--- OUTSIDE RECORDS SUMMARY | ~2019-07-13 | XMS | Clinical Summary ---
Demographics + + + | Address | [address] [facility] | | | [place] [address] | + + + | Home Phone | | + + + | Preferred Language | Unknown | + + + | Marital Status | | + + + | Yarsani Affiliation | 1077 | + + + [...] [place] | | | | | [address] | | + + + + + Care Team Providers + +------+ + | Care Explosives Operator Name | Role | Phone | [...] | | | | [place] | | | | | | [address] | | | | | | | | +--------+---------+ + + + | 10/05/ | Office | Neurology | Diane Damon, | | | 2019 | Visit | | MD [address] | | | | | | [place] | | | | | | [place] [address] | | | | | | [phone] | | | | | | | [...] +--------+ +---------+--------+ | MEDICARE | MEDICA | [id number] | 11/11/19 | [phone] | | Medica | | | RE | | 19-Pre | 5 | | re | | | PART A | | sent | | | | | | AND B | | | | | | + +--------+ +--------+ +---------+--------+ | MEDICARE | MEDICA | [id number] | 11/11/19 | [phone] | | Medica [...] [place] | | | 1 (Home) | [address] | + +--------+ +--------+ + + | Erwin Beth W | Person | Self | [birth year] | [address] | | | al/Fam | | 1966 | [phone] | [address] [place], [place] | | | [place] | | | 1 (Home) | [address] | + +--------+ +--------+ + + Advance Directives + + + + + | Type | Date Recorded | Patient | Explanation | | | | Manager Sas | | + + + + + | Power of | | | | | Buhr Dresser | | | | + + + + + | Advance | | | | | Directive | | | | + + + + +
--- OUTSIDE RECORDS SUMMARY | ~2019-07-13 | XMS | Encounter Summary ---
Demographics + + + | Address | [address] [facility] | | | [place] [address] | + + + | Home Phone [...] [place] | | | | | [address] | | + + + + + Care Team Providers + +------+ + | Care Manager Of Compliance Name | Role | Phone | + [...] Rosio GRUBER | | | | | [phone] | [place] [address] | | +--------+ + + + + [...] [place] | | | | | | [address] | | | | | | | | +--------+---------+ + + + | 10/05/ | Office | Neurology | Diane Damon, | | | 2019 | Visit | | MD [address] | | | | | | [place] | | | | | | [place] [address] | | | | | | [phone] | | | | | | | [...]
--- OUTSIDE RECORDS SUMMARY | ~2019-07-13 | XMS | Encounter Summary ---
Demographics + + + | Address | [address] | | | [place] [address] | + + + | Home Phone | | + + + | Preferred Language | Unknown | + + + | Marital Status | | + + + | Hinduism Affiliation | 1077 | + + + | Race | Unknown | + + + | Ethnic Group | Unknown | + + + Author + + + | Author | [facility] | | | and [place] | + + + | Organization | [facility] | | [...] [place] | | | | | [address] | | + + + + + Care Team Providers + +------+ + | Care Car Record Clerk Name | Role | Phone | [...] | | | | [address] | [facility] [address] | | | | | [place] | [place] | | | | | [address] | [address] | | | | | [phone] | [phone] | | | | | | | [...] [place] | | | | | | [address] | | | | | | | | +--------+---------+ + + + | 10/05/ | Office | Neurology | Diane Damon, | | | 2019 | Visit | | MD [address] | | | | | | [place] | | | | | | [place] [address] | | | | | | [phone] | | | | | | | [...] TR Vmax: 1.95 m/s | | | Senior Accounts Payable Specialist: Authenticated by: RICHARD GAMING MD Report | [...] cmLVIDd: 5.22 cmLVPWd: 1.04 cmLVOT Area: 4.28 bi1HUDH Diam: 2.33 | | cm%FS: 20.63 %EF(Teich): [...] | | (A-L): 34.15 ml/m2LAAs A2C: 19.89 fw1IHRYA A-L A2C: 66.08 mlLALs A2C: 5.08 | | cmLAAs A4C: 19.53 dr0DOGWP A-L A4C: 59.08 mlLALs A4C: 5.48 cmRAAs: 11.32 | | iy1EFDBM A-L: 25.47 mlRAESV MOD: 25.02 mlRALs: 4.27 cmTAPSE: 1.98 cmAV maxPG: | | 4.14 mmHgAV meanP.27 mmHgAV Vmax: 1.01 m/Vilma Vmean: 0.70 m/Vilma VTI: 17.62 | | cmAVA Vmax: 3.32 cm2AVA (VTI): 3.94 wn1XPGP Vmax: 0.00 cm2/m2AVAI (VTI): 0.00 | | cm2/m2LVOT maxP.50 mmHgLVOT meanP.38 mmHgLVSI Dopp: 36.57 ml/m2LVSV Dopp: | | 69.48 mlLVOT Vmax: 0.79 m/sLVOT Vmean: 0.55 m/sLVOT VTI: 16.22 cmMV A Rodney: | | 0.40 m/sMV DecT: 199.44 msMV E Rodney: 0.58 m/sMV E/A Ratio: 1.44MV PHT: 57.83 | | msMVA By PHT: 3.80 nd3Imrohl e': 0.07 m/sSeptal E/e': 7.83Lateral e': 0.08 | | m/sLateral E/e': 6.84RAP: 10 mmHgRVSP: 25.23 mmHgTR maxP.23 mmHgTR Vmax: | | 1.95 m/s Senior Accounts Payable Specialist: Jeroticated by: Milan CROWE Date/Time: 05-19-2017 | [...] |TR Vmax: 1.95 m/s | | | |Senior Accounts Payable Specialist: | |Authenticated by: RICHARD GAMING MD | [...]
--- OUTSIDE RECORDS SUMMARY | ~2019-07-13 | XMS | Clinical Summary ---
Demographics + + + | Address | [address] [facility] | | | [place] [address] | + + + | Home Phone | | + + + | Preferred Language | Unknown | + + + | Marital Status | | + + + | Temple Affiliation | 1077 | + + + | Race | Unknown | + + + | Ethnic Group | Unknown | + + + Author + + + | Author | [facility] (Historical as of | | | 02-26-19) | + + + | Organization | [facility] (Historical as of | | | 02-26-19) [...] [address] | | | | | [address] | | + + + + + Care Team Providers + +------+ + | Care Emergency Room Orderly Name | Role | Phone | + [...] +------+-------+ + | MEDICARE | MEDICA | [id number] | | | [address] | | | RE | | | | [place] [address] | | | IP-OP | | | | | + +--------+ +------+-------+ + | MEDICAID | [place]AST[place] | [id number] | | | [address] | | | N | | | | [place] | | | [place] | | | | [address] | | | MEDICAL RECEPTION | | | | | + +--------+ [...] | luis | | | [address] | [address] | + +--------+ +--------+ + +
--- OUTSIDE RECORDS SUMMARY | ~2019-07-13 | XMS | Encounter Summary ---
Demographics + + + | Address | [address] [facility] | | | [place] [address] | + + + | Home Phone [...] [place] | | | | | [address] | | + + + + + Care Team Providers + +------+ + | Care Padding Gluer Name | Role | Phone | + [...] | | | | | unspecified | [place] | | | | | | heart | [address] | | | | | | failure type | Phone: | | | | | | (HCC) | [phone] | | | | | | Procedures | Fax: | | | | | | [place] Cardiac | [phone] | | | | | | MUGA [...] DR HAMLIN | | | | | ([facility]) | [place], | [place], [place] | | | | | Procedures | [place] [address] | [address] Phone: | | | | | Consult | Phone: | [phone] | | | | | | [phone] | Fax: | | | | | | Fax: | [phone] | | | | | | [phone] | | + +--------+ + + + + Encounter Details +--------+---------+ + + + | Date | Type | Department | Care Team | Description | +--------+---------+ + + + | 06/24/ | Office | [facility] | Lida Ventura DO | Chronic congestive | | 2019 | Visit | CARDIOLOGY [place] | [address] | heart failure, | | | | [address] | [place], [place] | unspecified heart | | | | [place], [place] | [address] | failure type (HCC) | | | | [address] | | (Primary Dx); | | | | [phone] | | Essential | | | | [...] Ventura DO - 06/24/2019 12:00 PM PST [facility] Cardiology Cardiology Consult Note Reason for [...] Acute eczematoid otitis externa Acute sinusitis Alcoholism ([facility]) Arthritis Arthritis Benign essential hypertension Broken bones Cardiomyopathy ([facility]) Cataract Cephalgia Chest pain CHF (congestive heart failure) ([facility]) CHF (congestive heart failure) ([facility]) CHF (congestive heart failure) ([facility]) 04/2019 Chicken pox DDD (degenerative disc disease), [...] level: Not on file Occupational History 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
--- OUTSIDE RECORDS SUMMARY | ~2019-07-13 | XMS | Encounter Summary ---
Demographics + + + | Address | [address] [facility] | | | [place] [address] | + + + | Home Phone | | + + + | Preferred Language | Unknown | + + + | Marital Status | | + + + | Worship Affiliation | 1077 | + + + | Race | Unknown | + + + | Ethnic Group | Unknown | + + + Author + + + | Author | [facility] | | | and [place] | + + + | Organization | [facility] | | [...] [place] | | | | | [address] | | + + + + + Care Team Providers + +------+ + | Care Steel Sampler Name | Role | Phone | + [...] + + | 06/08/ | Telephone | [facility] | Kevin, | Other (Documentation | | 2019 | | NEUROLOGY [address] | [address] | ) | | | | [address] | | | | | | [place] | | | | | | [address] | | | | | | [phone] | | | +--------+ + + + [...] [place] | | | | | | [address] | | | | | | | | +--------+---------+ + + + | 10/05/ | Office | Neurology | Diane Damon, | | | 2019 | Visit | | MD [address] | | | | | | [place] | | | | | | [place] [address] | | | | | | [phone] | | | | | | | | +--------+---------+ + + + documented as of this encounter Visit Diagnoses Not on filedocumented in this encounter"
--- OUTSIDE RECORDS SUMMARY | ~2019-07-13 | XMS | Encounter Summary ---
Demographics + + + | Address | [address] [facility] | | | [place] [address] | + + + | Home Phone | | + + + | Preferred Language | Unknown | + + + | Marital Status | | + + + | Gnosticist Affiliation | 1077 | + + + [...] [place] | | | | | [address] | | + + + + + Care Team Providers + +------+ + | Care Tools Developer Name | Role | Phone | [...] [place] | | | | | [phone] | [place] [address] | | +--------+ + + + + [...] [place] | | | | | | [address] | | | | | | | | +--------+---------+ + + + | 10/05/ | Office | Neurology | Diane Damon, | | | 2019 | Visit | | MD [address] | | | | | | [place] | | | | | | [place] [address] | | | | | | [phone] | | | | | | | [...]
--- OUTSIDE RECORDS SUMMARY | ~2019-07-13 | XMS | Encounter Summary ---
Demographics + + + | Address | [address] [facility] | | | [place] [address] | + + + | Home Phone | | + + + | Preferred Language | Unknown | + + + | Marital Status | | + + + | Baptism Affiliation | 1077 | + + + | Race | Unknown | + + + | Ethnic Group | Unknown | + + + Author + + + | Author | [facility] | | | and [place] | + + + | Organization | [facility] | | | and [...] [place] | | | | | [address] | | + + + + + Care Team Providers + +------+ + | Care Psychological Tests Sales Agent Name | Role | Phone | [...] [place] | | | | | [phone] | [place] [address] | | +--------+ + + + + [...] [place] | | | | | | [address] | | | | | | | | +--------+---------+ + + + | 10/05/ | Office | Neurology | Diane Damon, | | | 2019 | Visit | | MD [address] | | | | | | [place] | | | | | | [place] [address] | | | | | | [phone] | | | | | | | [...]
--- OUTSIDE RECORDS SUMMARY | ~2019-07-13 | XMS | Encounter Summary ---
Demographics + + + | Address | [address] [facility] | | | [place] [address] | + + + | Home Phone | | + + + | Preferred Language | Unknown | + + + | Marital Status | | + + + | Alevism Affiliation | 1077 | + + + | Race | Unknown | + + + | Ethnic Group | Unknown | + + + Author + + + | Author | [facility] | | | and [place] | + + + | Organization | [facility] | | | [...] [place] | | | | | [address] | | + + + + + Care Team Providers + +------+ + | Care Stretcher Operator Name | Role | Phone | + +------+ + | Ugo Lux DO | JENNIFER | | + +------+ + Encounter Details +--------+ + + + + | Date | Type | Department | Care Team | Description | +--------+ + + + + | 07/23/ | Abstract | [facility] | Provider, | | | 2019 | | PHYSIATRY [address] | [address] | | | | | [place], | [place] | | | | | [place] [address] | [place] [address] | | | | | [phone] | | | +--------+ + + + [...] [place] | | | | | | [address] | | | | | | | | +--------+---------+ + + + | 10/05/ | Office | Neurology | Diane Damon, | | | 2019 | Visit | | MD [address] | | | | | | [place] | | | | | | [place] [address] | | | | | | [phone] | | | | | | | | +--------+---------+ + + + documented as of this encounter Visit Diagnoses Not on filedocumented in this encounter"
--- OUTSIDE RECORDS SUMMARY | ~2019-07-13 | XMS | Encounter Summary ---
Demographics + + + | Address | [address] [facility] | | | [place] [address] | + + + | Home Phone | | + + + | Preferred Language | Unknown | + + + | Marital Status | | + + + | Mandaen Affiliation | 1077 | + + + [...] [place] | | | | | [address] | | + + + + + Care Team Providers + +------+ + | Care Electrician Powerhouse Name | Role | Phone | + +------+ + PCP | Unavailable | + +------+ + Encounter Details +--------+ + + + + | Date | Type | Department | Care Team | Description | +--------+ + + + + | 11/19/ | Hospital | [facility] | JosuemaríaAlondramarquita, | SOB (shortness of | | 2012 - | Encounter | [facility] | [address] | breath) on exertion; | | | | CARE FLOOR [address] | [place] [address] | Cardiac enzymes | | 11/21/ | | [address] | [phone] | elevated | | 2012 | | [place], [place] | | | | | | [address] | | | | | | [phone] | | | +--------+ + + + [...] 11/21/12917 Date of Service: 11/21/12911 Status: Signed Protozoologist: Abhinav Garcia DO (Physician) [facility] Service: Hospitalist Discharge Summary Date of Admission: [...] CKMB 4.5* 11/20/2012 XR chest 1 view [[id number]] Status: Final result Study Result HISTORY: Difficulty [...] The left atrium is moderately dilated. 4. Tmrj-cy-hegflazy mitral regurgitation is present. 5. Zjeb-na-mmxsipwx tricuspid regurgitation present. 6. The right ventricular [...] test was found to be negative. A 6-Ivorian right radial artery Glidesheath was then advanced. A cocktail of heparin, verapamil and nitroglycerin was injected via the introducer. Using a Wholey wire, a 6-Ivorian JL4 catheter was advanced to the ascending aorta and engaged with the ostium of the left main. Projections of the left coronary system were done with the use of contrast injections. Using a long exchange wire, the JL4 catheter was exchanged to a 6-Ivorian JR4 catheter which was engaged with the ostium of the right coronary artery. Projections of the right coronary artery were done with the use of contrast injections. The catheter was then exchanged over a long exchange wire to a 6-Ivorian pigtail catheter which was advanced to the [...] Full Code Follow up: Griffin Suero MD [address] [place] [address] in 2 weeks Divya Alves MD [address] [facility] [place] [address] in 4 weeks Current Discharge Medication List [...] Date of Service: 11/21/12 1501 Status: Signed Protozoologist: Shannan Xavier RN (Registered Nurse) Discharge instructions given to patient, verbalized understanding. Left with wheelchair es joleen to private car and home. onver sonal Transaction, Provider Unknown - 11/21/2012 12:40 PM PDT Progress Notes by Shannan Xavier RN at 11/21/12 1240 Author: Shannan Xavier RN Service: (none) Author Type: Registered Nurse Filed: 11/21/12 1248 Date of Service: 11/21/12 1240 Status: Signed Protozoologist: Shannan Xavier RN (Registered Nurse) CHF teaching: [...] Date of Service: 11/21/12 0728 Status: Signed Protozoologist: Divya Alves MD (Physician) Related Notes: Original Note by Divya Alves MD (Physician) filed at 11/21/12 0732 [facility] Service: Cardiology/[facility] Progress Note RE: Jessa Cole [...] Service: (none) Author Type: Physician Filed: 11/20/12 6725 Date of Service: 11/20/12 1324 Status: Addendum Protozoologist: Abhinav Garcia DO (Physician) Related Notes: Original Note by Abhinav Garcia DO (Physician) filed at 11/20/12 1332 [facility] Service: Hospitalist Progress Note Hospital Day: LOS: 1 day SUBJECTIVE 47 year old developed increasing exertional dyspnea over the course of less than a week, pr esented to [facility] where a troponin was indeterminate, transferred to [facility] and troponin s have been negative. Patient [...] Daily heparin (porcine) 5,000 Units Subcutaneous Q8H [facility] lisinopril 5 mg Oral Daily lovastatin 20 [...] CKMB 4.5* 11/20/2012 XR chest 1 view [[id number]] Status: Final result Study Result HISTORY: Difficulty [...] 11/20/121039 Date of Service: 11/20/121039 Status: Signed Protozoologist: Azul Weaver RPH (Pharmacist) Renal Dosing Monitoring: [...] 11/19/122123 Date of Service: 11/19/122123 Status: Signed Protozoologist: Georgiana Street RPH (Pharmacist) Clinical Pharmacy Note: [...] [place] | | | | | | [address] | | | | | | | | +--------+---------+ + + + | 10/05/ | Office | Neurology | Diane Damon, | | | 2019 | Visit | | MD [address] | | | | | | [place] | | | | | | [place] [address] | | | | | | [phone] | | | | | | | [...] test was found to be negative. A 6-Ivorian right radial artery | | | Glidesheath was then advanced. A cocktail of heparin, verapamil and | | | nitroglycerin was injected via the introducer. Using a Wholey wire, a | | | 6-Ivorian JL4 catheter was advanced to the ascending aorta and | | | engaged with the ostium of the left main. Projections of the left | | | coronary system were done with the use of contrast injections. Using | | | a long exchange wire, the JL4 catheter was exchanged to a 6-Ivorian | | | JR4 catheter which was engaged with the ostium of the right coronary | | | artery. Projections of the right coronary artery were done with the | | | use of contrast injections. The catheter was then exchanged over a | | | long exchange wire to a 6-Ivorian pigtail catheter which was advanced | | [...] test was found to be negative. A 6-Ivorian right radial artery Glidesheath | | was then advanced. A cocktail of heparin, verapamil and nitroglycerin was | | injected via the introducer. Using a Wholey wire, a 6-Ivorian JL4 catheter | | was advanced to the ascending aorta and engaged with the ostium of the | | left main. Projections of the left coronary system were done with the use | | of contrast injections. Using a long exchange wire, the JL4 catheter was | | exchanged to a 6-Ivorian JR4 catheter which was engaged with the ostium of | | the right coronary artery. Projections of the right coronary artery were | | done with the use of contrast injections. The catheter was then exchanged | | over a long exchange wire to a 6-Ivorian pigtail catheter which was | | advanced [...] | | | | Read by DIVYA ALEVS MD 11/21/2012 07:35 A | | | [...] | | | is moderately dilated. 4. Ttly-em-rznwekij mitral regurgitation is | | | present. 5. Lscp-kq-jthaigws tricuspid regurgitation present. 6. The | | [...] The mitral valve is normal. Mitral Valve: Ykkd-pz-bimbsxjo | | | mitral regurgitation is present. Tricuspid Valve: The tricuspid valve | | | appears structurally normal. Tricuspid Valve: Gykj-vy-dxnfzljz | | | tricuspid regurgitation present. Tricuspid [...] Excursion: 1.70 cm | | | E-F Pipestone: 0.10 m/s EPSS: 1.06 cm IVC diameter: [...] TV A Rodney: 0.35 m/s TV Dec Pipestone: 1.72 | | | m/s2 TV Dec Time: 211.30 ms TV E Rodney: 0.36 m/s TV E/A Ratio: | | | 1.01 Mash Preparatory Operator: DEBBIE Authenticated by: Divya Alves MD Report [...] left atrium is moderately dilated.4. | | Lulg-tu-gxjvisus mitral regurgitation is present.5. Yoto-fj-puontydz tricuspid | | regurgitation present.6. The right [...] mitral valve is normal.Mitral Valve: | | Ugce-yg-hsdwjgbh mitral regurgitation is present.Tricuspid Valve: The tricuspid valve | | appears structurally normal.Tricuspid Valve: Vlil-ab-plqbfkga tricuspid regurgitation | | present.Tricuspid Valve: There [...] mlLAESV Index (A-L): 45.41 ml/m2LAAs A2C: 24.93 ry4MAEGS | | A-L A2C: 97.92 mlLALs A2C: 5.39 cmLAAs A4C: 22.03 el8MEAVC A-L A4C: 77.83 mlLALs | | A4C: 5.29 cmAo Diam: 3.63 cmAV Cusp: 1.97 cmLA Diam: 4.34 cmLA/Ao: 1.19D-E | | Excursion: 1.70 cmE-F Pipestone: 0.10 m/sEPSS: 1.06 cmIVC diameter: 1.97 cmIVC | | collapse: 0.83 cmIVC % collapse: 55.60 %HR: 72.45 BPMAV maxP.24 mmHgAV | | meanP.37 mmHgAV Vmax: 1.14 m/Vilma Vmean: 0.89 m/Vilma VTI: 21.73 cmAVA Vmax: | | 2.62 cm2AVA (VTI): 2.43 al4RVJR Dopp: 2.01 l/aigs4AEFE Dopp: 3.91 l/minHR: 74.10 | | BPMLVOT [...] A Rodney: 0.35 m/sTV | | Dec Pipestone: 1.72 m/s2TV Dec Time: 211.30 msTV E Rodney: 0.36 m/sTV E/A Ratio: 1.01 | | Mash Preparatory Operator: JUAN ALBERTOuthenticated by: Divya VITALEeport Date/Time: [...] | |D-E Excursion: 1.70 cm | |E-F Pipestone: 0.10 m/s | |EPSS: 1.06 cm | [...] A Rodney: 0.35 m/s | |TV Dec Pipestone: 1.72 m/s2 | |TV Dec Time: 211.30 ms | |TV E Rodney: 0.36 m/s | |TV E/A Ratio: 1.01 | | | |Mash Preparatory Operator: KVW | |Authenticated by: Divya Alves [...] + | This procedure was resulted in [facility] (the cardiology system). Please | | | see the Media tab in Chart Review to see the result for this | | | procedure. | | + + + + + | Procedure Note | + + | Clyde Walker - 03/04/2019 6:15 PM PDT This procedure was resulted in [facility] | | (the cardiology system). Please seethe [...]
--- OUTSIDE RECORDS SUMMARY | ~2019-07-13 | XMS | Encounter Summary ---
Demographics + + + | Address | [address] [facility] | | | [place] [address] | + + + | Home Phone [...] [place] | | | | | [address] | | + + + + + Care Team Providers + +------+ + | Care Human Intelligence Name | Role | Phone | + +------+ + | Ugo Lux DO | JENNIFER | | + +------+ + Encounter Details +--------+ + + + + | Date | Type | Department | Care Team | Description | +--------+ + + + + | 08/03/ | Care | [facility] | Provider, | | | 2019 | Coordinatio | PHYSIATRY [address] | [address] | | | | n | [place], | [place] | | | | | [place] [address] | [place] [address] | | | | | [phone] | | | +--------+ + + + [...] of this encounter Progress Notes Shelli Lopez, Terminal Computer Operator - 08/03/2018 11:58 AM PSTCare everywhere [...] [place] | | | | | | [address] | | | | | | | | +--------+---------+ + + + | 10/05/ | Office | Neurology | Diane Damon, | | | 2019 | Visit | | MD [address] | | | | | | [place] | | | | | | [place] [address] | | | | | | [phone] | | | | | | | | +--------+---------+ + + + documented as of this encounter Visit Diagnoses Not on filedocumented in this encounter"
--- OUTSIDE RECORDS SUMMARY | ~2019-07-13 | XMS | Encounter Summary ---
Demographics + + + | Address | [address] [facility] | | | [place] [address] | + + + | Home Phone | | + + + | Preferred Language | Unknown | + + + | Marital Status | | + + + | Nondenominational Affiliation | 1077 | + + + | Race | Unknown | + + + | Ethnic Group | Unknown | + + + Author + + + | Author | [facility] | | | and [place] | + + + | Organization | [facility] | | | [...] [place] | | | | | [address] | | + + + + + Care Team Providers + +------+ + | Care Conservation Scientist Name | Role | Phone | [...] + + | 06/08/ | Telephone | [facility] | Kevin, | Other (Documentation | | 2019 | | NEUROLOGY [address] | [address] | ) | | | | [address] | | | | | | [place] | | | | | | [address] | | | | | | [phone] | | | +--------+ + + + [...] [place] | | | | | | [address] | | | | | | | | +--------+---------+ + + + | 10/05/ | Office | Neurology | Diane Damon, | | | 2019 | Visit | | MD [address] | | | | | | [place] | | | | | | [place] [address] | | | | | | [phone] | | | | | | | | +--------+---------+ + + + documented as of this encounter Visit Diagnoses Not on filedocumented in this encounter"
--- OUTSIDE RECORDS SUMMARY | ~2019-07-13 | XMS | Encounter Summary ---
Demographics + + + | Address | [address] [facility] | | | [place] [address] | + + + | Home Phone [...] [place] | | | | | [address] | | + + + + + Care Team Providers + +------+ + | Care Senior Label Specialist Name | Role | Phone | [...] | | | | | unspecified | [place] | | | | | | heart | [address] | | | | | | failure type | Phone: | | | | | | (HCC) | [phone] | | | | | | Procedures | Fax: | | | | | | [place] Cardiac | [phone] | | | | | | MUGA [...] [place] | | | | | ([facility]) | [place], | [place], [place] | | | | | Procedures | [place] [address] | [address] Phone: | | | | | Consult | Phone: | [phone] | | | | | | [phone] | Fax: | | | | | | Fax: | [phone] | | | | | | [phone] | | + +--------+ + + + + Encounter Details +--------+---------+ + + + | Date | Type | Department | Care Team | Description | +--------+---------+ + + + | 06/24/ | Office | [facility] | Lida Ventura DO | Chronic congestive | | 2019 | Visit | CARDIOLOGY [place] | [address] | heart failure, | | | | [address] | [place], [place] | unspecified heart | | | | [place], [place] | [address] | failure type (HCC) | | | | [address] | | (Primary Dx); | | | | [phone] | | Essential | | | | [...] this encounter Patient Instructions Patient Instructions Lida Venutra DO - 06/24/2019 12:00 PM PSTSTOP FUROSEMIDE START TORSEMIDE 20MG BY MOUTH DAILY INCREASE LOSARTAN TO 75MG BY MOUTH DAILY PLEASE GET BLOOD WORK DONE TODAY I AM ORDERING A MUGA SCAN WHICH CAN BE DONE IN KEIRY I AM ORDERING PULMONARY FUNCTION TESTS FOLLOW UP IN 3 MONTHS documented in this encounter Progress Notes Lida Ventura DO - 06/24/2019 12:00 PM PST [facility] Cardiology Cardiology Consult Note Reason [...] eczematoid otitis externa Acute sinusitis Alcoholism ([facility]) Arthritis Arthritis Benign essential hypertension Broken bones Cardiomyopathy ([facility]) Cataract Cephalgia Chest pain CHF (congestive heart failure) ([facility]) CHF (congestive heart failure) ([facility]) CHF (congestive heart failure) ([facility]) 04/2019 Chicken pox DDD (degenerative disc disease), [...] level: Not on file Occupational History 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
--- OUTSIDE RECORDS SUMMARY | ~2019-07-13 | XMS | Encounter Summary ---
Demographics + + + | Address | [address] [facility] | | | [place] [address] | + + + | Home Phone | | + + + | Preferred Language | Unknown | + + + | Marital Status | | + + + | Yarsani Affiliation | 1077 | + + + | Race | Unknown | + + + | Ethnic Group | Unknown | + + + Author + + + | Author | [facility] | | | and [place] | + + + | Organization | [facility] | | [...] [place] | | | | | [address] | | + + + + + Care Team Providers + +------+ + | Care Black Top Roller Name | Role | Phone | + [...] + + | 09/27/ | Telephone | [facility] | Jericho Chavez, | Results, Imaging | | 2019 | | PHYSIATRY [address] | PA-C [address] | | | | | [place], | [address] [place] | | | | | [place] [address] | [place] [address] | | | | | [phone] | [phone] | | | | | | | [...] [place] | | | | | | [address] | | | | | | | | +--------+---------+ + + + | 10/05/ | Office | Neurology | Diane Damon, | | | 2019 | Visit | | MD [address] | | | | | | [place] | | | | | | [place] [address] | | | | | | [phone] | | | | | | | | +--------+---------+ + + + documented as of this encounter Visit Diagnoses Not on filedocumented in this encounter"
--- OUTSIDE RECORDS SUMMARY | ~2019-07-13 | XMS | Encounter Summary ---
Demographics + + + | Address | [address] [facility] | | | [place] [address] | + + + | Home Phone [...] [place] | | | | | [address] | | + + + + + Care Team Providers + +------+ + | Care Advanced Manufacturing Consultant Name | Role | Phone | [...] Rosio GRUBER | | | | | [phone] | [place] [address] | | +--------+ + + + + [...] [place] | | | | | | [address] | | | | | | | | +--------+---------+ + + + | 10/05/ | Office | Neurology | Diane Damon, | | | 2019 | Visit | | MD [address] | | | | | | [place] | | | | | | [place] [address] | | | | | | [phone] | | | | | | | [...]
--- OUTSIDE RECORDS SUMMARY | ~2019-07-13 | XMS | Encounter Summary ---
Demographics + + + | Address | [address] [facility] | | | [place] [address] | + + + | Home Phone | | + + + | Preferred Language | Unknown | + + + | Marital Status | | + + + | Cheondoism Affiliation | 1077 | + + + [...] [place] | | | | | [address] | | + + + + + Care Team Providers + +------+ + | Care Retort Unloader Name | Role | Phone | [...] | | | Spine wo | [place] [address] | [address] | | | | | Contrast | Phone: | Phone: | | | | | | [phone] | [phone] | | | | | | Fax: | Fax: | | | | | | [phone] | [phone] | +--------+--------+ + + + + Reason [...] | | | | lumbar | [place] [address] | [address] Phone: | | | | | | Phone: | [phone] | | | | | | [phone] | Fax: | | | | | | Fax: | [phone] | | | | | | [phone] | | +--------+--------+ + + + + Encounter Details +--------+---------+ + + + | Date | Type | Department | Care Team | Description | +--------+---------+ + + + | 08/05/ | Office | [facility] | Jericho Chavez, | Lumbar radiculopathy | | 2019 | Visit | PHYSIATRY [address] | PA-C [address] | (Primary Dx) | | | | [place], | [address] [place] | | | | | [place] [address] | [place] [address] | | | | | [phone] | [phone] | | | | | | | [...] of the procedure you must provide a recycle driver to take you home. For all [...] press against a nerve. Date Last Reviewed: 09/10/201719999191-6771 [employer]. [address] [place] [address], [place] [address]. All [facility] reserved. This information is not intended as a substitute for professional medical care. Always follow your healthcare professional's instructions. documented in this encounter Progress Notes Jericho Chavez PA-C - 08/05/2018 3:40 PM PSTFormatting of this note might be different fro m the original. Jericho Chavez PA-C [address] [place] [address], [address] [place], [place] [id number] FAX: CHIEF COMPLAINT: Chief Complaint Patient presents [...] has no apparent deficits with short or inspector floor sub assembly memory. Cranial nerves 2-12 appear grossly intact. [...] STUBBS | | | | | | [facility] [place] | | | | | | [address] | | | | | | | | +--------+---------+ + + + | 10/05/ | Office | Neurology | Diane Damon, | | | 2019 | Visit | | MD [address]ito [address] | | | | | | [address] | | | | | | [place] [address] | | | | | | [phone] | | | | | | | [...]
--- OUTSIDE RECORDS SUMMARY | ~2019-07-13 | XMS | Encounter Summary ---
Demographics + + + | Address | [address] [facility] | | | [place] [address] | + + + | Home Phone | | + + + | Preferred Language | Unknown | + + + | Marital Status | | + + + | Yazidi Affiliation | 1077 | + + + | Race | Unknown | + + + | Ethnic Group | Unknown | + + + Author + + + | Author | [facility] | | | and [place] | + + + | Organization | [facility] | | | [...] [place] | | | | | [address] | | + + + + + Care Team Providers + +------+ + | Care Supervisor Soldering Name | Role | Phone | + +------+ + PCP | Unavailable | + +------+ + Encounter Details +--------+ + + + + | Date | Type | Department | Care Team | Description | +--------+ + + + + | 11/19/ | Hospital | [facility] | JosuemaríaAlondramarquita, | SOB (shortness of | | 2012 - | Encounter | [facility] | [address] | breath) on exertion; | | | | CARE FLOOR [address] | [place] [address] | Cardiac enzymes | | 11/21/ | | [address] | [phone] | elevated | | 2012 | | [place], [place] | | | | | | [address] | | | | | | [phone] | | | +--------+ + + + [...] 11/21/12917 Date of Service: 11/21/12911 Status: Signed Hog Scraper: Abhinav Garcia DO (Physician) [facility] Service: Hospitalist Discharge Summary Date of Admission: [...] CKMB 4.5* 11/20/2012 XR chest 1 view [[id number]] Status: Final result Study Result HISTORY: Difficulty [...] The left atrium is moderately dilated. 4. Suit-fm-igpnqncu mitral regurgitation is present. 5. Loec-wz-ifbekjed tricuspid regurgitation present. 6. The right ventricular [...] test was found to be negative. A 6-Jordanian right radial artery Glidesheath was then advanced. A cocktail of heparin, verapamil and nitroglycerin was injected via the introducer. Using a Wholey wire, a 6-Jordanian JL4 catheter was advanced to the ascending aorta and engaged with the ostium of the left main. Projections of the left coronary system were done with the use of contrast injections. Using a long exchange wire, the JL4 catheter was exchanged to a 6-Jordanian JR4 catheter which was engaged with the ostium of the right coronary artery. Projections of the right coronary artery were done with the use of contrast injections. The catheter was then exchanged over a long exchange wire to a 6-Jordanian pigtail catheter which was advanced to the [...] Full Code Follow up: Griffin Suero MD [address] [place] [address] in 2 weeks Divya Alves MD [address] [facility], [address] [place] [address] in 4 weeks Current Discharge Medication List [...] Date of Service: 11/21/12 1501 Status: Signed Hog Scraper: Shannan Xavier RN (Registered Nurse) Discharge instructions given to patient, verbalized understanding. Left with wheelchair es joleen to private car and home. onver sonal Transaction, Provider Unknown - 11/21/2012 12:40 PM PDT Progress Notes by Shannan Xavier RN at 11/21/12 1240 Author: Shannan Xavier RN Service: (none) Author Type: Registered Nurse Filed: 11/21/12 1248 Date of Service: 11/21/12 1240 Status: Signed Hog Scraper: Shannan Xavier RN (Registered Nurse) CHF teaching: [...] Date of Service: 11/21/12 0728 Status: Signed Hog Scraper: Divya Alves MD (Physician) Related Notes: Original Note by Divya Alves MD (Physician) filed at 11/21/12 0732 [facility] Service: Cardiology/[facility] Progress Note RE: Jessa Cole [...] Service: (none) Author Type: Physician Filed: 11/20/12 7695 Date of Service: 11/20/12 1324 Status: Addendum Hog Scraper: Abhinav Garcia DO (Physician) Related Notes: Original Note by Abhinav Garcia DO (Physician) filed at 11/20/12 1332 [facility] Service: Hospitalist Progress Note Hospital Day: LOS: 1 day SUBJECTIVE 47 year old developed increasing exertional dyspnea over the course of less than a week, pr esented to [facility] where a troponin was indeterminate, transferred to [facility] and troponin s have been negative. [...] Daily heparin (porcine) 5,000 Units Subcutaneous Q8H [facility] lisinopril 5 mg Oral Daily lovastatin 20 [...] CKMB 4.5* 11/20/2012 XR chest 1 view [[id number]] Status: Final result Study Result HISTORY: Difficulty [...] Azul Weaver RPH at 11/20/121039 Author: Azul Wevaer RPH Service: (none) Author Type: Pharmacist Filed: 11/20/121039 Date of Service: 11/20/121039 Status: Signed Hog Scraper: Azul Weaver RPH (Pharmacist) Renal Dosing Monitoring: [...] 11/19/122123 Date of Service: 11/19/122123 Status: Signed Hog Scraper: Georgiana Street RPH (Pharmacist) Clinical Pharmacy Note: [...] [place] | | | | | | [address] | | | | | | | | +--------+---------+ + + + | 10/05/ | Office | Neurology | Diane Damon, | | | 2019 | Visit | | MD [address] | | | | | | [place] | | | | | | [place] [address] | | | | | | [phone] | | | | | | | [...] test was found to be negative. A 6-Jordanian right radial artery | | | Glidesheath was then advanced. A cocktail of heparin, verapamil and | | | nitroglycerin was injected via the introducer. Using a Wholey wire, a | | | 6-Jordanian JL4 catheter was advanced to the ascending aorta and | | | engaged with the ostium of the left main. Projections of the left | | | coronary system were done with the use of contrast injections. Using | | | a long exchange wire, the JL4 catheter was exchanged to a 6-Jordanian | | | JR4 catheter which was engaged with the ostium of the right coronary | | | artery. Projections of the right coronary artery were done with the | | | use of contrast injections. The catheter was then exchanged over a | | | long exchange wire to a 6-Jordanian pigtail catheter which was advanced | | [...] test was found to be negative. A 6-Jordanian right radial artery Glidesheath | | was then advanced. A cocktail of heparin, verapamil and nitroglycerin was | | injected via the introducer. Using a Wholey wire, a 6-Jordanian JL4 catheter | | was advanced to the ascending aorta and engaged with the ostium of the | | left main. Projections of the left coronary system were done with the use | | of contrast injections. Using a long exchange wire, the JL4 catheter was | | exchanged to a 6-Jordanian JR4 catheter which was engaged with the ostium of | | the right coronary artery. Projections of the right coronary artery were | | done with the use of contrast injections. The catheter was then exchanged | | over a long exchange wire to a 6-Jordanian pigtail catheter which was | | advanced [...] | | | is moderately dilated. 4. Baif-nu-mwxjswbr mitral regurgitation is | | | present. 5. Clzu-sr-xyixxbtn tricuspid regurgitation present. 6. The | | [...] The mitral valve is normal. Mitral Valve: Ageq-xq-yfoxeboe | | | mitral regurgitation is present. Tricuspid Valve: The tricuspid valve | | | appears structurally normal. Tricuspid Valve: Suwl-vd-twlimvrj | | | tricuspid regurgitation present. Tricuspid [...] Excursion: 1.70 cm | | | E-F Runnels: 0.10 m/s EPSS: 1.06 cm IVC diameter: [...] TV A Rodney: 0.35 m/s TV Dec Runnels: 1.72 | | | m/s2 TV Dec Time: 211.30 ms TV E Rodney: 0.36 m/s TV E/A Ratio: | | | 1.01 Proration Clerk: DEBBIE Authenticated by: Divya Alves MD Report [...] left atrium is moderately dilated.4. | | Fizo-hd-ywvtswep mitral regurgitation is present.5. Jake-dv-thsiacmb tricuspid | | regurgitation present.6. The right [...] mitral valve is normal.Mitral Valve: | | Uoov-ii-xysrxmdn mitral regurgitation is present.Tricuspid Valve: The tricuspid valve | | appears structurally normal.Tricuspid Valve: Lcqc-cf-csiqfygv tricuspid regurgitation | | present.Tricuspid Valve: There [...] mlLAESV Index (A-L): 45.41 ml/m2LAAs A2C: 24.93 [id number] | | A-L A2C: 97.92 mlLALs A2C: 5.39 cmLAAs A4C: 22.03 [id number] A-L A4C: 77.83 mlLALs | | A4C: 5.29 cmAo Diam: 3.63 cmAV Cusp: 1.97 cmLA Diam: 4.34 cmLA/Ao: 1.19D-E | | Excursion: 1.70 cmE-F Runnels: 0.10 m/sEPSS: 1.06 cmIVC diameter: 1.97 cmIVC | | collapse: 0.83 cmIVC % collapse: 55.60 %HR: 72.45 BPMAV maxP.24 mmHgAV | | meanP.37 mmHgAV Vmax: 1.14 m/Vilma Vmean: 0.89 m/Vilma VTI: 21.73 cmAVA Vmax: | | 2.62 cm2AVA (VTI): 2.43 [id number] Dopp: 2.01 l/rndb2PRBV Dopp: 3.91 l/minHR: 74.10 | | BPMLVOT [...] A Rodney: 0.35 m/sTV | | Dec Runnels: 1.72 m/s2TV Dec Time: 211.30 msTV E Rodney: 0.36 m/sTV E/A Ratio: 1.01 | | Proration Clerk: JUAN ALBERTOuthenticated by: Divya VITALEeport Date/Time: 11-20-2012 [...] | |D-E Excursion: 1.70 cm | |E-F Runnels: 0.10 m/s | |EPSS: 1.06 cm | [...] A Rodney: 0.35 m/s | |TV Dec Runnels: 1.72 m/s2 | |TV Dec Time: 211.30 ms | |TV E Rodney: 0.36 m/s | |TV E/A Ratio: 1.01 | | | |Proration Clerk: KVW | |Authenticated by: Divya Alves MD [...] + | This procedure was resulted in [facility] (the cardiology system). Please | | | see the Media tab in Chart Review to see the result for this | | | procedure. | | + + + + + | Procedure Note | + + | Clyde Walker - 03/04/2019 6:15 PM PDT This procedure was resulted in [facility] | | (the cardiology system). Please [...]
--- OUTSIDE RECORDS SUMMARY | ~2019-07-13 | XMS | Clinical Summary ---
Demographics + + + | Address | [address] [facility] | | | [place] [address] | + + + | Home Phone | | + + + | Preferred Language | Unknown | + + + | Marital Status | | + + + | Alevism Affiliation | 1077 | + + + | Race | Unknown | + + + | Ethnic Group | Unknown | + + + Author + + + | Author | [facility] (Historical as of | | | 02-26-19) | + + + | Organization | [facility] (Historical as of | | | 02-26-19) [...] [address] | | | | | [address] | | + + + + + Care Team Providers + +------+ + | Care Information Systems Auditor Name | Role | Phone | + [...] +------+-------+ + | MEDICARE | MEDICA | [id number] | | | [address] | | | RE | | | | [place] [address] | | | IP-OP | | | | | + +--------+ +------+-------+ + | MEDICAID | [place] | [id number] | | | [address] | | | N | | | | [place] | | | [place] | | | | [address] | | | HAMMER REPAIRER | | | | | + +--------+ [...] | [place] | | | [address] | [address] | + +--------+ +--------+ + +
--- OUTSIDE RECORDS SUMMARY | ~2019-07-13 | XMS | Encounter Summary ---
Demographics + + + | Address | [address] [facility] | | | [place] [address] | + + + | Home Phone [...] + + + | Author | [facility] | | | and [place] | + + + | Organization | [facility] | | | [...] [place] | | | | | [address] | | + + + + + Care Team Providers + +------+ + | Care Market Consultant Name | Role | Phone | [...] Rosio GRUBER | | | | | [phone] | [place] [address] | | +--------+ + + + + [...] [place] | | | | | | [address] | | | | | | | | +--------+---------+ + + + | 10/05/ | Office | Neurology | Diane Damon, | | | 2019 | Visit | | MD [address] | | | | | | [place] | | | | | | [place] [address] | | | | | | [phone] | | | | | | | [...]
--- OUTSIDE RECORDS SUMMARY | ~2019-07-13 | XMS | Clinical Summary ---
Demographics + + + | Address | [address] [facility] | | | [place] [address] | + + + | Home Phone | | + + + | Preferred Language | Unknown | + + + | Marital Status | | + + + | Jain Affiliation | 1077 | + + + | Race | Unknown | + + + | Ethnic Group | Unknown | + + + Author + + + | Author | [facility] (Historical as of | | | 02-26-19) | + + + | Organization | [facility] (Historical as of | | | 02-26-19) [...] [address] | | | | | [address] | | + + + + + Care Team Providers + +------+ + | Care Hris Analyst Name | Role | Phone | [...] +------+-------+ + | MEDICARE | MEDICA | [id number] | | | [address] | | | RE | | | | [place] [address] | | | IP-OP | | | | | + +--------+ +------+-------+ + | MEDICAID | EASTER | [id number] | | | [address] | | | N | | | | [place] | | | [place] | | | | [address] | | | SHELLFISH DREDGE OPERATOR | | | | | + +--------+ [...] | luis | | | [address] | [address] | + +--------+ +--------+ + +
--- OUTSIDE RECORDS SUMMARY | ~2019-07-13 | XMS | Encounter Summary ---
Demographics + + + | Address | [address] [facility] | | | [place] [address] | + + + | Home Phone | | + + + | Preferred Language | Unknown | + + + | Marital Status | | + + + | Caodaism Affiliation | 1077 | + + + [...] [place] | | | | | [address] | | + + + + + Care Team Providers + +------+ + | Care Director Global Intelligence Name | Role | Phone | + +------+ + PCP | Unavailable | + +------+ + Encounter Details +--------+ + + + + | Date | Type | Department | Care Team | Description | +--------+ + + + + | 11/26/ | Hospital | [facility] | Conversion | Chest pain | | 2013 | Encounter | CONVERSION [address] | Transaction, | | | | [address] | Provider Unknown | | | | | [place], [place] | | | | | | [address] | (Fax) | | | | | [...] [place] | | | | | | [address] | | | | | | | | +--------+---------+ + + + | 10/05/ | Office | Neurology | Diane Damon, | | | 2019 | Visit | | MD [address] | | | | | | [place] | | | | | | [place] [address] | | | | | | [phone] | | | | | | | [...]
--- OUTSIDE RECORDS SUMMARY | ~2019-07-13 | XMS | Encounter Summary ---
Demographics + + + | Address | [address] [facility] | | | [place] [address] | + + + | Home Phone [...] [place] | | | | | [address] | | + + + + + Care Team Providers + +------+ + | Care Air Plant Engineer Name | Role | Phone | [...] Rosio GRUBER | | | | | [phone] | [place] [address] | | +--------+ + + + + [...] [place] | | | | | | [address] | | | | | | | | +--------+---------+ + + + | 10/05/ | Office | Neurology | Diane Damon, | | | 2019 | Visit | | MD [address]ito [address] | | | | | | [address] | | | | | | [place] [address] | | | | | | [phone] | | | | | | | [...]
--- OUTSIDE RECORDS SUMMARY | ~2019-07-13 | XMS | Encounter Summary ---
Demographics + + + | Address | [address] [facility] | | | [place] [address] | + + + | Home Phone [...] [place] | | | | | [address] | | + + + + + Care Team Providers + +------+ + | Care Patient Registration Supervisor Name | Role | Phone | [...] + + | 09/27/ | Telephone | [facility] | Jericho Chavez, | Results, Imaging | | 2019 | | PHYSIATRY [address] | PA-C [address] | | | | | [place], | [address] [place] | | | | | [place] [address] | [place] [address] | | | | | [phone] | [phone] | | | | | | | [...] [place] | | | | | | [address] | | | | | | | | +--------+---------+ + + + | 10/05/ | Office | Neurology | Diane Damon, | | | 2019 | Visit | | MD [address]ito [address] | | | | | | [place] | | | | | | [place] [address] | | | | | | [phone] | | | | | | | | +--------+---------+ + + + documented as of this encounter Visit Diagnoses Not on filedocumented in this encounter"
--- OUTSIDE RECORDS SUMMARY | ~2019-07-13 | XMS | Encounter Summary ---
Demographics + + + | Address | [address] [facility] | | | [place] [address] | + + + | Home Phone [...] [place] | | | | | [address] | | + + + + + Care Team Providers + +------+ + | Care Pulp Mill Team Leader Name | Role | Phone | + [...] Rosio GRUBER | | | | | [phone] | [place] [address] | | +--------+ + + + + [...] [place] | | | | | | [address] | | | | | | | | +--------+---------+ + + + | 10/05/ | Office | Neurology | Diane Damon, | | | 2019 | Visit | | MD [address] | | | | | | [place] | | | | | | [place] [address] | | | | | | [phone] | | | | | | | [...]
--- OUTSIDE RECORDS SUMMARY | ~2019-07-13 | XMS | Encounter Summary ---
Demographics + + + | Address | [address] [facility] [address] | | | [place] [address] | + + + | Home Phone | | + + + | Preferred Language | Unknown | + + + | Marital Status | | + + + | Moravian Affiliation | 1077 | + + + [...] [place] | | | | | [address] | | + + + + + Care Team Providers + +------+ + | Care Lumber Tailer Name | Role | Phone | + [...] + + | 06/08/ | Telephone | [facility] | Kevin, | Other (Documentation | | 2019 | | NEUROLOGY [address] | [address] | ) | | | | [place] [address] | | | | | | [place] | | | | | | [address] | | | | | | [phone] | | | +--------+ + + + [...] [place] | | | | | | [address] | | | | | | | | +--------+---------+ + + + | 10/05/ | Office | Neurology | Diane Damon, | | | 2019 | Visit | | MD Danielito BRIZUELA | | | | | | [place] | | | | | | [place] [address] | | | | | | [phone] | | | | | | | | +--------+---------+ + + + documented as of this encounter Visit Diagnoses Not on filedocumented in this encounter"
--- OUTSIDE RECORDS SUMMARY | ~2019-07-13 | XMS | Encounter Summary ---
Demographics + + + | Address | [address] [facility] | | | [place] [address] | + + + | Home Phone [...] [place] | | | | | [address] | | + + + + + Care Team Providers + +------+ + | Care Rda Name | Role | Phone | + [...] Ros[place] | | | | | [phone] | [place] [address] | | +--------+ + + + + [...] [place] | | | | | | [address] | | | | | | | | +--------+---------+ + + + | 10/05/ | Office | Neurology | Diane Damon, | | | 2019 | Visit | | MD [address] | | | | | | [place] | | | | | | [place] [address] | | | | | | [phone] | | | | | | | [...]
--- OUTSIDE RECORDS SUMMARY | ~2019-07-13 | XMS | Encounter Summary ---
Demographics + + + | Address | [address] [facility] | | | [place] [address] | + + + | Home Phone | | + + + | Preferred Language | Unknown | + + + | Marital Status | | + + + | Confucianist Affiliation | 1077 | + + + [...] [place] | | | | | [address] | | + + + + + Care Team Providers + +------+ + | Care Corner Cutter Name | Role | Phone | + [...] Rosio GRUBER | | | | | [phone] | [place] [address] | | +--------+ + + + + [...] [place] | | | | | | [address] | | | | | | | | +--------+---------+ + + + | 10/05/ | Office | Neurology | Diane Damon, | | | 2019 | Visit | | MD [address] | | | | | | [place] | | | | | | [place] [address] | | | | | | [phone] | | | | | | | [...]
--- OUTSIDE RECORDS SUMMARY | ~2019-07-13 | XMS | Encounter Summary ---
Demographics + + + | Address | [address] [facility] | | | [place] [address] | + + + | Home Phone [...] [place] | | | | | [address] | | + + + + + Care Team Providers + +------+ + | Care Speech Pathology Assistant Name | Role | Phone | + +------+ + | Bess Alba | PCP | | + +------+ + Encounter Details +--------+ + + + + | Date | Type | Department | Care Team | Description | +--------+ + + + + | 02/23/ | Orders Only | [facility] | Provider, | | | 2019 | | SYSTEM GENERIC OP | MD [address] | | | | | [address] | [place] | | | | | [address] [place], [place] | [place] [address] | | | | | [address] | | | | | | [phone] | | | +--------+ + + + [...] [place] | | | | | | [address] | | | | | | | | +--------+---------+ + + + | 10/05/ | Office | Neurology | Diane Damon, | | | 2019 | Visit | | MD [address] | | | | | | [place] | | | | | | [place] [address] | | | | | | [phone] | | | | | | | | +--------+---------+ + + + documented as of this encounter Visit Diagnoses Not on filedocumented in this encounter"
[~2019-07-13 19:45] MED LIST changes: +TORSEMIDE20 MG PO
--- OUTSIDE RECORDS SUMMARY | 2019-07-13 19:48 | XMS ---
PreManage Notification: JESSA COLE Security Sleep Technician Events No recent Security Events currently on file CRITERIA MET - [facility] - 2 Visits in 30 Days CARE PROVIDERS DIEGO THOMAS Physician Wig Dresser Current PHONE: [phone] DANIEL JAMISON Physician 08/23/2018-Current PHONE: [phone] Griffin Suero MD Primary Care Current PHONE: [phone] ormirta Case or Corrugator Helper Current PHONE: Unknown Ambreen has no Care Guidelines for this patient. Hillary VISIT COUNT (12 MO.) 5 KERRIE Banegas TOTAL 5 NOTE: Visits indicate total known visits. ED/UCC VISIT TRACKING (12 MO.) 07/13/2019 19:46 [facility] [place] TYPE: Emergency COMPLAINT: - CHEST PAIN/SOB/BP ISSUE 07/03/2019 14:44 [facility] [place] TYPE: Emergency COMPLAINT: - BLOOD PRESSURE PROBLEM DIAGNOSES: - Other extermination inspector (current) drug therapy - Unspecified atrial fibrillation - Allergy status to oth drug/meds/biol subst status - Essential (primary) hypertension - terminal gauger (current) use of aspirin - Heart failure, unspecified - Nicotine dependence, unspecified, uncomplicated - Hypertensive heart disease with heart failure - Allergy status to penicillin 05/10/2019 08:44 [facility] [place] TYPE: Emergency COMPLAINT: - SOB 03/19/2019 03:36 [facility] [place] TYPE: Emergency COMPLAINT: - SHOULDER PAIN DIAGNOSES: - Other extermination inspector (current) drug therapy - Hypertensive heart disease with heart failure - Nicotine dependence, unspecified, uncomplicated - Allergy status to penicillin - Pain in right shoulder - Allergy status to oth drug/meds/biol subst status - Fall same lev from slip/trip w strike agnst ot object, init - Heart failure, unspecified - Strain unsp musc/fasc/tend at shldr/up arm, right arm, init 08/20/2018 17:21 [facility] [place] TYPE: Emergency COMPLAINT: - FALL/LEFT HIP PAIN DIAGNOSES: - Allergy status to penicillin - Pain in left hip - Cardiomyopathy, unspecified - Nicotine dependence, unspecified, uncomplicated - Allergy status to oth drug/meds/biol subst status - Unspecified atrial fibrillation - Other extermination inspector (current) drug therapy - Hypertensive heart disease with heart failure - Heart failure, unspecified - Acquired absence of other specified parts of digestive tract INPATIENT VISIT TRACKING (12 MO.) 05/10/2019 11:45 [facility] [place] TYPE: Medical Surgical COMPLAINT: - CHF DIAGNOSES: - Carotid artery syndrome (hemispheric) - Allergy status to penicillin - Allergy status to oth drug/meds/biol subst status - Nicotine dependence, unspecified, uncomplicated - Facial weakness - Polyosteoarthritis, unspecified - 1 NIHSS score - Encounter for immunization - Other fdc (current) drug therapy - Personal history of other diseases of the circulatory system - Nicotine dependence, unspecified, uncomplicated - Other fdc (current) drug therapy - Carotid artery syndrome (hemispheric) - Polyosteoarthritis, unspecified - 1 NIHSS score - FCI (current) use of non-steroidal non-inflam (NSAID) - Facial weakness - Personal history of other diseases of the circulatory system - Allergy status to penicillin - Allergy status to oth drug/meds/biol subst status - terminal gauger (current) use of non-steroidal non-inflam (NSAID) - Acute on chronic systolic (congestive) heart failure [email or web address]
--- NOTE | 2019-07-14 01:40 | NUR ---
PHONE REPORT RECIEVED FROM TEX TREVINO. PT WILL BE PLACED IN ROOM 124.
--- NOTE | 2019-07-14 02:11 | NUR ---
PT ARRIVED VIA STRETCHER AND WAS ABLE TO MOVE OVER TO BED WITHOUT ASSISTANCE. TELEMETRY PLACED AND VS TAKEN. PT IS ALERT AND ORIENTED AND HAS SIG OTHER WITH HIM. HE STATES IT IS OK TO TALK TO HIS DAUGHTER KRISTI IF SHE CALLS. PT IS ORIENTED TO THE ROOM AND WE ARE STARTING ADMISSION HX AT THIS TIME.
--- NOTE | 2019-07-14 02:46 | NUR ---
ASSESSMENT COMPLETED. TELE #1 AFIB @84. PT DENIES SOB, PAIN. SKIN WNL. IV WNL, CDI. NO OTHER NEEDS. CALL LIGHT IN REACH.
--- NOTE | 2019-07-14 05:30 | NUR ---
PT AWAKE IN ROOM. ASSESSMENT, VS AND I&O COMPLETED. NO OTHER NEEDS. CALL LIGHT IN REACH.
--- NOTE | 2019-07-14 06:48 | NUR ---
PT SLEPT OFF AND ON LAST NIGHT. TELE #1 AFIB TRENDING IN THE LOW 80s AT REST. PT DENIES SOB AND DIZZINESS. IV CDI, WNL, FLUSHED WELL.
--- NOTE | 2019-07-14 07:03 | NUR ---
PT VS DOES NOT MEET PARAMETERS FOR 0700 CARDIZEM. MD NOTIFIED. MD GIVES VERBAL ORDER TO GIVE ORDERED CARDIZEM. ORDER REPEATED BACK.
--- NOTE | 2019-07-14 07:09 | NUR ---
SCHEDULED MED PROVIDED. NO OTHER NEEDS. CALL LIGHT IN REACH.
--- NOTE | 2019-07-14 07:29 | NUR ---
PT RESTING ON LEFT LATERAL SIDE IN BED, RESPIRATIONS EVEN AND UNLABORED ON RA. CALL LIGHT AND H2O IN REACH. PT APPEARS TO BE SLEEPING COMFORTABLY. REPORT RECEIVED FROM URIEL BALDWIN.
--- NOTE | 2019-07-14 08:53 | NUR ---
Patient is awake Breakfast was ordered. caregiver in room call light in reach and fresh water was given . no other needs at this time
--- NOTE | 2019-07-14 08:55 | NUR ---
PT RESTING IN SEMIFOWLERS POSITION IN BED. PT ALERT AND ORIENTED. CALL LIGHT AND H2O IN REACH. PT DENIES PALPITATIONS, CP OR SOB. ASSESSMENT COMPLETED. PT DENIES NEEDS OR CONCERNS.
--- NOTE | 2019-07-14 11:05 | NUR ---
PT UP TO SHOWER PER HIS REQUEST WITH SBA FROM MITER SAW OPERATOR.
--- NOTE | 2019-07-14 11:30 | NUR ---
In and spoke with Erwni. Lives in [place] with his . Plans on dc today after medication adjustments. Pt has appt with his PCP at [facility] in [place] tomorrow. Plans on dc to home with .
--- NOTE | 2019-07-14 13:00 | NUR ---
IN TO ADMINISTER METOPROLOL. SYSTOLIC BP SLIGHTLY BELOW ADMINISTRATION PARAMETER, DR MOBLEY NOTIFIED AND PER MD HOLD DOSE FOR NOW UNTIL BP ABOVE 100. DEDICATED REGIONAL DRIVER NOTIFIED AND AGREES TO RECHECK BP SOON. PT DENIES SOB, DIZZINESS, PALPITATIONS OR OTHER SYMPTOMS OR CONCERNS. CALL LIGHT AND H2O IN REACH.
--- NOTE | 2019-07-14 14:17 | NUR ---
PT ALERT, ORIENTED AND SUPPORTED BY HIS SIG. OTHER. PT STATED HE HOPES TO BE DC'D TODAY AND FEELS BETTER. AFIB IS SOMETHING NEW, BUT HE HAS BEEN DEALING WITH HEART CONDITION FOR A WHILE. THANKED ME FOR COMING BY, EXTENDED TO PT A BLESSING, WILL FOLLOW NEEDED
[2019-07-14] MEDS ORDERED: COZAAR50 MG PO (14:22)
[2019-07-14] MEDS ORDERED: ELIQUIS5 MG PO (15:58)
[2019-07-14] MEDS ORDERED: SPIRONOLACTONE25 MG PO (15:59)
[2019-07-14] MEDS ORDERED: METOPROLOL SUCC50 MG PO (16:00)
--- NOTE | 2019-07-14 17:10 | EKG ---
[facility] [address] [facility] [place], [place] [address] Signed Atrial fibrillation with rapid ventricular response ST \T\ T wave abnormality, consider inferolateral ischemia Abnormal ECG When compared with ECG of 03-JUL-2019 14:52, Atrial fibrillation has replaced Sinus rhythm Vent. rate has increased BY 46 BPM Confirmed by ANNA MOBLEY DO ([id number]) on 07/14/2019 5:10:14 PM Electronically Signed By: ANNA MOBLEY DO 07/14/19 1710 PATIENT NAME: JESSA COLE Electrocardiogram DATE OF : 67 PHYSICIAN: ANNA MOBLEY DO REPORT #: [id number] REPORT IS CONFIDENTIAL AND NOT TO BE RELEASED WITHOUT AUTHORIZATION
--- NOTE | 2019-07-18 11:52 | NUR ---
Follow up call: Patient seen for atrial fibrillation with RVR. History of HFrEF. Patient did see PCP day after ED visit and has had medications reviewed. Would like to change PCP providers and I suggested he call for appointment with one of the new practitioners at [facility] or [facility]. Does have a cardiology appointment on 08/04/18. Discussed benefits of attending cardiac rehab with patient and I will put him on waitlist. Will need order from crm marketing specialist.
== END 2019-07-14 17:00 | disposition home or self-care (01) ==
LOC: ED 19:45 → MS 19:47
PROVIDERS: ADMIT Student in an Organized Health Care Education/Training Program
DX: I48.91 Unspecified atrial fibrillation (principal); I95.9 Hypotension, unspecified; N17.9 Acute kidney failure, unspecified; I21.A1 Myocardial infarction type 2; I50.22 Chronic systolic (congestive) heart failure; I51.4 Myocarditis, unspecified; F17.200 Nicotine dependence, unspecified, uncomplicated; I42.9 Cardiomyopathy, unspecified; G89.4 Chronic pain syndrome; I10 Essential (primary) hypertension; Z86.73 Personal history of transient ischemic attack (TIA), and cerebral infarction without residual deficits; Z88.8 Allergy status to other drugs, medicaments and biological substances; Z88.0 Allergy status to penicillin; Z79.82 Long term (current) use of aspirin; Z79.899 Other long term (current) drug therapy
CPT/HCPCS: 36415; 71046; 80048; 80053; 83735; 83880; 84484; 85025; 85610; 85730; 93005; 93010; 96361; 96374; 99285-25; G0378; J7030

== ENCOUNTER 2020-02-05 07:34 | Emergency (ER) | payer MEDICARE ==
[~2020-02-05] VITALS: Ht 180.3 cm; Wt 70.8 kg
--- OUTSIDE RECORDS SUMMARY | ~2020-02-05 | XMS | Encounter Summary ---
Demographics + + + | Address | [address] [facility] [address] | | | [place] [address] | + + + | Home Phone | | + + + | Preferred Language | Unknown | + + + | Marital Status | | + + + | Restoration Affiliation | 1077 | + + + | Race | Unknown | + + + | Ethnic Group | Unknown | + + + Author + + + | Author | [facility] | | | and [place] | + + + | Organization | [facility] | | | [...] [place] | | | | | [address] | | + + + + + Care Team Providers + +------+ + | Care Epic Willow Specialist Name | Role | Phone | + +------+ + | Bess Alba | PCP | | + +------+ + Reason for Visit +--------+--------+ + | Reason | Onset | Comments | | | Date | | +--------+--------+ + | Other | 06/08/ | Documentation | | | 2018 | | +--------+--------+ + Encounter Details +--------+ + + + + | Date | Type | Department | Care Team | Description | +--------+ + + + + | 06/08/ | Telephone | [facility] | Kevin, | Other (Documentation | | 2019 | | NEUROLOGY [address] | [address] | ) | | | | [address] | | | | | | [place] | | | | | | [address] | | | | | | [phone] | | | +--------+ + + + [...] on file | | + + + documented as of this encounter Miscellaneous Notes Telephone Encounter - Emma Brown CMA - 07/21/2019 8:47 AM PSTFound Brain/ Head im aging in PACS. el ephone Encounter - Emma Brown CMA - 06/08/2019 11:18 AM PSTSearched in PACS for any recent brain/ head images. None found. Had other MA access faxs for records, none found. documented in this encounter Plan of Treatment +--------+---------+ + + + | Date | Type | Specialty | Care Team | Description | +--------+---------+ + + + | 02/22/ | Office | Cardiology | Zach Pal | | 2019 | Visit | | MD [address]ilo [address] | | | | | | [address] | | | | | | [place] [address] | | | | | | [phone] | | | | | | | | +--------+---------+ + + + | 04/26/ | Office | Cardiology | Lorena Davis | | | 2019 | Visit | | [address]ES [address] | | | | | | [address] | | | | | | [place] [address] | | | | | | [phone] | | | | | | | | +--------+---------+ + + + documented as of this encounter Visit Diagnoses Not on filedocumented in this encounter"
--- OUTSIDE RECORDS SUMMARY | ~2020-02-05 | XMS | Clinical Summary ---
Demographics + + + | Address | [address] [facility] | | | [place] [address] | + + + | Home Phone | | + + + | Preferred Language | Unknown | + + + | Marital Status | | + + + | Rastafarian Affiliation | 1077 | + + + | Race | Unknown | + + + | Ethnic Group | Unknown | + + + Author + + + | Author | [facility] | | | and [place] | + + + | Organization | [facility] | | | and [...] [place] | | | | | [address] | | + + + + + Care Team Providers + +------+ + | Care Keno Clerk Name | Role | Phone | + +------+ + | Bess Alba | PCP | | + +------+ + Allergies + + + + + + | Active Allergy | Reactions | Severity | Noted | Comments | | | | | Date | | + + + + + + | Amoxicillin | Anaphylaxis | High | 11/20/19 | | | | | | 13 | | + + + + + + | Gabapentin | Other (See Comments) | Medium | 06/14/20 | Reaction not | | | | | 18 | specified in outside | | | | | | medical records. | + + + + + + | Lisinopril | Anaphylaxis | High | 11/21/19 | | | | | | 13 | | + + + + + + Medications + + + +---------+------+------+-------+ | Medication | Sig | Dispensed | Refills | Star | End | Statu | | | | | | t | Date | s | | | | | | Date | | | + + + +---------+------+------+-------+ | albuterol | Inhale 2 puffs every | | 0 | | | Activ | | (PROVENTIL HFA) 90 | 6 (six) hours as | | | | | e | | mcg/puff inhaler | needed for wheezing. | | | | | | + + + +---------+------+------+-------+ | furosemide (LASIX) | Take 1 tablet by | 30 | 11 | 01/2 | 01/2 | Activ | | 20 mg tablet | mouth Daily. | tablet | | 3/20 | 2/20 | e | | | | | | 20 | 21 | | + + + +---------+------+------+-------+ | apixaban (ELIQUIS) | Take 1 tablet by | 180 | 3 | 02/0 | | Activ | | 5 mg tablet | mouth 2 times daily. | tablet | | 3/20 | | e | | | | | | 20 | | | + + + +---------+------+------+-------+ | losartan (COZAAR) | Take 1 tablet by | 30 | 5 | 04/2 | | Activ | | 50 mg tablet | mouth Daily. | tablet | | 3/20 | | e | | | | | | 20 | | | + + + +---------+------+------+-------+ | spironolactone | Take 1 tablet by | 90 | 3 | 06/2 | | Activ | | (ALDACTONE) 25 mg | mouth Daily. | tablet | | 5/20 | | e | | tablet | | | | 20 | | | + + + +---------+------+------+-------+ | metoprolol | Take 1 tablet by | 90 | 3 | 07/0 | | Activ | | succinate | mouth 2 times daily. | tablet | | 1/20 | | e | | (TOPROL-XL) 50 mg 24 | | | | 20 | | | | hr | | | | | | | | tabletIndications: | | | | | | | | Paroxysmal atrial | | | | | | | | fibrillation (HCC) | | | | | | | + + + +---------+------+------+-------+ | atorvaSTATin | TAKE ONE TABLET BY | 90 | 3 | 01/2 | 07/0 | Disco | | (LIPITOR) 80 MG | MOUTH EVERY DAY AT | tablet | | 0/20 | 1/20 | ntinu | | tablet | BEDTIME | | | 20 | 20 | ed | | | | | | | | (Ther | | | | | | | | apy | | | | | | | | compl | | | | | | | | eted) | + + + +---------+------+------+-------+ | metoprolol | Take 1 tablet by | 90 | 3 | 02/0 | 07/0 | Disco | | succinate | mouth Daily. | tablet | | 3/20 | 1/20 | ntinu | | (TOPROL-XL) 50 mg 24 | | | | 20 | 20 | ed | | hr tablet | | | | | | (Reor | | | | | | | | valentin | | | | | | | | (no | | | | | | | | Cance | | | | | | | | l Rx | | | | | | | | msg)) | + + + +---------+------+------+-------+ | nicotine | Place 1 patch onto | 30 | 0 | 04/2 | 07/0 | Disco | | (NICODERM) 14 mg/24 | the skin every 24 | patch | | 3/20 | 1/20 | ntinu | | hr | hours. | | | 20 | 20 | ed | | | | | | | | (Ther | | | | | | | | apy | | | | | | | | compl | | | | | | | | eted) | + + + +---------+------+------+-------+ | spironolactone | TAKE ONE TABLET BY | 30 | 3 | 06/2 | 07/0 | Disco | | (ALDACTONE) 25 mg | MOUTH EVERY DAY, | tablet | | 5/20 | 1/20 | ntinu | | tablet | HOLD UNTIL YOU SEE | | | 20 | 20 | ed | | | YOUR PCP | | | | | (Dupl | | | | | | | | icate | | | | | | | | | | | | | | | | Entry | | | | | | | | (no | | | | | | | | Cance | | | | | | | | l Rx | | | | | | | | msg)) | + + + +---------+------+------+-------+ Active Problems + + + | Problem | Noted Date | + + + | Status post hip surgery | 05/24/2019 | + + + | Lumbar radiculopathy | 05/24/2019 | + + + | Bilateral leg pain | 08/13/2018 | + + + | Chronic congestive heart failure | 08/13/2018 | + + + | COPD (chronic obstructive pulmonary disease) | 08/13/2018 | + + + | History of hernia repair | 08/13/2018 | + + + | History of appendectomy | 08/13/2018 | + + + | Spinal stenosis of lumbar region | 08/13/2018 | + + + | Smoker | 11/19/2012 | + + + | Cardiomyopathy | 11/19/2012 | + + + | HTN (hypertension) | 11/19/2012 | + + + Encounters +--------+ + + + + | Date | Type | Specialty | Care Team | Description | +--------+ + + + + | 01/25/ | Procedure | Cardiology | Zach Pal | Paroxysmal atrial | | 2019 | visit | | MD Camilo | fibrillation (HCC) | | | | | Lorena Davis | | | | | | [place] | | +--------+ + + + + | 01/23/ | Telephone | Cardiology | Zach Pal | Appointment | | 2019 | | | MD Camilo | | +--------+ + + + + | 01/10/ | Office | Cardiology | Zach Pal | Paroxysmal atrial | | 2020 | Visit | | MD [facility]ilo | fibrillation (HCC) | | | | | | (Primary Dx); | | | | | | Nonischemic | | | | | | cardiomyopathy | | | | | | (HCC); Sleep apnea, | | | | | | unspecified type | +--------+ + + + + | 01/02/ | Refill | Cardiology | Kamla Can | Medication Refill | | 2019 | | | Lisseth, Title Manager | | +--------+ + + + + | 01/02/ | Refill | Cardiology | Lida Ventura DO | Medication Refill | | 2019 | | | | | +--------+ + + + + | 12/05/ | Hospital | Radiology | Soha Canales | Lumbar radiculopathy | | 2019 | Encounter | | [place] | | | | | | [employer] [facility] | | +--------+ + + + + | 11/16/ | Telephone | Cardiology | Kamla Can | Other (Epidural | | 2019 | | | Lisseth, Title Manager | Injection CLX ) | +--------+ + + + + | 11/08/ | Office | Physical Medicine | Soha Canales | Bilateral leg pain | | 2019 | Visit | and Rehabilitation | [place] | (Primary Dx); Status | | | | | | post hip surgery; | | | | | | Lumbar radiculopathy | +--------+ + + + + from Last 3 Months Immunizations + + + + | Name | Administration Dates | Next Due | + + + + | INFLUENZA TRIV | 05/05/2017 | | | W/PRES(PED/ADOL/ADUL | | | | T),MULTIDOSE | | | + + + + | PNEUMOCOCCAL | 07/11/2009 | | | POLYSACCHARIDE | | | | 23-VALENT (PPSV23) | | | + + + + Family History + + +--------+ + | Medical History | Relation | Name | Comments | + + +--------+ + | No known problems | Father | | | + + +--------+ + | No known problems | Maternal | | | | | Grandfath | | | | | er | | | + + +--------+ + | No known problems | Maternal | | | | | Grandmoth | | | | | er | | | + + +--------+ + | Arthritis | Mother | Jessica | | | | | [place] | | + + +--------+ + | Other (see comment) | Other | | leg arterial steno | + + +--------+ + | No known problems | Paternal | | | | | Grandfath | | | | | er | | | + + +--------+ + | No known problems | Paternal | | | | | Grandmoth | | | | | er | | | + + +--------+ + | Allergy (severe) | Sister | | | + + +--------+ + + + +--------+ + | Relation | Name | Status | Comments | + + +--------+ + | Father | | | | + + +--------+ + | Maternal Grandfather | | | | + + +--------+ + | Maternal Grandmother | | | | + + +--------+ + | Mother | Jessica | Alive | | | | Zwieg | | | + + +--------+ + | Other | | Alive | Uncle | + + +--------+ + | Other | uncle"leg | Alive | | | | arterial | | | | | steno | | | + + +--------+ + | Paternal Grandfather | | | | + + +--------+ + | Paternal Grandmother | | | | + + +--------+ + | Sister | | | | + + +--------+ + Social History + + + +--------+ + | Tobacco Use | Types | Packs/Day | Years | Date | | | | | Used | | + + + +--------+ + | Former Smoker | Cigarettes | 1 | 37 | 04/2019 | + + + +--------+ + + +---+---+---+ | Smokeless Tobacco: | | | | | Never Used | | | | + +---+---+---+ + + +---------+ + | Alcohol Use | Drinks/Week | oz/Week | Comments | + + +---------+ + | Yes | 2 Cans of beer | 2.0 | Alcoholic | | | | | Drinks/day: 3-4 | | | | | beers daily | | | | | Patient denies | | | | | drinking on a | | | | | regular basis | | | | | 09/07/2019 | + + +---------+ + + + + + | Alcohol Habits | Answer | Date Recorded | + + + + | How often do you have a drink containing | 2-4 times a month | 09/07/2019 | | alcohol? | | | + + + + | How many drinks containing alcohol do you | 1 or 2 | 09/07/2019 | | have on a typical day when you are | | | | drinking? | | | + + + + | How often do you have six or more drinks on | Never | 09/07/2019 | | one occasion? | | | + + + + + + + | Sex Assigned at | Date Recorded | | | | + + + | Not on file | | + + + Last Filed Vital Signs + + + + + | Vital Sign | Reading | Time Taken | Comments | + + + + + | Blood Pressure | 165/92 | 01/11/2020 10:29 AM | | | | | PDT | | + + + + + | Pulse | 89 | 01/11/2020 10:29 AM | | | | | PDT | | + + + + + | Temperature | 36.7 C (98.1 F) | 01/11/2020 10:29 AM | | | | | PDT | | + + + + + | Respiratory Rate | 16 | 11/09/2019 2:04 PM | | | | | PDT | | + + + + + | Oxygen Saturation | 99% | 01/11/2020 10:29 AM | | | | | PDT | | + + + + + | Inhaled Oxygen | - | - | | | Concentration | | | | + + + + + | Weight | 76.1 kg (167 lb 11.2 | 01/11/2020 10:29 AM | | | | oz) | PDT | | + + + + + | Height | 180.3 cm (5' 11") | 01/11/2020 10:29 AM | | | | | PDT | | + + + + + | Body Mass Index | 23.39 | 01/11/2020 10:29 AM | | | | | PDT | | + + + + + Plan of Treatment +--------+---------+ + + + | Date | Type | Specialty | Care Team | Description | +--------+---------+ + + + | 02/22/ | Office | Cardiology | Zach Pal | | 2019 | Visit | | [facility] [address] | | | | | | [address] | | | | | | [place] [address] | | | | | | [phone] | | | | | | | | +--------+---------+ + + + | 04/26/ | Office | Cardiology | Lorena Davis | | | 2019 | Visit | | [address] | | | | | | [address] | | | | | | [place] [address] | | | | | | [phone] | | | | | | | | +--------+---------+ + + + + + + + + | Health Maintenance | Due Date | Last | Comments | | | | Done | | + + + + + | Med Mgmt: Cr | 05/08/196 | | | | | 7 | | | + + + + + | Med Mgmt: HCT | | | | | | 7 | | | + + + + + | Med Mgmt: HGB | | | | | | 7 | | | + + + + + | Med Mgmt: K | | | | | | 7 | | | + + + + + | Med Mgmt: Na | | | | | | 7 | | | + + + + + | Medication | | | | | Management | 7 | | | + + + + + | Vaccine: | | | | | Dtap/Tdap/Td (1 - | 6 | | | | Tdap) | | | | + + + + + | Colorectal Cancer | | | | | Screening | 7 | | | | (Colonoscopy) | | | | + + + + + | Vaccine: Zoster (1 | | | | | of 2) | 7 | | | + + + + + | Adult Annual | | | | | Wellness Visit | 8 | | | + + + + + | Vaccine: Influenza | | 05/05/20 | | | (#1) | 0 | 17 | | + + + + + | Vaccine: | Completed | 07/11/20 | | | Pneumococcal 19-64 | | 09 | | + + + + + Procedures + +--------+ + + + | Procedure Name | Priori | Date/Time | Associated Diagnosis | Comments | | | ty | | | | + +--------+ + + + | ECG 12 LEAD | Routin | 01/11/2020 | Paroxysmal atrial | Results for this | | | e | 10:25 AM | fibrillation (HCC) | procedure are in the | | | | PDT | | results section. | + +--------+ + + + | FL EPIDURAL STEROID | Routin | 12/06/2019 | Lumbar | Results for this | | INJECTION LUMBAR | e | 2:06 PM | radiculopathy | procedure are in the | | TRANSFORAMINAL | | PDT | | results section. | + +--------+ + + + from Last 3 Months Results ECG 12 lead (01/11/2020 10:25 AM PDT) + + + + + + | Component | Value | Ref Range | Performed | Pathologist | | | | | At | Signature | + + + + + + | VENTRICULAR | 84 | BPM | [facility] | | | RATE EKG | | | | | + + + + + + | ATRIAL RATE | 84 | BPM | [facility] | | + + + + + + | P-R | 152 | ms | [facility] | | | INTERVAL | | | | | + + + + + + | QRS | 72 | ms | [facility] | | | DURATION | | | | | + + + + + + | Q-T | 396 | ms | [facility] | | | INTERVAL | | | | | + + + + + + | Q-T | 467 | ms | [facility] | | | INTERVAL | | | | | | (CORRECTED) | | | | | + + + + + + | P WAVE AXIS | 76 | degrees | [facility] | | + + + + + + | QRS AXIS | 77 | degrees | [facility] | | + + + + + + | T AXIS | 102 | degrees | [facility] | | + + + + + + | INTERPRETAT | Please refer to | | [facility] | | | ION TEXT | Providers office visit | | | | | | note for Providers | | | | | | Interpretation. | | | | | | Confirmed by ROMI | | | | | | ZACH HOGAN ([id number]) on | | | | | | 01/16/2020 3:26:44 PM | | | | + + + + + + + + | Specimen | + + | | + + + + + | Narrative | Performed At | + + + | | | + + + + +---------+ + + | Performing | Address | City/State/Zipcode | Phone Number | | Organization | | | | + +---------+ + + | [facility] | | | | + +---------+ + + [place] JEREMI Lumbar Sacral Transforaminal (12/06/2019 2:06 PM PDT) + + | Specimen | + + | | + + + + -+ | Narrative | Performed At | + + -+ | 12/06/2019 | [facility] | | Bilateral Transforaminal Epidural Steroid Injections Diagnosis: Lumbar | | | radiculopathy ICD-10 Code M54.16 Erwin Beth presents to the | | | fluoroscopy suite for fluoroscopically-guided bilateral L4-L5 | | | transforaminal epidural steroid injections as part of conservative | | | management for chronic pain with lumbar radiculopathy and degenerative | | | disc disease. After informed consent was obtained, the patient lay in | | | the prone position on the fluoroscopy table. The areas were | | | identified under fluoroscopic guidance. The areas were prepped and | | | draped in sterile fashion. A 25-gauge, 1.5-inch needle was inserted | | | into each region and approximately 3 mL of buffered 1% lidocaine was | | | infused. Then, a 22-gauge spinal needle was inserted into the | | | posterior superior transforaminal space bilaterally and advanced into | | | the epidural space under fluoroscopic guidance. Confirmation into the | | | epidural space was obtained with infusion of approximately 1 mL of | | | Omnipaque contrast which showed epidural flow as well as nerve sheath | | | flow. Then, a combination of 2 mL of 1% lidocaine and 1.5 mL of 10 | | | mg/mL dexamethasone was infused, divided between the two sides. The | | | patient tolerated the procedure well without complications. Pre- and | | | post-procedure blood pressures were stable. The patient was given | | | verbal as well as written follow-up instructions. Prior to the start | | | of the procedure, the following were performed and/or verified, | | | including correct patient identity, correct site/side marked and | | | visible, agreement on the procedure to be done, correct patient | | | positioning and an accurate procedure consent form. Any safety | | | precautions based on clinical history and/or medication use have been | | | addressed. I personally performed the procedure above. Estimated blood | | | loss: MinimalComplications: NoneFindings: As expectedAnesthesia: | | | Local 1% Lidocaine | | |visible, agreement on the procedure to be done, correct patient | | |positioning and an accurate procedure consent form. Any safety precautions | | |based on clinical history and/or medication use have been addressed. I | | |personally performed the procedure above. | | | | | |Estimated blood loss: Minimal | | |Complications: None | | |Findings: As expected | | |Anesthesia: Local 1% Lidocaine | | | | | | | | + + -+ + +---------+ + + | Performing | Address | City/State/Zipcode | Phone Number | | Organization | | | | + +---------+ + + | [facility] | | | | + +---------+ + + from Last 3 Months Insurance + +--------+ +--------+ +---------+--------+ | Payer | Benefi | Subscriber | Effect | Phone | Address | Type | | | t Plan | ID | moon | | | | | | / | | Dates | | | | | | Group | | | | | | + +--------+ +--------+ +---------+--------+ | MEDICARE | MEDICA | [id number] | 11/11/19 | [phone] | | Medica | | | RE | | 19-Pre | 5 | | re | | | PART A | | sent | | | | | | AND B | | | | | | + +--------+ +--------+ +---------+--------+ | MEDICARE | MEDICA | [id number] | 11/11/19 | [phone] | | Medica | | | RE | | 19-Pre | 5 | | re | | | PART A | | sent | | | | | | AND B | | | | | | + +--------+ +--------+ +---------+--------+ + +--------+ +--------+ + + | Guarantor Name | Accoun | Relation to | Date | Phone | Billing Address | | | t Type | Patient | of | | | | | | | | | | + +--------+ +--------+ + + | Erwin Beth W | Person | Self [birth year] | [address] | | | al/Fam | | 1966 | [phone] | [address] [place], [place] | | | luis | | | 1 (Home) | [address] | + +--------+ +--------+ + + | Erwin Beth W | Person | Self [birth year] | [address] | | | al/Fam | | 1966 | [phone] | [address] [place], [place] | | | luis | | | 1 (Home) | [address] | + +--------+ +--------+ + + Advance Directives + + + + + | Type | Date Recorded | Patient | Explanation | | | | Developmental Therapist | | + + + + + | Power of | | | | | Lift Driver | | | | + + + + + | Advance | 12/06/2019 11:59 | | | | Directive | AM | | | + + + + +
--- OUTSIDE RECORDS SUMMARY | ~2020-02-05 | XMS | Encounter Summary ---
Demographics + + + | Address | [address] [facility] [address] | | | [place] [address] | + + + | Home Phone | | + + + | Preferred Language | Unknown | + + + | Marital Status | | + + + | Methodist Affiliation | 1077 | + + + | Race | Unknown | + + + | Ethnic Group | Unknown | + + + Author + + + | Author | [facility] | | | and [place] | + + + | Organization | [facility] | | [...] [place] | | | | | [address] | | + + + + + Care Team Providers + +------+ + | Care Therapy Coordinator Name | Role | Phone | + +------+ + | Bess Alba | PCP | | + +------+ + Reason for Visit + + + | Reason | Comments | + + + | Medication Refill | | + + + Encounter Details +--------+--------+ + + + | Date | Type | Department | Care Team | Description | +--------+--------+ + + + | 01/02/ | Refill | [facility] | Lida Ventura DO | Medication Refill | | 2020 | | CARDIOLOGY [place] | [address] | | | | | [address] | [place], [place] | | | | | [place] [facility] | [address] | | | | | [place] | | | | | | [address] | | | | | | [phone] | | | +--------+--------+ + + + Social History + + [...] | Cardiology | Zach Pal | | | 2020 | Visit | | [facility] [address] | | | | | | [address] | | | | | | [place] [address] | | | | | | [phone] | | | | | | | | +--------+---------+ + + + | 04/26/ | Office | Cardiology | Lorena Davis | | | 2019 | Visit | | [address] | | | | | | [address] | | | | | | [place] [address] | | | | | | [phone] | | | | | | | | +--------+---------+ + + + documented as of this encounter Visit Diagnoses Not on filedocumented in this encounter"
--- OUTSIDE RECORDS SUMMARY | ~2020-02-05 | XMS | Encounter Summary ---
Demographics + + + | Address | [address] [facility] | | | [place] [address] | + + + | Home Phone | | + + + | Preferred Language | Unknown | + + + | Marital Status | | + + + | Oriental Orthodox Affiliation | 1077 | + + + [...] [place] | | | | | [address] | | + + + + + Care Team Providers + +------+ + | Care Teasel Gig Operator Name | Role | Phone | + +------+ + | Ugo Lux DO | JENNIFER | | + +------+ + Encounter Details +--------+ + + + + | Date | Type | Department | Care Team | Description | +--------+ + + + + | 07/23/ | Abstract | [facility] | Provider, | | | 2019 | | PHYSIATRY [address] | [address] | | | | | [address] | [place] | | | | | [place] | [facility] [place] [address] | | | | | [address] | | | | | | [phone] | | | +--------+ + + + [...] Cardiology | Zach Pal | | | 2019 | Visit | | [address] | | | | | | [address] | | | | | | [place] [address] | | | | | | [phone] | | | | | | | | +--------+---------+ + + + | 04/26/ | Office | Cardiology | Lorena Davis | | | 2020 | Visit | | [address] | | | | | | [address] | | | | | | [place] [address] | | | | | | [phone] | | | | | | | | +--------+---------+ + + + documented as of this encounter Visit Diagnoses Not on filedocumented in this encounter"
--- OUTSIDE RECORDS SUMMARY | ~2020-02-05 | XMS | Encounter Summary ---
Demographics + + + | Address | [address] [facility] | | | [place] [address] | + + + | Home Phone | | + + + | Preferred Language | Unknown | + + + | Marital Status | | + + + | Latter Day Affiliation | 1077 | + + + | Race | Unknown | + + + | Ethnic Group | Unknown | + + + Author + + + | Author | [facility] | | | and [place] | + + + | Organization | [facility] | | [...] [place] | | | | | [address] | | + + + + + Care Team Providers + +------+ + | Care Strip Machine Tender Name | Role | Phone | + +------+ + | Bess Alba | PCP | | + +------+ + Reason for Visit + +--------+ + | Reason | Onset | Comments | | | Date | | + +--------+ + | Results, Imaging | 09/27/ | | | | 2019 | | + +--------+ + Encounter Details +--------+ + + + + | Date | Type | Department | Care Team | Description | +--------+ + + + + | 09/27/ | Telephone | [facility] | Jericho Chavez, | Results, Imaging | | 2018 | | PHYSIATRY [address] | PA-C [address] | | | | | [address] | [address] | | | | | [place] | [place] [address] | | | | | [address] | [phone] | | | | | [phone] | | | +--------+ + + + [...] this encounter Miscellaneous Notes Telephone Encounter - Tiffani Waldron - 10/12/2018 2:40 PM PDTPatient calling to see wh at steps are next as far as getting a referral to a neurosurgeon to have surgery. Patient s tated he is in a lot of pain still and would like to come in and talk to Jericho, I did schedu le him next available and added him to wait list. Patient also stated he has been taking RX and hasn't really felt any relief. Patient was advised of Jericho's message and verbalized un derstanding. elephone Encounter - Karen Mooney, Air Cargo Ground Crew Supervisor - 09/29/2018 4:47 PM PDTAttempted to contac t patient to relay Jericho's message. Patient did not answer so a message was left requesting a call back to discuss. Electronically signed by Monica Nobles Assistant at 09/29 4:48 PM PDTTelephone Encounter - Karen Mooney, Air Cargo Ground Crew Supervisor - 09/29/2018 4: 45 PM PDTPer Jericho Chavez PA-C: Injection ordered and medication ordered. Start with 30 mg once daily for 2 weeks, then increase to 60 mg once daily as tolerated; ma ximum dose: 60 mg/day. Take medication at bedtime. Follow up in 4 weeks (via phone call) to review medication tolerance and symptom control. Possible side effects: Drowziness, nausea, abdominal discomfort, weight loss ~ 5 lbs. Call PCP or our office if suicidal thoughts occur. elephone Encounter - Karen Mooney Medica l Consultant Teacher - 09/29/2018 10:34 AM PDTAttempted to contact patient per Jericho's request. I inq uired whether the patient wanted to do injections as well. He stated he did want to do both the injections and medications. elephone Encounter - Tiffani Waldron - 09/29/2018 9:54 AM PDT Erwin Cardoza calling to get imaging results, patient was read results and verbalized un derstanding, he would also like to start on the RX Cymbalta please advise. Electronically si gned by Tiffani Waldron at 09/29/2018 9:57 AM PDTTelephone Encounter - Karen Mooney Medical Assistant - 09/27/2018 3:54 PM PDTAttempted to contact patient with the results of his lumbar MRI, patient did not answer so a message was left requesting a call back to [facility]. e lephone Encounter - Karen Mooney Medical Assistant - 09/27/2018 3:53 PM PDTPer Jericho hughes PA-C: There does seem to be bilateral L4/5 nerve root impingement. I would recommend a bilateral L4-5 TF JEREMI. In the meantime, if patient would like to try neuropathic pain medication we can place an r x order. Medication options include gabapentin, nortriptyline and Cymbalta. We can try Cymbalta first if he is interested. Thanks, Jericho Chavez PA-C, 09/27/18 elephone Encounter - Angela Diana - 09/27/2018 12:00 PM PDTP atient had MRI done last week, would like to know if Jericho has had a chance to look over emerson ges. Would like a call back with results. Please advise documented in this encounter Plan of Treatment +--------+---------+ + + + | Date | Type | Specialty | Care Team | Description | +--------+---------+ + + + | 02/22/ | Office | Cardiology | Zach Pal | | | 2019 | Visit | | [address] | | | | | | [address] | | | | | | [place] [address] | | | | | | [phone] | | | | | | | | +--------+---------+ + + + | 04/26/ | Office | Cardiology | Lorena Davis | | | 2019 | Visit | | [address] | | | | | | [address] | | | | | | [place] [address] | | | | | | [phone] | | | | | | | | +--------+---------+ + + + documented as of this encounter Visit Diagnoses Not on filedocumented in this encounter"
--- OUTSIDE RECORDS SUMMARY | ~2020-02-05 | XMS | Encounter Summary ---
Demographics + + + | Address | [address] [facility] [address] | | | [place] [address] | + + + | Home Phone | | + + + | Preferred Language | Unknown | + + + | Marital Status | | + + + | Catholic Affiliation | 1077 | + + + | Race | Unknown | + + + | Ethnic Group | Unknown | + + + Author + + + | Author | [facility] | | | and [place] | + + + | Organization | [facility] | | | [...] [place] | | | | | [address] | | + + + + + Care Team Providers + +------+ + | Care Hog Tender Name | Role | Phone | [...] | MED CTR EXTERNAL | [address] | | | | | IMAGING [address] | [address] | | | | | [address] | [place] [address] | | | | | [place] [address] | | | | | | [phone] | | | +--------+ + + + [...] [address] | | | | | | [place] [address] | | | | | | [phone] | | | | | | | | +--------+---------+ + + + | 04/26/ | Office | Cardiology | Lorena Davis | | | 2019 | Visit | | [address] | | | | | | [address] | | | | | | [place] [address] | | | | | | [phone] | | | | | | | [...]
--- OUTSIDE RECORDS SUMMARY | ~2020-02-05 | XMS | Encounter Summary ---
Demographics + + + | Address | [address] [facility] | | | [place] [address] | + + + | Home Phone | | + + + | Preferred Language | Unknown | + + + | Marital Status | | + + + | Hinduism Affiliation | 1077 | + + + | Race | Unknown | + + + | Ethnic Group | Unknown | + + + Author + + + | Author | [facility] | | | and [place] | + + + | Organization | [facility] | | [...] [place] | | | | | [address] | | + + + + + Care Team Providers + +------+ + | Care Shelter Advocate Name | Role | Phone | + +------+ + | Bess Alba | PCP | | + +------+ + Reason for Visit +--------+--------+ + | Reason | Onset | Comments | | | Date | | +--------+--------+ + | Other | 08/04/ | | | | 2020 | | +--------+--------+ + Encounter Details +--------+ + + + + | Date | Type | Department | Care Team | Description | +--------+ + + + + | 08/04/ | Telephone | [facility] | Zach Pal | Other | | 2020 | | CARDIOLOGY [place] | [address] | | | | | [address] | [address] [facility] | | | | | [place], [place] | [place] [address] | | | | | [address] | [phone] | | | | | [phone] | | | +--------+ + + + [...] this encounter Miscellaneous Notes Telephone Encounter - Franchesca Childs - 08/04/2019 2:53 PM PSTLeft msg for pt to call b ack to schedule new pt apt w/ Kae. Franchesca Childs documented in this enc ounter Plan of Treatment +--------+---------+ + + + | Date | Type | Specialty | Care Team | Description | +--------+---------+ + + + | 02/22/ | Office | Cardiology | Zach Pal | | 2019 | Visit | | [address] | | | | | | [address] | | | | | | [facility] [address] | | | | | | [phone] | | | | | | | | +--------+---------+ + + + | 04/26/ | Office | Cardiology | Lorena Davis | | | 2019 | Visit | | [address] | | | | | | [address] | | | | | | [place] [address] | | | | | | [phone] | | | | | | | | +--------+---------+ + + + documented as of this encounter Visit Diagnoses Not on filedocumented in this encounter"
--- OUTSIDE RECORDS SUMMARY | ~2020-02-05 | XMS | Encounter Summary ---
Demographics + + + | Address | [address] [facility] | | | [place] [address] | + + + | Home Phone | | + + + | Preferred Language | Unknown | + + + | Marital Status | | + + + | Presybeterian Affiliation | 1077 | + + + | Race | Unknown | + + + | Ethnic Group | Unknown | + + + Author + + + | Author | [facility] | | | and [place] | + + + | Organization | [facility] | | | [...] [place] | | | | | [address] | | + + + + + Care Team Providers + +------+ + | Care Foxing Painter Name | Role | Phone | + [...] | | | [address] | [place] [address] | | | | | [place] [address] | | | | | | [phone] | | | +--------+ + + + [...] [address] | | | | | | [place] [address] | | | | | | [phone] | | | | | | | | +--------+---------+ + + + | 04/26/ | Office | Cardiology | Lorena Davis | | | 2019 | Visit | | [address] | | | | | | [address] | | | | | | [place] [address] | | | | | | [phone] | | | | | | | | +--------+---------+ + + + documented as of this encounter Procedures + +--------+ + + + | Procedure Name | Priori | Date/Time | Associated Diagnosis | Comments | | | ty | | | | + +--------+ + + + | XR CERVICAL SPINE 2 | Routin | 02/11/2010 | | Results for this | | OR 3 VIEWS | e | 7:55 PM | | procedure are in the | | | | PDT | | results section. | + +--------+ + + + documented in this encounter Results XR Cervical Spine 2 or 3 Views (02/11/2010 7:55 PM PDT) + + | Specimen | [...]
--- OUTSIDE RECORDS SUMMARY | ~2020-02-05 | XMS | Encounter Summary ---
Demographics + + + | Address | [address] [facility] | | | [place] [address] | + + + | Home Phone | | + + + | Preferred Language | Unknown | + + + | Marital Status | | + + + | Tenriism Affiliation | 1077 | + + + | Race | Unknown | + + + | Ethnic Group | Unknown | + + + Author + + + | Author | [facility] | | | and [place] | + + + | Organization | [facility] | | | [...] [place] | | | | | [address] | | + + + + + Care Team Providers + +------+ + | Care Project Administrative Assistant Name | Role | Phone | + [...] | (Primary Dx) | | | | [address] | [address] [place] | | | | | [place], [place] | [place] [address] | | | | | [address] | [phone] | | | | | [phone] | | | +--------+ + + + [...] [address] | | | | | | [place] [address] | | | | | | [phone] | | | | | | | | +--------+---------+ + + + | 04/26/ | Office | Cardiology | Lorena Davis | | | 2020 | Visit | | [address] | | | | | | [address] | | | | | | [place] [address] | | | | | | [phone] | | | | | | | [...]
--- OUTSIDE RECORDS SUMMARY | ~2020-02-05 | XMS | Encounter Summary ---
Demographics + + + | Address | [address] [facility] | | | [place] [address] | + + + | Home Phone | | + + + | Preferred Language | Unknown | + + + | Marital Status | | + + + | Jain Affiliation | 1077 | + + + | Race | Unknown | + + + | Ethnic Group | Unknown | + + + Author + + + | Author | [facility] | | | and [place] | + + + | Organization | [facility] | | | [...] [place] | | | | | [address] | | + + + + + Care Team Providers + +------+ + | Care Electrical Engineering Draftsperson Name | Role | Phone | + [...] Description | +--------+--------+ + + + | 08/01/ | Refill | [facility] | Lida Ventura DO | Medication Refill | | 2020 | | CARDIOLOGY [place] | [address] | | | | | [address] | [place], [place] | | | | | [place], [place] | [address] | | | | | [address] | | | | | | [phone] | | | +--------+--------+ + + + [...] [address] | | | | | | [place] [address] | | | | | | [phone] | | | | | | | | +--------+---------+ + + + | 04/26/ | Office | Cardiology | Lorena Davis | | | 2020 | Visit | | [address] | | | | | | [address] | | | | | | [place] [address] | | | | | | [phone] | | | | | | | | +--------+---------+ + + + documented as of this encounter Visit Diagnoses Not on filedocumented in this encounter"
--- OUTSIDE RECORDS SUMMARY | ~2020-02-05 | XMS | Encounter Summary ---
Demographics + + + | Address | [address] [facility] | | | [place] [address] | + + + | Home Phone | | + + + | Preferred Language | Unknown | + + + | Marital Status | | + + + | Orthodoxy Affiliation | 1077 | + + + | Race | Unknown | + + + | Ethnic Group | Unknown | + + + Author + + + | Author | [facility] | | | and [place] | + + + | Organization | [facility] | | | [...] [place] | | | | | [address] | | + + + + + Care Team Providers + +------+ + | Care Sales Planning Coordinator Name | Role | Phone | + +------+ + | Bess Alba | PCP | | + +------+ + Encounter Details +--------+ + + + + | Date | Type | Department | Care Team | Description | +--------+ + + + + | 10/16/ | Imaging | [facility] | Provider, | | | 2020 | Exam | MED CTR EXTERNAL | [address] | | | | | IMAGING [address] | [address] | | | | | [address] | [place] [address] | | | | | [place] [address] | | | | | | [phone] | | | +--------+ + + + [...] [address] | | | | | | [place] [address] | | | | | | [phone] | | | | | | | | +--------+---------+ + + + | 04/26/ | Office | Cardiology | Lorena Davis | | | 2019 | Visit | | [address] | | | | | | [address] | | | | | | [place] [address] | | | | | | [phone] | | | | | | | | +--------+---------+ + + + documented as of this encounter Procedures + +--------+ + + + | Procedure Name | Priori | Date/Time | Associated Diagnosis | Comments | | | ty | | | | + +--------+ + + + | XR CHEST 2 VIEWS | Routin | 07/13/2019 | | Results for this | | | e | 12:00 AM | | procedure are in the | | | | PST | | results section. | + +--------+ + + + documented in this encounter Results XR Chest 2 Vws (07/13/2019 12:00 AM PST) + + | Specimen | [...]
--- OUTSIDE RECORDS SUMMARY | ~2020-02-05 | XMS | Encounter Summary ---
Demographics + + + | Address | [address] [facility] | | | [place] [address] | + + + | Home Phone | | + + + | Preferred Language | Unknown | + + + | Marital Status | | + + + | Denominational Affiliation | 1077 | + + + | Race | Unknown | + + + | Ethnic Group | Unknown | + + + Author + + + | Author | [facility] | | | and [place] | + + + | Organization | [facility] | | [...] [place] | | | | | [address] | | + + + + + Care Team Providers + +------+ + | Care Parts Product Analyst Name | Role | Phone | + +------+ + | Bess Alba | PCP | | + +------+ + Reason for Visit +--------+--------+ + | Reason | Onset | Comments | | | Date | | +--------+--------+ + | Other | 11/16/ | Epidural Injection CLX | | | 2019 | | +--------+--------+ + Encounter Details +--------+ + + + + | Date | Type | Department | Care Team | Description | +--------+ + + + + | 11/16/ | Telephone | [facility] | Kamla Can | Dennis (Epidural | | 2019 | | CARDIOLOGY [place]ACHEL [place]ane[place] Auger Supervisor | Injection CLX ) | | | | [address] | | | | | | [place] | | | | | | [address] | | | | | | [phone] | | | +--------+ + + + [...] this encounter Miscellaneous Notes Telephone Encounter - Kamla Can Auger Supervisor - 2019 1:57 PM PDTCall m seth to patient's physiatry clinic to advise of Dr. Venutra's notes. Clinic stated understanding . JDW:CLAIM CLINICIAN-AAMA. el ephone Encounter - Kamla Can Auger Supervisor - 2019 1:56 PM PDT----- Mess age from Lida Ventura DO sent at 11/16/2019 2:10 PM PDT ----- OK to hold Eliquis for 3 days prior to his procedure. Thanks. ----- Message ----- From: Kamla Can Auger Supervisor Sent: 11/16/2019 9:31 AM PDT To: DO Lynn Enriquez, Quick question, This patient is getting a Epidural steroid injection. Is he ok to stop eliquis 3 days prior to the procedure from your standpoint? Please advise. Thank you! message from Ricardo At physiatry [facility]. [phone] doc umented in this encounter Plan of Treatment +--------+---------+ + + + | Date | Type | Specialty | Care Team | Description | +--------+---------+ + + + | 02/22/ | Office | Cardiology | Zach Pal | | 2019 | Visit | | [address] | | | | | | [address] | | | | | | [place] [address] | | | | | | [phone] | | | | | | | | +--------+---------+ + + + | 04/26/ | Office | Cardiology | Lorena Davis | | 2019 | Visit | | [address] | | | | | | [address] | | | | | | [place] [address] | | | | | | [phone] | | | | | | | | +--------+---------+ + + + documented as of this encounter Visit Diagnoses Not on filedocumented in this encounter"
--- OUTSIDE RECORDS SUMMARY | ~2020-02-05 | XMS | Encounter Summary ---
Demographics + + + | Address | [address] [facility] | | | [place] [address] | + + + | Home Phone | | + + + | Preferred Language | Unknown | + + + | Marital Status | | + + + | Jehovah'S Witness Affiliation | 1077 | + + + | Race | Unknown | + + + | Ethnic Group | Unknown | + + + Author + + + | Author | [facility] | | | and [place] | + + + | Organization | [facility] | [...] [place] | | | | | [address] | | + + + + + Care Team Providers + +------+ + | Care District Sales Manager Name | Role | Phone | + +------+ + | Bess Alba | PCP | | + +------+ + Reason for Visit + +--------+ + | Reason | Onset | Comments | | | Date | | + +--------+ + | Appointment | 10/04/ | Cancel | | | 2019 | | + +--------+ + Encounter Details +--------+ + + + + | Date | Type | Department | Care Team | Description | +--------+ + + + + | 10/04/ | Telephone | [facility] | Diane Damon, | Appointment (Cancel) | | 2019 | | NEUROLOGY [address] | MD [address] | | | | [address] | [facility] | | | | | [place], [place] | [place] [address] | | | | | [address] | [phone] | | | | | [phone] | | | +--------+ + + + [...] Telephone Encounter - Emma Brown CMA - 10/13/2019 2:44 PM PDTCalled patient yvrose decker inbox message. Patient would like to hold off with rescheduling at this moment. He stat ed he would call our office back in a few months. elephone Encounter - Diane Damon MD - 10/13/2019 12: 17 PM PDTHe should check with his PCP for any urgent needs. Virtual visit okay. If needing inperson, not for 3 months. Electronically signed by Diane Damon MD at 08/2019 12:18 PM PDTTelephone Encounter - Emma Brown CMA - 10/13/2019 8:38 AM PDTC alled patient back regarding inbox message. He wanted to reschedule New patient appt. Inform ed patient I would call him back once obtain the go to from Dr. Damon as I am unable to reschedule at this time. Patient stated understanding. (DO NOT RESCHEDULE UNLESS APPROVED BY DR. Salazarectronically signed by Emma hall CMA at 10/13/2019 8:42 AM PDTTelephone Encounter - Eri Michel - 10/12/2019 4:11 PM PDTDannu, is calling again for Appointment (Cancel) and would like a call back. Additional Call Details: Calling again to reschedule cancelled appointment. Please call mo donal baer elephone Gloria Jackson - 10/05/2019 3:58 PM PDTDanny, is calling regarding Appointment (Can genia) and would like a call back. Additional Call Details: Calling to cancel 10/05 Appointment. Does not wish to reschedule a t this time. If this is a symptom based call, was patient offered triage? Not Applicable If this is a symptom based call and you were unable to immediately transfer the call to a katelin hernandez orthopedic radiologic technologist was caller made aware that if at any time he feels it is an emergency they yimi uld call 911 or go to the nearest emergency room? not applicable documented in this encounter Plan of Treatment +--------+---------+ + + + | Date | Type | Specialty | Care Team | Description | +--------+---------+ + + + | 02/22/ | Office | Cardiology | Zach Pal | | | 2019 | Visit | | [address] | | | | | | [address] | | | | | | [place] [address] | | | | | | [phone] | | | | | | | | +--------+---------+ + + + | 04/26/ | Office | Cardiology | Lorena Davis | | | 2019 | Visit | | [address] | | | | | | [address] | | | | | | [place] [address] | | | | | | [phone] | | | | | | | | +--------+---------+ + + + documented as of this encounter Visit Diagnoses Not on filedocumented in this encounter"
--- OUTSIDE RECORDS SUMMARY | ~2020-02-05 | XMS | Encounter Summary ---
Demographics + + + | Address | [address] [facility] | | | [place] [address] | + + + | Home Phone | | + + + | Preferred Language | Unknown | + + + | Marital Status | | + + + | Yazidism Affiliation | 1077 | + + + | Race | Unknown | + + + | Ethnic Group | Unknown | + + + Author + + + | Author | [facility] | | | and [place] | + + + | Organization | [facility] | | | [...] [place] | | | | | [address] | | + + + + + Care Team Providers + +------+ + | Care Protective Clothing Issuer Name | Role | Phone | + +------+ + | Bess Alba | PCP | | + +------+ + Reason for Visit + +--------+ + | Reason | Onset | Comments | | | Date | | + +--------+ + | Medication Refill | 01/02/ | | | | 2019 | | + +--------+ + Encounter Details +--------+--------+ + + + | Date | Type | Department | Care Team | Description | +--------+--------+ + + + | 01/02/ | Refill | [facility] | Kamla Can | Medication Refill | | 2019 | | CARDIOLOGY RACHEL [place], Deck And Hull Assembler | | | | | [address] | | | | | | [place] | | | | | | [address] | | | | | | [phone] | | | +--------+--------+ + + + [...] [address] | | | | | | [place] [address] | | | | | | [phone] | | | | | | | | +--------+---------+ + + + | 04/26/ | Office | Cardiology | Lorena Davis | | | 2019 | Visit | | [address] | | | | | | [address] [place] | | | | | | [place] [address] | | | | | | [phone] | | | | | | | | +--------+---------+ + + + documented as of this encounter Visit Diagnoses Not on filedocumented in this encounter"
--- OUTSIDE RECORDS SUMMARY | ~2020-02-05 | XMS | Encounter Summary ---
Demographics + + + | Address | [address] [facility] | | | [place] [address] | + + + | Home Phone | | + + + | Preferred Language | Unknown | + + + | Marital Status | | + + + | Sikhism Affiliation | 1077 | + + + | Race | Unknown | + + + | Ethnic Group | Unknown | + + + Author + + + | Author | [facility] | | | and [place] | + + + | Organization | [facility] | | | [...] [place] | | | | | [address] | | + + + + + Care Team Providers + +------+ + | Care Machine Fancy Stitcher Name | Role | Phone | + +------+ + | Bess Alba | PCP | | + +------+ + Reason for Referral Diagnostic/Screening (Routine) + +--------+ + + + + | Status | Reason | Specialty | Diagnoses / | Referred By | Referred To | | | | | Procedures | Contact | Contact | + +--------+ + + + + | Authorized | | | Diagnoses | Ventura, | [address] | | | | | Chronic | Lida, | [facility] | | | | | congestive | [address] | | | | | heart | [address] | [address] | | | | | failure, | [address] | [place], [place] | | | | | unspecified | [place], [place] | [address] | | | | | heart | [address] | Phone: | | | | | failure type | Phone: | [phone] | | | | | (HCC) | [phone] | Fax: | | | | | Procedures | Fax: | [phone] | | | | | NM Cardiac | [phone] | | | | | | MUGA [...] + +--------+ + + + + | Authorized | | Cardiology | Diagnoses | Anjali, | Audrey, | | | | | Heart | ALAYNA Kellogg | DO [place] | | | | | failure, | [address] | [address] | | | | | unspecified | St | [address] | | | | | ([facility]) | Ervin, | [place], [place] | | | | | Procedures | [place] [address] | [address] Phone: | | | | | Consult | Phone: | [phone] | | | | | | [phone] | Fax: | | | | | | Fax: | [phone] | | | | | | [phone] | | + +--------+ + + + + Encounter Details +--------+---------+ + + + | Date | Type | Department | Care Team | Description | +--------+---------+ + + + | 06/24/ | Office | [facility] | Ldia Ventura DO | Chronic congestive | | 2019 | Visit | CARDIOLOGY [place] | [address] | heart failure, | | | | [address] | [place], [place] | unspecified heart | | | | [place] | [address] | failure type (HCC) | | | | [address] | | (Primary Dx); | | | | [phone] | | Essential | | | | [...] Ventura DO - 06/24/2019 12:00 PM PST [facility]ly [facility] Cardiology Cardiology Consult Note Reason for [...] otitis externa Acute sinusitis Alcoholism (HCC) Arthritis Arthritis Benign essential hypertension Broken bones Cardiomyopathy (HCC) Cataract Cephalgia Chest pain CHF (congestive heart failure) (HCC) CHF (congestive heart failure) (HCC) CHF (congestive heart failure) ([facility]) 04/2019 Chicken pox DDD (degenerative disc disease), [...] level: Not on file 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 Social Needs Financial resource strain: Not on [...] file Gets together: Not on file Attends religion service: Not on file Active member of [...] Description | +--------+---------+ + + + | 08/13/ | Office | Cardiology | Zach Pal | | | 2019 | Visit | | [address] | | | | | | [address] | | | | | | [place] [address] | | | | | | [phone] | | | | | | | | +--------+---------+ + + + | 04/26/ | Office | Cardiology | Susan Lorena | | | 2019 | Visit | | [address] | | | | | | [address] | | | | | | [place] [address] | | | | | | [phone] | | | | | | | [...] | + +--------+ + + + | DIAGNOSTIC REPORT - | | 08/04/2019 | | Results for this | | EXTERNAL SCAN | | 12:00 AM | | procedure are in the | | | | PST | | results section. | + +--------+ + + + | IMAGING REPORT - | | 07/11/2019 | | Results for this | | EXTERNAL SCAN | | 12:00 AM | | procedure are [...] + + documented in this encounter Results DIAGNOSTIC REPORT - EXTERNAL SCAN (08/04/2019 12:00 AM PST) + + + | Narrative | Performed At | + + + | Ordered by an | | | unspecified provider. | | + + + IMAGING REPORT - EXTERNAL SCAN (07/11/2019 12:00 AM PST) + + + | Narrative | Performed At | + + + | Ordered by an | | | unspecified provider. | | + + + documented in this encounter [...]
--- OUTSIDE RECORDS SUMMARY | ~2020-02-05 | XMS | Encounter Summary ---
Demographics + + + | Address | [address] [facility] | | | [place] [address] | + + + | Home Phone | | + + + | Preferred Language | Unknown | + + + | Marital Status | | + + + | Sabianist Affiliation | 1077 | + + + | Race | Unknown | + + + | Ethnic Group | Unknown | + + + Author + + + | Author | [facility] | | | and [place] | + + + | Organization | [facility] | | | [...] [place] | | | | | [address] | | + + + + + Care Team Providers + +------+ + | Care Tapper Supervisor Name | Role | Phone | [...] | | | | | | [place] [address] | [address] | | | | | | Phone: | Phone: | | | | | | [phone] | [phone] | | | | | | Fax: | Fax: | | | | | | [phone] | [phone] | +--------+ + + + + + Encounter Details +--------+ + + + + | Date | Type | Department | Care Team | Description | +--------+ + + + + | 04/03/ | Orders Only | [facility] [place] | Jericho Chavez, | Lumbar radiculopathy | | 2019 | | PHYSIATRY [address] | PA-C [address] | (Primary Dx) | | | | [address] | [address] [place] | | | | | [place], [place] | [place] [address] | | | | | [address] | [phone] | | | | | [phone] | | | +--------+ + + + [...] [address] | | | | | | [place] [address] | | | | | | [phone] | | | | | | | | +--------+---------+ + + + | 04/26/ | Office | Cardiology | Lorena Davis | | | 2019 | Visit | | [address] | | | | | | [address] | | | | | | [place] [address] | | | | | | [phone] | | | | | | | [...]
--- OUTSIDE RECORDS SUMMARY | ~2020-02-05 | XMS | Encounter Summary ---
Demographics + + + | Address | [address] [facility] | | | [place] [address] | + + + | Home Phone | | + + + | Preferred Language | Unknown | + + + | Marital Status | | + + + | Mosque Affiliation | 1077 | + + + | Race | Unknown | + + + | Ethnic Group | Unknown | + + + Author + + + | Author | [facility] | | | and [place] | + + + | Organization | [facility] | | [...] [place] | | | | | [address] | | + + + + + Care Team Providers + +------+ + | Care Outdoor Advertising Leasing Agent Name | Role | Phone | + [...] | | | [address] | [place] [address] | | | | | [place] [address] | | | | | | [phone] | | | +--------+ + + + [...] [address] | | | | | | [place] [address] | | | | | | [phone] | | | | | | | | +--------+---------+ + + + | 04/26/ | Office | Cardiology | Lorena Davis | | | 2019 | Visit | | [address] | | | | | | [address] | | | | | | [place] [address] | | | | | | [phone] | | | | | | | | +--------+---------+ + + + documented as of this encounter Procedures + +--------+ + + + | Procedure Name | Priori | Date/Time | Associated Diagnosis | Comments | | | ty | | | | + +--------+ + + + | NM CARDIAC BLOOD | Routin | 07/11/2019 | | Results for this | | POOL GATED SPECT W | e | 12:00 AM | | procedure are in the | | EJECTION FRACTION | | PST | | results section. | + +--------+ + + + documented in this encounter Results NM Cardiac Blood Pool Gated Spect w EF (07/11/2019 12:00 AM PST) + + | Specimen [...]
--- OUTSIDE RECORDS SUMMARY | ~2020-02-05 | XMS | Encounter Summary ---
Demographics + + + | Address | [address] [facility] | | | [place] [address] | + + + | Home Phone | | + + + | Preferred Language | Unknown | + + + | Marital Status | | + + + | Jainism Affiliation | 1077 | + + + | Race | Unknown | + + + | Ethnic Group | Unknown | + + + Author + + + | Author | [facility] | | | and [place] | + + + | Organization | [facility] | | | [...] [place] | | | | | [address] | | + + + + + Care Team Providers + +------+ + | Care Environmental Emergencies Assistant Name | Role | Phone | [...] | | | [address] | [place] [address] | | | | | [place] [address] | | | | | | [phone] | | | +--------+ + + + [...] [address] | | | | | | [place] [address] | | | | | | [phone] | | | | | | | | +--------+---------+ + + + | 04/26/ | Office | Cardiology | Lorena Davis | | | 2019 | Visit | | [address] | | | | | | [address] | | | | | | [place] [address] | | | | | | [phone] | | | | | | | | +--------+---------+ + + + documented as of this encounter Procedures + +--------+ + + + | Procedure Name | Priori | Date/Time | Associated Diagnosis | Comments | | | ty | | | | + +--------+ + + + | XR CHEST 1 VIEW | Routin | 07/03/2019 | | Results for this | | | e | 12:00 AM | | procedure are in the | | | | PST | | results section. | + +--------+ + + + documented in this encounter Results XR Chest 1 Vw (07/03/2019 12:00 AM PST) + + | Specimen [...]
--- OUTSIDE RECORDS SUMMARY | ~2020-02-05 | XMS | Encounter Summary ---
Demographics + + + | Address | [address] [facility] | | | [place] [address] | + + + | Home Phone [...] [place] | | | | | [address] | | + + + + + Care Team Providers + +------+ + | Care Motor Tune Up Specialist Name | Role | Phone | + +------+ + | Bess Alba | PCP | | + +------+ + Reason for Visit Service/Procedure (Routine) +--------+--------+ + + + + | Status | Reason | Specialty | Diagnoses / | Referred By | Referred To | | | | | Procedures | Contact | Contact | +--------+--------+ + + + + | Closed | | Radiology | Diagnoses | | [facility] | | | | | Lumbar | [place], | [address] | | | | | radiculopath | Zi Lundy MD | [place], | | | | | y | [address] | [place] | | | | | Procedures | [place] | [address] | | | | | [place] INJECT | [facility], [place] | Phone: | | | | | ANES/STEROID | [address] | [phone] | | | | | FORAMEN | Phone: | Fax: | | | | | LUMBAR/SACRA | [phone] | [phone] | | | | | [address] IMG | Fax: | | | | | | GUIDE ,1 | [phone] | | | | | | LEVEL ME | | | | | | | DEXAMETHASON | | | | | | | E SODIUM | | | | | | | PHOS, 1 MG | | | | | | | *pending med | | | | | | | clearance* | | | | | | | BILATERAL | | | | | | | L4/L5 TFESI | | | +--------+--------+ + + + + Encounter Details +--------+ + + + + | Date | Type | Department | Care Team | Description | +--------+ + + + + | 12/05/ | Hospital | [facility] | Soha Canales | Lumbar radiculopathy | | 2020 | Encounter | MED CTR XRAY [address] | [place] [address] | | | | | [address] [place] | [facility] | | | | | [place] [address] | [address] [place] | | | | | [phone] | [id number] | | | | | | | | | | | | Supervisor Product Inspection, [facility] | | | | | | [place] | | +--------+ + + + + [...] this encounter Last Filed Vital Signs + +---------+ + + | Vital Sign | Reading | Time Taken | Comments | + +---------+ + + | Blood Pressure | 116/52 | 12/06/2019 2:15 PM | | | | | PDT | | + +---------+ + + | Pulse | 89 | 12/06/2019 2:08 PM | | | | | PDT | | + +---------+ + + | Temperature | - | - | | + +---------+ + + | Respiratory Rate | - | - | | + +---------+ + + | Oxygen Saturation | - | - | | + +---------+ + + | Inhaled Oxygen | - | - | | | Concentration | | | | + +---------+ + + | Weight | - | - | | + +---------+ + + | Height | - | - | | + +---------+ + + | Body Mass Index | - | - | | + +---------+ + + documented in this encounter Medications at Time of Discharge + + + +---------+ + + | Medication | Sig | Dispensed | Refills | Start | End Date | | | | | | Date | | + + + +---------+ + + | albuterol | Inhale 2 puffs every | | 0 | | | | (PROVENTIL HFA) 90 | 6 (six) hours as | | | | | | mcg/puff inhaler | needed for wheezing. | | | | | + + + +---------+ + + | apixaban (ELIQUIS) | Take 1 tablet by | 180 | 3 | 08/15/19 | | | 5 mg tablet | mouth 2 times daily. | tablet | | 20 | | + + + +---------+ + + | furosemide (LASIX) | Take 1 tablet by | 30 | 11 | 08/04/19 | | | 20 mg tablet | mouth Daily. | tablet | | 20 | 1 | + + + +---------+ + + | losartan (COZAAR) | Take 1 tablet by | 30 | 5 | 11/03/19 | | | 50 mg tablet | mouth Daily. | tablet | | 20 | | + + + +---------+ + + | atorvaSTATin | TAKE ONE TABLET BY | 90 | 3 | 08/01/19 | | | (LIPITOR) 80 MG | MOUTH EVERY DAY AT | tablet | | 20 | 0 | | tablet | BEDTIME | | | | | + + + +---------+ + + | metoprolol | Take 1 tablet by | 90 | 3 | 08/15/19 | | | succinate | mouth Daily. | tablet | | 20 | 0 | | (TOPROL-XL) 50 mg 24 | | | | | | | hr tablet | | | | | | + + + +---------+ + + | nicotine | Place 1 patch onto | 30 | 0 | 11/03/19 | | | (NICODERM) 14 mg/24 | the skin every 24 | patch | | 20 | 0 | | hr | hours. | | | | | + + + +---------+ + + | spironolactone | Take 1 tablet by | | 0 | | | | (ALDACTONE) 25 mg | mouth Daily. | | | | 0 | | tablet | | | | | | + + + +---------+ + + documented as of this encounter [...] [address] | | | | | | [place] [address] | | | | | | [phone] | | | | | | | | +--------+---------+ + + + | 04/26/ | Office | Cardiology | SusanLorena | | | 2019 | Visit | | [address] | | | | | | [address] | | | | | | [place] [address] | | | | | | [phone] | | | | | | | [...] + + documented in this encounter Results [place] JEREMI Lumbar Sacral Transforaminal (12/06/2019 2:06 [...] Diagnosis | + + | Lumbar radiculopathy Thoracic or lumbosacral neuritis or radiculitis, unspecified | + + documented in this encounter Administered Medications + +--------+ +-------+------+------+ | Medication Order | MAR | Action | Dose | Rate | Site | | | Action | Date | | | | + +--------+ +-------+------+------+ | dexamethasone (PF) 10 mg/mL | Given | 12/06/19 | 15 mg | | | | injection 15 mg 15 mg, Other, | | 20 2:13 | | | | | ONCE, Jonathan 12/06/19 at 1430, For 1 | | PM PDT | | | | | dose, EPIDURAL When ordered IV | | | | | | | push: Dilute to 10-20 mL with NS | | | | | | | and give slowly over 1-2 | | | | | | | minutes., | | | | | | + +--------+ +-------+------+------+ +---+---+ | | | +---+---+ + +-------+ +-------+---+---+ | iohexol (OMNIPAQUE 300) 300 | Given | 12/06/19 | 3 mLs | | | | mg/mL injection 3 mL 3 mL, | | 20 2:10 | | | | | EPIDURAL, ONCE, 12/06/19 at | | PM PDT | | | | | 1430, For 1 dose | | | | | | + +-------+ +-------+---+---+ +---+---+ | | | +---+---+ + +-------+ +-------+---+---+ | lidocaine (PF) 1% injection 2 | Given | 12/06/19 | 2 mLs | | | | mL 2 mL, Other, ONCE, Tue | | 20 2:13 | | | | | 12/06/19 at 1430, For 1 dose | | PM PDT | | | | + +-------+ +-------+---+---+ +---+---+ | | | +---+---+ + +-------+ +-------+---+ + | lidocaine buffered 0.9% | Given | 12/06/19 | 6 mLs | | Other | | injection 6 mL 6 mL, | | 20 2:08 | | | (Comment | | Intradermal, ONCE, Jonathan 12/06/19 at | | PM PDT | | | ) | | 1430, For 1 dose | | | | | | + +-------+ +-------+---+ + +---+---+ | | | +---+---+ documented in this encounter"
--- OUTSIDE RECORDS SUMMARY | ~2020-02-05 | XMS | Encounter Summary ---
Demographics + + + | Address | [address] [facility] | | | [place] [address] | + + + | Home Phone [...] [place] | | | | | [address] | | + + + + + Care Team Providers + +------+ + | Care Manufacturing Laborer Name | Role | Phone | + [...] e disc | [address] | [facility] | | | | | disease), | [place], | [facility], [place] | | | | | lumbar | [place] [address] | [address] Phone: | | | | | | Phone: | [phone] | | | | | | [phone] | Fax: | | | | | | Fax: | [phone] | | | | | | [phone] | | +--------+--------+ + + + + Encounter Details +--------+---------+ + + + | Date | Type | Department | Care Team | Description | +--------+---------+ + + + | 05/23/ | Office | [facility] | Kirill Guerrero PA-C | Lumbar radiculopathy | | 2019 | Visit | PHYSIATRY [address] | [address] | (Primary Dx); | | | | [address] | [address] [place], [place] | Bilateral leg pain; | | | | [place], [place] | [address] | Spinal stenosis of | | | | [address] | | lumbar region with | | | | [phone] | | neurogenic | | | | [...] disk, and irritate nerves. Date Last Reviewed: 12/11/201719990239-5801 [employer]. [address] [place] [address], [place] [address]. All [facility] reserved. This information is not intended as a substitute for professional medical care. Always follow your healthcare professional's instructions. documented in this encounter Progress Notes Claudia Blood, Camp Coordinator - 05/23/2019 1:00 PM PSTFormatting of this note might b e different from the original. Kirill Guerrero PA-C [address] [facility] [address] [place] [address] FAX: CHIEF COMPLAINT: Chief Complaint Patient presents [...] eral hip replacement surgeries. Patient has seen customer solutions specialist who have told him "no thing [...] PT (multiple sessions over the years) and client care representative. Unfortunately Erwin encinas continues to have significant [...] [address] | | | | | | [place] [address] | | | | | | [phone] | | | | | | | | +--------+---------+ + + + | 04/26/ | Office | Cardiology | Lorena Davis | | 2019 | Visit | | [address] | | | | | | [address] | | | | | | [place] [address] | | | | | | [phone] | | | | | | | [...]
--- OUTSIDE RECORDS SUMMARY | ~2020-02-05 | XMS | Encounter Summary ---
Demographics + + + | Address | [address] [facility] | | | [place] [address] | + + + | Home Phone [...] [place] | | | | | [address] | | + + + + + Care Team Providers + +------+ + | Care Melter Clerk Name | Role | Phone | + +------+ + | Bess Alba | PCP | | + +------+ + Reason for Visit +--------+ + | Reason | Comments | +--------+ + | Other | 30 day event monitor | +--------+ + Encounter Details +--------+ + + + + | Date | Type | Department | Care Team | Description | +--------+ + + + + | 01/25/ | Procedure | [facility] | Zach Pal | Paroxysmal atrial | | 2020 | visit | CARDIOLOGY [place] | [address] | fibrillation (HCC) | | | | [address] | [address] | | | | | [address] | [place] [address] | | | | | [place] | [phone] | | | | | [address] | | | | | | [phone] | Lorena Davis | | | | | | [address] | | | | | | [address] | | | | | | [place] [address] | | | | | | [phone] | | | | | | | [...] documented as of this encounter Progress Notes Cathi Rojas CMA - 01/26/2020 3:30 PM PDT30 day cardiac event monitor placed on patie nt. EOB/Billing information discussed. Instructions given and understood.Electronically sign ed by Cathi Rojas CMA at 01/26/2020 4:09 PM PDTdocumented in this encounter Plan of Treatment +--------+---------+ + + + | Date | Type | Specialty | Care Team | Description | +--------+---------+ + + + | 02/22/ | Office | Cardiology | Zach Pal | | | 2019 | Visit | | [address] | | | | | | [address] | | | | | | [place] [address] | | | | | | [phone] | | | | | | | | +--------+---------+ + + + | 04/26/ | Office | Cardiology | Lorena Davis | | | 2019 | Visit | | [address] | | | | | | [address] | | | | | | [place] [address] | | | | | | [phone] | | | | | | | | +--------+---------+ + + + documented as of this encounter Visit Diagnoses + + | Diagnosis | + + | Paroxysmal atrial fibrillation (HCC) Atrial fibrillation | + + documented in this encounter"
--- OUTSIDE RECORDS SUMMARY | ~2020-02-05 | XMS | Encounter Summary ---
Demographics + + + | Address | [address] [facility] [address] | | | [place] [address] | + + + | Home Phone | | + + + | Preferred Language | Unknown | + + + | Marital Status | | + + + | Christian Affiliation | 1077 | + + + | Race | Unknown | + + + | Ethnic Group | Unknown | + + + Author + + + | Author | [facility] | | | and [place] | + + + | Organization | [facility] | | [...] [place] | | | | | [address] | | + + + + + Care Team Providers + +------+ + | Care Writing Center Director Name | Role | Phone | + +------+ + | Bess Alba | PCP | | + +------+ + Reason for Visit + +--------+ + | Reason | Onset | Comments | | | Date | | + +--------+ + | Medication Refill | 08/15/ | | | | 2019 | | + +--------+ + Encounter Details +--------+--------+ + + + | Date | Type | Department | Care Team | Description | +--------+--------+ + + + | 08/15/ | Refill | [facility] | Kamla Can | Medication Refill | | 2019 | | CARDIOLOGY RACHEL Montanez, Research Intern | | | | | [address] | | | | | | [place] | | | | | | [address] | | | | | | [phone] | | | +--------+--------+ + + + [...] | | | | | [place] [address] | | | | | | [phone] | | | | | | | | +--------+---------+ + + + | 04/26/ | Office | Cardiology | Lorena Davis | | | 2020 | Visit | | [address] | | | | | | [address] | | | | | | [place] [address] | | | | | | [phone] | | | | | | | | +--------+---------+ + + + documented as of this encounter Visit Diagnoses Not on filedocumented in this encounter"
--- OUTSIDE RECORDS SUMMARY | ~2020-02-05 | XMS | Encounter Summary ---
Demographics + + + | Address | [address] [facility] [address] | | | [place] [address] | + + + | Home Phone | | + + + | Preferred Language | Unknown | + + + | Marital Status | | + + + | Sikhism Affiliation | 1077 | + + + | Race | Unknown | + + + | Ethnic Group | Unknown | + + + Author + + + | Author | Located Within [facility] | | | and [place] | + + + | Organization | Located Within [facility] | | [...] [place] | | | | | [address] | | + + + + + Care Team Providers + +------+ + | Care Dry Cleaning Attendant Name | Role | Phone | + +------+ + | Bess Alba | PCP | | + +------+ + Reason for Visit + + + | Reason | Comments | + + + | New Patient | | + + + Evaluate & Treat (Routine) + + + + + + + | Status | Reason | Specialty | Diagnoses / | Referred By | Referred To | | | | | Procedures | Contact | Contact | + + + + + + + | Authorized | Specialty | Cardiology | Diagnoses | Ventura, | Kae, | | | Services | | Paroxysmal | DO Lida | Zach | | | Required | | atrial | [address] | MD Camilo | | | | | fibrillation | [address] | [address] | | | | | ([facility]) | MICHA[address] Sammy | [address] | | | | | Chronic | [place], [place] | [place] | | | | | systolic | [address] | [address] Phone: | | | | | heart | Phone: | [phone] | | | | | failure | [phone] | Fax: | | | | | ([facility]) | Fax: | [phone] | | | | | | [phone] | | + + + + + + + Encounter Details +--------+---------+ + + + | Date | Type | Department | Care Team | Description | +--------+---------+ + + + | 09/07/ | Office | [facility] | Zach Pal | Paroxysmal atrial | | 2020 | Visit | CARDIOLOGY [place] | MD [address] | fibrillation (HCC) | | | | [address] | [address] | (Primary Dx); | | | | [place], [place] | [place] [address] | Nonischemic | | | | [address] | [phone] | cardiomyopathy | | | | [phone] | | ([facility]); Sleep apnea, | | | | | | unspecified type | +--------+---------+ + + + Social History [...] + + + | Blood Pressure | 128/78 | 09/07/2019 2:40 PM | | | | | PST [...] + + + + | Weight | 73.5 kg (162 lb) | 09/07/2019 2:40 PM | | | | | PST | | + + + + + | Height | 180.3 cm (5' 11") | 09/07/2019 2:40 PM | | | | | PST | | + + + + + | Body Mass Index | 22.59 | 09/07/2019 2:40 PM | | | | | PST | | + + + + + documented in this encounter Progress Notes Zach Pal MD - 09/07/2019 2:30 PM PSTFormatting of this note might be dif ferent from the original. Subjective: Referring MD: Lida Ventura DO Chief Complaint Patient presents with New Patient HPI: This is a 53 y.o. male who presents today for an initial evaluation of atrial fibrilla tion. Mr. Beth reports he was hospitalized at an outside institution in July 2019 f or volume overload. He was told he was in atrial fibrillation at the time. He was then sta rted on anticoagulation with Eliquis in addition to Toprol-XL 50 mg daily. He has not had a ny palpitations or shortness of breath since that time. He was seen by cardiology previousl y and an outpatient monitor demonstrated a high burden of atrial fibrillation. He has also had reduced cardiac function on imaging in the past but a MUGA scan more recently demonstrat ed an ejection fraction of 60%. He presents today to discuss treatment options for his paro xysmal atrial fibrillation. He denies any current chest pain, shortness of breath, dizzines s, lightheadedness, palpitations, or recent syncope. He has never had a sleep evaluation. Past Medical History: Diagnosis Date Acute bronchitis Acute eczematoid otitis externa Acute sinusitis Alcoholism (HCC) Arthritis Atrial fibrillation (HCC) AC Benign essential hypertension Broken bones Cataract Cephalgia Chicken pox DDD (degenerative disc disease), lumbar Depression Fatigue Forgetfulness H/O hernia repair H/O TIA (transient ischemic attack) and stroke 04/2019 Hiatal hernia Hip joint painful on movement, unspecified laterality Hypertension Lumbar pain 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 Nonischemic cardiomyopathy (HCC) Pain leg or foot Pain in left hip Pain in right hip Serous otitis media Smoker Ventricular premature beats Past Surgical History: Procedure Laterality Date APPENDECTOMY 04/12/1980 CARDIAC CATHERIZATION 11/2012 LM nl, LAD nl, Cx nl, RCA nl, EF 25-30% CORONARY ANGIOPLASTY 11/2012 Nonischemic cardiomyopathy - no significant CAD. Severe LV dysfxn with EF 25-30%. Event Monitor 05/2019 12 days: NSR 52-118 (76), a fib (77%), wide-complex runs likely aberrancy with atrial fibr illation HERNIA REPAIR HIP SURGERY Left 04/12/2017 NM CARDIAC MUGA W STRESS 06/2019 EF 60% TOTAL HIP ARTHROPLASTY Right 09/10/2017 TOTAL HIP ARTHROPLASTY 2016, 09/2017 Right, Left TRANSTHORACIC ECHOCARDIOGRAM 04/2019 EF 35-40%, mild-mod MR, tr TR, RVSP 27 Family History Problem Relation Age of Onset Arthritis Mother Allergy (severe) Sister No known problems Father No known problems Maternal Grandmother No known problems Maternal Grandfather No known problems Paternal Grandmother No known problems Paternal Grandfather Other (see comment) Other leg arterial steno Social History Socioeconomic History Marital status: Spouse name: Not on file Number of children: Not on file Years of education: 14 Highest education level: Not on file Occupational History 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 Tobacco Use Smoking status: Former Smoker Packs/day: 1.00 Years: 37.00 Pack years: 37.00 Types: Cigarettes Start date: 1981 Last attempt to quit: 04/2019 Years since quittin.4 Smokeless tobacco: Never Used Substance and Sexual Activity Alcohol use: Yes Alcohol/week: 2.0 standard drinks Types: 2 Cans of beer per week Frequency: 2-4 times a month Drinks per session: 1 or 2 Binge frequency: Never Comment: Alcoholic Drinks/day: 3-4 beers daily Patient denies drinking on a regular bas is 09/07/2019 Drug use: Yes Types: Marijuana Comment: Drug use: Yes HE SMOKES IT Review of Systems: Ten system review negative unless noted in HPI. Current Outpatient Medications Medication Sig Dispense Refill albuterol (PROVENTIL HFA) 90 mcg/puff inhaler Inhale 2 puffs every 6 (six) hours as nee ded for wheezing. apixaban (ELIQUIS) 5 mg tablet Take 1 tablet by mouth 2 times daily. 180 tablet 3 atorvaSTATin (LIPITOR) 80 MG tablet TAKE ONE TABLET BY MOUTH EVERY DAY AT BEDTIME 90 ta blet 3 furosemide (LASIX) 20 mg tablet Take 1 tablet by mouth Daily. 30 tablet 11 losartan (COZAAR) 25 mg tablet Take 1 tablet by mouth Daily. 30 tablet 11 metoprolol succinate (TOPROL-XL) 50 mg 24 hr tablet Take 1 tablet by mouth Daily. 90 ta blet 3 spironolactone (ALDACTONE) 25 mg tablet Take 1 tablet by mouth Daily. No current facility-administered medications for this visit. Allergies Allergen Reactions Amoxicillin Anaphylaxis Lisinopril Anaphylaxis Gabapentin Other (See Comments) Reaction not specified in outside medical records. Objective: Vitals: 09/07/19 1440 BP: 128/78 Weight: 73.5 kg (162 lb) Height: 1.803 m (5' 11") Body mass index is 22.59 kg/m. Exam: General: Patient is alert, pleasant, cooperative, and in no acute distress. Eyes: Sclerae anicteric. Ears: External ears normal. Nose: External nose normal. Oral exam: No oral lesions noted. Neck: Trachea midline. No thyromegaly. No elevation of jugular venous pressure. No noel tid bruits. Lungs: Clear to auscultation bilaterally. No wheezes, rales, or rhonchi. Heart: Regular rate and rhythm. Normal S1/S2. No murmurs, gallops, rubs. Abdomen: Bowel sounds present. Soft, nondistended. No masses or hepatosplenomegaly noted . No significant tenderness noted. Extremities: No clubbing or cyanosis noted. No lower extremity edema noted. Pulses: Intact bilateral radial and pedal pulses. Musculoskeletal: No obvious arthritic change noted of the knees. Skin: Warm and dry. Psychiatric: Patient is alert and oriented to person, place, and day. Mood and affect nor mal. Neurological: Patient is intact to light touch in the upper and lower extremities bilateral ly. Review of studies: ECG: Normal sinus rhythm at 68 bpm, septal infarct, no significant change from June Impression/Plan: Erwin was seen today for new patient. Diagnoses and all orders for this visit: Paroxysmal atrial fibrillation (HCC) - Cancel: ECG 12 lead - Cancel: ECG 12 lead - ECG 12 lead Nonischemic cardiomyopathy (HCC) Sleep apnea, unspecified type 1) Atrial fibrillation - Mr. Beth wore a library monitor in May 2019 and an atria l fibrillation burden around 77% was noted. He was unaware of any change in his rhythm at t he time. He was hospitalized in July 2019 with heart failure symptoms and atrial fibrill ation was apparently noted at the time. He has since been on anticoagulation with Eliquis. He has not had any palpitations since discharge from the hospital. We had a long discussio n regarding treatment options for his paroxysmal atrial fibrillation. We discussed starting an antiarrhythmic medication versus pulmonary vein isolation. As he was recently started o n medication for the atrial fibrillation he would like to continue to see how he does on Top rol-XL 50 mg daily. He will continue on anticoagulation with Eliquis. A MUGA scan performe d in June 2019 demonstrated an ejection fraction of 60%. Cardiac catheterization in did not demonstrate any obstructive coronary artery disease. He has a history of prior al cohol use. 2) Nonischemic cardiomyopathy - Cardiac imaging in the past has demonstrated fluctuating le ft ventricular ejection fractions. An echocardiogram in April 2019 suggested an ejection fraction of 35 to 40%. A MUGA scan in June 2019 noted an ejection fraction of 60%. He continues to follow with cardiology. Cardiac catheterization in 2012 did not demonstrate an y obstructive coronary artery disease. I recommended complete alcohol cessation. 3) Sleep apnea - He has several risk factors for obstructive sleep apnea. I recommended he contact his primary physician in [place] to arrange for a sleep evaluation locally. He is a gonzalez of the association of obstructive sleep apnea with atrial dysrhythmias. This encounter was dictated with voice recognition software and may contain inadvertent rec ognition errors. documented in this encounter Plan of Treatment +--------+---------+ + + + | Date | Type | Specialty | Care Team | Description | +--------+---------+ + + + | 02/22/ | Office | Cardiology | Zach Pal | | | 2019 | Visit | | MD [address] | | | | | | [address] | | | | | | [place] [address] | | | | | | [phone] | | | | | | | | +--------+---------+ + + + | 04/26/ | Office | Cardiology | SusanLorena | | | 2020 | Visit | | [address] | | | | | | [address] | | | | | | [place] [address] | | | | | | [phone] | | | | | | | | +--------+---------+ + + + documented as of this encounter Procedures + +--------+ + + + | Procedure Name | Priori | Date/Time | Associated Diagnosis | Comments | | | ty | | | | + +--------+ + + + | ECG 12 LEAD | Routin | 09/07/2019 | Paroxysmal atrial | Results for this | | | e | 2:50 PM | fibrillation (HCC) | procedure are in the | | | | PST | | results section. | + +--------+ + + + documented in this encounter Results ECG 12 lead (09/07/2019 2:50 PM PST) + + + + + + | Component | Value | Ref Range | Performed | Pathologist | | | | | At | Signature | + + + + + + | VENTRICULAR | 68 | BPM | [facility] | | | RATE EKG | | | | | + + + + + + | ATRIAL RATE | 68 | BPM | [facility] | | + + + + + + | P-R | 156 | ms | [facility] | | | INTERVAL | | | | | + + + + + + | QRS | 70 | ms | [facility] | | | DURATION | | | | | + + + + + + | Q-T | 436 | ms | [facility] | | | INTERVAL | | | | | + + + + + + | Q-T | 463 | ms | [facility] | | | INTERVAL | | | | | | (CORRECTED) | | | | | + + + + + + | P WAVE AXIS | 81 | degrees | [facility] | | + + + + + + | QRS AXIS | 83 | degrees | [facility] | | + + + + + + | T AXIS | 100 | degrees | [facility] | | + + + + + + | INTERPRETAT | Please refer to | | [facility] | | | ION TEXT | Providers office visit | | | | | | note for Providers | | | | | | Interpretation.Confirmed | | | | | | by ZACH PAL MD | | | | | | ([id number]) on 09/07/2019 | | | | | | 5:29:20 PM | | | | + + [...] + + | Paroxysmal atrial fibrillation (HCC) - Primary Atrial fibrillation | + + | Nonischemic cardiomyopathy (HCC) Other primary cardiomyopathies | + + | Sleep apnea, unspecified type | + + documented in this encounter
--- OUTSIDE RECORDS SUMMARY | ~2020-02-05 | XMS | Encounter Summary ---
Demographics + + + | Address | [address] [facility] | | | [place] [address] | + + + | Home Phone [...] [place] | | | | | [address] | | + + + + + Care Team Providers + +------+ + | Care Car Designer Name | Role | Phone | + [...] | | | [address] | [place] [address] | | | | | [place] [address] | | | | | | [phone] | | | +--------+ + + + [...] [address] | | | | | | [place] [address] | | | | | | [phone] | | | | | | | | +--------+---------+ + + + | 04/26/ | Office | Cardiology | Lorena Davis | | | 2019 | Visit | | [address] | | | | | | [address] | | | | | | [place] [address] | | | | | | [phone] | | | | | | | [...]
--- OUTSIDE RECORDS SUMMARY | ~2020-02-05 | XMS | Encounter Summary ---
Demographics + + + | Address | [address] [facility] [address] | | | [place] [address] | + + + | Home Phone | | + + + | Preferred Language | Unknown | + + + | Marital Status | | + + + | Anabaptism Affiliation | 1077 | + + + | Race | Unknown | + + + | Ethnic Group | Unknown | + + + Author + + + | Author | [facility] | | | and [place] | + + + | Organization | [facility] | | | and [...] [place] | | | | | [address] | | + + + + + Care Team Providers + +------+ + | Care Cupola Operator Name | Role | Phone | + +------+ + | Ugo Lux DO | JENNIFER | | + +------+ + Encounter Details +--------+ + + + + | Date | Type | Department | Care Team | Description | +--------+ + + + + | 08/03/ | Care | [facility] | Provider, | | | 2019 | Coordinatio | PHYSIATRY [address] | [address] | | | | n | [address] | [address] | | | | | [address] [place] | [place] [address] | | | | | [address] | | | | | | [phone] | | | +--------+ + + + [...] of this encounter Progress Notes Shelli Lopez, Desk Top Publisher - 08/03/2018 11:58 AM PSTCare everywhere queried [...] [address] | | | | | | [place] [address] | | | | | | [phone] | | | | | | | | +--------+---------+ + + + | 04/26/ | Office | Cardiology | Lorena Davis | | | 2019 | Visit | | [address] | | | | | | [address] | | | | | | [place] [address] | | | | | | [phone] | | | | | | | | +--------+---------+ + + + documented as of this encounter Visit Diagnoses Not on filedocumented in this encounter"
--- OUTSIDE RECORDS SUMMARY | ~2020-02-05 | XMS | Encounter Summary ---
Demographics + + + | Address | [address] [facility] | | | [place] [address] | + + + | Home Phone | | + + + | Preferred Language | Unknown | + + + | Marital Status | | + + + | Roman Catholic Affiliation | 1077 | + + [...] [place] | | | | | [address] | | + + + + + Care Team Providers + +------+ + | Care Handwriting Expert Name | Role | Phone | + [...] | | | Spine wo | [place] [address] | [address] | | | | | Contrast | Phone: | Phone: | | | | | | [phone] | [phone] | | | | | | Fax: | Fax: | | | | | | [phone] | [phone] | +--------+--------+ + + + + Reason [...] | | | | lumbar | [place] [address] | [address] Phone: | | | | | | Phone: | [phone] | | | | | | [phone] | Fax: | | | | | | Fax: | [phone] | | | | | | [phone] | | +--------+--------+ + + + + Encounter Details +--------+---------+ + + + | Date | Type | Department | Care Team | Description | +--------+---------+ + + + | 08/05/ | Office | [facility] | Jericho Chavez, | Lumbar radiculopathy | | 2019 | Visit | PHYSIATRY [address] | PA-C [address] | (Primary Dx) | | | | [address] | [address] [place] | | | | | [place] [facility] [place] | [place] [address] | | | | | [address] | [phone] | | | | | [phone] | | | +--------+---------+ + + + [...] 4:10 PM PSTMRI ordered today. We shital bateman call you with results and treatment options. [...] of the procedure you must provide a bulk tank driver to take you home. For all [...] press against a nerve. Date Last Reviewed: 09/10/201719994548-0512 [employer]. [address] [place] [address]. All righ ts reserved. This information is not intended as a substitute for professional medical care. Always follow your healthcare professional's instructions. documented in this encounter Progress Notes Jericho Chavez PA-C - 08/05/2018 3:40 PM PSTFormatting of this note might be different fro m the original. Jericho Chavez PA-C [address] [place] [address], [address] [place], [place] [address] FAX: CHIEF COMPLAINT: Chief Complaint Patient presents [...] Acute eczematoid otitis externa Acute sinusitis Alcoholism ([facility]) Arthritis Benign essential hypertension Broken bones Cardiomyopathy (HCC) Cataract Cephalgia Chest pain CHF (congestive heart failure) ([facility]) Chicken pox DDD (degenerative disc disease), lumbar [...] acute distress with unlabored respirations. The patien t does not appear uncomfortable throughout the exam [...] apparent deficits with short or retirement memory. Cranial nerves 2-12 appear grossly intact. [...] [address] | | | | | | [place] [address] | | | | | | [phone] | | | | | | | | +--------+---------+ + + + | 04/26/ | Office | Cardiology | Lorena Davis | | | 2020 | Visit | | [address] | | | | | | [address] | | | | | | [place] [address] | | | | | | [phone] | | | | | | | [...]
--- OUTSIDE RECORDS SUMMARY | ~2020-02-05 | XMS | Encounter Summary ---
Demographics + + + | Address | [address] [facility] | | | [place] [address] | + + + | Home Phone [...] [place] | | | | | [address] | | + + + + + Care Team Providers + +------+ + | Care Irrigation Equipment Installer Name | Role | Phone | + +------+ + | Bess Alba | PCP | | + +------+ + Reason for Visit + + + | Reason | Comments | + + + | Follow-up | | + + + Follow Up (Routine) + +--------+ + + + + | Status | Reason | Specialty | Diagnoses / | Referred By | Referred To | | | | | Procedures | Contact | Contact | + +--------+ + + + + | Authorized | | Physical | Diagnoses | Anjali, | Mikhail, | | | | Medicine and | DDD | ALAYNA Kellogg | Zi Lundy MD | | | | Rehabilitatio | (degenerativ | [address] | [address] | | | | n | e disc | St | ST DRU | | | | | disease), | [place], | [place] | | | | | lumbar [place] | [place] [address] | [address] Phone: | | | | | discuss | Phone: | [phone] | | | | | injecitons | [phone] | Fax: | | | | | Procedures | Fax: | [phone] | | | | | Follow up | [phone] | | | | | | DOS 04/11/19 | | | + +--------+ + + + + Encounter Details +--------+---------+ + + + | Date | Type | Department | Care Team | Description | +--------+---------+ + + + | 11/08/ | Office | [facility] | Soha Canales | Bilateral leg pain | | 2020 | Visit | PHYSIATRY [address] | [place] [address] | (Primary Dx); Status | | | | [address] | [facility] SU[address] | post hip surgery; | | | | [place] | [address] | Lumbar radiculopathy | | | | [address] | [address] | | | | | [phone] | | | +--------+---------+ + + + [...] + + + | Blood Pressure | 112/57 | 11/09/2019 2:04 PM | | | | | PDT | | + + + + + | Pulse | 62 | 11/09/2019 2:04 PM | | | | | PDT | | + + + + + | Temperature | 36.5 C (97.7 F) | 11/09/2019 2:04 PM | | | [...] Weight | 73.5 kg (162 lb) | 11/09/2019 2:04 PM | | | | | PDT | | + + + + + | Height | 180.3 cm (5' 11") | 11/09/2019 2:04 PM | | | | | PDT | | + + + + + | Body Mass Index | 22.59 | 11/09/2019 2:04 PM | | | | | PDT | | + + + + + documented in this encounter Patient Instructions Patient Instructions Soha Canales PA-C - 11/09/2019 2:00 PM PDT1. An x-ray orde r has been placed to [facility] to be done while standing to include your hip rep lacement hardware up to your waist. Results will be called to you about the possible need f or a shoe lift if 1 leg appears longer than the other. 2. I have placed an order for an epidural steroid injection left and right side for the L4 nerve. This will be both diagnostic and therapeutic. You will need to get permission to sommer stoll her Alvin before this procedure Follow-up at the hospital thirty minutes before [...] the procedure. Common blood thinning medications include: Aspirin (a baby aspirin is o.k.) Ibuprofen [...] the procedure you must provide a driver merchandiser to take you home. For all procedur es it is recommended that someone else drive you home. Lumbar Epidural Injection: Your Procedure A lumbar epidural injection is an outpatient procedure. It s often done in a hospital or an outpatient surgery center. Before your shot, your healthcare provider willtell you how to get ready. Getting ready You may need to do the following: Give thehealthcare providera list of all medicines you take, such as aspirin and ant i-inflammatories. (You may need to stop taking some of them before the injection.) You may be asked not toeat or drink anything for several hours before check-in. Arrange for an adult friend or family member to drive you home afterward. Bring any requested X-ray, CT, or MRI images on the day of the procedure. During the procedure The injection takes just a few minutes. But extra time is needed to get ready. You may be g iven medicine beforehand to help you relax: In some cases, monitoring devices may be attached to your chest or side. These devices m easure your heart rate, breathing, and blood pressure. You lie on your stomach or side, depending on where theshot will be given. Your back i s cleaned and may be covered with sterile towels. Medicine is given to numb the skin near the place of the shot. If X-ray imaging (fluoroscopy) is to be used, a contrast dye may be injected into your back. This helps yourhealthcare providerget a better image. A local anesthetic (for numbing), steroids (for reducing inflammation), or both are inje cted into the epidural space. The procedure is very safe. But there is a very small risk of infection or local reaction a fterward. Seek medical care right away if you have: Increasing pain Headaches (especially when standing up) Redness Fever Symptoms of infection After the procedure You ll spendtime in a recovery area after the procedure. Before going home, you may be asked to fill out another survey about your pain. Date Last Reviewed: 12/11/201719996301-2189 [employer]. [address] [place] [address], [place] [address]. All righ ts reserved. This information is not intended as a substitute for professional medical care. Always follow your healthcare professional's instructions. documented in this encounter Progress Notes Soha Canales PA-C - 11/09/2019 2:00 PM PDTFormatting of this note might be diffe rent from the original. James Canales PA-C [address] [facility], [address] [place] [address] FAX: CHIEF COMPLAINT: Chief Complaint Patient presents with Follow-up HISTORY OF PRESENT ILLNESS: Erwin Beth is [...] se part of the pain began after bilateral hip replacement surgery September 2017. Erwin Beth reports that the symptoms are worsening. He returns today with new insur [employer] that covers epidural steroid injections. He rates the pain as severe at 7 8/10. He describes the pain as aching, burning, tingling, throbbing, soreness, localized or radiatin g to bilateral lower extremities, R>L historically however today's pain is left greater than right. His symptoms worsen with anything, position to just sitting, but most noticeable wi th going from sitting to standing position, as well as with walking/standing long periods. H michael attributes 100% of the pain in his legs without any low back pain. His symptoms improve w ith rest, some physical therapy, and sitting. The patient does not describe numbness of th e bilateral legs. He does report weakness of the bilateral legs, "depending on the day, bu t usually worse on the Right, or sometimes on both sides." He does not have bowel and bladde r dysfunction. He does not have saddle anesthesia. Treatments for these complaints have included PT, injections, medications, TENS unit, bilat eral hip replacement surgeries. Patient has seen conference specialist who have told him "no thing [...] mouth Daily. 30 tablet 11 losartan (COZAAR) 50 mg tablet Take 1 tablet by mouth Daily. 30 tablet 5 metoprolol succinate (TOPROL-XL) 50 mg 24 hr tablet Take 1 tablet by mouth Daily. 90 ta blet 3 nicotine (NICODERM) 14 mg/[address] 1 patch onto the skin every 24 hours. 30 patch 0 spironolactone (ALDACTONE) 25 mg tablet Take 1 [...] no rheumatoid arthritis. PHYSICAL EXAMINATION: Blood pressure 112/57, pulse 62, temperature 36.5 C (97.7 F), resp. rate 16, height 1.8 03 m (5' 11"), weight 73.5 kg (162 lb). Body mass index is 22.59 kg/m. GENERAL: The patient is well developed and well nourished. He does appear uncomfortable wh en seated. HEENT: Normocephalic and atraumatic. Normal sclerae without icterus. NECK (ANTERIOR): There is no apparent cervical lymphadenopathy or thyromegaly. PULMONARY: The patient is in no acute respiratory distress with unlabored respirations. CARDIOVASCULAR: There is not lower extremity edema. ABDOMEN: Non-distended. SKIN: Limited skin exam shows no significant rashes or lesions. NEUROLOGIC: The patient is awake, alert, and oriented. He follows simple and complex commands. His speech is fluent. He comprehends speech well. He has no apparent deficits with short or termite treater helper memory. The cranial nerves appear grossly intact. Sensory exam does show diminished sensation to light touch in the Right lower extremity wit h L4-L5 dermatomal distribution pattern. REFLEX: RIGHT LEFT PATELLAR 2+ 2+ ACHILLES 1+ 1+ MUSCULOSKELETAL : Straight leg raise and slump-sit are negative on the right. Straight leg raise in the left produces left anterior thigh pain ending in the anterior knee. Zach's maneuver and impingement testing were negative for any groin pain. Zach's edgar t on the left produced distal left femur pain with internal rotation. There was no tenderness to palpation over the greater trochanters or sacral sulci. Patient denied any localization of pain in the low back or pain with facet loading. The patient was not able to heel and toe walk without difficulty. He can rise up on his ti ptoes and rise on heels but not able to walk. Ambulation was demonstrated with the use of a cane in his right hand. There was no redness, effusion, warmth or joint line tenderness in the knees or ankles. There was no local tenderness in the left femur or thigh. Hip height discrepancy was noted to be at least half inch on the left greater than right RADIOGRAPHIC REVIEW: The patient's imaging was reviewed in detail with the patient today during the visit. Lumbar MRI from 09/15/2018: Mild disc degeneration L3-4 and L4-5. Patient has right greater than left mild to moderate foraminal narrowing at L4-5. Lumbar x-ray 06/14/2018 AP views suggestion of of hip replacement hardware and iliac crest h igher in the left than right but without complete evaluation on this lumbar film of the pelv is. ASSESSMENT: 1. Bilateral leg pain XR Hip Bilateral 2 Views 2. Status post hip surgery XR Hip Bilateral 2 Views 3. Lumbar radiculopathy FL JEREMI Lumbar Sacral Transforaminal PLAN: 1)Today I have discussed my clinical impression with Erwin Beth. Shared decision rosa mraia naranjo between Erwin Beth and I was used during today's encounter. We discussed the pat ient's differential diagnosis, description of symptoms, physical exam, imaging and treatment plan that suggest diagnosis at this time. 2) I counseled patient on treatment options which included conservative self management usi ng OTC NSAIDs/Ice and heat packs, physical therapy, prescription medications, epidural stero id injection, as well as possible surgical intervention. 3) Imaging: As descibed above in radiology review. X-rays of bilateral pelvis to include iliac crest and hip hardware standing views to assess for hip height discrepancy as well as hardware alignment. The patient may need a right yimi e lift to help resolve pressure on the left leg 4) The patient has had significant conservative care including medications (NSAIDS and narc otics), PT (multiple sessions over the years) and auto care center manager. Unfortunately Erwin encinas continues to have significant discomfort. It appears to me that the pain is primar luis coming from L4-L5 region more likely causing his right lower extremity pain. I have m ore concerned that his left lower extremity leg length may have been increased with hip repl acement causing likely discrepancy causing pain in the left femur and inability to fully michell ght-bear. I did feel that Erwin Beth would be a good candidate for interventional procedure s and I offered a bilateral L4-L5 TFESI to be done that was previously ordered. The patient was advised to be attentive during the diagnostic phase to determine the left and right leg both respond to epidural steroid injection. Patient was counseled that his right leg may b e more likely radicular than his left. Patient tried gabapentin which caused him to be angry. His insurance does not cover Lyrica . No medication was prescribed today but it was discussed. 5) Patient will follow up in 3 weeks post injection or as needed to discuss any imaging and /or progress with today's treatment plan. 6) If current treatment plan is insufficient for symptom relief we could consider refer to PT for shoe lift on the right pending x-rays as the next possible option. I spent 20 minutes in visit with Erwin Beth today with the majority of time spent co unselling the patient on his diagnosis, options for his care, and coordinating his care. ELECTRONICALLY SIGNED BY: James Canales PA-C, 11/09/2019 2:37 PM documented in this encounter Plan of Treatment +--------+---------+ + + + | Date | Type | Specialty | Care Team | Description | +--------+---------+ + + + | 02/22/ | Office | Cardiology | Zach Pal | | | 2019 | Visit | | [address] | | | | | | [address] | | | | | | [place] [address] | | | | | | [phone] | | | | | | | | +--------+---------+ + + + | 04/26/ | Office | Cardiology | Susan Lorena | | | 2019 | Visit | | [address] | | | | | | [address] | | | | | | [place] [address] | | | | | | [phone] | | | | | | | | +--------+---------+ + + + + +---------+--------+ + + | Name | Type | Priori | Associated Diagnoses | Order Schedule | | | | ty | | | + +---------+--------+ + + | XR Hip Bilateral 2 | Imaging | Routin | Bilateral leg pain | Expected: | | Views | | e | Status post hip | 11/09/2019, Expires: | | | | | surgery | 11/08/2020 | + +---------+--------+ + + documented as of this encounter Results FL JEREMI Lumbar Sacral [...] + | Diagnosis | + + | Bilateral leg pain - Primary Pain in limb | + + | Status post hip surgery | + + | Lumbar radiculopathy Thoracic or lumbosacral neuritis or radiculitis, unspecified | + + documented in this encounter
--- OUTSIDE RECORDS SUMMARY | ~2020-02-05 | XMS | Encounter Summary ---
Demographics + + + | Address | [address] [facility] | | | [place] [address] | + + + | Home Phone [...] [place] | | | | | [address] | | + + + + + Care Team Providers + +------+ + | Care Golf Club Weighter Name | Role | Phone | + [...] | | | | [address] | [place] [address] | | | | | [place] | [place] | | | | | [address] | [address] | | | | | [phone] | [phone] | | | | | | | [...] [address] | | | | | | [place] [address] | | | | | | [phone] | | | | | | | | +--------+---------+ + + + | 04/26/ | Office | Cardiology | Lorena Davis | | | 2019 | Visit | | [address] | | | | | | [address] | | | | | | [place] [address] | | | | | | [phone] | | | | | | | [...] MV E/A Ratio: 1.13 RAP: 5 mmHg Motion Graphics Artist: MANDO | | | Authenticated by: Jignesh Pyle MD Report Date/Time: 04-01-2016 | | | 21:54:06 | | + + + + + | Procedure Note | + + | Aaron Clyde Conversion - 03/04/2019 10:38 AM PDT Patient Name: Perry BETH of | | : 1965 Performing Physician: Jignesh Pyle | | INDICATIONS H | | TN CONCLUSIONS 1. [...] (A-L): 37.54 ml/m2LAAs A2C: 23.21 | | [id number] A-L A2C: 90.35 mlLALs A2C: 5.07 cmLAAs A4C: 16.16 [id number] A-L A4C: | | 48.09 mlLALs A4C: 4.61 cmRAAs: 12.92 [id number] A-L: 33.22 mlRAESV MOD: 30.34 | | mlRALs: 4.26 cmAV maxP.50 mmHgAV meanP.37 mmHgAV Vmax: 1.06 m/Vilma Vmean: | | 0.74 m/Vilma VTI: 16.88 cmLVOT maxP.47 mmHgLVOT meanP.76 mmHgLVOT Vmax: | | 0.93 m/sLVOT Vmean: 0.59 m/sLVOT VTI: 15.36 cmMV A Rodney: 0.52 m/sMV DecT: 175.45 | | msMV E Rodney: 0.59 m/sMV E/A Ratio: 1.13RAP: 5 mmHg Motion Graphics Artist: DBSAuthenticated | | by: Jignesh Pyle [facility] Date/Time: 04-01-2016 21:54:06 IMPRESSION: 1. Overall | [...] | |RAP: 5 mmHg | | | |Motion Graphics Artist: DBS | |Authenticated by: Jignesh Pyle MD | |Report Date/Time: 04-01-2016 21:54:06 | | | |IMPRESSION: | |1. Overall left ventricular systolic function is low-normal with, an EF between 50 - 55 %. | |2. The left atrium is mildly enlarged. | + + documented in this encounter Visit Diagnoses Not on filedocumented in this encounter"
--- OUTSIDE RECORDS SUMMARY | ~2020-02-05 | XMS | Encounter Summary ---
Demographics + + + | Address | [address] [facility] | | | [place] [address] | + + + | Home Phone [...] [place] | | | | | [address] | | + + + + + Care Team Providers + +------+ + | Care Shipbuilding Draftsperson Name | Role | Phone | [...] | | | | [address] | [place] [address] | | | | | [place] | [place] | | | | | [address] | [address] | | | | | [phone] | [phone] | | | | | | | [...] [address] | | | | | | [place] [address] | | | | | | [phone] | | | | | | | | +--------+---------+ + + + | 04/26/ | Office | Cardiology | Lorena Davis | | | 2019 | Visit | | [address] | | | | | | [address] | | | | | | [place] [address] | | | | | | [phone] | | | | | | | [...] TR Vmax: 1.95 m/s | | | Master [place]: RISHI Authenticated by: RICHARD GAMING MD Report | | | Date/Time: 05-19-2017 18:28:34 | | + + + + + | Procedure Note | + + | Aaron, Rad Conversion - 03/03/2019 6:50 PM PDT Patient Name: Perry BETH of | [...] cmLVIDd: 5.22 cmLVPWd: 1.04 cmLVOT Area: 4.28 [id number] Diam: 2.33 | | cm%FS: 20.63 %EF(Teich): [...] | | (A-L): 34.15 ml/m2LAAs A2C: 19.89 [id number] A-L A2C: 66.08 mlLALs A2C: 5.08 | | cmLAAs A4C: 19.53 [id number] A-L A4C: 59.08 mlLALs A4C: 5.48 cmRAAs: 11.32 | | [id number] A-L: 25.47 mlRAESV MOD: 25.02 mlRALs: 4.27 cmTAPSE: 1.98 cmAV maxPG: | | 4.14 mmHgAV meanP.27 mmHgAV Vmax: 1.01 m/Vilma Vmean: 0.70 m/Vilma VTI: 17.62 | | cmAVA Vmax: 3.32 cm2AVA (VTI): 3.94 [id number] Vmax: 0.00 cm2/m2AVAI (VTI): 0.00 | | cm2/m2LVOT maxP.50 mmHgLVOT meanP.38 mmHgLVSI Dopp: 36.57 ml/m2LVSV Dopp: | | 69.48 mlLVOT Vmax: 0.79 m/sLVOT Vmean: 0.55 m/sLVOT VTI: 16.22 cmMV A Rodney: | | 0.40 m/sMV DecT: 199.44 msMV E Rodney: 0.58 m/sMV E/A Ratio: 1.44MV PHT: 57.83 | | msMVA By PHT: 3.80 ys9Pulxoy e': 0.07 m/sSeptal E/e': 7.83Lateral e': 0.08 | | m/sLateral E/e': 6.84RAP: 10 mmHgRVSP: 25.23 mmHgTR maxP.23 mmHgTR Vmax: | | 1.95 m/s Master [place]: DHAuthenticated by: Milan CROWE Date/Time: 05-19-2017 | | [...] |TR Vmax: 1.95 m/s | | | |Master [place]: | |Authenticated by: RICHARD GAMING MD | [...]
--- OUTSIDE RECORDS SUMMARY | ~2020-02-05 | XMS | Encounter Summary ---
Demographics + + + | Address | [address] [facility] [address] | | | [place] [address] | + + + | Home Phone | | + + + | Preferred Language | Unknown | + + + | Marital Status | | + + + | Mandaeism Affiliation | [id number] | + + + [...] [place] | | | | | [address] | | + + + + + Care Team Providers + +------+ + | Care Tire Recapping Machine Operator Name | Role | Phone [...] | | | | | Chronic | DO Lida | [facility] | | | | | systolic | [address] | | | | | heart | [address] | [address] | | | | | failure | [place] [address] | [place] | | | | | ([facility]) | [place], [place] | [address] | | | | | Procedures | [id number] | Phone: | | | | | [facility] | Phone: | [phone] | | | | | | [phone] | Fax: | | | | | | Fax: | [phone] | | | | | | [phone] | | + +--------+ + + + + Reason for Visit + + + | Reason | Comments | + + + | Follow-up | 3 MONTH | + + + Encounter Details +--------+ + + + + | Date | Type | Department | Care Team | Description | +--------+ + + + + | 11/02/ | Virtual | [facility] | Lida Ventura DO | Chronic systolic | | 2020 | Office | CARDIOLOGY [place] | [address] | heart failure (HCC) | | | Visit | [address] | [place], [place] | (Primary Dx); | | | | [address] | [id number] | Cardiomyopathy, | | | | [place], [place] | | unspecified type | | | | [address] | | (HCC); Hypertension, | | | | [phone] | | unspecified type; | | | | | | Smoker | +--------+ + + + + Social [...] + + + | Blood Pressure | 163/98 | 11/03/2019 10:17 AM | | | | | PDT | | + + + + + | Pulse | 82 | 11/03/2019 10:17 AM | | | | | PDT [...] Weight | 73.5 kg (162 lb) | 11/03/2019 10:17 AM | | | | | PDT | | + + + + + | Height | 180.3 cm (5' 11") | 11/03/2019 10:17 AM | | | | | PDT | | + + + + + | Body Mass Index | 22.59 | 11/03/2019 10:17 AM | | | | | PDT | | + + + + + documented in this encounter Patient Instructions Patient Instructions Lida Ventura DO - 11/03/2019 11:20 AM PDT Please increase your do se of losartan to 50 mg by mouth daily Obtain blood work 1 week after increasing the dose of losartan We will repeat a follow-up echocardiogram of your heart in 3 months I have written you for a nicotine patch to help with smoking cessation. It helps to s et a specific quit date. Follow-up with Dr. Pal as scheduled Follow up in 3 months P DT documented in this encounter Progress Notes Lida Ventura DO - 11/03/2019 11:20 AM PDT This exam was initially conducted via a secure 256-bit AES encrypted bidirectional video se ssion. Service was provided [id number] with the patient via interactive videoconferencing Video start time 11:20 Video end time 11:40 Total time (in minutes) including non [id number] time (reviewing records, documentation, etc.) 15-24 minutes ([id number]) You have chosen to receive care through the use of telemedicine. Telemed[facility] enables [facility] providers at different locations to provide safe, effective and convenient care throu gh the use of technology. As with any health care service, there are risks associated with t he use of telemedicine, including equipment failure, poor image resolution and information s ecurity issues. Do you understand the risks and benefits of telemedicine as I have explained them to you? " Yes" Have your questions regarding telemedicine been answered? "Yes" Patient is currently at Patient's location: home Do you consent to the use of telemedicine in your medical care today? Yes. Last question, I need to confirm where are you physically located right now? Answer: Patient confirms they are located in a state where [place] licensed. No follow-ups on file. [facility] Cardiology Follow Up Note Reason for Consultation: heart failure History Obtained From: patient HISTORY OF PRESENT [...] any epis odes of syncope or presyncope. The patient on 06/24/2019. At that time, we ordered a MUGA scan and pulmonary function edgar ts. The patient presents today for a follow-up visit. With his records, I received a Zio p atch monitor which was done back in May. This would not sent to last time he was here and I was unaware that he had it done. His monitor demonstrated a 77% burden of atrial fibr illation with an average heart rate of 116 bpm while in atrial fibrillation. He also had 5 episodes of nonsustained ventricular tachycardia, the longest of which was 14 beats. Unfort unately, I was not able to address his atrial fibrillation at last visit as this monitor was not sent to us. The patient had an ER visit recently for atrial fibrillation with rapid ve ntricular response. He was started on Eliquis for anticoagulation. In the ER, he was given diltiazem for rate control which is inappropriate given his systolic heart failure. Fortun ately, he was transitioned to metoprolol succinate which is what he was at home with. His MU GA scan demonstrated an EF of 60%, there was no mention of his heart rhythm during this stud y. PFTs demonstrated minimal obstructive airway disease with moderate diffustion defect. Interim History I last saw the patient in 07/2019. At that time, he was referred to Electrophysiology. He saw Dr. Pal. The plan was to refer him to Sleep Medicine for a sleep study and contin ued him on current dose of metoprolol and Eliquis. Recently, the patient reports that he go s been doing well. He has an upcoming shoulder surgery and reports that he needs clearance for this. He reports some mild fatigue. He denies any lower extremity edema. He denies a ny episodes of chest pain. He has not yet followed up with Sleep Medicine. He continues to smoke about 10 cigarettes per day, but has cut back from 1 pack was per day. He is interes haylie in quitting at this time. He denies any bleeding issues on anticoagulation. His blood pressures are noted to be elevated in the 140s-160s range at home. He denies any alcohol us e recently. Review of Systems PAST MEDICAL & SURGICAL HISTORY Past Medical History: Diagnosis Date Acute bronchitis [...] 35-40%, mild-mod MR, tr TR, RVSP 27 MEDICATIONS Home Medications Outpatient Encounter Medications as of 11/03/2019 Medication Sig Dispense Refill albuterol (PROVENTIL HFA) [...] tablet by mouth Daily. 30 tablet 11 [DISCONTINUED] losartan (COZAAR) 25 mg tablet Take 1 tablet by mouth Daily. 30 tablet 1 1 losartan (COZAAR) 50 mg tablet Take 1 tablet by mouth Daily. 30 tablet 5 metoprolol succinate (TOPROL-XL) 50 mg 24 hr tablet Take 1 tablet by mouth Daily. 90 ta blet 3 nicotine (NICODERM) 14 mg/[address] 1 patch onto the skin every 24 hours. 30 patch 0 spironolactone (ALDACTONE) 25 mg tablet Take 1 tablet by mouth Daily. No facility-administered encounter medications on file as of 11/03/2019. Allergies Allergies Allergen Reactions Amoxicillin Anaphylaxis Lisinopril [...] level: Not on file Occupational History Occupation: [employer] Social Needs Financial resource strain: Not on file Food insecurity: Worry: Not on file Inability: Not on file Transportation needs: Medical: Not on file Non-medical: Not on file Tobacco Use Smoking status: Former Smoker Packs/day: 1.00 Years: 37.00 Pack years: 37.00 Types: Cigarettes Start date: 1981 Last attempt to quit: 04/2019 Years since quittin.5 Smokeless tobacco: Never Used Substance and Sexual [...] file Gets together: Not on file Attends caodaism service: Not on file Active member of [...] on file PHYSICAL EXAM Vital Signs: BP (!) 163/98 | Pulse 82 | Ht 1.803 m (5' 11") | Wt 73.5 kg (162 lb) | BMI 22.59 kg/m Prior physical exam Physical Exam GENERAL: Well developed, well nourished, [...] for: C HOL, TRIG, HDL, LDL, TSH Blood work from 07/13/2019 reviewed including white blood cell count 7.9, hemoglobin 14.8, he matocrit 46.2, platelets 290, sodium 135, potassium 4.1, chloride 98, bicarb 24, BUN 33, cre atinine 1.64, glucose 78, calcium 9.3, magnesium 2.1, total bilirubin 0.4, AST 22, ALT 16, a lkaline phosphatase 58 EK06/24/19 normal sinus rhythm 64 BPM, septal infarct age undetermined, inferior lateral ST-T wave abnormality. Last Echo: MUGA scan 07/11/19 EF 60% 05/10/19 Normal LV size and wall thickness [...] abnormali ty. Last stress test: Last cath: 11/21/12 CORONARY ANGIOGRAPHY The coronary system was [...] US: AAA screening: Lower extremity US: OTHERS: PFTs 07/21/19 Although there is any obstruction and diffusion defect suggesting emphysema, the absence of overinflation is inconsistent with that diagnosis. Minimal obstructive airway disease, mod erate diffusion defect. Minimal obstructive airway disease 05/12/2019 12-day event monitor. Normal sinus rhythm with an average heart rate of 76 bpm. , 77% burden of atrial fibrillation with an average heart rate of 116 bpm, there were 5 epis odes of nonsustained ventricular tachycardia the longest of which was 14 beats. ASSESSMENT & PLAN 1. Non ischemic cardiomyopathy EF 35-40% 2. Paroxysmal afib 3. Mild-mod MR 4. 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 Current tobacco habituation - The patient is a 53-year-old male, who presents to the Cardiology office for follow up. Geneva rodriguez had a recent hospitalization for afib with RVR. He was started on anticoagulation with Marga shreya. Recent echo demonstrated an EF of 35-40%. I ordered a MUGA scan 07/01/19 which demons trated an EF of 60%. He admits to persistent SOB. Recent PFTs demonstrated minimal obstructi ve airway disease with moderate diffusion capacity. He continues to smoke. He has been doing well recently, but has noticed that his BP has been elevated lately. - Continue Eliquis 5mg po bid - Continue metoprolol succinate 50mgpo daily - Increase losartan to 50 mg by mouth daily. - Obtain blood work one week after making this change - Continue spironolactone 25 mg by mouth daily. - Continue lasix 20mg po dialy - Continue atorvastatin 80 mg by mouth daily. - Follow up with EP as scheduled. - Tobacco cessation was encouraged. The patient is interested in quitting and is interested in nicotine patches. Will write for Nicoderm SQ 14mg/hr. - Follow up in 3 months with a Limited echo beforehand Thank you for allowing me to participate in the care of this patient. Primary Care Physician: ALAYNA Abrams DO 11/04/2019 documented in this enco unter Plan of Treatment +--------+---------+ + + + | Date | Type | Specialty | Care Team | Description | +--------+---------+ + + + | 02/22/ | Office | Cardiology | Zach Pal | | | 2019 | Visit | | [address] | | | | | | [address] | | | | | | [place] [address] | | | | | | [phone] | | | | | | | | +--------+---------+ + + + | 04/26/ | Office | Cardiology | Lorena Davis | | 2019 | Visit | | [address] | | | | | | [address] | | | | | | [place] [address] | | | | | | [phone] | | | | | | | | +--------+---------+ + + + + + +--------+ + + | Name | Type | Priori | Associated Diagnoses | Order Schedule | | | | ty | | | + + +--------+ + + | Basic Metabolic | Lab | Routin | Chronic systolic | Expected: | | Panel | | e | heart failure (HCC) | 11/10/2019, Expires: | | | | | | 11/02/2020 | + + +--------+ + + | Echo Limited | Echocardiog | Routin | Chronic systolic | Expected: | | | xin | e | heart failure (HCC) | 02/02/2020, Expires: | | | | | | 11/02/2020 | + + +--------+ + + documented as of this encounter Visit Diagnoses + + | Diagnosis | + + | Chronic systolic heart failure (HCC) - Primary Chronic systolic heart failure | + + | Cardiomyopathy, unspecified type (HCC) | + + | Hypertension, unspecified type | + + | Smoker Tobacco use disorder | + + documented in this encounter
--- OUTSIDE RECORDS SUMMARY | ~2020-02-05 | XMS | Encounter Summary ---
Demographics + + + | Address | [address] [facility] [address] | | | [place] [address] | + + + | Home Phone [...] [place] | | | | | [address] | | + + + + + Care Team Providers + +------+ + | Care Concrete Boom Pump Operator Name | Role | Phone | [...] | | | [address] | [place] [address] | | | | | [place] [address] | | | | | | [phone] | | | +--------+ + + + [...] [address] | | | | | | [place] [address] | | | | | | [phone] | | | | | | | | +--------+---------+ + + + | 04/26/ | Office | Cardiology | Lorena Davis | | | 2019 | Visit | | [address] | | | | | | [address] | | | | | | [place] [address] | | | | | | [phone] | | | | | | | [...]
--- OUTSIDE RECORDS SUMMARY | ~2020-02-05 | XMS | Encounter Summary ---
Demographics + + + | Address | [address] [facility] [address] | | | [place] [address] | + + + | Home Phone | | + + + | Preferred Language | Unknown | + + + | Marital Status | | + + + | Orthodox Affiliation | [id number] | + + [...] [place] | | | | | [address] | | + + + + + Care Team Providers + +------+ + | Care Transplanter Orchid Name | Role | Phone | + +------+ + PCP | Unavailable | + +------+ + Encounter Details +--------+ + + + + | Date | Type | Department | Care Team | Description | +--------+ + + + + | 11/19/ | Hospital | [facility] | JosuemaríaAlondramarquita, | SOB (shortness of | | 2012 - | Encounter | [facility] | [address] | breath) on exertion; | | | | CARE FLOOR [address] | [place] [address] | Cardiac enzymes | | 11/21/ | | [address] | [phone] | elevated | | 2012 | | [place], [place] | | | | | | [address] | | | | | | [phone] | | | +--------+ + + + [...] 11/21/12917 Date of Service: 11/21/12911 Status: Signed Homicide Squad Sergeant: Abhinav Garcia DO (Physician) [facility] Service: Hospitalist Discharge Summary Date of Admission: [...] CKMB 4.5* 11/20/2012 XR chest 1 view [[id number]] Status: Final result Study Result HISTORY: Difficulty [...] The left atrium is moderately dilated. 4. Zvgw-ce-wmesbdsl mitral regurgitation is present. 5. Mpge-qd-rvaxayzh tricuspid regurgitation present. 6. The right ventricular [...] test was found to be negative. A 6-Namibian right radial artery [place] was then advanced. A cocktail of heparin, verapamil and nitroglycerin was injected via the introducer. Using a Wholey wire, a 6-Namibian JL4 catheter was advanced to the ascending aorta and engaged with the ostium of the left main. Projections of the left coronary system were done with the use of contrast injections. Using a long exchange wire, the JL4 catheter was exchanged to a 6-Namibian JR4 catheter which was engaged with the ostium of the right coronary artery. Projections of the right coronary artery were done with the use of contrast injections. The catheter was then exchanged over a long exchange wire to a 6-Namibian pigtail catheter which was advanced to the [...] Code Status: Full Code Follow up: Griffin Monreal MD [address] [place] [address] in 2 weeks Divya Alves MD [address] [facility], [address] [place] [address] in 4 weeks Current Discharge Medication List [...] Date of Service: 11/21/12 1501 Status: Signed Homicide Squad Sergeant: Shannan Xavier RN (Registered Nurse) Discharge instructions given to patient, verbalized understanding. Left with wheelchair es joleen to private car and home. onver sonal Transaction, Provider Unknown - 11/21/2012 12:40 PM PDT Progress Notes by Shannan Xavier RN at 11/21/12 1240 Author: Shannan Xavier RN Service: (none) Author Type: Registered Nurse Filed: 11/21/12 1248 Date of Service: 11/21/12 1240 Status: Signed Homicide Squad Sergeant: Shannan Xavier RN (Registered Nurse) CHF teaching: Reviewed CHF packet with fiance, mother, and patient. Patient was able to teach back precious garcia signs of CHF worsening, daily care (including taking his weight and being on a 2 liter fl uid restriction), diet instructions (salt restrictions), medications, and tobacco cessation. Tobacco cessation pamphlet given to patient. Family and patient verbalized understanding of instructions. ivya Alves - 11/21/2012 7:28 AM PDT . Progress Notes by Divya Alves MD at 11/21/12727 Author: Divya Alves MD Service: Cardiology Author Type: Physician Filed: 11/21/12 1129 Date of Service: 11/21/12727 Status: Signed Homicide Squad Sergeant: Divya Alves MD (Physician) Related Notes: Original Note by Divya Alves MD (Physician) filed at 11/21/1232 [facility] Service: Cardiology/[facility] Progress Note RE: Jessa Cole [...] 94% Intake/Output Summary (Last 24 hours) at 11/21/12727 Last data filed at 11/20/12 1802 Gross [...] well. DIVYA ALVES MD 11/21/2012 7:28 AM lorencionAbhinav DO - 013 1:24 PM PDT Progress Notes by Abhinav Garcia DO at 11/20/12 5180 Author: Abhinav Garcia DO Service: (none) Author Type: Physician Filed: 11/20/12 5034 Date of Service: 11/20/12 1324 Status: Addendum Homicide Squad Sergeant: Abhinav Garcia DO (Physician) Related Notes: Original Note by Abhinav Garcia DO (Physician) filed at 11/20/12 8761 [facility] Service: Hospitalist Progress Note Hospital Day: LOS: 1 day SUBJECTIVE 47 year old developed increasing exertional dyspnea over the course of less than a week, pr esented to [facility] where a troponin was indeterminate, transferred to [facility] and troponin s have been [...] Daily heparin (porcine) 5,000 Units Subcutaneous Q8H BRI lisinopril 5 mg Oral Daily lovastatin 20 [...] Axillary 87 18 98 % - - 11/19/122019 124/75 mmHg - - 80 18 97 % - - 11/19/12 195 130/81 mmHg - - 87 18 99 [...] CKMB 4.5* 11/20/2012 XR chest 1 view [[id number]] Status: Final result Study Result HISTORY: Difficulty [...] cardio recs Code Status: Full Code Abhinav Alvarez DO Jose 11/20/2012 1:31 PM Addendum Patient is giving [...] 11/20/121039 Date of Service: 11/20/121039 Status: Signed Homicide Squad Sergeant: Azul Weaver RPH (Pharmacist) Renal Dosing Monitoring: [...] 11/19/122123 Date of Service: 11/19/122123 Status: Signed Homicide Squad Sergeant: Georgiana Street RPH (Pharmacist) Clinical Pharmacy Note: [...] in AM when la bs are reported. [address], [facility] 11/19/2012 9:23 PM docume nted in this encounter H&P Notes Payton Valle MD - 11/19/2012 6:23 PM PDTFormatting of this note might be different fr om the original. H&P by Payton Valle MD at 11/19/121822 Author: Payton Valle MD Service: Hospitalist Author Type: Physician Filed: 12/06/12 0944 Date of Service: 11/19/121822 Status: Addendum Homicide Squad Sergeant: Payton Valle MD (Physician) Related Notes: Original Note by Payton Valle MD (Physician) filed at 11/19/121916 [facility] Service: Hospitalist Admission History & Physical Pt: Jessa Cole AGE/SEX: 47 y.o. male ROOM: 08/14 PCP: GRIFFIN MONREAL : 1965 TODAY'S DATE: 11/19/2012 Date of Admission: 11/19/2012 Chief Complaint: Dyspnea History of Present Illness: The patient is a 47 y.o. male with significant past medical history of Past Medical History Diagnosis Date Hypertension Transfer from [facility] who presents with dyspnea for the past 5 days. He states he walks flights of stairs at work usually without any problems but in the last 5 days he has had a problem catching his breat h. No CP, no palpitations, no cough, no fever. Over the course of 5 days, even smaller amoun ts of exertion would cause SOB and today even walking to his car made him short of breath so he asked his girlfriend to take him to the ER. There a d dimer was negative, BNP elevated, troponin was 0.7, and EKG was showing, [address] depression lateral V4,5,6 . CXR report edly negative. He was given ASA and started on heparin drip and brought here for further man agement. On my exam, denies CP and reports SOB improved at rest. Unknown FMHx, current smoke r, drinks 3-4 beers a day ROS: No fevers, chills, fatigue, change in appetite, weight loss, headache, dizziness, focal wea kness. No cough, colds, + shortness of breath, - chest pain, palpitations. No nausea, vomiting, abdominal pain, diarrhea, constipation, dysuria, frequency, hematuria, hematochezia and melena. PMHx: Past Medical History Diagnosis Date Hypertension PSHx: Past Surgical History Procedure Date Hernia repair Appendectomy Prior To admission Meds: Prior to Admission medications Medication Sig Start Date End Date Taking? Authorizing Provider hydrocodone-acetaminophen (VICODIN) 5-500 MG per tablet Take 1 tablet by mouth every 6 (six ) hours as needed. Yes Historical Provider spironolactone (ALDACTONE) 25 MG tablet Take 25 mg by mouth daily. Yes Historical Provide r Medications scheduled: Allergies: Allergies Allergen Reactions Amoxicillin Anaphylaxis Family Hx: History reviewed. No pertinent family history. Social Hx: History Substance Use Topics Smoking status: Current Everyday Smoker -- 1.0 packs/day Smokeless tobacco: Never Used Alcohol Use: Yes 3-4 beers daily Objective: Vital Signs: BP 129/85 | Pulse 86 | Temp(Src) 97.5 F (36.4 C) (Oral) | Resp 18 | Ht 1.778 m (5' 10") | Wt 72.576 kg (160 lb) | BMI 22.96 kg/m2 | SpO2 99% Physical Exam: Constitutional: Alert and oriented to person, place and time. Appears well developed and we ll nourished. HEENT: 3mm pupils, moist mucous membranes, pink conjunctivae and anicteric sclerae. No cerv ical lymphadenopathy. Cardiovascular: Normal rate and rhythm. Normal heart sounds with S1 and S2. No murmurs, gal lops or rubs. Pulmonary: Patient is able to speak in full sentences. Breath sounds are clear bilaterally. No wheezing or rales. Abdominal: Soft and non-tender. Bowel sounds are present. No rebound or guarding. No palpab le masses. No fluid wave. Extremities: + trace bipedal Edema, no cyanosis. Neurological: No focal neurologic signs. Skin: Warm and dry. No rashes or open wounds. Psychiatric: Normal mood and affect. Normal judgment and behavior. Data: No results found for this basename: WBC:3,HGB:3,HCT:3,PLT:3,NEUTOPHILPCT:3;LYMPHOPCT:3,MONO PCT:3, EOSPCT:3 in the last 168 hours No results found for this basename: NA:3,K:3,CL:3,CO2:3,BUN:3,CREATININE:3,CALCIUM:3,LABALB U:3,PROT:3,BILITOT:3,ALKPHOS:3,ALT:3,AST:3,GLUCOSE:3 in the last 168 hours Phosphorus: No results found for this basename: PHOS No components found with this basename: LABALBU:3 No results found for this basename: M in the last 168 hours No results found for this basename: AMYLASE:3 in the last 168 hours No results found for this basename: PHART:3,PO2ART:3,FHD7SOV:3,S8FGXHVA:3,BEART:[address] 168 hours No results found for this basename: APTT:3,INR:3,PTT:3 in the last 168 hours No results found for this basename: TSH:3,T3FREE:3,FREET4:3 in the last 168 hours Lab 11/19/12 1620 CKTOTAL -- TROPONINI -- TROPONINT -- CKMBINDEX UNABLE TO CALCULATE Laboratories from [facility] done today November 19, 2012 sodium 138, potassium 3.7, chloride 105, carbon dioxide 25, glucose 85, BUN 22, creatinine 0.8, calcium 8.9, AST 58, ALT 59, alkaline phosphatase 57, total bilirubin 0.8, magnesium 1.7, troponin 0.07, CK 352, CK-MB 11.8, index 3.4. BNP 614. WBC 7.6, hemoglobin 13.4, hematocrit 41, platelet 202, INR 1, protein 13, 28. D-dimer negative less than 200. EK NSR, prolonged QT, biatrial enlargement No ST elevation or depression Chest X-Ray: reordered Problem List: Principal Problem: *Dyspnea Active Problems: Smoker HTN (hypertension) Transaminitis Elevated brain natriuretic peptide (BNP) level Assessment and Plan: Dyspnea HTN Elevated BNP - troponin intermediate in [facility] But repeat trop here negative, and concerning for the T w inversion in lateral leads in EKG in [facility] which again was not seen here - does have risk factors, so will keep on the heparin drip at least until 3 enzymes negati ve - B flaca, ASA, statin - hold B flaca, stress test in AM if cardiac enzymes negative - echo for the elevated BNP Smoker -advised to quit - nicotine patch Transaminitis - hepatitis panel ordered B/l hip pain - reports he was advised to have b/l hip replacement for degenerative disease - hydrocodone prn DVT prophylaxis on heparin drip Code Status: Full code Primary Care Physician: GRIFFIN VALLE MD 11/19/2012 7:10 PM documented in this encounter Procedure Notes Cassandra Bro ARNP - 11/20/2012 9:36 AM PDT Procedures by LIVIER Felder at 11/20/1236 Author: LIVIER Felder Service: (none) Author Type: Advanced Registered Nurse Practitioner Filed: 11/20/12 0939 Date of Service: 11/20/12935 Status: Signed Homicide Squad Sergeant: LIVIER Felder (Advanced Registered Nurse Practitioner) Procedures: 1. NM CARDIOVASCULAR STRESS TREADMILL [HBK5036 (Custom)] Stress test - lexiscan protocol Baseline: BP 130/90 HR 73. R 16. Normal heart sounds. Lungs clear. Testing: Brief episode of dull chest pain during infusion. No ST-T changes noted. No ectopy or arrhythmias. BP decreased to 105/65, then returned to baseline level. documented in th is encounter Consult Notes Divya Alves - 11/20/2012 1:45 PM PDTFormatting of this note might be different from the o riginal. Consult* by Divya Alves MD at 11/20/12 9991 Author: Divya Alves MD Service: Cardiology Author Type: Physician Filed: 11/21/12 0134 Date of Service: 11/20/125 Status: Signed Homicide Squad Sergeant: Divya Alves MD (Physician) Related Notes: Original Note by Divya Alves MD (Physician) filed at 11/20/12 3586 [facility] Service: Cardiology/[facility] Cardiology Consult, Nicki ALVES RE: Jessa Cole : 1965 DATE OF SERVICE: 11/19/2012 REFERING PROVIDER: Jose REASON FOR CONSULT: Cardiomyopathy. HISTORY OF PRESENT ILLNESS: This gentleman is a 47-year-old male with history of hypertension who presented initially to [facility] in [place] complaining of increasing shortness of breath and fatigue. He tells me his symptoms actually started gradually about 2 weeks ago, but not before. He said prior to that he was able to do every activity he wanted without any problem, yet he suddenly started having shortness of breath. He denies an chest tightness or heaviness. He also has not had any lightheadedness, presyncope and/or syncope. Aside from mild cough his girlfriend and him acquired for a short period of time about a month ago, he has not had any prolonged cold-like symptoms. He is denying any significant lower extremity edema and has not had orthopnea or PND. In [facility], he was noted to have mildly elevated troponin and therefore he was transferred to [facility] where his troponin actually was normal. Nevertheless, his evaluation with stress test and echocardiogram today both suggested severe LV dysfunction and hence the consultation. Currently, he is denying any shortness of breath, but he is telling me he has not challenged himself here in the hospital. He continues to have no fever, chills, rigors, or lower extremity edema. PAST MEDICAL HISTORY: Past Medical History Diagnosis Date Hypertension CODE STATUS: Full code FAMILY HISTORY: History reviewed. No pertinent family history. SOCIAL HISTORY: History Substance Use Topics Smoking status: Current Everyday Smoker -- 1.0 packs/day Smokeless tobacco: Never Used Alcohol Use: Yes 3-4 beers daily CURRENT MEDICATIONS: Scheduled Meds: aspirin 81 mg Oral Daily with breakfast furosemide 20 mg Oral Daily heparin (porcine) 5,000 Units Subcutaneous Q8H BRI lovastatin 20 mg Oral Daily with dinner metoprolol 25 mg Oral BID nicotine 1 patch Transdermal Daily omeprazole 20 mg Oral QAM AC Or pantoprazole 40 mg Intravenous QAM AC sodium chloride 10 mL Intravenous Q8H Continuous Infusions: heparin in D5W 50 units/mL DISCONTD: heparin in D5W 50 units/mL Stopped (11/20/12 1225) PRN Meds:.acetaminophen, acetaminophen, HYDROcodone-acetaminophen, nitroGLYCERIN, ondansetr on, ondansetron, polyethylene glycol, regadenoson, zolpidem, DISCONTD: heparin (porcine), DI SCONTD: heparin (porcine) ALLERGIES: Allergies Allergen Reactions Amoxicillin Anaphylaxis Lisinopril Anaphylaxis REVIEW OF SYSTEMS CONSTITUTIONAL: negative for fevers, chills, positive fatigue . HEENT: negative for tinnitus, nasal congestion, epistaxis, sore throat and hoarseness. RESPIRATORY: dyspnea, no wheezing, pleuritic pain and cyanosis. CARDIOVASCULAR: negative for palpitations, orthopnea, PND, exertional chest pressure/disc omfort, edema, syncope. GASTROINTESTINAL: negative for nausea, vomiting, diarrhea, constipation, abdominal pain, a bdominal distention, jaundice, dysphagia, hematemesis and hemtochezia, or melena. GENITOURINARY: negative for frequency, dysuria, urinary incontinence, hesitancy and hematu becca. ENDOCRINE: negative for heat intolerance, cold intolerance, tremor, weight changes and duglas nge in bowel habits. MUSCULOSKELETAL: negative for myalgias, arthralgias, joint swelling, stiff joints and mus alicia weakness. NEUROLOGICAL: negative for headaches, dizziness, seizures, speech problems, visual disturb ance, tremor and tingling. BEHAVIOR/PSYCH: negative for depression or anxiety. The rest 12 systems were reviewed and were essentially negative. PHYSICAL EXAM: BP 122/89 | Pulse 78 | Temp(Src) 98.2 F (36.8 C) (Axillary) | Resp 20 | Ht 1. 778 m (5' 10") | Wt 72.576 kg (160 lb) | BMI 22.96 kg/m2 | SpO2 95% Intake/Output Summary (Last 24 hours) at 11/20/12 1345 Last data filed at 11/20/12 0400 Gross per 24 hour Intake 212 ml Output 550 ml Net -338 ml HEENT: No xanthelasmas. Extraocular movements were intact. No jaundice. NECK: no JVD, lymphadenopathy. Trachea is at midline. Thyroid is not palpable. CARDIAC: There is normal S1 and S2. No added sounds, murmurs, gallop, or rub. CHEST: Normal bilateral symmetrical chest excursion. Good bilateral air entry with no crack les or wheezing. No evidence of dullness. ABDOMEN: Obese, soft and lax. No tenderness. No palpable organs. Active bowel sounds. EXTREMITIES: No lower extremities edema. NEURO: Alert and oriented times three with no focal deficit. Cranial nerves are grossly no rmal. SKIN: No bruises or rash. Lab Review Lab Results Component Value Date NA 141 11/20/2012 K 3.8 11/20/2012 CL 105 11/20/2012 CO2 29 11/20/2012 BUN 20 11/20/2012 CREATININE 0.89 11/20/2012 Lab Results Component Value Date CKTOTAL 220 11/20/2012 CKMB 4.5* 11/20/2012 CKMBINDEX 2.0 11/20/2012 TROPONINI 0.06 11/20/2012 Lab Results Component Value Date WBC 6.4 11/20/2012 HGB 13.8 11/20/2012 HCT 41.4 11/20/2012 MCV 96.0 11/20/2012 PLT 177 11/20/2012 Cardiographics ECG: SR, nonspecific ST abnormalities. Imaging Chest X-Ray: Echocardiogram: 1. Overall left ventricular systolic function is severely impaired with, an EF between 25 - 30 %. 2. Restrictive LV diastolic filling pattern, consistent with elevated LA pressure and sever e dysfunction (grade III). 3. The left atrium is moderately dilated. 4. Bhgc-zz-jqrhdyvr mitral regurgitation is present. 5. Suxo-km-quruqkal tricuspid regurgitation present. 6. The right ventricular systolic pressure (pulmonary artery systolic pressure), as measure d by Doppler, is 49.76mmHg. Stress nuclear: 1. Marked chamber enlargement, hypokinesis and low ejection fraction. All correlate with re latively higher risks for short and intermediate term morbidity in this 47-year-old patient 2. No proven significant reversibility, but is some photopenia about the inferior wall and apex which could either be artifact or nonacute infarct. Prone imaging could not be performe d. ASSESSMENT: 1. Shortness of breath likely secondary to congestive heart failure. 2. Severe systolic left ventricular dysfunction/cardiomyopathy. Differential diagnosis includes ischemic, hypertensive, viral, idiopathic, among other less likely causes that includes hemochromatosis, hypothyroidism, and HIV-induced cardiomyopathy. 3. History of hypertension. 4. Significant alcohol use. 5. Tobacco dependence. PLAN: This gentleman presents with shortness of breath that can be explained on the basis of congestive heart failure and systolic LV dysfunction. With the patient's cardiomyopathy, the differential diagnosis is wide and includes ischemic, hypertensive, idiopathic, and less likely metabolic causes including alcoholic cardiomyopathy, hemachromatoses, and hypothyroidism induced. He categorically denies any risk for HIV infection or HIV cardiomyopathy unlikely. Regardless, at this point treatment, I told him, should be directed to reducing afterload with angiotensin receptor blockers and using Coreg and Aldactone. I do recommend evaluation with coronary angiography to settle the issue of underlying ischemic heart disease, specifically given his young age. With that, angiography and trans-cardiac catheterization was discussed with him, including the risks and benefits and he will plan for it tomorrow. Ultimately if his ejection fraction does not improve then an AICD will be recommended. DIVYA ALVES MD 11/20/2012 1:45 PM documented in this encounte r ED Notes Conversion Transaction, Provider Unknown - 11/19/2012 8:57 PM PDTFormatting of this note m ight be different from the original. ED Notes by Felicity Hayden RN at 11/19/122056 Author: Felicity Hayden RN Service: (none) Author Type: Registered Nurse Filed: 11/19/122057 Date of Service: 11/19/122056 Status: Signed Homicide Squad Sergeant: Felicity Hayden RN (Registered Nurse) Spoke with Shani TREVINO on 4RP reguarding pt lab results, reports she will follow up with miguelangel zhao and pending cardiac enzymes. Felicity Hayden RN 11/19/122057 onver sonal Transaction, Provider Unknown - 11/19/2012 7:54 PM PDT ED Notes by Felicity Hayden RN at 11/19/121953 Author: Felicity Hayden RN Service: (none) Author Type: Registered Nurse Filed: 11/19/121953 Date of Service: 11/19/121953 Status: Signed Homicide Squad Sergeant: Felicity Hayden RN (Registered Nurse) Lights dimmed for comfort, updated on room status, call light within reach. Felicity Hayden RN 11/19/121953 onver sonal Transaction, Provider Unknown - 11/19/2012 7:01 PM PDT ED Notes by Felicity Hayden RN at 11/19/121900 Author: Felicity Hayden RN Service: (none) Author Type: Registered Nurse Filed: 11/19/121901 Date of Service: 11/19/121900 Status: Signed Homicide Squad Sergeant: Felicity Hayden RN (Registered Nurse) Pt's mother reports she wants to add to pt's family medical history that her brother has "a rterial stenosis in his legs, " record updated. Felicity Hayden RN 11/19/121901 onver sonal Transaction, Provider Unknown - 11/19/2012 6:31 PM PDT ED Notes by Felicity Hayden RN at 11/19/121830 Author: Felicity Hayden RN Service: (none) Author Type: Registered Nurse Filed: 11/19/121830 Date of Service: 11/19/121830 Status: Signed Homicide Squad Sergeant: Felicity Hayden RN (Registered Nurse) Admit MD at bedside Felicity Hayden RN 11/19/121830 onver sonal Transaction, Provider Unknown - 11/19/2012 6:24 PM PDT ED Notes by Felicity Hayden RN at 11/19/121823 Author: Felicity Hayden RN Service: (none) Author Type: Registered Nurse Filed: 11/19/121824 Date of Service: 11/19/121823 Status: Signed Homicide Squad Sergeant: Felicity Hayden RN (Registered Nurse) Assumed care of pt, pt resting in [facility], eating dinner tray s difficulty. Awaiting ho spital room to be ready, updated on status, care board updated. Felicity Hayden RN 11/19/121824 onver sonal Transaction, Provider Unknown - 11/19/2012 6:19 PM PDT ED Notes by Lauren Sebastian RN at 11/19/121818 Author: Lauren Sebastian RN Service: (none) Author Type: Registered Nurse Filed: 11/19/121818 Date of Service: 11/19/121818 Status: Signed Homicide Squad Sergeant: Lauren Sebastian RN (Registered Nurse) Bedside report given to Felicity Sebastian RN 11/19/121818 itesh Rivera MD - 11/19/2012 4:07 PM PDT ED Provider Notes by Hitesh Rivera MD at 11/19/121606 Author: Hitesh Rivera MD Service: (none) Author Type: Physician Filed: 11/19/121817 Date of Service: 11/19/121606 Status: Signed Homicide Squad Sergeant: Hitesh Rivera MD (Physician) [facility] Department of Emergency Medicine 11/19/2012 History of Present Illness Patient Identification Jessa Cole is a 47 y.o. male. Patient information was obtained from patient. History/Exam limitations: none. Patient presented to the Emergency Department by: Ambulance Chief Complaint Chief Complaint Patient presents with Shortness of Breath 16:08. Transfer pt from [facility] presents to the ED with SOB. Onset of symptoms was 4-5 days ago, with a worsening course since that time. Severity is described as moderat e. The patient reports exertion worsens symptoms, and nothing relieves symptoms. Pt states t hat with any amount of walking or exertion, he gets short of breath. No nausea, vomiting, or diarrhea. Labs were done at [facility] which showed elevated cardiac enzymes. Pt denies chest pain. Pt was started on a Heparin drip and given 325 mg of ASA. Denies any back pain. Does have some left shoulder pain and right leg pain but these are chronic. Pt has a chronic mild cough in the mornings but states it has been more productive. Pt does smoke cig arettes. Past Medical History Diagnosis Date Hypertension Past Surgical History Procedure Date Hernia repair Appendectomy Prior to Admission medications Medication Sig Start Date End Date Taking? Authorizing Provider hydrocodone-acetaminophen (VICODIN) 5-500 MG per tablet Take 1 tablet by mouth every 6 (six ) hours as needed. Yes Historical Provider spironolactone (ALDACTONE) 25 MG tablet Take 25 mg by mouth daily. Yes Historical Provide r Allergies Allergen Reactions Amoxicillin Anaphylaxis History Social History Marital Status: Spouse Name: N/A Number of Children: N/A Years of Education: N/A Occupational History Not on file. Social History Main Topics Smoking status: Current Everyday Smoker -- 1.0 packs/day Smokeless tobacco: Never Used Alcohol Use: Yes 3-4 beers daily Drug Use: No Sexually Active: Other Topics Concern Not on file Social History Narrative No narrative on file No family history on file. Review of Systems Constitutional: Negative for: fever or chills Cardiovascular: Negative for: palpitations, leg swelling, or chest pain Respiratory: Positive for: shortness of breath Positive for: chronic cough in the mornings, slightly more productive than usual Gastrointestinal: Negative for: vomiting or abdominal pain Musculoskeletal: Negative for: back pain Positive for: Chronic shoulder and leg pain (no change) Skin: Negative for: rash or lesion Neuro and psych: Negative for: fainting or dizziness All other systems were reviewed and are subjectively reported as negative. Physical Exam BP 131/93 | Pulse 98 | Temp(Src) 97.5 F (36.4 C) (Oral) | Resp 14 | Ht 1.778 m (5' 10") | Wt 72.576 kg (160 lb) | BMI 22.96 kg/m2 | SpO2 97% Vitals: normal Pulse Oximetry Interpretation: Normal General: Alert, no active distress Eyes: Normal inspection, pupils equal and round, non-icteric ENT: Normal external inspection Neck: Normal inspection Supple Full ROM Cardiovascular: Normal rate and rhythm, no extra sounds, 2+ symmetric radial pulses Respiratory: No respiratory distress or wheezing Abdomen: Soft, non-tender, non-distended Back: Normal inspection Skin: Color normal Warm and dry Extremities: BANKS, no peripheral edema Neuro: No gross motor/sensory deficit Medical Decision Making and Emergency Department Course ED Department Course 16:10. Transfer pt from [facility] presents to the ED with SOB that started 4-5 d ays ago and worse with exertion. Labs were done at [facility] which showed elevate d cardiac enzymes. Pt denies chest pain. Exam is unremarkable. 16:13. Reviewed labs from [facility]. CMP showed Na at 138, K at 3.7, glucose at 85, BUN at 23, creatinine at 0.89, AST at 58, and ALT at 59. CBC showed WBC at 7.6, HGB at 1 3.4, HCT at 41.5, and platelet count at 202. Magnesium was 1.7. Troponin was 0.07. Myoglobin was 68.8. CK was 352 and CKMB was 11.8 with index of 3.4. INR was 1.0. D-dimer was normal. BNP was 614. Heparin drip continued. 16:14. Will order troponin, EKG, and CKMB. 16:55. Troponin is 0.04. 17:39. Reviewed CXR images in PACS system. I did not see any acute process. 17:41. Will admit pt at this time and place call to hospitalist. 17:42. Pt reevaluation. Informed pt his troponin was negative here. Pt continues to be ches t pain free. Informed the pt that I have placed a bed request and that the pt will be admitt ed for further evaluation and observation. Pt agrees with plan. All questions and concerns a ddressed at this time. 18:06. MMB at 6.7. 18:08. Discussed pt's case with Dr. Valle, hospitalist, who will see and admit the pt. Records Reviewed Nursing Notes Chart from [facility] Laboratory Evaluation Results Procedure Component Value Ref Range Date/Time CK MB [[id number]] (Abnormal) Collected:11/19/12 1620 Order Status:Completed Updated:11/19/12 1754 MMB 6.7 (H) 0.5 - 3.6 ng/mL CK-MB Index UNABLE TO CALCULATE POC cardiac troponin [[id number]] Collected:11/19/12 162 Order Status:Completed Updated:11/19/12 1637 POC CARDIAC TROPONIN 0.04 0.00 - 0.10 ng/mL Radiology and EKG Evaluation Imaging Results None EKG from 15:57. NSR at 98. Biatrial enlargement. No ST elevations. Viewed and interpreted by Hitesh Rivera MD ED Diagnoses Final diagnoses SOB (shortness of breath) on exertion Cardiac enzymes elevated Disposition: ED Disposition Admit/Observation Requested Unit:: Acute Care Bed request special needs: Telemetry Diagnosis?: Dyspnea / Elevated CKMB / R/O ACS Additional Documentation Procedures Attending Note: Documentation assistance provided by Elke Beavers (Scribe). Information recorded by the scribe has been reviewed and validated by me. Neisha hoover with its contents. MD Hitesh Salvador MD 11/19/12 1818 onversion Transact ion, Provider Unknown - 11/19/2012 3:55 PM PDTFormatting of this note might be different fr om the original. ED Notes by Didier Hernandez at 11/19/12 0815 Author: Didier Hernandez Service: (none) Author Type: Mail Agent Filed: 11/19/12 1550 Date of Service: 11/19/121554 Status: Signed Homicide Squad Sergeant: Didire Hernandez (Mail Agent) Bed:02
Expected date:
Expected time:
Means of arrival:
Comments:
docume nted in this encounter Plan of Treatment +--------+---------+ + + + | Date | Type | Specialty | Care Team | Description | +--------+---------+ + + + | 02/22/ | Office | Cardiology | Zach Pal | | | 2019 | Visit | | [address] | | | | | | [address] | | | | | | [place] [address] | | | | | | [phone] | | | | | | | | +--------+---------+ + + + | 04/26/ | Office | Cardiology | SusanLorena | | | 2020 | Visit | | [address] | | | | | | [address] | | | | | | [place] [address] | | | | | | [phone] | | | | | | | [...] test was found to be negative. A 6-Namibian right radial artery | | | Glidesheath was then advanced. A cocktail of heparin, verapamil and | | | nitroglycerin was injected via the introducer. Using a Wholey wire, a | | | 6-Namibian JL4 catheter was advanced to the ascending aorta and | | | engaged with the ostium of the left main. Projections of the left | | | coronary system were done with the use of contrast injections. Using | | | a long exchange wire, the JL4 catheter was exchanged to a 6-Namibian | | | JR4 catheter which was engaged with the ostium of the right coronary | | | artery. Projections of the right coronary artery were done with the | | | use of contrast injections. The catheter was then exchanged over a | | | long exchange wire to a 6-Namibian pigtail catheter which was advanced | | [...] test was found to be negative. A 6-Namibian right radial artery Glidesheath | | was then advanced. A cocktail of heparin, verapamil and nitroglycerin was | | injected via the introducer. Using a Wholey wire, a 6-Namibian JL4 catheter | | was advanced to the ascending aorta and engaged with the ostium of the | | left main. Projections of the left coronary system were done with the use | | of contrast injections. Using a long exchange wire, the JL4 catheter was | | exchanged to a 6-Namibian JR4 catheter which was engaged with the ostium of | | the right coronary artery. Projections of the right coronary artery were | | done with the use of contrast injections. The catheter was then exchanged | | over a long exchange wire to a 6-Namibian pigtail catheter which was | | advanced [...] | | | is moderately dilated. 4. Roww-xq-zflwttqq mitral regurgitation is | | | present. 5. Utry-hx-gsafrtfk tricuspid regurgitation present. 6. The | | [...] The mitral valve is normal. Mitral Valve: Ojbu-ex-scljjcor | | | mitral regurgitation is present. Tricuspid Valve: The tricuspid valve | | | appears structurally normal. Tricuspid Valve: Dkoj-td-xulzhnti | | | tricuspid regurgitation present. Tricuspid [...] Excursion: 1.70 cm | | | E-F [place]: 0.10 m/s EPSS: 1.06 cm IVC diameter: [...] TV A Rodney: 0.35 m/s TV Dec [place]: 1.72 | | | m/s2 TV Dec Time: 211.30 ms TV E Rodney: 0.36 m/s TV E/A Ratio: | | | 1.01 Director Global Medical Affairs: DEBBIE Authenticated by: Divya Alves MD Report | | | Date/Time: 11-20-2012 13:30:30 | | + + + + + | Procedure Note | + + | Clyde Walker Conversion - 03/04/2019 6:15 PM PDT Patient Name: Perry COLE of | | : 1965 Performing Physician: Divya Alves | | MD INDICATIONS S | | HORTNESS OF BREATH ABNORMAL EKG/ELEVATED TROPONIN CONCLUSIONS 1. Overall left | | ventricular systolic function is severely impaired with, an EF between 25 - 30 %.2. | | Restrictive LV diastolic filling pattern, consistent with elevated LA pressure and | | severe dysfunction (grade III).3. The left atrium is moderately dilated.4. | | Fdos-yt-wnhorxsr mitral regurgitation is present.5. Cbjk-xi-aioimbkw tricuspid | | regurgitation present.6. The right [...] mitral valve is normal.Mitral Valve: | | Wuhj-eh-sdiokrkb mitral regurgitation is present.Tricuspid Valve: The tricuspid valve | | appears structurally normal.Tricuspid Valve: Ujmq-fl-iysjaofi tricuspid regurgitation | | present.Tricuspid Valve: There [...] mlLAESV Index (A-L): 45.41 ml/m2LAAs A2C: 24.93 [id number] | | A-L A2C: 97.92 mlLALs A2C: 5.39 cmLAAs A4C: 22.03 xl4TGAAO A-L A4C: 77.83 mlLALs | | A4C: 5.29 cmAo Diam: 3.63 cmAV Cusp: 1.97 cmLA Diam: 4.34 cmLA/Ao: 1.19D-E | | Excursion: 1.70 cmE-F Maricopa: 0.10 m/sEPSS: 1.06 cmIVC diameter: 1.97 cmIVC | | collapse: 0.83 cmIVC % collapse: 55.60 %HR: 72.45 BPMAV maxP.24 mmHgAV | | meanP.37 mmHgAV Vmax: 1.14 m/Vilma Vmean: 0.89 m/Vilma VTI: 21.73 cmAVA Vmax: | | 2.62 cm2AVA (VTI): 2.43 mh8CDJT Dopp: 2.01 l/mgbr2BAVX Dopp: 3.91 l/minHR: 74.10 | | BPMLVOT [...] A Rodney: 0.35 m/sTV | | Dec [place]opa: 1.72 m/s2TV Dec Time: 211.30 msTV E Rodney: 0.36 m/sTV E/A Ratio: 1.01 | | Director Global Medical Affairs: KVWAuthenticated by: Divya Alves [facility] Date/Time: 11-20-2012 13:30:30 | |LVIDd: 5.10 cm [...] | |D-E Excursion: 1.70 cm | |E-F [place]opa: 0.10 m/s | |EPSS: 1.06 cm | [...] A Rodney: 0.35 m/s | |TV Dec [place]: 1.72 m/s2 | |TV Dec Time: 211.30 ms | |TV E Rodney: 0.36 m/s | |TV E/A Ratio: 1.01 | | | |Director Global Medical Affairs: DEBBIE | |Authenticated by: Divya Alves MD | [...] + | Aaron, Rad Conversion - 03/04/2019 6:15 PM PDT HISTORY: [...] + | This procedure was resulted in [facility] (the cardiology system). Please | | | see the Media tab in Chart Review to see the result for this | | | procedure. | | + + + + + | Procedure Note | + + | Clyde Walker - 03/04/2019 6:15 PM PDT This procedure was resulted in [facility] | | (the cardiology system). Please seethe [...] + | Aaron, Rad Conversion - 03/04/2019 6:15 PM PDT HISTORY:Difficulty [...]
--- OUTSIDE RECORDS SUMMARY | ~2020-02-05 | XMS | Encounter Summary ---
Demographics + + + | Address | [address] [facility] [address] | | | [place] [address] | + + + | Home Phone | | + + + | Preferred Language | Unknown | + + + | Marital Status | | + + + | Shinto Affiliation | 1077 | + + + | Race | Unknown | + + + | Ethnic Group | Unknown | + + + Author + + + | Author | [facility] | | | and [place] | + + + | Organization | [facility] | | [...] [place] | | | | | [address] | | + + + + + Care Team Providers + +------+ + | Care Senior Electronics Design Engineer Name | Role | Phone | + +------+ + | Bess Alba | PCP | | + +------+ + Reason for Visit + +--------+ + | Reason | Onset | Comments | | | Date | | + +--------+ + | Appointment | 01/23/ | | | | 2020 | | + +--------+ + Encounter Details +--------+ + + + + | Date | Type | Department | Care Team | Description | +--------+ + + + + | 01/23/ | Telephone | [facility] | Zach Pal | Appointment | | 2019 | | CARDIOLOGY [place] | [address] | | | | | [address] | [address] [facility] | | | | | [place], [place] | [place] [address] | | | | | [address] | [phone] | | | | | [phone] | | | +--------+ + + + [...] encounter Miscellaneous Notes Telephone Encounter - Franchesca Chlids - 01/24/2020 10:30 AM PDTCalling pt to reschedule 02/22 apt. Left msg for pt to call back and schedule. Franchesca Childs documented in this enc ounter [...] | | | | | [place] [address] | | | | | | [phone] | | | | | | | | +--------+---------+ + + + | 04/26/ | Office | Cardiology | Lorena Davis | | | 2020 | Visit | | [address] | | | | | | [address] | | | | | | [place] [address] | | | | | | [phone] | | | | | | | | +--------+---------+ + + + documented as of this encounter Visit Diagnoses Not on filedocumented in this encounter"
--- OUTSIDE RECORDS SUMMARY | ~2020-02-05 | XMS | Encounter Summary ---
Demographics + + + | Address | [address] [facility] [address] | | | [place] [address] | + + + | Home Phone | | + + + | Preferred Language | Unknown | + + + | Marital Status | | + + + | Evangelical Affiliation | 1077 | + + + | Race | Unknown | + + + | Ethnic Group | Unknown | + + + Author + + + | Author | [facility] | | | and [place] | + + + | Organization | [facility] | | | [...] [place] | | | | | [address] | | + + + + + Care Team Providers + +------+ + | Care Toe Stripper Name | Role | Phone | + [...] Rosio Sams | | | | | [address] | [place] [address] | | | | | [place] [address] | | | | | | [phone] | | | +--------+ + + + [...] [address] | | | | | | [place] [address] | | | | | | [phone] | | | | | | | | +--------+---------+ + + + | 04/26/ | Office | Cardiology | Lorena Davis | | | 2020 | Visit | | [address] | | | | | | [address] | | | | | | [place] [address] | | | | | | [phone] | | | | | | | [...]
--- OUTSIDE RECORDS SUMMARY | ~2020-02-05 | XMS | Encounter Summary ---
Demographics + + + | Address | [address] [facility] [address] | | | [place] [address] | + + + | Home Phone [...] [place] | | | | | [address] | | + + + + + Care Team Providers + +------+ + | Care Parish Nurse Name | Role | Phone | [...] | | | | | [place] | [place] [address] | [address] | | | | | | Phone: | Phone: | | | | | | [phone] | [phone] | | | | | | Fax: | Fax: | | | | | | [phone] | [phone] | +--------+ + + + + + [...] [place] | | | | | [place] [address] | [place] [address] | | | | | [address] | [phone] | | | | | [phone] | | | +--------+ + + + [...] [address] | | | | | | [place] [address] | | | | | | [phone] | | | | | | | | +--------+---------+ + + + | 04/26/ | Office | Cardiology | Lorena Davis | | | 2019 | Visit | | [address] | | | | | | [address] | | | | | | [place] [address] | | | | | | [phone] | | | | | | | [...]
--- OUTSIDE RECORDS SUMMARY | ~2020-02-05 | XMS | Encounter Summary ---
Demographics + + + | Address | [address] [facility] [address] | | | [place] [address] | + + + | Home Phone [...] [place] | | | | | [address] | | + + + + + Care Team Providers + +------+ + | Care Market Risk Manager Name | Role | Phone | + +------+ + | Bess Alba | PCP | | + +------+ + Reason for Visit + + + | Reason | Comments | + + + | Follow-up | | + + + Encounter Details +--------+---------+ + + + | Date | Type | Department | Care Team | Description | +--------+---------+ + + + | 01/10/ | Office | [facility] | May Pal | Paroxysmal atrial | | 2020 | Visit | CARDIOLOGY [place] | [address] | fibrillation (HCC) | | | | [address] | [address] | (Primary Dx); | | | | [place], [place] | [place] [address] | Nonischemic | | | | [address] | [phone] | cardiomyopathy | | | | [phone] | | (HCC); Sleep apnea, | | [...] + documented in this encounter Progress Notes May Pal MD - 01/11/2020 10:15 AM PDTFormatting of this note might be dif ferent from the original. Subjective: Referring MD: No ref. provider found Chief Complaint Patient presents with Follow-up HPI: This is a 54 y.o. male who presents today for follow-up of atrial fibrillation. Mr. Wilbert encinas reports he notes occasional episodes of shortness of breath with activity. During times of symptoms he has checked his blood pressure and heart rate on his machine at home an d has noted an irregular heart rate. He has never appreciated any palpitations. He denies any current chest pain, dizziness, lightheadedness, or recent syncope. He continues on anti coagulation with Eliquis. 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 180 tablet 3 furosemide (LASIX) 20 mg tablet Take 1 tablet by mouth Daily. 30 tablet 11 losartan (COZAAR) 50 mg tablet Take 1 tablet by mouth Daily. 30 tablet 5 metoprolol succinate (TOPROL-XL) 50 mg 24 hr tablet Take 1 tablet by mouth 2 times lynette y. 90 tablet 3 spironolactone (ALDACTONE) 25 mg tablet Take 1 tablet by mouth Daily. 90 tablet 3 No current facility-administered medications for this visit. Allergies Allergen Reactions Amoxicillin Anaphylaxis Lisinopril Anaphylaxis Gabapentin Other (See Comments) Reaction not specified in outside medical records. Objective: Vitals: 01/11/20 1029 BP: (!) 165/92 Pulse: 89 Temp: 36.7 C (98.1 F) Weight: 76.1 kg (167 lb 11.2 oz) Height: 1.803 m (5' 11") Body mass index is 23.39 kg/m. Exam: General: Patient is alert, pleasant, [...] of studies: ECG: Normal sinus rhythm at 84 bpm, premature atrial complex, nonspecific T wave changes, c ompared to the EKG of August 2019 atrial ectopy is noted Impression/Plan: Erwin was seen today for follow-up. Diagnoses and all orders for this visit: Paroxysmal atrial fibrillation (HCC) - ECG 12 lead - metoprolol succinate (TOPROL-XL) 50 mg 24 hr tablet; Take 1 tablet by mouth 2 times d aily. - Event monitor - 4 week; Future Nonischemic cardiomyopathy (HCC) Sleep apnea, unspecified type 1) Atrial fibrillation - Mr. Beth wore a hall monitor in May 2019 and an atria [...] any palpitations since discharge from the hospital. He continues in sinus r hythm on examination today. He has noted some occasional episodes of shortness of breath wh ich may correlate with irregular heart rates recorded on his blood pressure machine at home. I have recommended a hall monitor to evaluate his current symptoms from a rhythm standp oint. If indeed symptomatic, paroxysmal atrial fibrillation is noted we can consider furthe r treatment options such as antiarrhythmic medication or pulmonary vein isolation. He will increase Toprol-XL to 50 mg twice a day. He continues on anticoagulation with Eliquis. A M UGA scan performed in June 2019 demonstrated an ejection fraction of 60%. Cardiac carol terization in 2012 did not demonstrate any obstructive coronary artery disease. He has a hi story of prior alcohol use. 2) Nonischemic cardiomyopathy - Cardiac imaging in the past has demonstrated fluctuating le ft ventricular ejection fractions. An echocardiogram in April 2019 suggested an ejection fraction of 35 to 40%. A MUGA scan in June 2019 noted an ejection fraction of 60%. He continues to follow with cardiology. Cardiac catheterization in 2012 did not demonstrate an y obstructive coronary artery disease. I again stressed the importance of complete alcohol cessation. 3) Sleep apnea - He has several risk factors for obstructive sleep apnea. He reports he is scheduled for a sleep evaluation in [place] in the near future. He is aware of the associat ion of obstructive sleep apnea with atrial dysrhythmias. This encounter was dictated with voice recognition software and may contain inadvertent rec ognition errors. documented in this encounter Plan of Treatment +--------+---------+ + + + | Date | Type | Specialty | Care Team | Description | +--------+---------+ + + + | 02/22/ | Office | Cardiology | May Pal | | 2019 | Visit | | [address] | | | | | | [address] | | | | | | [place] [address] | | | | | | [phone] | | | | | | | | +--------+---------+ + + + | 04/26/ | Office | Cardiology | Lorena Davis | | | 2019 | Visit | | [address] | | | | | | [address] | | | | | | [place] [address] | | | | | | [phone] | | | | | | | | +--------+---------+ + + + + +------+--------+ + + | Name | Type | Priori | Associated Diagnoses | Order Schedule | | | | ty | | | + +------+--------+ + + | Event monitor - 4 | ECG | Routin | Paroxysmal atrial | 1 Occurrences | | week | | e | fibrillation (HCC) | starting 01/11/2020 | | | | | | until 01/10/2021 | + +------+--------+ + + documented as of this encounter [...] in this encounter Results ECG 12 lead (01/11/2020 10:25 AM [...] INTERPRETAT | Please refer to | | [facility] | | | ION TEXT | Providers office visit | | | | | | note for Providers | | | | | | Interpretation. | | | | | | Confirmed by ROMI | | | | | | MAY HOGAN ([id number]) on | | | | | | [...]
--- OUTSIDE RECORDS SUMMARY | ~2020-02-05 | XMS | Encounter Summary ---
Demographics + + + | Address | [address] [facility] | | | [place] [address] | + + + | Home Phone [...] [place] | | | | | [address] | | + + + + + Care Team Providers + +------+ + | Care Field Handyman Name | Role | Phone | + +------+ + | Bess Alba | PCP | | + +------+ + Reason for Referral Evaluate & Treat (Routine) + + + + + + + | Status | Reason | Specialty | Diagnoses / | Referred By | Referred To | | | | | Procedures | Contact | Contact | + + + + + + + | Authorized | Specialty | Cardiology | Diagnoses | Audrey, | Romi, | | | Services | | Paroxysmal | DO Lida | Zach | | | Required | | atrial | [address] | MD Camilo | | | | | fibrillation | [address] | [address] | | | | | ([facility]) | MICHAEL [address] | [address] | | | | | Chronic | [place] | [place] | | | | | systolic | [address] | [address] Phone: | | | | | heart | Phone: | [phone] | | | | | failure | [phone] | Fax: | | | | | ([facility]) | Fax: | [phone] | | | | | | [phone] | | + + + + + + + Reason for Visit + + + | Reason | Comments | + + + | Follow-up | 3 month / MUGA / PFT | + + + Encounter Details +--------+---------+ + + + | Date | Type | Department | Care Team | Description | +--------+---------+ + + + | 08/04/ | Office | [facility] | Lida Ventura DO | Paroxysmal atrial | | 2020 | Visit | CARDIOLOGY [place] | [address] | fibrillation (HCC) | | | | [address] | [place] | (Primary Dx); | | | | [address] | [phone] | Chronic systolic | | | | [place], [place] | | heart failure (HCC); | | | | [address] | | Cardiomyopathy, | | | | [phone] | | unspecified type | | | | | | (HCC); Hypertension, | | | | | | unspecified type; | | | | | | Chronic congestive | | | | | | heart failure, | | | | | | unspecified heart | | | | | | failure type (HCC); | | | | | | Chronic obstructive | | | | | | pulmonary disease, | | | | | | unspecified COPD | | | | | | type (HCC); Smoker | +--------+---------+ + + + Social History [...] + + + | Blood Pressure | 110/66 | 08/04/2019 9:15 AM | | | | | PST | | + + + + + | Pulse | 74 | 08/04/2019 9:15 AM | | | | | PST | | + + + + + | Temperature | - | - | | + + + + + | Respiratory Rate | - | - | | + + + + + | Oxygen Saturation | 98% | 08/04/2019 9:15 AM | | | | | PST | | + + + + + | Inhaled Oxygen | - | - | | | Concentration | | | | + + + + + | Weight | 75.8 kg (167 lb) | 08/04/2019 9:15 AM | | | | | PST | | + + + + + | Height | 180.3 cm (5' 11") | 08/04/2019 9:15 AM | | | | | PST | | + + + + + | Body Mass Index | 23.29 | 08/04/2019 9:15 AM | | | | | PST | | + + + + + documented in this encounter Progress Notes Lida Ventura DO - 08/04/2019 9:[address] [facility] Cardiology Cardiology Follow Up Note Reason for [...] any epis odes of syncope or presyncope. Interim History The patient on 06/24/2019. At that time, we ordered a MUGA scan and pulmonary function edgar ts. The patient presents today for a follow-up visit. With his records, I received a [employer] p [employer] monitor which was done back in May. [...] obstructive airway disease with moderate diffustion defect. Since we last saw each other, he reports that he has been feeling fatigued. He also report s some dyspnea on exertion. He is walking in his mailbox and back, needs to stop to catch h is breath. He is also noticed that he has been sleeping more recently. He denies any lower extremity swelling PND, orthopnea. He has not been taking his diuretic. He denies any rec ent episodes of palpitations. He has been tolerating anticoagulation with Eliquis well with out any bleeding issues. Review of Systems PAST MEDICAL & SURGICAL HISTORY Past Medical History: Diagnosis Date Abnormal EKG Active advance directive Acute bronchitis Acute eczematoid otitis externa Acute sinusitis Alcoholism (HCC) Arthritis Arthritis Benign essential hypertension Broken bones Cardiomyopathy ([facility]) Cataract Cephalgia Chest pain CHF (congestive heart failure) ([facility]) CHF (congestive heart failure) ([facility]) CHF (congestive heart failure) ([facility]) 04/2019 Chicken pox DDD (degenerative [...] Home Medications Outpatient Encounter Medications as of 08/04/2019 Medication Sig Dispense Refill albuterol (PROVENTIL HFA) 90 mcg/puff inhaler Inhale 2 puffs every 6 (six) hours as nee ded for wheezing. apixaban (ELIQUIS) 5 mg tablet Take 5 mg by mouth 2 times daily. [DISCONTINUED] aspirin 81 mg EC tablet Take 81 mg by mouth Daily. atorvaSTATin (LIPITOR) 80 MG tablet TAKE ONE TABLET BY MOUTH EVERY DAY AT BEDTIME 90 ta blet 3 [DISCONTINUED] carvedilol (COREG) 25 mg tablet Take 1 tablet by mouth 2 times daily. furosemide (LASIX) 20 mg tablet Take 1 tablet by mouth Daily. 30 tablet 11 losartan (COZAAR) 25 mg tablet Take 1 tablet by mouth Daily. 30 tablet 11 [DISCONTINUED] losartan (COZAAR) 50 mg tablet Take 1.5 tablets by mouth Daily. (Patient not taking: Reported on 08/04/2019) 45 tablet 5 metoprolol succinate (TOPROL-XL) 50 mg 24 hr tablet Take 50 mg by mouth Daily. [DISCONTINUED] pseudoePHEDrine (SUDOGEST) 30 mg tablet Take 30 mg by mouth every 6 hour s as needed for Congestion. spironolactone (ALDACTONE) 25 mg tablet Take 1 tablet by mouth Daily. [DISCONTINUED] torsemide (DEMADEX) 20 mg tablet Take 1 tablet by mouth Daily. 30 tablet 11 No facility-administered encounter medications on file as of 08/04/2019. 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 He continues to smoke. - Continue Eliquis 5mg po bid - Continue metoprolol succinate 50mgpo daily - Continue losartan 25 mg by mouth daily. - Continue spironolactone 25 mg by mouth daily. - Continue lasix 20mg po dialy - Continue atorvastatin 80 mg by mouth daily. - Refer to EP - Tobacco cessation was encouraged - Follow up in 3 months Thank you for allowing me to participate in the care of this patient. Primary Care Physician: ALAYNA Abrams DO 08/12/2019 documented in this enco unter Plan of Treatment +--------+---------+ + + + | Date | Type | Specialty | Care Team | Description | +--------+---------+ + + + | 02/22/ | Office | Cardiology | Zach Pal | | 2019 | Visit | | MD [address] | | | | | | [address] | | | | | | [place] [address] | | | | | | [phone] | | | | | | | | +--------+---------+ + + + | 04/26/ | Office | Cardiology | Lorena Davis | | 2019 | Visit | | [address] | | | | | | [address] | | | | | | [place] [address] | | | | | | [phone] | | | | | | | | +--------+---------+ + + + + + +--------+ + + | Name | Type | Priori | Associated Diagnoses | Order Schedule | | | | ty | | | + + +--------+ + + | Ambulatory referral | Outpatient | Routin | Paroxysmal atrial | Ordered: 08/04/2019 | | to [facility] | Referral | e | fibrillation (HCC) | | | Electrophysiology | | | Chronic systolic | | | ROMI | | | heart failure (HCC) | | + + +--------+ + + documented as of this encounter Visit Diagnoses + + | Diagnosis | + + | Paroxysmal atrial fibrillation (HCC) - Primary Atrial fibrillation | + + | Chronic systolic heart failure (HCC) Chronic systolic heart failure | + + | Cardiomyopathy, unspecified type (HCC) | + + | Hypertension, unspecified type | + + | Chronic congestive heart failure, unspecified heart failure type (HCC) | + + | Chronic obstructive pulmonary disease, unspecified COPD type (HCC) | + + | Smoker Tobacco use disorder | + + documented in this encounter
--- OUTSIDE RECORDS SUMMARY | ~2020-02-05 | XMS | Encounter Summary ---
Demographics + + + | Address | [address] [facility] | | | [place] [address] | + + + | Home Phone [...] [place] | | | | | [address] | | + + + + + Care Team Providers + +------+ + | Care Fertilizer Supervisor Name | Role | Phone | + +------+ + PCP | Unavailable | + +------+ + Encounter Details +--------+ + + + + | Date | Type | Department | Care Team | Description | +--------+ + + + + | 11/26/ | Hospital | [facility] | Conversion | Chest pain | | 2013 | Encounter | CONVERSION [address] | Transaction, | | | | | [address] | Provider Unknown | | | | | [place], [place] | | | | | | [address] | (Fax) | | | | | [...] [address] | | | | | | [place] [address] | | | | | | [phone] | | | | | | | | +--------+---------+ + + + | 04/26/ | Office | Cardiology | Lorena Davis | | | 2019 | Visit | | [address] | | | | | | [address] | | | | | | [place] [address] | | | | | | [phone] | | | | | | | [...] Walker - 03/04/2019 6:15 PM PDT This is a non-reportable procedure | | without a radiologist report and isused for image storage only | + + documented in this encounter Visit Diagnoses + + | Diagnosis | + + | Chest pain Chest pain, unspecified | + + documented in this encounter"
--- OUTSIDE RECORDS SUMMARY | ~2020-02-05 | XMS | Encounter Summary ---
Demographics + + + | Address | [address] [facility] | | | [place] [address] | + + + | Home Phone [...] [place] | | | | | [address] | | + + + + + Care Team Providers + +------+ + | Care Package Reinspector Name | Role | Phone | + [...] | | | [address] | [place] [address] | | | | | [place] [address] | | | | | | [phone] | | | +--------+ + + + [...] [address] | | | | | | [place] [address] | | | | | | [phone] | | | | | | | | +--------+---------+ + + + | 04/26/ | Office | Cardiology | Lorena Davis | | | 2019 | Visit | | [address] | | | | | | [address] | | | | | | [place] [address] | | | | | | [phone] | | | | | | | | +--------+---------+ + + + documented as of this encounter Procedures + +--------+ + + + | Procedure Name | Priori | Date/Time | Associated Diagnosis | Comments | | | ty | | | | + +--------+ + + + | CT ANGIOGRAM HEAD | Routin | 05/11/2019 | | Results for this | | NECK | e | 12:00 AM | | procedure are in the | | | | PDT | | results section. | + +--------+ + + + documented in this encounter Results CT Angiogram Head Neck w Contrast (05/11/2019 12:00 AM PDT) + + | Specimen | [...]
--- OUTSIDE RECORDS SUMMARY | ~2020-02-05 | XMS | Encounter Summary ---
Demographics + + + | Address | [address] [facility] [address] | | | [place] [address] | + + + | Home Phone | | + + + | Preferred Language | Unknown | + + + | Marital Status | | + + + | Episcopalian Affiliation | 1077 | + + + | Race | Unknown | + + + | Ethnic Group | Unknown | + + + Author + + + | Author | [facility] | | | and [place] | + + + | Organization | [facility] | | | [...] [place] | | | | | [address] | | + + + + + Care Team Providers + +------+ + | Care Banking Teacher Name | Role | Phone | + +------+ + | Bess Alba | PCP | | + +------+ + Reason for Visit + +--------+ + | Reason | Onset | Comments | | | Date | | + +--------+ + | Appointment | 09/28/ | | | | 2019 | | + +--------+ + Encounter Details +--------+ + + + + | Date | Type | Department | Care Team | Description | +--------+ + + + + | 09/28/ | Telephone | [facility] | Ricco Álvarez, | Appointment | | 2019 | | NEUROLOGY [address] | [address] Station Manager | | | | | [address] | | | | | | [place] | | | | | | [address] | | | | | | [phone] | | | +--------+ + + + [...] this encounter Miscellaneous Notes Telephone Encounter - Ricco Álvarez, Railway Station Manager - 09/29/2019 11:09 AM PDTpt stated they was no urgent need for this appt wanted to leave it for someone who really needed it. w anted to reschedule 3mnths out. Rescheduled her to December. documented in this encounter Plan of Treatment +--------+---------+ + + + | Date | Type | Specialty | Care Team | Description | +--------+---------+ + + + | 02/22/ | Office | Cardiology | Zach Pal | | 2019 | Visit | | MD [address] | | | | | | [address] | | | | | | [place] [address] | | | | | | [phone] | | | | | | | | +--------+---------+ + + + | 04/26/ | Office | Cardiology | Lorena Davis | | | 2019 | Visit | | [address] | | | | | | [address] [place] | | | | | | [place] [address] | | | | | | [phone] | | | | | | | | +--------+---------+ + + + documented as of this encounter Visit Diagnoses Not on filedocumented in this encounter"
--- OUTSIDE RECORDS SUMMARY | ~2020-02-05 | XMS | Encounter Summary ---
Demographics + + + | Address | [address] [facility] | | | [place] [address] | + + + | Home Phone [...] [place] | | | | | [address] | | + + + + + Care Team Providers + +------+ + | Care Gluing Machine Adjuster Name | Role | Phone | + +------+ + | Bess Alba | PCP | | + +------+ + Encounter Details +--------+ + + + + | Date | Type | Department | Care Team | Description | +--------+ + + + + | 02/23/ | Orders Only | [facility] | Provider, | | | 2019 | | SYSTEM GENERIC OP | [address] | | | | | [address]VERSION [address] | [address] | | | | | [address] [place], [place] | [place] [address] | | | | | [address] | | | | | | [phone] | | | +--------+ + + + [...] [address] | | | | | | [place] [address] | | | | | | [phone] | | | | | | | | +--------+---------+ + + + | 04/26/ | Office | Cardiology | Lorena Davis | | | 2019 | Visit | | [address] | | | | | | [address] | | | | | | [place] [address] | | | | | | [phone] | | | | | | | | +--------+---------+ + + + documented as of this encounter Visit Diagnoses Not on filedocumented in this encounter"
--- OUTSIDE RECORDS SUMMARY | ~2020-02-05 | XMS | Encounter Summary ---
Demographics + + + | Address | [address] [facility] [address] | | | [place] [address] | + + + | Home Phone | | + + + | Preferred Language | Unknown | + + + | Marital Status | | + + + | Restorationism Affiliation | 1077 | + + + | Race | Unknown | + + + | Ethnic Group | Unknown | + + + Author + + + | Author | [facility] | | | and [place] | + + + | Organization | [facility] | | | [...] [place] | | | | | [address] | | + + + + + Care Team Providers + +------+ + | Care Rigger Apprentice Name | Role | Phone | + +------+ + | Bess Alba | PCP | | + +------+ + Encounter Details +--------+ + + + + | Date | Type | Department | Care Team | Description | +--------+ + + + + | 10/13/ | Imaging | [facility] | Provider, | | | 2019 | Exam | [facility] | [address] | | | | | IMAGING [address] | [address] | | | | | [address] | [place] [address] | | | | | [place] [address] | | | | | | [phone] | | | +--------+ + + + [...] [address] | | | | | | [place] [address] | | | | | | [phone] | | | | | | | | +--------+---------+ + + + | 04/26/ | Office | Cardiology | Lorena Davis | | | 2020 | Visit | | [address] | | | | | | [address] | | | | | | [place] [address] | | | | | | [phone] | | | | | | | | +--------+---------+ + + + documented as of this encounter Procedures + +--------+ + + + | Procedure Name | Priori | Date/Time | Associated Diagnosis | Comments | | | ty | | | | + +--------+ + + + | MRI LUMBAR SPINE WO | Routin | 01/03/2019 | | Results for this | | CONTRAST | e | 12:00 AM | | procedure are in the | | | | PDT | | results section. | + +--------+ + + + documented in this encounter Results MRI Lumbar Spine wo Contrast (01/03/2019 12:00 AM PDT) + + | Specimen [...]
[~2020-02-05 07:34] MED LIST changes: +COZAAR50 MG PO; +ELIQUIS5 MG PO; +METOPROLOL SUCC50 MG PO
[2020-02-05] MEDS ORDERED: CYCLOBENZAPRINE10 MG PO (07:47)
--- NOTE | 2020-02-06 16:32 | EKG ---
[facility] [address] [facility] [place] [address] Signed Atrial fibrillation with rapid ventricular response ST \T\ T wave abnormality, consider lateral ischemia Abnormal ECG When compared with ECG of 13-JUL-2019 19:49, Nonspecific T wave abnormality has replaced inverted T waves in Inferior leads Confirmed by GUILLERMINA COLON MD ([id number]) on 02/06/2020 4:31:52 PM Electronically Signed By: GUILLERMINA COLON MD 02/06/20 1632 PATIENT NAME: JESSA COLE Electrocardiogram DATE OF : 67 PHYSICIAN: GUILLERMINA COLON MD REPORT #: [id number] REPORT IS CONFIDENTIAL AND NOT TO BE RELEASED WITHOUT AUTHORIZATION
== END 2020-02-05 13:03 | disposition home or self-care (01) ==
LOC: ED 07:34
DX: I48.91 Unspecified atrial fibrillation (principal); I11.0 Hypertensive heart disease with heart failure; I50.9 Heart failure, unspecified; F17.200 Nicotine dependence, unspecified, uncomplicated; Z88.0 Allergy status to penicillin; Z88.8 Allergy status to other drugs, medicaments and biological substances; Z79.899 Other long term (current) drug therapy; Z79.01 Long term (current) use of anticoagulants
CPT/HCPCS: 71045; 80053; 82550; 82553; 83735; 83874; 83880; 84484; 85025; 93005; 93010; 96361; 96374; 99285-25; J7040

== ENCOUNTER 2020-08-21 12:29 | Emergency (ER) | payer MEDICARE ==
[~2020-08-21] VITALS: Ht 180.3 cm; Wt 81.6 kg
[~2020-08-21 12:29] MED LIST changes: +PROTONIX40 MG PO; +TOPROL XL50 MG PO
[2020-08-21] MEDS ORDERED: TOPROL XL50 MG PO (16:06)
--- NOTE | 2020-08-21 16:58 | EKG ---
[facility] [address] [facility] [place] [address] Signed Atrial fibrillation with rapid ventricular response ST \T\ T wave abnormality, consider inferolateral ischemia Abnormal ECG No previous ECGs available Confirmed by GUILLERMINA COLON MD ([id number]) on 08/21/2020 4:58:14 PM Electronically Signed By: GUILLERMINA COLON MD 08/21/20 1658 PATIENT NAME: JESSA COLE Electrocardiogram DATE OF : 67 PHYSICIAN: GUILLERMINA COLON MD REPORT #: [id number] REPORT IS CONFIDENTIAL AND NOT TO BE RELEASED WITHOUT AUTHORIZATION
== END 2020-08-21 16:16 | disposition home or self-care (01) ==
LOC: ED 12:29
DX: I48.91 Unspecified atrial fibrillation (principal); I11.0 Hypertensive heart disease with heart failure; I50.9 Heart failure, unspecified; Z87.891 Personal history of nicotine dependence; Z88.0 Allergy status to penicillin; Z88.8 Allergy status to other drugs, medicaments and biological substances; Z79.899 Other long term (current) drug therapy
CPT/HCPCS: 71045; 80053; 83880; 84484; 85025; 93005; 93010; 96374; 99285-25

== ENCOUNTER 2021-01-17 04:42 | Emergency (ER) | payer MEDICARE ==
[~2021-01-17] VITALS: Ht 180.3 cm; Wt 81.7 kg
[2021-01-17] MEDS ORDERED: PROTONIX40 MG PO (06:17)
--- NOTE | 2021-01-18 09:08 | EKG ---
[facility] [address] [facility] [place] [address] Signed Normal sinus rhythm Normal ECG When compared with ECG of 21-AUG-2020 12:35, Sinus rhythm has replaced Atrial fibrillation Vent. rate has decreased BY 65 BPM T wave inversion no longer evident in Inferior leads Confirmed by GUILLERMINA COLON MD ([id number]) on 01/18/2021 9:08:27 AM Electronically Signed By: GUILLERMINA COLON MD 01/18/21 0908 PATIENT NAME: JESSA COLE Electrocardiogram DATE OF : 67 PHYSICIAN: GUILLERMINA COLNO MD REPORT #: [id number] REPORT IS CONFIDENTIAL AND NOT TO BE RELEASED WITHOUT AUTHORIZATION
== END 2021-01-17 06:38 | disposition home or self-care (01) ==
LOC: ED 04:42
DX: R07.9 Chest pain, unspecified (principal); I11.0 Hypertensive heart disease with heart failure; I50.9 Heart failure, unspecified; Z87.891 Personal history of nicotine dependence; Z88.8 Allergy status to other drugs, medicaments and biological substances; Z79.899 Other long term (current) drug therapy
CPT/HCPCS: 71045; 80053; 80500; 83735; 84484; 85025; 85379; 93005; 93010; 96374; 96375; 99285-25; C9113; J1170; J2405; J7030

== ENCOUNTER 2021-05-17 06:49 | Emergency (ER) | payer MEDICARE, OTHER ==
[~2021-05-17] VITALS: Ht 180.3 cm; Wt 77.1 kg
[2021-05-17] MEDS ORDERED: COZAAR25 MG PO (07:23)
[2021-05-17] MEDS ORDERED: ELIQUIS5 MG PO (07:23)
[2021-05-17] MEDS ORDERED: TOPROL XL100 MG PO (07:24)
--- NOTE | 2021-05-17 09:51 | EKG ---
[facility] [address] [facility] [place], [place] [address] Signed Atrial fibrillation with rapid ventricular response ST \T\ T wave abnormality, consider anterior ischemia Abnormal ECG When compared with ECG of 17-JAN-2021 04:47, Atrial fibrillation has replaced Sinus rhythm Vent. rate has increased BY 46 BPM T wave inversion now evident in Anterior leads Confirmed by GUILLERMINA COLON MD ([id number]) on 05/17/2021 9:51:25 AM Electronically Signed By: GUILLERMINA COLON MD 05/17/21 0951 PATIENT NAME: JESSA COLE Electrocardiogram DATE OF : 67 PHYSICIAN: GUILLERMINA COLON MD REPORT #: [id number] REPORT IS CONFIDENTIAL AND NOT TO BE RELEASED WITHOUT AUTHORIZATION
== END 2021-05-17 11:47 | disposition home or self-care (01) ==
LOC: ED 06:49
DX: I48.91 Unspecified atrial fibrillation (principal); I50.9 Heart failure, unspecified; I11.0 Hypertensive heart disease with heart failure; Z87.891 Personal history of nicotine dependence; Z88.0 Allergy status to penicillin; Z88.8 Allergy status to other drugs, medicaments and biological substances; Z79.899 Other long term (current) drug therapy
CPT/HCPCS: 71045; 80053; 83735; 83880; 84484; 85025; 85379; 93005; 93010; 96374; 96375; 99285-25; J1940; J2270

== ENCOUNTER 2021-10-09 21:17 | Emergency (ER) | payer MEDICARE, OTHER ==
[~2021-10-09] VITALS: Ht 180.3 cm; Wt 81.7 kg
[~2021-10-09 21:17] MED LIST changes: +COZAAR25 MG PO; +TOPROL XL100 MG PO
--- NOTE | 2021-10-10 11:44 | EKG ---
[facility] [place] [facility] [address] [facility] [place] [address] Signed Atrial fibrillation with rapid ventricular response ST \T\ T wave abnormality, consider inferior ischemia Abnormal ECG When compared with ECG of 17-MAY-2021 06:54, Nonspecific T wave abnormality, worse in Inferior leads Confirmed by GUILLERMINA COLON MD ([id number]) on 10/10/2021 11:43:57 AM Electronically Signed By: GUILLERMINA COLON MD 10/10/21 1144 PATIENT NAME: JESSA COLE Electrocardiogram DATE OF : 67 PHYSICIAN: GUILLERMINA COLON MD REPORT #: [id number] REPORT IS CONFIDENTIAL AND NOT TO BE RELEASED WITHOUT AUTHORIZATION
== END 2021-10-09 23:34 | disposition home or self-care (01) ==
LOC: ED 21:17
DX: I48.91 Unspecified atrial fibrillation (principal); I11.0 Hypertensive heart disease with heart failure; I50.9 Heart failure, unspecified; Z87.891 Personal history of nicotine dependence; Z88.0 Allergy status to penicillin; Z88.8 Allergy status to other drugs, medicaments and biological substances; Z79.899 Other long term (current) drug therapy; Z79.01 Long term (current) use of anticoagulants
CPT/HCPCS: 36415; 71045; 80053; 83735; 84484; 85025; 85379; 93005; 93010; 96374; 99285-25; J1885

== ENCOUNTER 2022-10-18 13:17 | Emergency (ER) | payer MEDICARE, OTHER ==
[~2022-10-18] VITALS: Ht 180.3 cm; Wt 81.6 kg
[2022-10-18] MEDS ORDERED: CLEOCIN HCL300 MG PO (14:19)
== END 2022-10-18 14:26 | disposition home or self-care (01) ==
LOC: ED 13:17
DX: K11.20 Sialoadenitis, unspecified (principal); I11.0 Hypertensive heart disease with heart failure; I50.9 Heart failure, unspecified; Z87.891 Personal history of nicotine dependence; Z88.8 Allergy status to other drugs, medicaments and biological substances; Z79.899 Other long term (current) drug therapy
CPT/HCPCS: 99283

== ENCOUNTER 2023-03-20 09:32 | Emergency (ER) | payer MEDICARE, OTHER ==
[~2023-03-20] VITALS: Ht 180.3 cm; Wt 81.6 kg
--- OUTSIDE RECORDS SUMMARY | ~2023-03-20 | XMS | Continuity of Care Document ---
Demographics + + + | Address | [address] [facility] [address] | | | [place] [address] | + + + | Preferred Language | Unknown | + + + | Marital Status | | + + + | Anabaptist Affiliation | Unknown | + + + | Race | White | + + + | Ethnic Group | Not or | + + + Author + + + | Author | [facility] | + + + | Organization | [facility] | + + + | Address | [address] [facility] | | | [place] [address] | + + + | Phone | | + + + Care Team Providers + + + + | Care Hole Digger Name | Role | Phone | + + + + Unavailable | Unavailable | + + + + Unavailable | Unavailable | + + + + Allergies and Intolerances + + + + + + | date | description | facility | reaction | severity | + + + + + + | (no date) | Gabapentin | [facility] | (no reaction) | (no severity) | [facility] | | | + + + + + + | (no date) | Lisinopril | [facility] | (no reaction) | (no severity) | | [facility] | | | + + + + + + | (no date) | Gabapentin | [facility] | (no reaction) | (no severity) | | [facility] | | | + + + + + + | (no date) | Agitation | [facility] | (no reaction) | (no severity) | | [facility] | | | + + + + + + | (no date) | Lisinopril | [facility] | (no reaction) | (no severity) | | [facility] | | | + + + + + + | (no date) | Anaphylaxis | [facility] | (no reaction) | (no severity) | | [facility] | | | + + + + + + | (no date) | Gabapentin | [facility] | (no reaction) | (no severity) | | [facility] | | | + + + + + + | (no date) | Lisinopril | [facility] | (no reaction) | (no severity) | | [facility] | | | + + + + + + Encounters No information. Functional Status No information. Immunizations + + + + | date | description | facility | + + + + | 2019-05-11 00:00 | Influenza, Injectable, | [facility] | | | Quadrivalent, Preservative | | + + + + | 2022-10-18 00:00 | Influenza, Injectable, | [facility] | | | Quadrivalent, Preservative | | + + + + Medications + + + + | date | description | facility | + + + + | 2022-10-18 00:00 | PSEUDOEPHEDRINE HCL | [facility] | + + + + | 2017-09-30 00:00 | OXYCODONE HCL | [facility] | + + + + | 2017-09-30 00:00 | RIVAROXABAN | [facility] | + + + + | 2019-07-14 00:00 | APIXABAN | [facility] | + + + + | 2022-10-18 00:00 | APIXABAN | [facility] | + + + + | 2018-08-20 00:00 | BACLOFEN | [facility] | + + + + | 2022-10-18 00:00 | TORSEMIDE | [facility] | + + + + | 2022-10-18 00:00 | SPIRONOLACTONE | [facility] | + + + + | 2013-08-10 00:00 | CEPHALEXIN | [facility] | + + + + | 2017-09-30 00:00 | CARVEDILOL | [facility] | + + + + | 2022-10-18 00:00 | CARVEDILOL | [facility] | + + + + | 2019-05-12 00:00 | ATORVASTATIN | [facility] | + + + + | 2020-05-12 00:00 | PANTOPRAZOLE SODIUM | [facility] | + + + + | 2021-01-17 00:00 | PANTOPRAZOLE SODIUM | [facility] | + + + + | 2019-05-12 00:00 | ASPIRIN | [facility] | + + + + | 2017-09-30 00:00 | FUROSEMIDE | [facility] | + + + + | 2019-05-12 00:00 | FUROSEMIDE | [facility] | + + + + | 2022-10-18 00:00 | FUROSEMIDE | [facility] | + + + + | 2017-09-30 00:00 | SPIRONOLACTONE | [facility] | + + + + | 2019-07-14 00:00 | SPIRONOLACTONE | [facility] | + + + + | 2022-10-18 00:00 | SPIRONOLACTONE | [facility] | + + + + | 2022-10-18 00:00 | CLINDAMYCIN HCL | [facility] | + + + + | 2018-08-20 00:00 | METHYLPREDNISOLONE | [facility] | + + + + | 2022-10-18 00:00 | CYCLOBENZAPRINE HCL | [facility] | + + + + | 2018-08-20 00:00 | KETOROLAC TROMETHAMINE | [facility] | + + + + | 2022-10-18 00:00 | WARFARIN SODIUM | [facility] | + + + + | 2022-10-18 00:00 | HYDROCODONE | [facility] | | | BIT/ACETAMINOPHEN | | + + + + | 2017-09-30 00:00 | HYDROCODONE | [facility] | | | BIT/ACETAMINOPHEN | | + + + + | 2022-10-18 00:00 | HYDROCODONE | [facility] | | | BIT/ACETAMINOPHEN | | + + + + | 2022-10-18 00:00 | ALBUTEROL SULFATE | [facility] | + + + + | 2022-10-18 00:00 | TAMSULOSIN HCL | [facility] | + + + + | 2022-10-18 00:00 | METOPROLOL SUCCINATE | [facility] | + + + + | 2019-07-14 00:00 | METOPROLOL SUCCINATE | [facility] | + + + + | 2020-08-21 00:00 | METOPROLOL SUCCINATE | [facility] | + + + + | 2022-10-18 00:00 | METOPROLOL SUCCINATE | [facility] | + + + + | 2017-09-30 00:00 | POLYETHYLENE GLYCOL 3350 | [facility] | + + + + | 2022-10-18 00:00 | LOSARTAN POTASSIUM | [facility] | + + + + | 2022-10-18 00:00 | LOSARTAN POTASSIUM | [facility] | + + + + | 2022-10-18 00:00 | LOSARTAN POTASSIUM | [facility] | + + + + | 2017-09-30 00:00 | BUPROPION HCL | [facility] | + + + + | 2022-10-18 00:00 | BUPROPION HCL | [facility] | + + + + Problems + + + + | date | description | facility | + + + + | 2014-07-22 00:00 | Congestive heart failure | [facility] | + + + + | 2016-07-15 00:00 | Chest wall pain | [facility] | + + + + | 2017-11-15 00:00 | Pain of left hip | [facility] | + + + + | 2018-04-22 00:00 | Laceration of left thumb | [facility] | + + + + | 2018-08-20 00:00 | Hip pain | [facility] | + + + + | 2019-03-19 00:00 | Strain of right shoulder | [facility] | + + + + | 2019-05-10 00:00 | Acute on chronic | [facility] | | | congestive heart failure | | + + + + | 2019-07-03 00:00 | Hypertension | [facility] | + + + + | 2019-07-14 00:00 | Atrial fibrillation with | [facility] | | | rapid ventricular response | | + + + + | 2021-01-17 00:00 | Nonspecific chest pain | [facility] | + + + + | 2021-10-09 00:00 | Non-cardiac chest pain | [facility] | + + + + | 2022-10-18 00:00 | Sialoadenitis | [facility] | + + + + Procedures No information. Results/Labs No information. Social History No information. Vital Signs + + + +---------+ | date | measurement | value | units | + + + +---------+ | 2022-10-18 00:00 | BMI | 25.1 | kg/m2 | + + + +---------+ | 2022-10-18 00:00 | BP_diastolic | 80 | mmHg | + + + +---------+ | 2022-10-18 00:00 | BP_systolic | 125 | mmHg | + + + +---------+ | 2022-10-18 00:00 | heart_rate | 70 | /min | + + + +---------+ | 2022-10-18 00:00 | height_metric | 180.34 | cm | + + + +---------+ | 2022-10-18 00:00 | height_standard | 71 | in | + + + +---------+ | 2022-10-18 00:00 | o2_saturation | 97 | % | + + + +---------+ | 2022-10-18 00:00 | respiration_rate | 16 | /min | + + + +---------+ | 2022-10-18 00:00 | temperature_metric | 36.67 | C | | | | | | + + + +---------+ | 2022-10-18 00:00 | | 98 | F | | | temperature_standar | | | | | d | | | + + + +---------+ | 2022-10-18 00:00 | weight_metric | 81.6 | kg | + + + +---------+ | 2022-10-18 00:00 | weight_standard | 179.9 | lb | + + + +---------+"
--- OUTSIDE RECORDS SUMMARY | ~2023-03-20 | XMS | Continuity of Care Document ---
Demographics + + + | Address | [address] [address] | | | [place] [address] | + + + | Preferred Language | Unknown | + + + | Marital Status | | + + + | Congregation Affiliation | Unknown | + + + | Race | White | + + + | Ethnic Group | Not or | + + + Author + + + | Author | [facility] | + + + | Organization | [facility] | + + + | Address | [address] [facility] [address] [facility] | | | [place] [address] | + + + | Phone | | + + + Care Team Providers + + + + | Care Talent Manager Name | Role | Phone | [...] | 2019-05-11 00:00 | Influenza, Injectable, | [facility] | | | Quadrivalent, Preservative | | + + + + | 2022-10-18 00:00 | Influenza, Injectable, | [facility] | | | Quadrivalent, Preservative | | + + + + Medications + + + + | date | description | facility | + + + + | 2022-10-18 00:00 | PSEUDOEPHEDRINE HCL | [facility] | + + + + | 2017-09-30 00:00 | OXYCODONE HCL | [facility] | + + + + | 2017-09-30 00:00 | RIVAROXABAN | [facility] | + + + + | 2019-07-14 00:00 | APIXABAN | [facility] | + + + + | 2022-10-18 00:00 | APIXABAN | [facility] | + + + + | 2018-08-20 00:00 | BACLOFEN | [facility] | + + + + | 2022-10-18 00:00 | TORSEMIDE | [facility] | + + + + | 2022-10-18 00:00 | SPIRONOLACTONE | [facility] | + + + + | 2013-08-10 00:00 | CEPHALEXIN | [facility] | + + + + | 2017-09-30 00:00 | CARVEDILOL | [facility] | + + + + | 2022-10-18 00:00 | CARVEDILOL | [facility] | + + + + | 2019-05-12 00:00 | ATORVASTATIN | [facility] | + + + + | 2020-05-12 00:00 | PANTOPRAZOLE SODIUM | [facility] | + + + + | 2021-01-17 00:00 | PANTOPRAZOLE SODIUM | [facility] | + + + + | 2019-05-12 00:00 | ASPIRIN | [facility] | + + + + | 2017-09-30 00:00 | FUROSEMIDE | [facility] | + + + + | 2019-05-12 00:00 | FUROSEMIDE | [facility] | + + + + | 2022-10-18 00:00 | FUROSEMIDE | [facility] | + + + + | 2017-09-30 00:00 | SPIRONOLACTONE | [facility] | + + + + | 2019-07-14 00:00 | SPIRONOLACTONE | [facility] | + + + + | 2022-10-18 00:00 | SPIRONOLACTONE | [facility] | + + + + | 2022-10-18 00:00 | CLINDAMYCIN HCL | [facility] | + + + + | 2018-08-20 00:00 | METHYLPREDNISOLONE | [facility] | + + + + | 2022-10-18 00:00 | CYCLOBENZAPRINE HCL | [facility] | + + + + | 2018-08-20 00:00 | KETOROLAC TROMETHAMINE | [facility] | + + + + | 2022-10-18 00:00 | WARFARIN SODIUM | [facility] | + + + + | 2022-10-18 00:00 | HYDROCODONE | [facility] | | | BIT/ACETAMINOPHEN | | + + + + | 2017-09-30 00:00 | HYDROCODONE | [facility] | | | BIT/ACETAMINOPHEN | | + + + + | 2022-10-18 00:00 | HYDROCODONE | [facility] | | | BIT/ACETAMINOPHEN | | + + + + | 2022-10-18 00:00 | ALBUTEROL SULFATE | [facility] | + + + + | 2022-10-18 00:00 | TAMSULOSIN HCL | [facility] | + + + + | 2022-10-18 00:00 | METOPROLOL SUCCINATE | [facility] | + + + + | 2019-07-14 00:00 | METOPROLOL SUCCINATE | [facility] | + + + + | 2020-08-21 00:00 | METOPROLOL SUCCINATE | [facility] | + + + + | 2022-10-18 00:00 | METOPROLOL SUCCINATE | [facility] | + + + + | 2017-09-30 00:00 | POLYETHYLENE GLYCOL 3350 | [facility] | + + + + | 2022-10-18 00:00 | LOSARTAN POTASSIUM | [facility] | + + + + | 2022-10-18 00:00 | LOSARTAN POTASSIUM | [facility] | + + + + | 2022-10-18 00:00 | LOSARTAN POTASSIUM | [facility] | + + + + | 2017-09-30 00:00 | BUPROPION HCL | [facility] | + + + + | 2022-10-18 00:00 | BUPROPION HCL | [facility] | + + + + Problems + + + + | date | description | facility | + + + + | 2014-07-22 00:00 | Congestive heart failure | [facility] | + + + + | 2016-07-15 00:00 | Chest wall pain | [facility] | + + + + | 2017-11-15 00:00 | Pain of left hip | [facility] | + + + + | 2018-04-22 00:00 | Laceration of left thumb | [facility] | + + + + | 2018-08-20 00:00 | Hip pain | [facility] | + + + + | 2019-03-19 00:00 | Strain of right shoulder | [facility] | + + + + | 2019-05-10 00:00 | Acute on chronic | [facility] | | | congestive heart failure | | + + + + | 2019-07-03 00:00 | Hypertension | [facility] | + + + + | 2019-07-14 00:00 | Atrial fibrillation with | [facility] | | | rapid ventricular response | | + + + + | 2021-01-17 00:00 | Nonspecific chest pain | [facility] | + + + + | 2021-10-09 00:00 | Non-cardiac chest pain | [facility] | + + + + | 2022-10-18 00:00 | Sialoadenitis | [facility] | + + + + Procedures No [...]
[~2023-03-20 09:32] MED LIST changes: +CLEOCIN HCL300 MG PO
[2023-03-20] MEDS ORDERED: FLECAINIDE ACE100 MG PO (09:45)
[2023-03-20] MEDS ORDERED: POTASSIUM CHLO10 ME1 PO (09:45)
[2023-03-20 10:53] LABS: ALBUMIN 3.6 g/dL (3.4-5.0); ALBUMIN/GLOBULIN RATIO 1.06 (1.1-2.4); ANION GAP 13.1 (7-21); BILIRUBIN, TOTAL 0.3 ng/dL (0.2-1.0); POTASSIUM 4.1 mmol/L (3.5-5.1)
[2023-03-20 10:58] LABS: INFLUENZA B NAA NEGATIVE (NEGATIVE); RESPIRATORY SYNCYTIAL VIR NAA NEGATIVE (NEGATIVE)
[2023-03-20 11:00] LABS: BASOPHILS 0.2 % (0-2); EOSINOPHILS 0.4 % (0-6); HEMATOCRIT 40.1 % (35.0-50.0); HEMOGLOBIN 13.2 g/dL (12.0-18.0); LYMPHOCYTES 12.3 % (24-44); MCH 31.8 (27-36); MCV 96.4 fl (81-99); MONOCYTES 6.8 % (0-12); NEUTROPHILS 80.3 % (39-80); PLATELET COUNT 238 K/uL (140-440); RBC 4.15 M/ul (4.3-5.7); RDW 13.3 (10.5-15.0)
[2023-03-20 11:04] LABS: BUN/CREATININE RATIO 12.84 (6.0-28.6); CREATININE, SERUM 1.09 mg/dL (0.70-1.30)
[2023-03-20] MEDS ORDERED: CEFDINIR300 MG PO (14:06)
[2023-03-20] MEDS ORDERED: METRONIDAZOLE500 MG PO (14:06)
[2023-03-20] MEDS ORDERED: HYDROCODON-ACE1 EA10 PO (14:07)
[2023-03-20] MEDS ORDERED: REGLAN10 MG PO (14:07)
[2023-03-20 14:35] VITALS: BP 136/91
--- NOTE | 2023-03-21 17:09 | EKG ---
[facility] [address] [facility] [place] [address] Signed Normal sinus rhythm Nonspecific ST and T wave abnormality Abnormal ECG When compared with ECG of 09-OCT-2021 21:18, Sinus rhythm has replaced Atrial fibrillation Vent. rate has decreased BY [address] elevation now present in Inferior leads Nonspecific T wave abnormality no longer evident in Inferior leads Confirmed by LINDEN CORNEJO MD ([id number]) on 03/21/2023 5:09:00 PM Electronically Signed By: LINDEN CORNEJO 03/21/23 1709 PATIENT NAME: JESSA COLE Electrocardiogram DATE OF : 67 PHYSICIAN: LINDEN CORNEJO REPORT #: [id number] REPORT IS CONFIDENTIAL AND NOT TO BE RELEASED WITHOUT AUTHORIZATION
== END 2023-03-20 14:40 | disposition home or self-care (01) ==
LOC: ED 09:32
PROVIDERS: Emergency Medicine
DX: K82.1 Hydrops of gallbladder (principal); I11.0 Hypertensive heart disease with heart failure; I50.9 Heart failure, unspecified; I48.91 Unspecified atrial fibrillation; Z79.01 Long term (current) use of anticoagulants; Z79.899 Other long term (current) drug therapy; Z87.891 Personal history of nicotine dependence; Z88.0 Allergy status to penicillin; Z88.8 Allergy status to other drugs, medicaments and biological substances; Z20.822 Contact with and (suspected) exposure to COVID-19
CPT/HCPCS: 36415; 71045; 76705; 80053; 83690; 84484; 85025; 87502; 93005; 93010; 96374; 96375; 96376; 99284-25; C9803; J1170; J1956; J2405; U0002

== ENCOUNTER 2023-03-27 08:34 | Day surgery (SDC) | payer MEDICARE, MEDICAID ==
[~2023-03-27] VITALS: Ht 177.8 cm; Wt 73.2 kg
[~2023-03-27 08:34] MED LIST changes: +CEFDINIR300 MG PO; +FLECAINIDE ACE100 MG PO; +METRONIDAZOLE500 MG PO; +POTASSIUM CHLO10 ME1 PO; +REGLAN10 MG PO
[2023-03-27 08:54] VITALS: BP 116/82
[2023-03-27 09:43] LABS: INR 1.11 (0.80-1.30); PROTIME 13.9 Sec (11.2-14.2)
[2023-03-27 12:13] VITALS: BP 122/72
[2023-03-27 13:02] VITALS: BP 137/89
[2023-03-27 14:25] VITALS: BP 127/85
[2023-03-27 15:23] VITALS: BP 139/82
--- NOTE | 2023-03-27 21:31 | EKG ---
[facility] [address] [facility] [place] [address] Signed Normal sinus rhythm Normal ECG When compared with ECG of 20-MAR-2023 09:32, Nonspecific T wave abnormality no longer evident in Lateral leads Confirmed by Kee Lester MD () on 03/27/2023 9:31:43 PM Electronically Signed By: KEE LESTER MD 03/27/232130 PATIENT NAME: JESSA COLE Electrocardiogram DATE OF : 67 PHYSICIAN: KEE LESTER MD REPORT #: [id number] REPORT IS CONFIDENTIAL AND NOT TO BE RELEASED WITHOUT AUTHORIZATION
--- NOTE | 2023-03-28 09:17 | OR ---
[facility] [address] [place], [place] [address] Signed DATE OF OPERATION: 03/27/2023 SURGEON: Alejandro Ernst MD PREOPERATIVE DIAGNOSES: Acute on chronic cholecystitis with cholelithiasis (sludge). POSTOPERATIVE DIAGNOSES: 1. Acute on chronic cholecystitis with cholelithiasis (sludge). 2. Cholesterolosis. PROCEDURE: Laparoscopic cholecystectomy with intraoperative cholangiogram. ESTIMATED BLOOD LOSS: None. FINDINGS: Erwin has a rather large gallbladder respective to his body size. Consequently, it looks hydropic when he has been n.p.o. and has an ultrasound performed. The intraoperative cholangiogram was unremarkable. He did have cholesterolosis. INDICATIONS: Erwin is a 57-year-old gentleman, who had at least 3 episodes of significant right upper quadrant abdominal pain radiating through to his back. He said the 3rd episode was quite severe. He ended up in the emergency room. Lab work was unrevealing. Ultrasound showed what possibly could be a hydropic gallbladder with some mobile sludge. He had to undergo his cardiac ablation about four months ago and has been on Eliquis. He has been doing great. 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 He said his heart gives him no trouble whatsoever. He elected to go home from the ER on antibiotics. He stopped the Eliquis. I saw him yesterday in the office. He was with his mom. I gave them a brochure on the gallbladder. We reviewed the location and function of the gallbladder. We discussed laparoscopic versus open cholecystectomy. They understand the expected intraop and postop course. There is risk of surgery including, but not limited to bleeding, infection, scarring, change in contour of the skin, damage to bowel, damage to main bile duct, incisional hernias and other unforeseen comorbidities. He had expressed understanding and wished to proceed. DESCRIPTION OF PROCEDURE: Electronically Signed By: ALEJANDRO ERNST MD 03/28/23 0917 PATIENT NAME: ERWIN COLE OPERATIVE REPORT DATE OF : 67 REPORT #: [id number] PHYSICIAN: ALEJANDRO ERNST MD PCP: LISA MEHTA PAC REPORT IS CONFIDENTIAL AND NOT TO BE RELEASED WITHOUT AUTHORIZATION [facility] [address] [place], [place] [address] Signed I met with Erwin banks thing this morning. After that, he was taken in the operating room and placed in the supine position under general endotracheal tube anesthesia. He was given preoperative antibiotics along with subcutaneous heparin. SCDs were utilized. He was then prepped and draped in the usual sterile fashion. All trocars were placed in their usual positions under direct visualization of the camera without difficulty. We had taken pictures throughout for photodocumentation. We could see that he has a very large gallbladder relative to his body size. The triangle of Calot was dissected free bluntly and we placed a clip across the cystic artery and it was divided. We then introduced the cholangiocatheter into the cystic duct. The intraoperative cholangiogram was unremarkable. The contrast flowed nicely into the duodenum. There were no filling defects. The cystic duct stump was secured with a PDS Endoloop and two clips were placed across the cystic duct stump to jass its location. After this, the gallbladder was removed from the gallbladder fossa with the help of the cautery and placed into an EndoCatch bag. We used our laparoscopic suturing device to pass 0-Vicryl suture on either side of the fascia of the subxiphoid trocar site. This was tied down to close this fascia primarily. After this, all the gas was allowed to escape and all the trocars were removed along with the gallbladder. The gallbladder was passed to our circulating nurse for photodocumentation. We closed the fascia of the supraumbilical trocar site with interrupted [id number] and simple 0-Vicryl sutures. Local anesthetic was injected in all trocar sites. Each trocar site was irrigated and suctioned out until clear. The skin and dermis of each trocar site were closed with interrupted 3-0 subcuticular and Monocryl sutures. Dry gauze and tape was then applied all incisions. Erwin was awakened from his anesthesia, extubated in the OR, and taken to recovery room in stable condition. Alejandro Ernst MD ALB/MODL /[id number] cc: SANFORD Benito MD Copies: LISA MEHTA PAC Electronically Signed By: ALEJANDRO ERNST MD 03/28/23 0917 PATIENT NAME: ERWIN COLE OPERATIVE REPORT DATE OF : 67 REPORT #: [id number] PHYSICIAN: ALEJANDRO ERNST MD PCP: LISA MEHTA PAC REPORT IS CONFIDENTIAL AND NOT TO BE RELEASED WITHOUT AUTHORIZATION [facility] [address] [place], [place] [address] Signed ALEJANDRO ERNST MD ~ Electronically Signed By: ALEJANDRO ERNST MD 03/28/23 0917 PATIENT NAME: ERWIN COLE OPERATIVE REPORT DATE OF : 67 REPORT #: [id number] PHYSICIAN: ALEJANDRO ERNST MD PCP: LISA METHA REPORT IS CONFIDENTIAL AND NOT TO BE RELEASED WITHOUT AUTHORIZATION
--- NOTE | 2023-04-01 11:24 | PATH ---
[facility] [place] [facility] [address] [place], [place] [address] Signed SPECIMEN(S): A GALLBLADDER SPECIMEN SOURCE: A. GALLBLADDER CLINICAL HISTORY: Chronic cholecystitis FINAL PATHOLOGIC DIAGNOSIS: Gallbladder, cholecystectomy: - Benign gallbladder with focal slight mucosal chronic inflammation. - Negative for calculi. JVR:[facility] MICROSCOPIC EXAMINATION: Histologic sections of all submitted blocks are examined by light microscopy. These findings, together with the gross examination, support the pathologic diagnosis. GROSS DESCRIPTION: The specimen, labeled and designated "Antonio Beth" and designated on the requisition "gallbladder," is received in formalin and consists of Specimen: Previously opened gallbladder. Dimensions: 7.7 x 4.7 x 2.5 cm. Serosa: Cantu-pink smooth. Cystic Duct: Unobstructed, margin inked black and shaved. Calculi: Not grossly identified. Mucosa: Brown-cantu velvety. Wall thickness: 0.9 cm. Lymph node: No pericystic lymph nodes are grossly identified. Additional: None. Manager E Learning sections are submitted in (A1). AC (under the direct supervision of a pathologist) The Gross Description was prepared using a voice recognition system. The report was reviewed for accuracy; however, sound-alike word errors, addition and/or deletions may occur. If there is any question about this report, please contact Client Services. PERFORMING LABORATORY: Technical component was performed by [employer], [address] [place] [id number] (CLIA# [id number]). Professional interpretation was PATIENT NAME: JESSA BETH PATHOLOGY DATE OF : 67 REPORT #: [id number] PHYSICIAN: CINDY PATHOLOGY PCP: LISA MEHTA PAC REPORT IS CONFIDENTIAL AND NOT TO BE RELEASED WITHOUT AUTHORIZATION [facility] [place] [facility] [address] [place], [place] [address] Signed performed by [facility] [address] [address] (CLIA#: [id number]). Diagnostician: Jerome Soto MD Pathologist Electronically Signed 04/01/2023 Copies: ~ PATIENT NAME: JESSA BETH PATHOLOGY DATE OF : 67 REPORT #: [id number] PHYSICIAN: CINDY PATHOLOGY PCP: LISA MEHTA PAC REPORT IS CONFIDENTIAL AND NOT TO BE RELEASED WITHOUT AUTHORIZATION
== END 2023-03-27 15:25 | disposition home or self-care (01) ==
LOC: DS 08:34
PROVIDERS: ATTEND Colon & Rectal Surgery
PROC: 0FT44ZZ Resection of Gallbladder, Percutaneous Endoscopic Approach (ICD-10-PCS; principal; 2023-03-27 09:00)
DX: K80.12 Calculus of gallbladder with acute and chronic cholecystitis without obstruction (principal); I48.91 Unspecified atrial fibrillation; I11.0 Hypertensive heart disease with heart failure; I50.9 Heart failure, unspecified; E78.5 Hyperlipidemia, unspecified; M51.36 Other intervertebral disc degeneration, lumbar region; Z88.0 Allergy status to penicillin
CPT/HCPCS: 00790; 36415; 74300; 85610; 88304; 93005; 93010; J0330; J0690; J1100; J1160; J1644; J1720; J1885; J2250; J2405; J2704; J2765; J3010; J7121; Q9967

== ENCOUNTER 2023-05-05 03:18 | Emergency (ER) | payer MEDICARE, OTHER ==
[~2023-05-05] VITALS: Ht 177.8 cm; Wt 70.6 kg
--- OUTSIDE RECORDS SUMMARY | 2023-05-05 03:21 | XMS ---
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 Hillary VISIT COUNT (12 MO.) 3 [facility] TOTAL 3 NOTE: Visits indicate total known visits. ED/UCC VISIT TRACKING (12 MO.) 05/05/2023 03:18 [facility] [place] TYPE: Emergency COMPLAINT: - WOUND CHECK 03/20/2023 09:33 [facility] [place] TYPE: Emergency COMPLAINT: - CHEST PAIN DIAGNOSES: - Allergy status to other drugs, medicaments and biological substances - Allergy status to penicillin - Contact with and (suspected) exposure to COVID-19 - Heart failure, unspecified - Hydrops of gallbladder - Hypertensive heart disease with heart failure - shelter (current) use of anticoagulants - Other detention (current) drug therapy - Personal history of nicotine dependence - Unspecified atrial fibrillation - Upper abdominal pain, unspecified 10/18/2022 13:[address] [facility] [place] TYPE: Emergency COMPLAINT: - SWELLING/BODY PART DIAGNOSES: - Allergy status to other drugs, medicaments and biological substances - Cervicalgia - Heart failure, unspecified - Hypertensive heart disease with heart failure - Other detention (current) drug therapy - Personal history of nicotine dependence - Sialoadenitis, unspecified INPATIENT VISIT TRACKING (12 MO.) No inpatient visits to display in this time frame [email or web address]
[2023-05-05] MEDS ORDERED: DOXYCYCLINE HY100 MG PO (03:46)
[2023-05-05 03:56] VITALS: BP 129/79
== END 2023-05-05 03:56 | disposition home or self-care (01) ==
LOC: ED 03:18
DX: L03.011 Cellulitis of right finger (principal); L03.113 Cellulitis of right upper limb; L02.511 Cutaneous abscess of right hand; I11.0 Hypertensive heart disease with heart failure; I50.9 Heart failure, unspecified; I48.91 Unspecified atrial fibrillation; Z87.891 Personal history of nicotine dependence; Z88.0 Allergy status to penicillin; Z88.8 Allergy status to other drugs, medicaments and biological substances; Z79.899 Other long term (current) drug therapy; Z79.01 Long term (current) use of anticoagulants

== ENCOUNTER 2024-11-08 20:32 | Emergency (ER) | payer MEDICARE, OTHER ==
[~2024-11-08] VITALS: Ht 177.8 cm; Wt 80.0 kg
[~2024-11-08 20:32] MED LIST changes: +DOXYCYCLINE HY100 MG PO
[2024-11-08 21:10] LABS: BASOPHILS 0.9 % (0-2); EOSINOPHILS 1.2 % (0-6); HEMATOCRIT 34.2 % (35.0-50.0); HEMOGLOBIN 11.4 g/dL (12.0-18.0); LYMPHOCYTES 19.3 % (24-44); MCH 28.5 (27-36); MCHC 33.4 g/dl (30-36); MCV 85.2 fl (81-99); MONOCYTES 8.4 % (0-12); NEUTROPHILS 70.2 % (39-80); PLATELET COUNT 247 K/uL (140-440); RBC 4.01 M/ul (4.3-5.7)
[2024-11-08] MEDS ORDERED: MORPHINE SULFATE 4 MG/ML VIAL IV ONE (21:15)
[2024-11-08 21:21] LABS: ALBUMIN 3.9 g/dL (3.4-5.0); ALBUMIN/GLOBULIN RATIO 1.18 (1.1-2.4); ALCOHOL, MEDICAL <3 ng/dL (<3); ALKALINE PHOSPHATASE 60 U/L (46-116); ALT (SGPT) 34 U/L (14-59); ANION GAP 10.7 (7-21); AST (SGOT) 37 U/L (15-37); BILIRUBIN, TOTAL 0.5 mg/dL (0.2-1.0); BUN/CREATININE RATIO 18.46 (6.0-28.6); CALCIUM 8.9 mg/dL (8.5-10.1); CARBON DIOXIDE 29 mmol/L (21-32); CHLORIDE 101 mmol/L (98-107); GLOMERULAR FILTRATION RATE,EST 64 mL/min (>60); POTASSIUM 3.7 mmol/L (3.5-5.1); PROTEIN, TOTAL 7.2 g/dL (6.4-8.2); UREA NITROGEN 24 mg/dL (7-18)
[2024-11-08] MEDS ORDERED: HYDROmorphone HCL 1 MG/ML SYR IV PRN (22:15)
[2024-11-08] MEDS ORDERED: dilTIAZem HCL 25 MG/5 ML VIAL IV ONE (23:45)
[2024-11-09 00:47] VITALS: BP 106/75
--- NOTE | 2024-11-10 08:13 | EKG ---
[facility] [address] [facility] [place] [address] Signed Atrial flutter with 2:[address] and T wave abnormality Abnormal ECG When compared with ECG of 27-MAR-2023 08:53, Atrial flutter has replaced Sinus rhythm Vent. rate has increased BY 61 BPM QRS duration has decreased ST elevation now present in Inferior leads Nonspecific T wave abnormality now evident in Lateral leads Confirmed by Beryl Dent DO ([id number]) on 11/10/2024 8:13:45 AM Electronically Signed By: BERYL DENT DO 11/10/24812 PATIENT NAME: JESSA COLE Electrocardiogram DATE OF : 67 PHYSICIAN: BERYL DENT DO REPORT #: [id number] REPORT IS CONFIDENTIAL AND NOT TO BE RELEASED WITHOUT AUTHORIZATION
--- NOTE | 2024-11-10 08:14 | EKG ---
[facility] [address] [facility] [place], [place] [address] Signed Atrial flutter with 4:[address] abnormality Abnormal ECG When compared with ECG of 08-NOV-2024 23:33, (Unconfirmed) Vent. rate has decreased BY [address] no longer elevated in Inferior leads Confirmed by Beryl Dent DO ([id number]) on 11/10/2024 8:13:54 AM Electronically Signed By: BERYL DENT DO 11/10/24 0814 PATIENT NAME: JESSA COLE Electrocardiogram DATE OF : 67 PHYSICIAN: BERYL DENT DO REPORT #: [id number] REPORT IS CONFIDENTIAL AND NOT TO BE RELEASED WITHOUT AUTHORIZATION
== END 2024-11-09 00:47 | disposition home or self-care (01) ==
LOC: ED 20:32
PROVIDERS: Internal Medicine
DX: S39.012A Strain of muscle, fascia and tendon of lower back, initial encounter (principal); I48.3 Typical atrial flutter; M79.661 Pain in right lower leg; M25.551 Pain in right hip; Z79.01 Long term (current) use of anticoagulants; W11.XXXA Fall on and from ladder, initial encounter; I11.0 Hypertensive heart disease with heart failure; I50.9 Heart failure, unspecified; Z87.891 Personal history of nicotine dependence; Z88.1 Allergy status to other antibiotic agents; Z88.8 Allergy status to other drugs, medicaments and biological substances
CPT/HCPCS: 36415; 70450; 72125; 72131; 73502; 73590; 80053; 80307; 83880; 85025; 93005; 93010; 96374; 96375; 99284-25; G0480; J1171; J2270